=== PATIENT | female | born 1955 | race Two or more races ===

== ENCOUNTER 2018-04-22 17:59 | Inpatient (IN) | payer OTHER ==
[2018-04-22 20:06] VITALS: BMI 23.0
--- NOTE | 2018-04-22 21:29 | HP ---
CIWA Score - CIWA Score Nausea/Vomitin Muscle Tremors: 4-Moderate,w/Arms Extend Anxiety: 4-Mod. Anxious/Guarded Agitation: 2 Paroxysmal Sweats: No Perspiration Orientation: 2-Disoriented Date<2 days Tacttile Disturbances: 0-None Auditory Disturbances: 0-None Visual Disturbances: 0-None Headache: 2-Mild CIWA-Ar Total Score: 17 Admission ROS S - HPI Chief Complaint: Alcohol withdrawal symptoms Allergies/Adverse Reactions: Allergies Allergy/AdvReac Type Severity Reaction Status Date / Time No Known Allergies Allergy Verified 04/22/18 20:23 History of Present Illness: 62 years old female with a long history of alcohol dependence is seeking admission to detox. Patient states that she was in detox 15 years ago at [facility] and reports 12 months of sobriety. She has medical history of Hypertension, hyperlipidemia, CVA and depression. She denies suicide attempt and suicidal ideation at this time. Exam Limitations: No Limitations - Ebola screening Have you traveled outside of the country in the last 21 days: No (N) Have you had contact with anyone from an Ebola affected area: No Have you been sick,other than usual withdrawal symptoms: No Do you have a fever: No - Review of Systems Constitutional: Chills, Malaise, Night Sweats, Changes in sleep EENT: reports: Hearing Loss (both ears), Nose Congestion Respiratory: reports: No Symptoms reported Cardiac: reports: No Symptoms Reported GI: reports: Nausea, Poor Appetite, Poor Fluid Intake, Abdominal cramping : reports: No Symptoms Reported Musculoskeletal: reports: No Symptoms Reported Integumentary: reports: Dryness, Flushing Neuro: reports: Headache, Tremors Endocrine: reports: No Symptoms Reported Hematology: reports: No Symptoms Reported Psychiatric: reports: Mood/Affect Appropiate, Orientated x3, Anxious, Depressed Other Systems: Reviewed and Negative Patient History - Patient Medical History Hx Asthma: No Hx Chronic Obstructive Pulmonary Disease (COPD): No Hx Cancer: No Hx Cardiac Disorders: Yes (STROKE-2015) Hx Congestive Heart Failure: No Hx Hypertension: Yes (NIFEDIPINE) Hx Hypercholesterolemia: Yes HX Cerebrovascular Accident: Yes Hx Seizures: No Hx Diabetes: No Hx Gastrointestinal Disorders: No Hx Genitourinary Disorders: No Hx Sexually Transmitted Disorders: No Hx Renal Disease (ESRD): No Hx Depression: Yes (Not on medication) Hx Suicide Attempt: No (Denies suicide attempt and suicidal ideation at this time) Hx Schizophrenia: No - Patient Surgical History Past Surgical History: Yes Hx Neurologic Surgery: No Hx Cataract Extraction: No Hx Cardiac Surgery: Yes Hx Lung Surgery: No Hx Breast Surgery: No Hx Breast Biopsy: No Hx Abdominal Surgery: No Hx Appendectomy: No Hx Cholecystectomy: No Hx Genitourinary Surgery: No Hx Section: No Hx Orthopedic Surgery: No Anesthesia Reaction: No - PPD History Previous Implant?: Yes Documented Results: Negative w/proof Implanted On Prior [facility] Admission?: No PPD to be Administered?: Yes - Reproductive History Patient is a Female of Child Bearing Age (11 -55 yrs old): Yes LMP comment: Menopausal Patient : No - Smoking Cessation Smoking history: Current every day smoker Have you smoked in the past 12 months: Yes Aproximately how many cigarettes per day: 4 Hx Chewing Tobacco Use: No Initiated information on smoking cessation: Yes 'Breaking Loose' booklet given: 04/22/18 - Substance & Tx. History Hx Alcohol Use: Yes Hx Substance Use: Yes Substance Use Type: Cocaine Hx Substance Use Treatment: Yes ([facility] 15 years ago) - Substances Abused Alcohol Route: Oral Frequency: Daily Amount used: liqour- 1 pint, beer- 1 six pack Age of first use: 13 Date of Last Use: 04/22/18 Family Disease History - Family Disease History Family History: Denies Admission Physical Exam [facility] - Vital Signs Vital Signs: Vital Signs - 24 hr 04/22/18 20:05 Temperature 98.4 F Pulse Rate 68 Respiratory 20 Rate Blood Pressure 154/92 - Physical General Appearance: Yes: Moderate Distress, Tremorous, Irritable, Sweating, Anxious HEENTM: Yes: EOMI, Normal ENT Inspection, Normocephalic, MATEUS Respiratory: Yes: Lungs Clear, Normal Breath Sounds, No Respiratory Distress Neck: Yes: Supple Breast: Yes: Breast Exam Deferred Cardiology: Yes: Surgical Scar (chest from heart surgery) Abdominal: Yes: Soft Genitourinary: Yes: Within Normal Limits Back: Yes: Normal Inspection Musculoskeletal: Yes: full range of Motion Neurological: Yes: Alert, Normal Mood/Affect Integumentary: Yes: Warm Lymphatic: Yes: Within Normal Limits - Diagnostic (1) Alcohol dependence with uncomplicated withdrawal Current Visit: Yes Status: Chronic (2) HTN (hypertension) Current Visit: Yes Status: Chronic Qualifiers: Hypertension type: unspecified Qualified Code(s): I10 - Essential (primary ) hypertension (3) HLD (hyperlipidemia) Current Visit: Yes Status: Chronic (4) CVA (cerebral vascular accident) Current Visit: Yes Status: Chronic Qualifiers: Laterality of affected vessel: unspecified (5) Depression Current Visit: Yes Status: Chronic Cleared for Admission S - Detox or Rehab [facility] Level of Care: Medically Managed Detox Regimen/Protocol: Librium S Breath Alcohol Content Breath Alcohol Content: 0.047 Urine Pregancy Test - Result Urine Test Results: Negative- NO Line Present Urine Drug Screen - Results Drug Screen Negative: No Urine Drug Screen Results: RACHELLE-Cocaine
[2018-04-22] MEDS ORDERED: ACETAMINOPHEN 325 MG TABLET (FP) PO PRN (21:46)
[2018-04-22] MEDS ORDERED: MENTHOL/PHENOL 1 EACH UD MM PRN (21:46)
[2018-04-22] MEDS ORDERED: LOPERAMIDE HCL 2 MG CAPSULE PO PRN (21:46)
[2018-04-22] MEDS ORDERED: P-EPHED 60MG/TRIPROLIDI 2.5MG TABLET PO PRN (21:46)
[2018-04-22] MEDS ORDERED: MAGNESIUM HYDROX 2400MG/30ML ORAL SUSPENSION 30 ML CUP PO PRN (21:46)
[2018-04-22] MEDS ORDERED: chlordiazePOXIDE HCL 25 MG CAPSULE PO PRN (21:46)
[2018-04-22] MEDS ORDERED: guaiFENesin/D-METHORPHAN HB 10 ML UNIT-DOSE CUPS PO PRN (21:46)
[2018-04-22] MEDS ORDERED: IBUPROFEN 400 MG TABLET (FP) PO PRN (21:46)
[2018-04-22] MEDS ORDERED: NICOTINE POLACRILEX 2 MG GUM BC PRN (21:46)
[2018-04-22] MEDS ORDERED: MAG HYDROX/AL HYDROX/SIMETH 30 ML UNIT-DOSE CUP PO PRN (21:46)
[2018-04-22] MEDS ORDERED: MAGNESIUM CITRATE 300 ML BOTTLE PO PRN (21:46)
[2018-04-22] MEDS ORDERED: THIAMINE HCL 100 MG TABLET (FP) PO SCH (22:00)
[2018-04-22] MEDS ORDERED: MELATONIN 5 MG TABLETS PO PRN (22:00)
[2018-04-22] MEDS: chlordiazePOXIDE HCL 25 MG CAPSULE PO SCH (23:40)
[2018-04-23] MEDS: chlordiazePOXIDE HCL 25 MG CAPSULE PO SCH ×2 (06:20→10:50)
--- NOTE | 2018-04-23 09:09 | CONSULT ---
[facility] Psychiatric Consult - Data Date of interview: 04/23/18 Admission source: [facility] Identifying data: This is a 62 years old female, single, living alone on [place], with no psychiatric hospitalization history, with a long history of alcohol and nicotine dependence is reporting Alcohol withdrawal symptoms and seeking admission to detox. Patient states that she was in detox 15 years ago at [facility] and reports 12 months of sobriety. She has medical history of Hypertension, hyperlipidemia, CVA and depression. She denies suicide attempt and suicidal ideation at this time. Substance Abuse History: - Smoking Cessation. Smoking history: Current every day smoker. Have you smoked in the past 12 months: Yes. Aproximately how many cigarettes per day: 4. Hx Chewing Tobacco Use: No. Initiated information on smoking cessation: Yes. 'Breaking Loose' booklet given: 04/22/18. - Substance & Tx. History. Hx Alcohol Use: Yes. Hx Substance Use: Yes. Substance Use Type : Cocaine. Hx Substance Use Treatment: Yes ([facility] 15 years ago). - Substances Abused. Alcohol. Route: Oral. Frequency: Daily. Amount used: liqour- 1 pint, beer- 1 six pack. Age of first use: 13. Date of Last Use: 04/22/18 Medical History: She has medical history of Hypertension, hyperlipidemia, CVA. She denies suicidal attempts and suicidal ideation history. Psychiatric History: Patient reports history of depression, no suicidal, homicidal history, no psychiatric medications taking prior to admission. Physical/Sexual Abuse/Trauma History: Denies Additional Comment: Observation. Detox Unit Care Protocol Mental Status Exam - Mental Status Exam Alert and Oriented to: Person Cognitive Function: Fair Patient Appearance: Unkempt Mood: Sad Affect: Flat Patient Behavior: Cooperative Speech Pattern: Appropriate Voice Loudness: Mildly Soft/Quiet Thought Process: Goal Oriented Thought Disorder: Being Controlled Hallucinations: Denies Suicidal Ideation: Denies Homicidal Ideation: Denies Insight/Judgement: Fair Sleep: Difficulty falling asleep Appetite: Fair Muscle strength/Tone: Mild Hypotonicity Gait/Station: Shuffling Additional Comments: Observation. Detox Unit Care Protocol Psychiatric Findings - Problem List (Orient 1, 2,3) (1) Alcohol-induced mood disorder Current Visit: Yes Status: Acute (2) Alcohol dependence with uncomplicated withdrawal Current Visit: Yes Status: Chronic (3) CVA (cerebral vascular accident) Current Visit: Yes Status: Chronic Qualifiers: Laterality of affected vessel: unspecified (4) HLD (hyperlipidemia) Current Visit: Yes Status: Chronic (5) HTN (hypertension) Current Visit: Yes Status: Chronic Qualifiers: Hypertension type: unspecified Qualified Code(s): I10 - Essential (primary ) hypertension - Initial Treatment Plan Initial Treatment Plan: Observation. Detox Unit Care Protocol
[2018-04-23] MEDS ORDERED: PRENATAL VITAMINS W/ FOLIC ACID TABLET (FP) PO SCH (10:00)
[2018-04-23] MEDS ORDERED: NIFEdipine E.R. 30 MG TABLET (FP) PO SCH (10:00)
[2018-04-23] MEDS ORDERED: NICOTINE 14 MG/24 HOURS TOPICAL PATCH TD SCH (10:00)
--- NOTE | 2018-04-23 10:02 | EKG ---
Test Reason : Blood Pressure : / mmHG Vent. Rate : 066 BPM Atrial Rate : 066 BPM P-R Int : 118 ms QRS Dur : 082 ms QT Int : 396 ms P-R-T Axes : 070 054 218 degrees QTc Int : 415 ms NORMAL SINUS RHYTHM POSSIBLE LEFT ATRIAL ENLARGEMENT LEFT VENTRICULAR HYPERTROPHY WITH REPOLARIZATION ABNORMALITY ABNORMAL ECG WHEN COMPARED WITH ECG OF 03-APR-2018 17:34, T WAVE VARIATION Confirmed by ALEXANDER MANLEY, TAMIKA ([id number]) on 04/23/2018 10:01:54 AM Referred By: Confirmed By:TAMIKA MUNOZ MD
[2018-04-23 10:35] LABS: HEMATOCRIT 40.1 % (32.4-45.2); HEMOGLOBIN 13.1 GM/dL (10.7-15.3); MCH 28.8 pg (25.7-33.7); MCHC 32.7 g/dl (32.0-36.0); MEAN CELL VOLUME 87.9 fl (80-96); MEAN PLT VOLUME 9.7 fl (7.5-11.1); PLATELET COUNT 252 K/MM3 (134-434); RBC 4.56 M/mm3 (3.60-5.2); RDW 14.2 % (11.6-15.6); WHITE BLOOD COUNT 5.7 K/mm3 (4.0-10.0)
[2018-04-23 11:08] LABS: CHLORIDE 105 mmol/L (98-107); POTASSIUM 3.9 mmol/L (3.5-5.1); SODIUM 143 mmol/L (136-145)
[2018-04-23 11:51] LABS: BLOOD UREA NITROGEN 30 mg/dL (7-18); CREATININE 1.3 mg/dL (0.55-1.3); GLUCOSE,RANDOM 80 mg/dL (74-106)
[2018-04-23 11:52] LABS: ALBUMIN 3.8 g/dl (3.4-5.0); ALK PHOS 86 U/L (45-117); ANION GAP 12 MMOL/L (8-16); BILIRUBIN,TOTAL 0.3 mg/dL (0.2-1.0); CO2 26 mmol/L (21-32); SGOT/AST 18 U/L (15-37); SGPT/ALT 16 U/L (13-61); TOT PROT 7.5 g/dl (6.4-8.2)
[2018-04-23 13:04] VITALS: BP 145/87; PULSE 79; TEMP 98.1
--- NOTE | 2018-04-23 16:28 | DS ---
[facility] Detox Discharge Summary Admission Date: 04/22/18 Discharge Date: 04/23/18 - History Present History: Alcohol Dependence Additional Comments: 62 years old female admitted on 04/22/18 for alcohol withdrawal sx insists to leave the detox unit today no apparent reason alert oriented x 3 no acute distress denies suicida denies homocidal no self destructive behavior health teaching on alcohol related renal complication Pertinent Past History: strong recommend the patient to attend community self help groups and meeting - Physical Exam Results Vital Signs: Vital Signs Temperature 98.1 F 04/23/18 13:03 Pulse Rate 79 04/23/18 13:03 Respiratory Rate 18 04/23/18 13:03 Blood Pressure 145/87 04/23/18 13:03 O2 Sat by Pulse Oximetry (%) Pertinent Admission Physical Exam Findings: alcohol wtihdrawal sx Vital Signs Temperature 98.1 F 04/23/18 13:03 Pulse Rate 79 04/23/18 13:03 Respiratory Rate 18 04/23/18 13:03 Blood Pressure 145/87 04/23/18 13:03 O2 Sat by Pulse Oximetry (%) Laboratory Last Values WBC 5.7 K/mm3 (4.0-10.0) 04/23/18 08:00 RBC 4.56 M/mm3 (3.60-5.2) 04/23/18 08:00 Hgb 13.1 GM/dL (10.7-15.3) 04/23/18 08:00 Hct 40.1 % (32.4-45.2) 04/23/18 08:00 MCV 87.9 fl (80-96) 04/23/18 08:00 MCH 28.8 pg (25.7-33.7) 04/23/18 08:00 MCHC 32.7 g/dl (32.0-36.0) 04/23/18 08:00 RDW 14.2 % (11.6-15.6) 04/23/18 08:00 Plt Count 252 K/MM3 (134-434) 04/23/18 08:00 MPV 9.7 fl (7.5-11.1) 04/23/18 08:00 Sodium 143 mmol/L (136-145) 04/23/18 08:00 Potassium 3.9 mmol/L (3.5-5.1) 04/23/18 08:00 Chloride 105 mmol/L (98-107) 04/23/18 08:00 Carbon Dioxide 26 mmol/L (21-32) 04/23/18 08:00 Anion Gap 12 MMOL/L (8-16) 04/23/18 08:00 BUN 30 mg/dL (7-18) H 04/23/18 08:00 Creatinine 1.3 mg/dL (0.55-1.3) 04/23/18 08:00 Creat Clearance w eGFR 41.64 (>60) 04/23/18 08:00 Random Glucose 80 mg/dL (74-106) 04/23/18 08:00 Calcium 9.0 mg/dL (8.5-10.1) 04/23/18 08:00 Total Bilirubin 0.3 mg/dL (0.2-1.0) 04/23/18 08:00 AST 18 U/L (15-37) 04/23/18 08:00 ALT 16 U/L (13-61) 04/23/18 08:00 Alkaline Phosphatase 86 U/L (45-117) 04/23/18 08:00 Total Protein 7.5 g/dl (6.4-8.2) 04/23/18 08:00 Albumin 3.8 g/dl (3.4-5.0) 04/23/18 08:00 RPR Titer Nonreactive (NONREACTIVE) 04/23/18 08:00 lab noted - Treatment Hospital Course: Detox Protocol Followed, Responded well Patient has Accepted a Rehab Referral to: as per conselor arrange - Medication Discharge Medications: Ambulatory Orders Nifedipine [Nifedipine ER] 60 mg PO DAILY 04/22/18 - Diagnosis (1) Alcohol dependence with uncomplicated withdrawal Status: Acute (2) HLD (hyperlipidemia) Status: Chronic Qualifiers: Hyperlipidemia type: pure hypercholesterolemia Qualified Code(s): E78.00 - Pure hypercholesterolemia, unspecified; E78.0 - Pure hypercholesterolemia (3) HTN (hypertension) Status: Chronic Qualifiers: Hypertension type: essential hypertension Qualified Code(s): I10 - Essential (primary) hypertension - AMA Did Patient Leave Against Medical Advice: Yes
[2018-04-23] MEDS ORDERED: chlordiazePOXIDE HCL 25 MG CAPSULE PO SCH (23:00)
[2018-04-24] MEDS ORDERED: chlordiazePOXIDE 5 MG CAPSULE PO SCH (23:00)
[2018-04-25] MEDS ORDERED: chlordiazePOXIDE HCL 10 MG CAPSULE PO SCH (23:00)
== END 2018-04-23 13:15 | disposition left against medical advice (07) | DRG 770 ==
LOC: YASAS 17:59 → Y6N 21:01
PROC: HZ2ZZZZ Detoxification Services for Substance Abuse Treatment (ICD-10-PCS; principal; 2018-04-22)
DX: F10.230 Alcohol dependence with withdrawal, uncomplicated (principal); F10.24 Alcohol dependence with alcohol-induced mood disorder; F32.9 Major depressive disorder, single episode, unspecified; I10 Essential (primary) hypertension; E78.00 Pure hypercholesterolemia, unspecified; Z86.73 Personal history of transient ischemic attack (TIA), and cerebral infarction without residual deficits
CPT/HCPCS: 36415; 80053; 85027; 86593; 93005; 93010

== ENCOUNTER 2018-06-04 15:50 | Observation (INO) | payer OTHER ==
[2018-06-04 16:13] VITALS: BMI 29.2
--- NOTE | 2018-06-04 16:43 | PDOC ---
Attending Attestation - HPI HPI: 06/04/18 16:50 62 year old female with past medical history of CAD s/p CABG, CVA, TX, early onset mild dementia, cocaine abuse who presents to the ED with complaints of left sided, 10/10 throbbing, non-radiating chest pain that began this afternoon. Reports associated cough and mild SOB. As per sister, patient was fine until she at three consecutive hotdogs for lunch when the pain began. Denies any fevers, chills, NVD, or urinary complaints. - Medical Decision Making 06/04/18 16:50 Documentation prepared by Johana Joseph, acting as medical radiation tech for Isela Lao MD. <Johana Joseph - Last Filed: 06/04/18 16:50> - Resident Resident Name: Martita Thompson - ED Attending Attestation I have performed the following: I have examined & evaluated the patient, The case was reviewed & discussed with the resident, I agree w/resident's findings & plan, Exceptions are as noted - Physicial Exam PE: 06/04/18 22:56 awake alert NaD lungs clear bilaterally heart rrr no mrg abd soft nt nd. ext wwp no edema. nuero alert oreinted x 3. skin warm and dry. - Medical Decision Making 06/04/18 16:41 62 yo h/o ich, dementia, cabg, cad here with c/o chest pain. diffferential: infection such as pna, msk pain, cad effusion, reflux, or gi causes. plan cxr labs ekg troponin, will give asa. robbie will need admission to observation to r /o acs. 06/04/18 22:57 pt utox positive for cocaine. she stated she hasnt used in last few weeks. will admit tele obs, to negative thus far. except positive utox. <Isela Lao - Last Filed: 06/04/18 22:58>
[2018-06-04] MEDS ORDERED: ASPIRIN 81 MG CHEWABLE TABLETS PO ONE (16:47)
--- NOTE | 2018-06-04 17:01 | PDOC ---
History of Present Illness - General Chief Complaint: Chest Pain Stated Complaint: CHEST PAIN Time Seen by Provider: 06/04/18 16:11 - History of Present Illness Initial Comments: Ashlyn Peterson is a 62yo woman with a PMH of CAD s/p CABG, CVA, HTN, current smoking, crack cocaine use. Her sister also reports a recent "small head bleed" and mild dementia. Ms Peterson reports chest pain for two days along with cough , though she is a poor historian. She reports that her cough and pain started 2 days ago, and she was well prior to that. She describes the pain as mid-sternal and left-sided chest pain, "throbbing" in nature, non-radiating, and constant though worse with coughing. Her cough has been non-productive. She denies any associated nausea/vomiting, diaphoresis, or SOB. She has not checked her temperature at home but has not felt febrile or had chills. Ms Peterson was unable to give any additional information, but her sister called to provide more of her medical history. In addition to reporting the recent head bleed and dementia, she gives additional information about the recent illness. The sister reports that she lives with the patient. Up until today, she has had a cough and sneezing but has not complained of chest pain. She started mentioning the chest pain immediately after eating 3 hot dogs at home. She has otherwise had no recent complaints. Past History - Past Medical History Allergies/Adverse Reactions: Allergies Allergy/AdvReac Type Severity Reaction Status Date / Time No Known Allergies Allergy Verified 04/22/18 20:23 Home Medications: Ambulatory Orders Nifedipine [Nifedipine ER] 60 mg PO DAILY 04/22/18 Asthma: No Cancer: No Cardiac Disorders: Yes (STROKE-2015) CVA: Yes COPD: No CHF: No Diabetes: No GI Disorders: No Disorders: No HTN: Yes (NIFEDIPINE) Hypercholesterolemia: Yes Kidney Stones: No Seizures: No - Surgical History Abdominal Surgery: No Appendectomy: No Cardiac Surgery: Yes Cholecystectomy: No Lung Surgery: No Neurologic Surgery: No Orthopedic Surgery: No - Suicide/Smoking/Psychosocial Hx Smoking History: Current every day smoker Have you smoked in the past 12 months: Yes Number of Cigarettes Smoked Daily: 20 Information on smoking cessation initiated: No 'Breaking Loose' booklet given: 04/22/18 Hx Alcohol Use: Yes Drug/Substance Use Hx: Yes (crack) Substance Use Type: Alcohol, Cocaine Hx Substance Use Treatment: Yes ([facility] 15 years ago) Review of Systems - Review of Systems Comments:: General: No fevers, no chills, no weight or appetite change, no malaise HEENT: No changes in vision, no changes in hearing, no congestion, no sore throat CV: No palpitations, no LE edema. See HPI Pulm: No SOB, no wheezing. +Cough GI: No nausea or vomiting, no change in bowel habits, no melena : No frequency, no urgency, no dysuria Musc: No back pain, no joint swelling, no recent injury Skin: No rash, no lesions, no erythema Endo: No excessive thirst, no heat/cold intolerance Heme: No unusual bruising or bleeding, no swollen glands Neuro: No syncope, no numbness/tingling, no focal weakness Vasc: No claudication Psych: No recent change in mood, no SI or HI. +h/o drug use *Physical Exam - Vital Signs Last Vital Signs Temp Pulse Resp BP Pulse Ox 97.5 F L 60 16 148/92 100 06/04/18 16:02 06/04/18 16:02 06/04/18 16:02 06/04/18 16:02 06/04/18 16:02 - Physical Exam Comments: General: Comfortable, no acute distress, malodorous HEENT: PERRL, EOMI, MMM, voice normal Cards: RRR, no murmur appreciated Pulm: Comfortable on room air, clear to auscultation bilaterally though poor respiratory effort Chest: Sternum and left anterior chest wall TTP Abd: Soft, nontender, nondistended Ext: Atraumatic. No LE edema. ROM intact. Strength 5/5 and equal bilaterally Vasc: Extremities WWP. Skin: Normal color, no rashes or lesions Neuro: Alert, CN grossly intact, normal speech, motor/sensory grossly intact and symmetric Psych: Mood appropriate to situation Heart Score/ECG Review - History History: Slightly suspicious - Electrocardiogram EKG: Non specific repolarization disturbance - Age Age: 45-65 - Risk Factors Risk Factors Heart Score: Yes Hx Hypertension, Yes Smoking History, Yes Positive family hx of cardiac disease Based on the list above the patient has:: >/=3 risk factors or Hx atherosclerotic disease - Troponin Troponin: </= normal limit - Score Heart Score - Total: 4 - ECG Intrepretation Rhythm: Regular Rhythm ED Treatment Course - LABORATORY CBC & Chemistry Diagram: 06/04/18 17:39 06/04/18 18:33 - RADIOLOGY Radiology Studies Ordered: Category Date Time Status CHEST PA & LAT [RAD] Stat Radiology 06/04/18 16:31 Ordered Medical Decision Making - Medical Decision Making 06/04/18 17:09 Ashlyn Peterson is a 62yo woman with a PMH of CAD s/p CABG, HTN, CVA, cocaine use, current smoking, mild dementia, possible recent intracranial hemorrhage who presents complaining of reproducible mid-sternal and left chest pain along with cough for 2 days. - High risk of ACS given comorbidities, though story is not very suggestive of ACS currently. EKG, trop to rule out - More likely pneumonia v costochondritis or GERD causing pain - CXR, CBC, CMP to check for infection, electrolyte abnormalities, focal consolidation - UA and urine tox given history of cocaine use 06/04/18 17:36 - EKG reviewed. Sinus, slightly bradycardic, t-wave abnormalities. Appears unchanged from previous EKG on 04/24. No acute changes. 06/04/18 19:29 - CBC and CMP without concerning abnormalities. Cr elevated but at baseline. - UA negative for UTI - Urine tox positive for cocaine - CXR without focal abnormalities. Sternal wires c/w previous CABG in place - Will likely need telemetry obs admission for ACS rule out 06/04/18 20:12 - Discussed negative workup with patient. She would like to stay for observation - Continued reproducible sternal pain. GERD cocktail ordered, will reassess - Text sent to hospitalist team for admission. Seen and discussed with Dr Lao. Martita Thompson PGY1 *DC/Admit/Observation/Transfer Diagnosis at time of Disposition: Chest pain - Discharge Dispostion Condition at time of disposition: Stable Decision to Admit order: Yes - Referrals - Patient Instructions - Post Discharge Activity
[2018-06-04] MEDS ORDERED: ASPIRIN 81 MG CHEWABLE TABLETS ONE (17:41)
[2018-06-04 17:54] LABS: BASO % 0.7 % (0-2.0); EOS % 0.8 % (0-4.5); HEMATOCRIT 41.2 % (32.4-45.2); HEMOGLOBIN 13.4 GM/dL (10.7-15.3); LYMPH % 15.9 % (8-40); MCH 29.2 pg (25.7-33.7); MCHC 32.5 g/dl (32.0-36.0); MEAN CELL VOLUME 89.7 fl (80-96); MEAN PLT VOLUME 8.8 fl (7.5-11.1); MONO % 5.4 % (3.8-10.2); NEUT % 77.2 % (42.8-82.8); PLATELET COUNT 310 K/MM3 (134-434); RBC 4.59 M/mm3 (3.60-5.2); RDW 14.8 % (11.6-15.6); WHITE BLOOD COUNT 6.8 K/mm3 (4.0-10.0)
[2018-06-04 18:17] LABS: URINE APPEARANCE CLEAR; URINE BILIRUBIN NEGATIVE (<2.0 mg/dL); URINE COLOR YELLOW; URINE GLUCOSE (UA) NEGATIVE (NEGATIVE); URINE KETONE NEGATIVE (NEGATIVE); URINE LEUK ESTERASE TRACE (NEGATIVE); URINE NITRITE NEGATIVE (NEGATIVE); URINE PROTEIN 1+ (NEGATIVE)
[2018-06-04 18:21] LABS: EPI CELLS FEW /HPF (FEW); URINE MUCUS RARE
[2018-06-04 18:46] LABS: METHADONE, UR NEGATIVE ng/ml (CUTOFF=300); OPIATES, URI NEGATIVE ng/ml (CUTOFF=300); PHENCYCLIDINE,URINE NEGATIVE ng/ml (CUTOFF=25); URINE AMPHETAMINES NEGATIVE ng/ml (CUTOFF=500); URINE BARBITURATES NEGATIVE ng/ml (CUTOFF=200); URINE BENZODIAZEPINES NEGATIVE ng/ml (CUTOFF=200)
[2018-06-04 18:47] LABS: COCAINE, UR POSITIVE ng/ml (CUTOFF=300)
[2018-06-04 19:12] LABS: ALBUMIN 3.6 g/dl (3.4-5.0); ALK PHOS 91 U/L (45-117); ANION GAP 8 MMOL/L (8-16); BILIRUBIN,TOTAL 0.3 mg/dL (0.2-1); BLOOD UREA NITROGEN 24 mg/dL (7-18); CALCIUM 8.3 mg/dL (8.5-10.1); CHLORIDE 110 mmol/L (98-107); CO2 26 mmol/L (21-32); CREATININE 1.5 mg/dL (0.55-1.3); GLUCOSE,RANDOM 109 mg/dL (74-106); POTASSIUM 4.1 mmol/L (3.5-5.1); SGOT/AST 19 U/L (15-37); SGPT/ALT 15 U/L (13-61); SODIUM 144 mmol/L (136-145); TOT PROT 7.1 g/dl (6.4-8.2)
--- NOTE | 2018-06-04 23:47 | HP ---
CHIEF COMPLAINT: chest pain PCP: HISTORY OF PRESENT ILLNESS: Patient is a 62 year old female with history of CAD s/p CABG, hemorrhagic CVA, presents with complaint of chest pain for the past two days. States that she has been xoughing (nonproductive) for two days, and the chest pain is exacerbated with cough. Pain is described as sharp and throbbing, localized to left upper chest, and is nonradiaiting. Denies sick contacts. She has not received flu vaccine. Patient is unsure of her cardiac history stating that she "does not remember anything". Denies fevers, chills, shortness of breath, palpitations, abdominal pain, nausea, vomiting, diarrhea, loss of conciousness. ER course was notable for: (1) EKG: sinus bradycardia at 57bpm. Troponin 0.02 (2) Chest pain, reproducible upon palpation. (3) History crack cocaine use, positive in [place]. Recent Travel: denies PAST MEDICAL HISTORY: CAD s/p CABG, hemorrhagic CVA, PAST SURGICAL HISTORY: CABG approx. 2 years ago Social History: Smoking: admits one pack per day, for 20 years Alcohol: admits socially one cup "once in a while". Does not quantify. Drugs: Admits smoking crack cocaine for past 30 years. Admits attempts to quit, and prior visits to rehab, which were unsuccessful. Last used 2-3 days ago. Family History: Mother: Unknown pelvic cancer, at 46 y/o Allergies No Known Allergies Allergy (Verified 04/22/18 20:23) HOME MEDICATIONS: Home Medications Medication Instructions Recorded Nifedipine [Nifedipine ER] 60 mg PO DAILY 04/22/18 REVIEW OF SYSTEMS As per HPI PHYSICAL EXAMINATION Vital Signs - 24 hr 06/04/18 06/04/18 06/04/18 15:50 16:02 20:00 Temperature 97.5 F L Pulse Rate 60 Pulse Rate [ 62 Left Radial] Respiratory 16 18 Rate Blood Pressure 148/92 Blood Pressure 142/76 [Right Arm] O2 Sat by Pulse 97 100 98 Oximetry (%) GENERAL: Awake, alert, and fully oriented, in no acute distress. HEAD: Normal with no signs of trauma. EYES: Pupils equal, round and reactive to light, extraocular movements intact, sclera anicteric, conjunctiva clear. No lid lag. EARS, NOSE, THROAT: Ears normal, nares patent, oropharynx clear without exudates. Moist mucous membranes. NECK: Normal range of motion, supple without lymphadenopathy, JVD, or masses. LUNGS: Breath sounds equal, clear to auscultation bilaterally. No wheezes, and no crackles. No accessory muscle use. HEART: Regular rate and rhythm, normal S1 and S2 without murmur, rub or gallop. CHEST: Chest pain reproducible upon palpation of left upper chest. ABDOMEN: Soft, nontender, not distended, normoactive bowel sounds, no guarding, no rebound, no masses. No hepatomegaly or splenomegaly. MUSCULOSKELETAL: Normal range of motion at all joints. No bony deformities or tenderness. UPPER EXTREMITIES: 2+ radial pulses b/l. warm, well-perfused. LOWER EXTREMITIES: 2+ dorsalis pedis pulses b/l, warm, well-perfused. No calf tenderness. No peripheral edema b/l. NEUROLOGICAL: Cranial nerves II-XII intact. Normal speech. Strength 5/5 b/l upper and lower extremities. No gross focal deficits. PSYCHIATRIC: Cooperative. Appropriate mood and affect upon my encounter. SKIN: Warm, dry. Laboratory Results - last 24 hr 06/04/18 06/04/18 06/04/18 16:55 16:55 17:39 WBC 6.8 RBC 4.59 Hgb 13.4 Hct 41.2 MCV 89.7 MCH 29.2 MCHC 32.5 RDW 14.8 Plt Count 310 D MPV 8.8 Absolute Neuts (auto) 5.2 Neutrophils % 77.2 Lymphocytes % 15.9 D Monocytes % 5.4 Eosinophils % 0.8 Basophils % 0.7 Nucleated RBC % 0 Sodium Potassium Chloride Carbon Dioxide Anion Gap BUN Creatinine Creat Clearance w eGFR Random Glucose Calcium Total Bilirubin AST ALT Alkaline Phosphatase Troponin I Total Protein Albumin Urine Color Yellow Urine Appearance Clear Urine pH 5.0 Ur Specific Mcdougal 1.024 Urine Protein 1+ H Urine Glucose (UA) Negative Urine Ketones Negative Urine Blood Negative Urine Nitrite Negative Urine Bilirubin Negative Urine Urobilinogen 2.0 H Ur Leukocyte Esterase Trace Urine WBC (Auto) 1 Urine RBC (Auto) 3 Ur Epithelial Cells Few Urine Mucus Rare Opiates Screen Negative Methadone Screen Negative Barbiturate Screen Negative Phencyclidine Screen Negative Ur Amphetamines Screen Negative MDMA (Ecstasy) Screen Negative Benzodiazepines Screen Negative Cocaine Screen Positive A* U Marijuana (THC) Screen Negative 10/29/18 10/29/18 17:39 18:33 WBC RBC Hgb Hct MCV MCH MCHC RDW Plt Count MPV Absolute Neuts (auto) Neutrophils % Lymphocytes % Monocytes % Eosinophils % Basophils % Nucleated RBC % Sodium Cancelled 144 Potassium Cancelled 4.1 Chloride Cancelled 110 H Carbon Dioxide Cancelled 26 Anion Gap Cancelled 8 BUN Cancelled 24 H Creatinine Cancelled 1.5 H Creat Clearance w eGFR Cancelled 35.30 Random Glucose Cancelled 109 H Calcium Cancelled 8.3 L Total Bilirubin Cancelled 0.3 AST Cancelled 19 ALT Cancelled 15 Alkaline Phosphatase Cancelled 91 Troponin I Cancelled < 0.02 Total Protein Cancelled 7.1 Albumin Cancelled 3.6 Urine Color Urine Appearance Urine pH Ur Specific Mcdougal Urine Protein Urine Glucose (UA) Urine Ketones Urine Blood Urine Nitrite Urine Bilirubin Urine Urobilinogen Ur Leukocyte Esterase Urine WBC (Auto) Urine RBC (Auto) Ur Epithelial Cells Urine Mucus Opiates Screen Methadone Screen Barbiturate Screen Phencyclidine Screen Ur Amphetamines Screen MDMA (Ecstasy) Screen Benzodiazepines Screen Cocaine Screen U Marijuana (THC) Screen ASSESSMENT/PLAN: Patient is a 62 year old female with history of CAD s/p CABG, hemorrhagic CVA, presents with complaint of chest pain for the past two days. Chest pain, atypical -EKG shows sinus bradycardia at 57 bpm. -Troponin 0.02. Will trend. -Pain reproducible upon palpation of left upper chest. -F/U cardiac ECHO -F/U cardiology consult (Dr. Coates) -Will attempt to obtain cardiac records from prior hospitalizations Cocaine use -Positive for Cocaine on urine toxicology -Patient endorses last use 2-3 days ago -F/U legal service specialist consult (Dr. aBrrera) -Fall precautions Cough, possible COPD -Patient complains of 2 day history cough, exacerbating chest pain -Flattened diaphragm noted upon CXR. Extensive history of cigarette smoking -Begin Duo-nebs Q6H Hypertension -Patient states she takes Nifedipine 10mg daily at home, however questionable compliance -Begin Amlodipine 5mg PO daily Hyperlipidemia -Atorvastatin 40mg PO daily Chronic kidney disease -May be secondary to poorly controlled hypertension. -Patient will require outpatient follow up FEN -No IV fluids -Follow CMP -NPO Prophylaxis -SCDs and TEDs b/l lower extremities Disposition -Continue observation in telemetry. Visit type - Emergency Visit Emergency Visit: Yes ED Registration Date: 06/05/18 Care time: The patient presented to the Emergency Department on the above date and was hospitalized for further evaluation of their emergent condition. - New Patient This patient is new to me today: Yes Date on this admission: 06/05/18 - Critical Care Critical Care patient: No
--- NOTE | 2018-06-05 00:02 | PN ---
Teaching Attending Note Name of Resident: Liz Ge ATTENDING PHYSICIAN STATEMENT I saw and evaluated the patient. I reviewed the resident's note and discussed the case with the resident. I agree with the resident's findings and plan as documented. SUBJECTIVE: Patient is a 62 y/o AAF who presents to the ER with CP. Full history per resident note, but in summation she had a PMH significant for CAD s/p CABG ( unknown vessels, unknown cath, unknown stress test dates; she doesn't know her CV and seems unsure about what hospital everything was done at). She also has a documented h/o substance abuse and currently is an active crack cocaine user. She was recently seen here for an ICH (2cm bleed in the L frontal lobe resulting in transfer to [facility]); reviewing her chart shows likely CKD and uncontrolled HTN complicated by noncompliance. Today she has reproducible 10/ 10 chest pain radiating throughout the L-side of her chest, not made better or worse with anything. She has been having a cough; no WBC count, no fever, no infiltrates. Used cocaine <3 days ago. Admit to r/o ACS to telemetry. 10 sys ROS done and negative aside from HPI PMH: Obtaining old records, but as documented PSH: CABG Social: 1PPD smoker, current crack cocaine abuser FH asked and noncontributory OBJECTIVE: VSS, labs and imaging reviewed NAD, AAOx3, resting comfortably in bed Scattered mild wheezes with sym expansion and prolonged expiratory phase NT ND +BS RRR s1/2 no mgr Trachea is midline with no JVD Poor insight, has competency, strange affect, appropriate behavior ASSESSMENT AND PLAN: Mrs. Peterson is a 62 y/o AAF with a complex PMH presenting with atypical chest pain in the setting of prior cocaine use; she is high risk for CAD. 1) Atypical Chest Pain, R/O ACS -CP is reproducible and associated with coughing, however she does have a hx of CAD and multiple risk factors. Will obtain old records to see when the CABG was , old cath reports, etc. Ddx includes costochondritis vs. cocaine induced CP vs. ACS -Monitor on tele, trend troponin. Given prior history will consult cardiology -Advised risk factor reduction -If she does have a need for anticoagulation will need to discuss with nsgy given the recent brain bleed. Will hold off on ASA for now. 2) Recent ICH -Hold off on anticoag including ASA; obtain records from [facility] 3) CAD -Continue her on BB, Statin. Hold ASA. -Per CV. 4) Cocaine Abuse -Counseled regarding cessasion; seems precontemplative -Consult social work 5) Likely CKD -Cr has been this high in the past and appears to be her baseline; likely represents CKD due to uncontrolled HTN. There is proteinuria on UA noted. -Followup closely with PCP 6) Uncontrolled HTN -DC on JNC8 approprate home meds 7) Noncompliance 8) Psychiatric history 9) Likely COPD -Flattened diaphragm with 1PPD smoking history for years; nebs while inpatient as this could contribute to her coughs. No christina exacerbation satting 100% on RA. DC on short and long acting inhalers, referral to pulmonary and for PFTs. DVT px SCDs GI px not needed Full Code Consults: Cardiology
[2018-06-05] MEDS ORDERED: HEPARIN NA (PORCINE) 5,000 UNITS/ML 1ML VIAL SQ SCH (00:15)
[2018-06-05] MEDS ORDERED: SODIUM CHLORIDE 1,000 ML IV SCH (00:15)
[2018-06-05 03:39] LABS: CHOLESTEROL 184 mg/dL (50-200); HDL CHOLESTEROL 98 mg/dL (40-60); TRIGLYCERIDES 70 mg/dL (0-150)
[2018-06-05 05:55] LABS: ALBUMIN 3.5 g/dl (3.4-5.0); ALK PHOS 84 U/L (45-117); ANION GAP 4 MMOL/L (8-16); BILIRUBIN,TOTAL 0.2 mg/dL (0.2-1); BLOOD UREA NITROGEN 30 mg/dL (7-18); CALCIUM 8.4 mg/dL (8.5-10.1); CHLORIDE 108 mmol/L (98-107); CO2 28 mmol/L (21-32); CREATININE 1.4 mg/dL (0.55-1.3); GLUCOSE,RANDOM 89 mg/dL (74-106); MAGNESIUM 2.3 mg/dL (1.8-2.4); PHOSPHOROUS 3.5 mg/dL (2.5-4.9); POTASSIUM 4.4 mmol/L (3.5-5.1); SGOT/AST 15 U/L (15-37); SGPT/ALT 13 U/L (13-61); SODIUM 140 mmol/L (136-145)
[2018-06-05 05:58] LABS: HEMATOCRIT 37.7 % (32.4-45.2); HEMOGLOBIN 12.3 GM/dL (10.7-15.3); MCH 29.1 pg (25.7-33.7); MCHC 32.6 g/dl (32.0-36.0); MEAN CELL VOLUME 89.1 fl (80-96); PLATELET COUNT 267 K/MM3 (134-434); RBC 4.23 M/mm3 (3.60-5.2); RDW 14.5 % (11.6-15.6)
[2018-06-05] MEDS: ALBUTEROL SO4 2.5/IPRATROPIUM 0.5 INH SOL 3 ML VIAL.NEB. NEB SCH ×3 (07:59→15:52)
[2018-06-05] MEDS ORDERED: amLODIPine BESYLATE 5 MG TABLET (FP) PO SCH (10:00)
--- NOTE | 2018-06-05 10:09 | PN ---
Progress Note (short form) - Note Progress Note: Chief Complaint: Events noted, notes reviewed, chest pain syndrome, chest wall tenderness, known history of CAD post CABG 1 vessel [facility]AD History of Present Illness: Seen and examined on telemetry. Full consult dictated - Current Medication List Current Medications Albuterol/Ipratropium (Duoneb -) 1 amp NEB RQID [facility] Last Admin: 06/05/18 07:59 Dose: 1 amp Amlodipine Besylate (Norvasc -) 5 mg PO DAILY [facility] Last Admin: 06/05/18 09:56 Dose: 5 mg Atorvastatin Calcium (Lipitor -) 40 mg PO [facility] Lidocaine/Aluminum/Magnesium/Simeth (Magic Mouthwash *Sjr Formula* -) 5 ml MM NOW ONE Stop: 06/05/18 20:09 - Review of Systems Cardiovascular: As noted above Respiratory: denies any Cough or Sputum Production Gastrointestinal: denies: Nausea, Vomiting, Diarrhea, Constipation or Abdominal Pain Musculoskeletal: No symptoms reported Neurological: No symptoms reported - Objective Vital Signs: Last Vital Signs Temp Pulse Resp BP Pulse Ox 97.5 F L 63 10 124/55 L 99 06/04/18 16:02 06/05/18 09:30 06/05/18 09:30 06/05/18 09:30 06/05/18 09:30 Intake & Output 06/02/18 06/03/18 06/04/18 06/05/18 23:59 23:59 23:59 23:59 Weight 160 lb Neck: Supple Negative JVD Cardiovascular: S1 S2 Regular Rate Rhythm No Murmurs Respiratory: Diminished breath sounds Bilaterally Scattered Rhonchi Gastrointestinal: Soft Benign Normal Bowel Sounds Ext: Negative Edema Labs: CBC, BMP 06/05/18 05:15 06/05/18 05:15 Hepatic Panel Total Bilirubin 0.2 mg/dL (0.2-1) 06/05/18 05:15 AST 15 U/L (15-37) 06/05/18 05:15 ALT 13 U/L (13-61) 06/05/18 05:15 Alkaline Phosphatase 84 U/L (45-117) 06/05/18 05:15 Albumin 3.5 g/dl (3.4-5.0) 06/05/18 05:15 Troponin, BNP 06/04/18 06/04/18 06/05/18 17:39 18:33 01:20 Troponin I Cancelled < 0.02 < 0.02 Assessment/Plan ASSESSMENT: 1. Chest pain syndrome atypical for CAD probably musculo-skeletal/ costochondritis 2. CAD post CABG angina pectoris with no evidence of ACS 3. Probable diastolic LV dysfunction with class 0 NYHA classification LV failure 4. HTN 5. Hypercholesterolemia 6. History of hemorrhagic CVA 7. CKD 8. Tobacco, cocaine and alcohol abuse PLAN: 1. Continue Norvasc 2. Add B-Blockers not contraindicated specially with absence of clinical vaso- spasm 3. ASA unless contraindicated 4. Continue Lipitor 5. Echocardiography for evaluation of LV size and function 6. Counselled smoking cessation 7. Counselled substance abuse cessation 8. Additional cardiovascular evaluation can be performed as outpatient including MPI testing, patient has to F/U and demonstrate compliance Onofre Taveras MD
[2018-06-05] MEDS ORDERED: ASPIRIN COATED 81 MG TABLET.EC PO SCH (10:30)
[2018-06-05] MEDS ORDERED: metoPROLOL SUCCINATE 25 MG TAB.SR.24H (FP) PO SCH (11:15)
--- NOTE | 2018-06-05 11:32 | CONS ---
REQUESTING PHYSICIAN: Hospitalist service. DATE OF CONSULTATION: 06/05/2018 CHIEF COMPLAINT: Chest pain, cardiovascular evaluation. HISTORY OF PRESENT ILLNESS: This is a 62-year-old female of -[place] descent with known history of coronary artery disease, post single-vessel coronary artery bypass grafting, angina pectoris, probable diastolic left ventricular dysfunction with clinical class 0 [place] Heart Association Classification left ventricular failure, hypertensive cardiovascular disease, hypercholesterolemia, history of hemorrhagic CVA, who presented to [facility] with left-sided chest discomfort described as sharp pain, which was exacerbated by cough and certain movements. Patient did not report any associated sputum production. Symptoms were not exacerbated with physical exertion. Patient reported chest wall tenderness. Patient reports dyspnea with mild to moderate physical exertion. Patient denies any orthopnea, paroxysmal nocturnal dyspnea, or peripheral edema. Patient denies any palpitations, dizziness, lightheadedness, or syncope. Patient denies any fatigue or tiredness. PAST MEDICAL HISTORY: Coronary artery disease, single-vessel coronary artery bypass grafting, angina pectoris, diastolic left ventricular dysfunction with class 0 [place] Heart Association Classification left ventricular failure, hypertensive cardiovascular disease, hypercholesterolemia, history of hemorrhagic CVA. SOCIAL HISTORY: Admits to tobacco abuse, cocaine abuse, alcohol abuse. FAMILY HISTORY: Positive for coronary artery disease. ALLERGIES: None reported. MEDICATIONS: Medical therapy currently includes Duo-Neb nebulizer, Norvasc 5 mg once a day, Lipitor 40 mg once a day. REVIEW OF SYSTEMS: Head and neck: Denies headache, photophobia, blurring of vision. Respiratory: Cough nonproductive of sputum. Cardiovascular: As noted above. Gastrointestinal: Denies nausea, vomiting, diarrhea, abdominal discomfort. Genitourinary: No symptoms reported. Endocrine: No symptoms reported. PHYSICAL EXAMINATION: Vital signs: Blood pressure is 124/55 mmHg, pulse rate is 63 beats per minute. Head and neck: Pupils equally reactive to light and accommodation. Extraocular muscles are intact. Anicteric sclerae. Negative JVD. No bruit appreciated. Chest: Diminished breath sounds bilaterally. Scattered rhonchi. Cardiovascular: S1, S2 regular. No murmurs appreciated. Abdomen: Soft, benign. Normoactive bowel sounds. Extremities: Negative edema. Intact distal pulses. No calf tenderness. STUDIES: Electrocardiogram revealed sinus bradycardia with anteroseptal wall myocardial infarction age undetermined and T-wave abnormality. Chest x-ray report was noted. CBC revealed white cell count of 7.0, hemoglobin of 12.3, platelet count 267. Basic metabolic profile revealed sodium of 140, potassium 4.4, BUN 30, creatinine 1.4, glucose 89, troponin less than 0.02. ASSESSMENT: 1. Chest pain syndrome, atypical for coronary artery disease, probably musculoskeletal costochondritis. 2. Coronary artery disease post coronary artery bypass grafting, angina pectoris, with no evidence of acute coronary syndrome. 3. Probable diastolic left ventricular dysfunction with class 0 [place] Heart Association Classification left ventricular failure. 4. Hypertensive cardiovascular disease. 5. Hypercholesterolemia 6. History of hemorrhagic cerebrovascular accident. 7. Chronic kidney disease. 8. Tobacco/cocaine and alcohol abuse. RECOMMENDATIONS: 1. Continue Norvasc. 2. Addition of beta-blockers not contraindicated especially with absence of clinical vasospasm. 3. Aspirin unless contraindicated. 4. Continue Lipitor. 5. Echocardiography for evaluation of left ventricular size and function. 6. Trust Manager Assistant smoking cessation. 7. Trust Manager Assistant substance abuse cessation. 8. Additional cardiovascular evaluation can be performed as outpatient including myocardial perfusion imaging testing. Patient has to follow up and demonstrate compliance with therapy administration and medical followup. Thank you for the kind referral. SHARA GARZON M.D. [id number]
--- NOTE | 2018-06-05 13:29 | PN ---
Teaching Attending Note Name of Resident: Mani Lopez ATTENDING PHYSICIAN STATEMENT I saw and evaluated the patient. I reviewed the resident's note and discussed the case with the resident. I agree with the resident's findings and plan as documented. SUBJECTIVE:continues to have CP with no relief or improvement since arrival. states she has not lifted or carried anything heavy. states she smokes cocaine daily and has no desire to quit. states pain started suddenly yesterday and has not radiated anywhere. no other symptoms. denies Cp, SOB, fever, chills, N/V/C/D OBJECTIVE: Last Vital Signs Temp Pulse Resp BP Pulse Ox 98.2 F 55 L 18 177/88 H 99 06/05/18 11:57 06/05/18 11:57 06/05/18 11:57 06/05/18 11:57 06/05/18 09:00 General NAD CV S1 S2 RRR no murmur/rub/gallop +chest wall tenderness lungs CTA B/L no wheezing/rales/rhonchi ASSESSMENT AND PLAN: 62yo F with PMH CAD s/p CABG, CKD, HTN, recent ICH and continuous cocaine dependence presentd to the ER with CP 1. CP- likely musculoskeletal vs vasospasm from cocaine. no events on cardiac cath lab manager. pt is very tender and more likely muscular. cardiac enzymes neg x2. will check echo. pt has a history of non compliance and drug use which patient indicates she has no intention of stopping her use. would not do stress test at this time as pt would likely be non complaint with medications or follow up and with recent ICH would not use antiplatelet agents. would hold betablocker due to continued use of cocaine and risk of vasospasm. will check echo to r/o WMA and then will need to f/u with cardio as outpatient for further workup 2. Continuous cocaine dependence- daily use. states she is not interested in stopping and does not want to listen to the risks of using it becuase she heard it all before. explained the risk to her heart and can be contributing to her symptoms 3. ICH- was transferred to [facility] in 03/2018. pt does not recall what was done there. how long she was there and has not followed up with anymore since leaving the hospital (did not recall what hospital she was at). would benefit from antiplatlet therapy. however would hold as details are not known 4. CKD- stable at baseline 5. HTN- controlled. cont norvasc 6. DVT ppx- EAM 7. d/c home pending results of echo. stressed importance of medication compliance and follow up
--- NOTE | 2018-06-05 15:14 | ECHO ---
Name: DELFINA RUBY Exam:Adult Echocardiogram Study Date: 06/05/2018 10:07 AM Age: 62 yrs Reason For Study: Chest pain, Atypical Height: 62 in Weight: 160 lb BSA: 1.7 m2 MMode/2D Measurements & Calculations IVSd: 1.8 cm Ao root diam: 2.6 cm LVIDd: 3.9 cm ACS: 1.1 cm LVIDs: 2.5 cm LVPWd: 1.5 cm EDV(Teich): 66.4 ml LVOT diam: 1.9 cm ESV(Feiich): 22.3 ml RV S Johan: 10.2 cm/sec Doppler Measurements & Calculations AI end-d johan: 279.0 cm/sec TR max johan: 237.4 cm/sec AI max johan: 301.0 cm/sec TR max P.6 mmHg AI max P.2 mmHg Med Peak E' Johan: 5.5 cm/sec Lat Peak E' Johan: 5.5 cm/sec Left Ventricle There is severe concentric left ventricular hypertrophy. Left ventricular systolic function is normal . Diastolic dysfunction, Grade II, consistent with elevated left atrial pressure. The left ventricular wall motion is normal. LVEF = 70%. Right Ventricle The right ventricle is normal in size and function. Atria The left atrium is moderately dilated. The right atrium is mildly dilated. Mitral Valve The mitral valve is normal. There is mild mitral regurgitation. Tricuspid Valve The tricuspid valve is normal. There is mild tricuspid regurgitation. Right ventricular systolic pres sure is 31 mmhg. Aortic Valve There is mild to moderate aortic sclerosis.;. Mild aortic regurgitation. Pulmonic Valve The pulmonic valve is not well seen, but is grossly normal. Great Vessels The aortic root is normal size. Pericardium/Pleura There is no pericardial effusion. Interpretation Summary There is severe concentric left ventricular hypertrophy. The left ventricular wall motion is normal. Left ventricular systolic function is normal. LVEF = 70%. The right ventricle is normal in size and function. The left atrium is moderately dilated. The right atrium is mildly dilated. The mitral valve is normal. There is mild mitral regurgitation. There is mild to moderate aortic sclerosis. Mild aortic regurgitation. Diastolic dysfunction, Grade II, consistent with elevated left atrial pressure. MD Alba Moore 06/05/2018 03:14 PM
[2018-06-05 16:15] VITALS: BP 157/89; PULSE 67; TEMP 98.5
--- NOTE | 2018-06-05 16:16 | EKG ---
Test Reason : Blood Pressure : / mmHG Vent. Rate : 057 BPM Atrial Rate : 057 BPM P-R Int : 124 ms QRS Dur : 088 ms QT Int : 412 ms P-R-T Axes : 051 023 139 degrees QTc Int : 401 ms POOR DATA QUALITY, INTERPRETATION MAY BE ADVERSELY AFFECTED SINUS BRADYCARDIA SEPTAL INFARCT , AGE UNDETERMINED T WAVE ABNORMALITY, CONSIDER LATERAL ISCHEMIA ABNORMAL ECG WHEN COMPARED WITH ECG OF 22-APR-2018 22:39, T WAVE INVERSION NO LONGER EVIDENT IN INFERIOR LEADS Confirmed by MD ANGELA, GISSELLE ([id number]) on 06/05/2018 4:16:10 PM Referred By: Confirmed By:GISSELLE MILLER MD
--- NOTE | 2018-06-05 16:29 | DS ---
Physical Exam: SUBJECTIVE: Patient seen and examined at bedside. Denies sob. Endorses reproducible chest pain. OBJECTIVE: Vital Signs Period Temp Pulse Resp BP Sys/Dowd Pulse Ox Last 24 Hr 98.2 F-98.5 F 55-70 11-18 98-177/50-89 97-99 PHYSICAL EXAM GENERAL: NAD HEAD: NC/AT LUNGS: CTA B/L no wheezing rhonchi or rales HEART: RRR No MRG S1S2. Chest wall tenderness ABDOMEN: NTND No HSM BS+ EXTREMITIES: No CCE SKIN: Warm, dry, normal turgor, no rashes or lesions noted. LABS Laboratory Results - last 24 hr 06/04/18 06/04/18 06/04/18 16:55 16:55 17:39 WBC 6.8 RBC 4.59 Hgb 13.4 Hct 41.2 MCV 89.7 MCH 29.2 MCHC 32.5 RDW 14.8 Plt Count 310 D MPV 8.8 Absolute Neuts (auto) 5.2 Neutrophils % 77.2 Lymphocytes % 15.9 D Monocytes % 5.4 Eosinophils % 0.8 Basophils % 0.7 Nucleated RBC % 0 Sodium Potassium Chloride Carbon Dioxide Anion Gap BUN Creatinine Creat Clearance w eGFR Random Glucose Hemoglobin A1c % Calcium Phosphorus Magnesium Total Bilirubin AST ALT Alkaline Phosphatase Troponin I Total Protein Albumin Triglycerides Cholesterol Total LDL Cholesterol HDL Cholesterol TSH Urine Color Yellow Urine Appearance Clear Urine pH 5.0 Ur Specific [place] 1.024 Urine Protein 1+ H Urine Glucose (UA) Negative Urine Ketones Negative Urine Blood Negative Urine Nitrite Negative Urine Bilirubin Negative Urine Urobilinogen 2.0 H Ur Leukocyte Esterase Trace Urine WBC (Auto) 1 Urine RBC (Auto) 3 Ur Epithelial Cells Few Urine Mucus Rare Opiates Screen Negative Methadone Screen Negative Barbiturate Screen Negative Phencyclidine Screen Negative Ur Amphetamines Screen Negative MDMA (Ecstasy) Screen Negative Benzodiazepines Screen Negative Cocaine Screen Positive A* U Marijuana (THC) Screen Negative 06/04/18 06/04/18 06/05/18 17:39 18:33 01:20 WBC RBC Hgb Hct MCV MCH MCHC RDW Plt Count MPV Absolute Neuts (auto) Neutrophils % Lymphocytes % Monocytes % Eosinophils % Basophils % Nucleated RBC % Sodium Cancelled 144 Potassium Cancelled 4.1 Chloride Cancelled 110 H Carbon Dioxide Cancelled 26 Anion Gap Cancelled 8 BUN Cancelled 24 H Creatinine Cancelled 1.5 H Creat Clearance w eGFR Cancelled 35.30 Random Glucose Cancelled 109 H Hemoglobin A1c % Calcium Cancelled 8.3 L Phosphorus Magnesium Total Bilirubin Cancelled 0.3 AST Cancelled 19 ALT Cancelled 15 Alkaline Phosphatase Cancelled 91 Troponin I Cancelled < 0.02 < 0.02 Total Protein Cancelled 7.1 Albumin Cancelled 3.6 Triglycerides Cholesterol Total LDL Cholesterol HDL Cholesterol TSH 1.10 Urine Color Urine Appearance Urine pH Ur Specific [place] Urine Protein Urine Glucose (UA) Urine Ketones Urine Blood Urine Nitrite Urine Bilirubin Urine Urobilinogen Ur Leukocyte Esterase Urine WBC (Auto) Urine RBC (Auto) Ur Epithelial Cells Urine Mucus Opiates Screen Methadone Screen Barbiturate Screen Phencyclidine Screen Ur Amphetamines Screen MDMA (Ecstasy) Screen Benzodiazepines Screen Cocaine Screen U Marijuana (THC) Screen 06/05/18 06/05/18 06/05/18 01:20 01:20 05:15 WBC 7.0 RBC 4.23 Hgb 12.3 Hct 37.7 MCV 89.1 MCH 29.1 MCHC 32.6 RDW 14.5 Plt Count 267 MPV 9.0 Absolute Neuts (auto) Neutrophils % Lymphocytes % Monocytes % Eosinophils % Basophils % Nucleated RBC % Sodium Potassium Chloride Carbon Dioxide Anion Gap BUN Creatinine Creat Clearance w eGFR Random Glucose Hemoglobin A1c % 5.9 Calcium Phosphorus Magnesium Total Bilirubin AST ALT Alkaline Phosphatase Troponin I Total Protein Albumin Triglycerides 70 Cholesterol 184 Total LDL Cholesterol 66 HDL Cholesterol 98 H TSH Urine Color Urine Appearance Urine pH Ur Specific [place] Urine Protein Urine Glucose (UA) Urine Ketones Urine Blood Urine Nitrite Urine Bilirubin Urine Urobilinogen Ur Leukocyte Esterase Urine WBC (Auto) Urine RBC (Auto) Ur Epithelial Cells Urine Mucus Opiates Screen Methadone Screen Barbiturate Screen Phencyclidine Screen Ur Amphetamines Screen MDMA (Ecstasy) Screen Benzodiazepines Screen Cocaine Screen U Marijuana (THC) Screen 06/05/18 05:15 WBC RBC Hgb Hct MCV MCH MCHC RDW Plt Count MPV Absolute Neuts (auto) Neutrophils % Lymphocytes % Monocytes % Eosinophils % Basophils % Nucleated RBC % Sodium 140 Potassium 4.4 Chloride 108 H Carbon Dioxide 28 Anion Gap 4 L BUN 30 H Creatinine 1.4 H Creat Clearance w eGFR 38.23 Random Glucose 89 Hemoglobin A1c % Calcium 8.4 L Phosphorus 3.5 Magnesium 2.3 Total Bilirubin 0.2 AST 15 ALT 13 Alkaline Phosphatase 84 Troponin I Total Protein 7.0 Albumin 3.5 Triglycerides Cholesterol Total LDL Cholesterol HDL Cholesterol TSH Urine Color Urine Appearance Urine pH Ur Specific [place] Urine Protein Urine Glucose (UA) Urine Ketones Urine Blood Urine Nitrite Urine Bilirubin Urine Urobilinogen Ur Leukocyte Esterase Urine WBC (Auto) Urine RBC (Auto) Ur Epithelial Cells Urine Mucus Opiates Screen Methadone Screen Barbiturate Screen Phencyclidine Screen Ur Amphetamines Screen MDMA (Ecstasy) Screen Benzodiazepines Screen Cocaine Screen U Marijuana (THC) Screen HOSPITAL COURSE: Date of Admission:06/05/18 [facility] c/o severe chest pain and shortness of breath which commenced 2 days prior. EKG revealed sinus bradycardia at 57 bpm. Initial troponin was 0.02. repeat was 0.02. ECHO revealed " severe concentric left ventricular hypertrophy. Left ventricular wall motion normal. Left ventricular systolic function normal at 70%. RV normal in size and function. Left atrium moderately dilated, R atrium mildy dilated. Mild mitral regurg, Mild to moderate aortic sclerosis, mild aortic regurg, diastolic dysfunction, grade 2, consistent with elevated left atrial pressure. " Urine toxicology was positive for Cocaine. Stress test was deferred as patient would likely be non complaint with medications or follow up. Antiplatelet therapy was deferred as well in light of pt's ICH history. Furthermore betablocker use was deferred due to continued use of cocaine and risk of vasospasm. Date of Discharge: 06/05/18 Minutes to complete discharge: 35 Discharge Summary Reason For Visit: CHEST PAIN Current Active Problems Chest pain (Acute) Condition: Improved - Instructions Diet, Activity, Other Instructions: You were admitted to [facility] on 06/04/18 for shortness of breath and chest pain. while you were in the hospital, you were worked up for possible causes of your chest pain and shortness of breath. You were found to not have a heart attack based on routine blood work and EKG's. Furthermore, you underwent n ultrasound of your heart called an Echocardiogram. There were not acute findings observed on this exam. Please dont use cocaine as it can have severe adverse effects on your heart, lungs, and brain. Please follow up with your primary care physician and [employer] [facility] [facility]. A cardiology referral will be attached to your discharge packet. Please return to the ED if you experience chest pain or shortness of breath. Continue your home medication Norvasc as prescribed for your blood pressure management. Please follow up with the [employer] [facility] [facility] as soon as possible when you are discharged from the hospital. Referral attached., Please follow up with your Primary Care Physician as soon as possible when you are discharged from the hospital. Referrals: Onofre Taveras MD [Staff Physician] - Disposition: HOME - Home Medications Comprehensive Discharge Medication List: Ambulatory Orders Nifedipine [Nifedipine ER] 60 mg PO DAILY 04/22/18 This patient is new to me today: Yes Date on this admission: 06/05/18 Emergency Visit: Yes ED Registration Date: 06/05/18 Care time: The patient presented to the Emergency Department on the above date and was hospitalized for further evaluation of their emergent condition. Critical Care patient: No - Discharge Referral Referred to [facility] Med P.C.: No
[2018-06-05] MEDS ORDERED: MAG HYDROX/ALH/SMC/DPHA/LIDO 240 ML MOUTHWASH MM ONE (20:08)
[2018-06-05] MEDS ORDERED: ATORVASTATIN CA 40 MG TABLET (FP) PO SCH (22:00)
== END 2018-06-05 18:00 | disposition home or self-care (01) ==
LOC: JER 15:50 → JERBED 06-05 01:35 → J4W 06-05 08:55
PROVIDERS: ADMIT Internal Medicine; ATTEND Internal Medicine
DX: R07.89 Other chest pain (principal); E78.5 Hyperlipidemia, unspecified; I25.10 Atherosclerotic heart disease of native coronary artery without angina pectoris; I25.2 Old myocardial infarction; F03.90 Unspecified dementia, unspecified severity, without behavioral disturbance, psychotic disturbance, mood disturbance, and anxiety; F14.20 Cocaine dependence, uncomplicated; F17.210 Nicotine dependence, cigarettes, uncomplicated; R00.1 Bradycardia, unspecified; R05 Cough; I12.9 Hypertensive chronic kidney disease with stage 1 through stage 4 chronic kidney disease, or unspecified chronic kidney disease; N18.9 Chronic kidney disease, unspecified; Z91.14 Patient's other noncompliance with medication regimen; Z86.73 Personal history of transient ischemic attack (TIA), and cerebral infarction without residual deficits; Z95.1 Presence of aortocoronary bypass graft
CPT/HCPCS: 36415; 71046-TC-FY; 80053; 80061; 80307; 81003; 81015; 83036; 83721; 83735; 84100; 84443; 84484; 85025; 85027; 87804; 93005; 93010; 93306-TC; 94640; 99285-25; G0378; J7030

== ENCOUNTER 2018-07-15 16:53 | Inpatient (IN) | payer OTHER ==
[2018-07-15 17:19] VITALS: BMI 26.5
--- NOTE | 2018-07-15 19:09 | HP ---
CIWA Score Nausea/Vomitin-Mild Nausea/No Vomiting Muscle Tremors: 4-Moderate,w/Arms Extend Anxiety: 2 Agitation: 1-Slight > Activity Paroxysmal Sweats: 2 Orientation: 1-Uncertain about Date Tacttile Disturbances: 0-None Auditory Disturbances: 0-None Visual Disturbances: 0-None Headache: 1-Very Mild CIWA-Ar Total Score: 12 - Admission Criteria OASAS Guidelines: Admission for Medically Managed Detox: Requires at least one of the followin. CIWA greater than 12 2. Seizures within the past 24 hours 3. Delirium tremens within the past 24 hours 4. Hallucinations within the past 24 hours 5. Acute intervention needed for co occurring medical disorder 6. Acute intervention needed for co occurring psychiatric disorder 7. Severe withdrawal that cannot be handled at a lower level of care (continued vomiting, continued diarrhea, abnormal vital signs) requiring intravenous medication and/or fluids 8. Patient presents the following: CIWA greater than 12 Admission Criteria Met: Admission criteria met Admission ROS S - [facility] Chief Complaint: "here for alcohol, cocaine and amphetamines" Allergies/Adverse Reactions: Allergies Allergy/AdvReac Type Severity Reaction Status Date / Time No Known Allergies Allergy Verified 07/15/18 17:41 History of Present Illness: 62 yo female with a long history of alcohol dependence is for detox. Patient states that she does not remember well. Pt was here about 3 months ago for alcohol detox. She has medical history of Hypertension, hyperlipidemia, heart bypass surgery Says she gets social security disability for heart surgery Pt is seen by a psychiatrist- last visit 2 days ago-prescribed Alchol- 6 beers/day, denies seizures, no DT's, last drink a few hours ago. Cocaine- "a whole bunch" Istop: neg for controlled substances Utox: cocaine, GIO: o.22 Exam Limitations: No Limitations, Clinical Condition - Ebola screening Have you been sick,other than usual withdrawal symptoms: No Patient History - Patient Medical History Hx Asthma: No Hx Chronic Obstructive Pulmonary Disease (COPD): No Hx Cancer: No Hx Cardiac Disorders: No Hx Congestive Heart Failure: No Hx Hypertension: Yes Hx Hypercholesterolemia: Yes HX Cerebrovascular Accident: Yes Hx Seizures: No Hx Diabetes: No Hx Gastrointestinal Disorders: No Hx Genitourinary Disorders: No Hx Sexually Transmitted Disorders: No Hx Renal Disease (ESRD): No Hx Depression: Yes (Not on medication) Hx Suicide Attempt: No (Denies suicide attempt and suicidal ideation at this time) Hx Schizophrenia: No - Patient Surgical History Past Surgical History: Yes Hx Neurologic Surgery: No Hx Cataract Extraction: No Hx Cardiac Surgery: Yes (open heart surgery- does not remember when) Hx Lung Surgery: No Hx Breast Surgery: No Hx Breast Biopsy: No Hx Abdominal Surgery: No Hx Appendectomy: No Hx Cholecystectomy: No Hx Genitourinary Surgery: No Hx Section: No Hx Orthopedic Surgery: No Anesthesia Reaction: No - PPD History Date: 04/24/18 - Smoking Cessation Smoking history: Current every day smoker Have you smoked in the past 12 months: Yes Aproximately how many cigarettes per day: 20 Hx Chewing Tobacco Use: No Initiated information on smoking cessation: Yes 'Breaking Loose' booklet given: 07/16/18 - Substances Abused Alcohol Route: Oral Frequency: Daily Amount used: 12 packs BEER + LIQUOR 120Z Age of first use: 17 Date of Last Use: 07/15/18 Cocaine Route: Smoking Frequency: Daily Amount used: $200 Age of first use: 16 Date of Last Use: 07/15/18 Heroin Route: SNIFF Frequency: Daily Amount used: 3 BAGS Age of first use: 18 Date of Last Use: 07/15/18 Family Disease History - Family Disease History Family Disease History: CA: Mother, Other: Father (liver cancer), Brother ( of AIDS) Admission Physical Exam [facility] - Vital Signs Vital Signs: Vital Signs - 24 hr 07/15/18 16:54 Temperature 97.7 F Pulse Rate 62 Respiratory 18 Rate Blood Pressure 145/87 - Physical General Appearance: Yes: Within Normal Limits, Disheveled, Alcohol on Breath, Other (malodorous of urine) HEENTM: Yes: Within Normal Limits, Normal ENT Inspection, Normocephalic, Pharynx Normal Respiratory: Yes: Within Normal Limits, Lungs Clear Neck: Yes: Within Normal Limits Breast: Yes: Breast Exam Deferred Cardiology: Yes: Within Normal Limits, Regular Rhythm, Regular Rate Abdominal: Yes: Within Normal Limits Genitourinary: Yes: Within Normal Limits Back: Yes: Within Normal Limits Musculoskeletal: Yes: Within Normal Limits Extremities: Yes: Within Normal Limits Neurological: Yes: Within Normal Limits, cupola man II-XII NML intact, Motor Strength 5 /5 Integumentary: Yes: Within Normal Limits Lymphatic: Yes: Within Normal Limits - Diagnostic (1) CVD (cardiovascular disease) Current Visit: Yes Status: Acute (2) Alcohol dependence with uncomplicated withdrawal Current Visit: No Status: Acute (3) CVA (cerebral vascular accident) Current Visit: No Status: Chronic Qualifiers: Laterality of affected vessel: unspecified (4) HTN (hypertension) Current Visit: No Status: Chronic Qualifiers: Hypertension type: essential hypertension Qualified Code(s): I10 - Essential (primary) hypertension Cleared for Admission S - Detox or Rehab [facility] Level of Care: Medically Managed [facility] Breath Alcohol Content Breath Alcohol Content: 0.022 Urine Pregancy Test - Result Urine Test Results: Negative- NO Line Present Urine Drug Screen - Results Drug Screen Negative: No Urine Drug Screen Results: RACHELLE-Cocaine
[2018-07-15] MEDS ORDERED: chlordiazePOXIDE HCL 25 MG CAPSULE PO PRN (19:17)
[2018-07-15] MEDS ORDERED: MAGNESIUM CITRATE 300 ML BOTTLE PO PRN (19:20)
[2018-07-15] MEDS ORDERED: MENTHOL/PHENOL 1 EACH UD MM PRN (19:20)
[2018-07-15] MEDS ORDERED: MAGNESIUM HYDROX 2400MG/30ML ORAL SUSPENSION 30 ML CUP PO PRN (19:20)
[2018-07-15] MEDS ORDERED: guaiFENesin/D-METHORPHAN HB 10 ML UNIT-DOSE CUPS PO PRN (19:20)
[2018-07-15] MEDS ORDERED: MAG HYDROX/AL HYDROX/SIMETH 30 ML UNIT-DOSE CUP PO PRN (19:20)
[2018-07-15] MEDS ORDERED: P-EPHED 60MG/TRIPROLIDI 2.5MG TABLET PO PRN (19:20)
[2018-07-15] MEDS ORDERED: IBUPROFEN 400 MG TABLET (FP) PO PRN (19:20)
[2018-07-15] MEDS ORDERED: LOPERAMIDE HCL 2 MG CAPSULE PO PRN (19:20)
[2018-07-15] MEDS ORDERED: ACETAMINOPHEN 325 MG TABLET (FP) PO PRN (19:20)
[2018-07-15] MEDS ORDERED: chlordiazePOXIDE HCL 25 MG CAPSULE PO ONE (20:00)
[2018-07-15] MEDS: THIAMINE HCL 100 MG TABLET (FP) PO SCH (22:13)
[2018-07-15] MEDS: chlordiazePOXIDE HCL 25 MG CAPSULE PO SCH (22:13)
[2018-07-16 00:35] LABS: URINE APPEARANCE CLOUDY; URINE BILIRUBIN NEGATIVE (<2.0 mg/dL); URINE COLOR YELLOW; URINE GLUCOSE (UA) NEGATIVE (NEGATIVE); URINE KETONE NEGATIVE (NEGATIVE); URINE LEUK ESTERASE NEGATIVE (NEGATIVE); URINE NITRITE NEGATIVE (NEGATIVE); URINE PROTEIN 2+ (NEGATIVE)
[2018-07-16 00:39] LABS: EPI CELLS FEW /HPF (FEW); URINE BACTERIA FEW /hpf (NONE SEEN); URINE HYALINE CAST 12 /lpf; URINE MUCUS RARE
[2018-07-16] MEDS: chlordiazePOXIDE HCL 25 MG CAPSULE PO SCH ×4 (05:43→22:41)
[2018-07-16] MEDS ORDERED: QUEtiapine FUMARATE 100 MG TABLET (FP) PO SCH (10:00)
[2018-07-16 10:23] LABS: HEMATOCRIT 39.7 % (32.4-45.2); HEMOGLOBIN 12.7 GM/dL (10.7-15.3); MEAN CELL VOLUME 90.7 fl (80-96); MEAN PLT VOLUME 9.9 fl (7.5-11.1); PLATELET COUNT 263 K/MM3 (134-434); RBC 4.37 M/mm3 (3.60-5.2); WHITE BLOOD COUNT 5.7 K/mm3 (4.0-10.0)
--- NOTE | 2018-07-16 10:44 | PN ---
[facility] CIWA - CIWA Score Nausea/Vomitin-No Nausea/No Vomiting Muscle Tremors: 3 Anxiety: 2 Agitation: 2 Paroxysmal Sweats: 2 Orientation: 0-Oriented Tacttile Disturbances: 0-None Auditory Disturbances: 0-None Visual Disturbances: 0-None Headache: 0-None Present CIWA-Ar Total Score: 9 S Progress Note (SOAP) Subjective: tired groggy interrupted sleep body aches Objective: 07/16/18 10:42 Vital Signs Temperature 98.1 F 07/16/18 09:47 Pulse Rate 55 L 07/16/18 09:47 Respiratory Rate 20 07/16/18 09:47 Blood Pressure 142/71 07/16/18 09:47 O2 Sat by Pulse Oximetry (%) Laboratory Tests 07/16/18 07/16/18 00:05 07:00 WBC 5.7 RBC 4.37 Hgb 12.7 Hct 39.7 MCV 90.7 MCH 29.0 MCHC 32.0 RDW 14.0 Plt Count 263 MPV 9.9 Urine Color Yellow Urine Appearance Cloudy Urine pH 5.0 Ur Specific [place] 1.021 Urine Protein 2+ H Urine Glucose (UA) Negative Urine Ketones Negative Urine Blood Negative Urine Nitrite Negative Urine Bilirubin Negative Urine Urobilinogen 2.0 H Ur Leukocyte Esterase Negative Urine WBC (Auto) 6 Urine RBC (Auto) 2 Ur Epithelial Cells Few Urine Bacteria Few Hyaline Casts 12 Urine Mucus Rare aaox3 ambulating no acute distress Assessment: 07/16/18 10:43 withdrawal sx Plan: hold 10am librium resume later increase fluids
[2018-07-16 11:00] LABS: ALBUMIN 3.3 g/dl (3.4-5.0); ALK PHOS 78 U/L (45-117); ANION GAP 10 MMOL/L (8-16); BILIRUBIN,TOTAL 0.3 mg/dL (0.2-1); BLOOD UREA NITROGEN 46 mg/dL (7-18); CALCIUM 8.3 mg/dL (8.5-10.1); CHLORIDE 104 mmol/L (98-107); CO2 27 mmol/L (21-32); CREATININE 2.3 mg/dL (0.55-1.3); GLUCOSE,RANDOM 87 mg/dL (74-106); POTASSIUM 3.8 mmol/L (3.5-5.1); SGOT/AST 12 U/L (15-37); SGPT/ALT 12 U/L (13-61); SODIUM 140 mmol/L (136-145); TOT PROT 6.4 g/dl (6.4-8.2)
[2018-07-16] MEDS: NIFEdipine E.R 60 MG TABLET (UD) PO SCH (11:18)
[2018-07-16] MEDS: PRENATAL VITAMINS W/ FOLIC ACID TABLET (FP) PO SCH (11:18)
[2018-07-16] MEDS: THIAMINE HCL 100 MG TABLET (FP) PO SCH (22:40)
[2018-07-17] MEDS: chlordiazePOXIDE HCL 25 MG CAPSULE PO SCH ×3 (07:02→17:50)
[2018-07-17] MEDS: NIFEdipine E.R 60 MG TABLET (UD) PO SCH (09:37)
[2018-07-17] MEDS ORDERED: TRIMETHOBENZAMIDE HCL 300 MG CAPSULE PO PRN (09:38)
[2018-07-17] MEDS ORDERED: TRIMETHOBENZAMIDE HCL 200MG/2ML INJ IM ONE (09:38)
[2018-07-17] MEDS: PRENATAL VITAMINS W/ FOLIC ACID TABLET (FP) PO SCH (10:43)
--- NOTE | 2018-07-17 13:04 | EKG ---
Test Reason : Blood Pressure : / mmHG Vent. Rate : 066 BPM Atrial Rate : 066 BPM P-R Int : 120 ms QRS Dur : 094 ms QT Int : 400 ms P-R-T Axes : 068 063 250 degrees QTc Int : 419 ms NORMAL SINUS RHYTHM POSSIBLE LEFT ATRIAL ENLARGEMENT SEPTAL INFARCT (CITED ON OR BEFORE 04-JUN-2018) ABNORMAL ECG WHEN COMPARED WITH ECG OF 04-JUN-2018 16:52, T WAVE INVERSION NOW EVIDENT IN INFERIOR LEADS Confirmed by Murali Thacker ([id number]) on 07/17/2018 1:03:40 PM Referred By: Risa Barone Confirmed By:Murali Thacker
--- NOTE | 2018-07-17 14:17 | PN ---
[facility] CIWA - CIWA Score Nausea/Vomitin-No Nausea/No Vomiting Muscle Tremors: 3 Anxiety: 2 Agitation: 3 Paroxysmal Sweats: 2 Orientation: 0-Oriented Tacttile Disturbances: 0-None Auditory Disturbances: 0-None Visual Disturbances: 0-None Headache: 0-None Present CIWA-Ar Total Score: 10 [facility] Progress Note (SOAP) Subjective: sweats nausea interrupted sleep Objective: 07/17/18 14:24 Vital Signs Temperature 97.6 F 07/17/18 10:00 Pulse Rate 59 L 07/17/18 10:00 Respiratory Rate 18 07/17/18 10:00 Blood Pressure 175/92 H 07/17/18 10:00 O2 Sat by Pulse Oximetry (%) Laboratory Tests 07/16/18 07/16/18 07/16/18 00:05 07:00 07:00 WBC 5.7 RBC 4.37 Hgb 12.7 Hct 39.7 MCV 90.7 MCH 29.0 MCHC 32.0 RDW 14.0 Plt Count 263 MPV 9.9 Sodium 140 Potassium 3.8 Chloride 104 Carbon Dioxide 27 Anion Gap 10 BUN 46 H Creatinine 2.3 H Creat Clearance w eGFR 21.56 Random Glucose 87 Calcium 8.3 L Total Bilirubin 0.3 AST 12 L ALT 12 L Alkaline Phosphatase 78 Total Protein 6.4 Albumin 3.3 L Urine Color Yellow Urine Appearance Cloudy Urine pH 5.0 Ur Specific [place] 1.021 Urine Protein 2+ H Urine Glucose (UA) Negative Urine Ketones Negative Urine Blood Negative Urine Nitrite Negative Urine Bilirubin Negative Urine Urobilinogen 2.0 H Ur Leukocyte Esterase Negative Urine WBC (Auto) 6 Urine RBC (Auto) 2 Ur Epithelial Cells Few Urine Bacteria Few Hyaline Casts 12 Urine Mucus Rare RPR Titer 07/16/18 07:00 WBC RBC Hgb Hct MCV MCH MCHC RDW Plt Count MPV Sodium Potassium Chloride Carbon Dioxide Anion Gap BUN Creatinine Creat Clearance w eGFR Random Glucose Calcium Total Bilirubin AST ALT Alkaline Phosphatase Total Protein Albumin Urine Color Urine Appearance Urine pH Ur Specific [place] Urine Protein Urine Glucose (UA) Urine Ketones Urine Blood Urine Nitrite Urine Bilirubin Urine Urobilinogen Ur Leukocyte Esterase Urine WBC (Auto) Urine RBC (Auto) Ur Epithelial Cells Urine Bacteria Hyaline Casts Urine Mucus RPR Titer Nonreactive aaox3 ambulating no acute distress Assessment: 07/17/18 14:24 withdrawal sx Plan: continue detox increase fluids hypertensive medication added to control her BP
[2018-07-17] MEDS ORDERED: LISINOPRIL 10 MG TABLET (FP) PO ONE (14:40)
[2018-07-17] MEDS: HYDROCHLOROTHIAZIDE 12.5 MG CAPSULE (FP) PO SCH (14:53)
[2018-07-17] MEDS: THIAMINE HCL 100 MG TABLET (FP) PO SCH (22:45)
[2018-07-17] MEDS: chlordiazePOXIDE 5 MG CAPSULE PO SCH (22:45)
[2018-07-18] MEDS: chlordiazePOXIDE 5 MG CAPSULE PO SCH ×2 (05:53→10:42)
[2018-07-18] MEDS: PRENATAL VITAMINS W/ FOLIC ACID TABLET (FP) PO SCH (10:42)
[2018-07-18] MEDS: NIFEdipine E.R 60 MG TABLET (UD) PO SCH (10:42)
[2018-07-18] MEDS: LISINOPRIL 10 MG TABLET (FP) PO SCH (10:42)
[2018-07-18] MEDS: HYDROCHLOROTHIAZIDE 12.5 MG CAPSULE (FP) PO SCH (10:42)
--- NOTE | 2018-07-18 14:12 | PN ---
[facility] Progress Note (SOAP) Subjective: feeling better little tired Objective: 07/18/18 14:11 Vital Signs Temperature 98.2 F 07/18/18 13:29 Pulse Rate 72 07/18/18 13:29 Respiratory Rate 18 07/18/18 13:29 Blood Pressure 132/70 07/18/18 13:29 O2 Sat by Pulse Oximetry (%) aaox3 ambulating no acute distress Assessment: 07/18/18 14:11 mild withdrawal sx Plan: all sedating medication d/c librium d/c continue hydration d/c in am
[2018-07-18] MEDS: MELATONIN 5 MG TABLETS PO PRN (22:09)
[2018-07-18] MEDS: THIAMINE HCL 100 MG TABLET (FP) PO SCH (22:09)
[2018-07-18] MEDS ORDERED: chlordiazePOXIDE HCL 10 MG CAPSULE PO SCH (23:00)
[2018-07-19] MEDS: MELATONIN 5 MG TABLETS PO PRN (01:28)
[2018-07-19 09:23] VITALS: BP 149/84; PULSE 51; TEMP 98.7
--- NOTE | 2018-07-19 09:28 | DS ---
[facility] Detox Discharge Summary Admission Date: 07/15/18 Discharge Date: 07/19/18 - History Present History: Alcohol Dependence - Physical Exam Results Vital Signs: Vital Signs Temperature 98.7 F 07/19/18 09:23 Pulse Rate 51 L 07/19/18 09:23 Respiratory Rate 18 07/19/18 09:23 Blood Pressure 149/84 07/19/18 09:23 O2 Sat by Pulse Oximetry (%) - Treatment Hospital Course: Detox Protocol Followed, Detoxed Safely, Responded well, Discharged Condition Good, Rehab Referral Accepted - Medication Discharge Medications: Ambulatory Orders Nifedipine [Nifedipine ER] 60 mg PO DAILY 04/22/18 Quetiapine Fumarate [Seroquel] 100 tab PO DAILY 07/15/18 - Diagnosis (1) CVD (cardiovascular disease) Current Visit: Yes Status: Acute (2) Alcohol dependence with uncomplicated withdrawal Current Visit: Yes Status: Acute (3) Dizziness Current Visit: No Status: Acute (4) CVA (cerebral vascular accident) Current Visit: Yes Status: Chronic Qualifiers: Laterality of affected vessel: unspecified (5) Depression Current Visit: No Status: Chronic (6) HLD (hyperlipidemia) Current Visit: No Status: Chronic Qualifiers: Hyperlipidemia type: pure hypercholesterolemia Qualified Code(s): E78.00 - Pure hypercholesterolemia, unspecified; E78.0 - Pure hypercholesterolemia (7) HTN (hypertension) Current Visit: No Status: Chronic Qualifiers: Hypertension type: essential hypertension Qualified Code(s): I10 - Essential (primary) hypertension (8) [place]ERING (hard of hearing) Current Visit: Yes Status: Chronic Qualifiers: Contralateral hearing status: unspecified - AMA Did Patient Leave Against Medical Advice: No ([facility])
[2018-07-19] MEDS: HYDROCHLOROTHIAZIDE 12.5 MG CAPSULE (FP) PO SCH (10:45)
[2018-07-19] MEDS: PRENATAL VITAMINS W/ FOLIC ACID TABLET (FP) PO SCH (10:45)
[2018-07-19] MEDS: NIFEdipine E.R 60 MG TABLET (UD) PO SCH (10:45)
[2018-07-19] MEDS: LISINOPRIL 10 MG TABLET (FP) PO SCH (10:46)
== END 2018-07-19 11:42 | disposition other institution (70) | DRG 773 ==
LOC: YASAS 16:53 → Y6N 19:41
PROC: HZ2ZZZZ Detoxification Services for Substance Abuse Treatment (ICD-10-PCS; principal; 2018-07-15)
DX: F10.230 Alcohol dependence with withdrawal, uncomplicated (principal); F11.20 Opioid dependence, uncomplicated; F14.20 Cocaine dependence, uncomplicated; F17.210 Nicotine dependence, cigarettes, uncomplicated; F32.9 Major depressive disorder, single episode, unspecified; I25.10 Atherosclerotic heart disease of native coronary artery without angina pectoris; I10 Essential (primary) hypertension; Z95.1 Presence of aortocoronary bypass graft; E78.00 Pure hypercholesterolemia, unspecified; R42 Dizziness and giddiness; H91.90 Unspecified hearing loss, unspecified ear; Z86.73 Personal history of transient ischemic attack (TIA), and cerebral infarction without residual deficits
CPT/HCPCS: 36415; 80053; 81003; 81015; 85027; 86593; 93005; 93010

== ENCOUNTER 2018-07-19 10:51 | Inpatient (IN) | payer OTHER ==
[2018-07-19] MEDS ORDERED: P-EPHED 60MG/TRIPROLIDI 2.5MG TABLET PO PRN (11:15)
[2018-07-19] MEDS ORDERED: ACETAMINOPHEN 325 MG TABLET (FP) PO PRN (11:15)
[2018-07-19] MEDS ORDERED: MAG HYDROX/AL HYDROX/SIMETH 30 ML UNIT-DOSE CUP PO PRN (11:15)
[2018-07-19] MEDS ORDERED: MAGNESIUM HYDROX 2400MG/30ML ORAL SUSPENSION 30 ML CUP PO PRN (11:15)
[2018-07-19] MEDS ORDERED: MENTHOL/PHENOL 1 EACH UD MM PRN (11:15)
[2018-07-19] MEDS ORDERED: MAGNESIUM CITRATE 300 ML BOTTLE PO PRN (11:15)
[2018-07-19] MEDS ORDERED: IBUPROFEN 400 MG TABLET (FP) PO PRN (11:15)
[2018-07-19] MEDS ORDERED: hydrOXYzine PAMOATE 50 MG CAPSULE (FP) PO PRN (11:15)
[2018-07-19] MEDS ORDERED: LOPERAMIDE HCL 2 MG CAPSULE PO PRN (11:15)
[2018-07-19] MEDS ORDERED: guaiFENesin/D-METHORPHAN HB 10 ML UNIT-DOSE CUPS PO PRN (11:15)
--- NOTE | 2018-07-19 11:15 | HP ---
[facility] Rehab Assess/Revision - Admission History Admitted to Rehab from[facility] - Findings Detox History & Physical reviewed: Yes Concur with findings: Yes Inpatient Rehab Admission - Initial Determination Are CD services needed?: Yes Free of communicable disease: Yes Not in need of hospitalization: Yes - Rehab Admission Criteria Previous failed treatment: Yes Lacks judgement: Yes
[2018-07-19 12:06] VITALS: BMI 23.3
--- NOTE | 2018-07-19 17:01 | HP ---
Psychiatrist Admission - Data Date of interview: 07/19/18 Admission source: [facility] Identifying data: Patient is a 62 year old single, without children, unemployed , domiciled, and is supported by [facility]. This is one of multiple admissions to rehab for patient. Patient admitted to for alcohol dependence. Medical History: hypertension, hypercholesterolemia, open heart surgery Psychiatric History: Patient denies h/o psychiatric hospitalizations. [facility] outpatient psychiatric care is provided at [facility]. [facility] she is prescribed seroquel 100mg although refuses to accept medication. Self reports diagnosis of bipolar disorder. Patient reports having a stroke in 1994 which contributes to her inability to speak clearly and difficulty hearing. Patient denies h/o suicide attempt. Physical/Sexual Abuse/Trauma History: denies. Vital Signs: Vital Signs - 24 hr 07/19/18 07/19/18 12:00 12:05 Temperature 97.7 F 97.7 F Pulse Rate 54 L 54 L Respiratory 18 18 Rate Blood Pressure 138/83 138/83 Allergies/Adverse Reactions: Allergies Allergy/AdvReac Type Severity Reaction Status Date / Time No Known Allergies Allergy Verified 07/15/18 17:41 Date of last physical exam: 07/15/18 Concur with the findings of this exam: Yes - Substance Abuse/Tx History Hx Alcohol Use: Yes ("six cases of beer per day.") Hx Substance Use: Yes (Cocaine $200 daily) Substance Use Type: Cocaine Hx Substance Use Treatment: Yes Mental Status Exam - Mental Status Exam Alert and Oriented to: Time, Place, Person Cognitive Function: Fair Patient Appearance: Well Groomed Mood: Euthymic Affect: Mood Congruent Patient Behavior: Cooperative Speech Pattern: Delayed (reports h/o stroke), Garbled (Difficulty with pronounciation. ) Voice Loudness: Moderately Soft/Quiet Thought Process: Goal Oriented Thought Disorder: Not Present Hallucinations: Denies Suicidal Ideation: Denies Homicidal Ideation: Denies Insight/Judgement: Poor Sleep: Fair Appetite: Fair Muscle strength/Tone: Normal Gait/Station: Normal Psychiatric Findings - Problem List ([place] 1, 2,3) (1) Alcohol dependence Current Visit: Yes Status: Acute (2) Cocaine dependence Current Visit: Yes Status: Chronic (3) Alcohol-induced mood disorder Current Visit: Yes Status: Acute - Initial Treatment Plan Initial Treatment Plan: Psychoeducation provided. Rehab in progress. Patient refusing to restart seroquel. Observation.
[2018-07-19] MEDS ORDERED: THIAMINE HCL 100 MG TABLET (FP) PO SCH (22:00)
[2018-07-19] MEDS ORDERED: MELATONIN 5 MG TABLETS PO PRN (22:00)
[2018-07-20 07:24] VITALS: TEMP 97.6
[2018-07-20 09:44] VITALS: BP 124/66; PULSE 62
[2018-07-20] MEDS ORDERED: PRENATAL VITAMINS W/ FOLIC ACID TABLET (FP) PO SCH (10:00)
[2018-07-20] MEDS ORDERED: NIFEdipine E.R 60 MG TABLET (UD) PO SCH (10:00)
--- NOTE | 2018-07-20 11:30 | PN ---
[facility] Progress Note Note: Patient decided to sign out today despite medical staff recommendations to continue inpatient rehabilitation since she is still high risk for relapse.She will continue to address her issues on outpatient basis.See staff notes for details.
--- NOTE | 2018-07-20 13:43 | PN ---
[facility] Progress Note Note: Patient decided to stay in treatment.Will monitor progress.
== END 2018-07-20 20:17 | disposition left against medical advice (07) | DRG 770 ==
LOC: YASAS 10:51 → Y3E 10:52
PROVIDERS: ADMIT Psychiatry & Neurology Psychiatry; ATTEND Psychiatry & Neurology Psychiatry
PROC: HZ42ZZZ Group Counseling for Substance Abuse Treatment, Cognitive-Behavioral (ICD-10-PCS; principal; 2018-07-19)
DX: F10.24 Alcohol dependence with alcohol-induced mood disorder (principal); F14.20 Cocaine dependence, uncomplicated; I10 Essential (primary) hypertension; E78.00 Pure hypercholesterolemia, unspecified

== ENCOUNTER 2018-08-01 17:22 | Emergency (ER) | payer OTHER ==
[2018-08-01 17:33] VITALS: BP 147/89; PULSE 75; TEMP 97.7; BMI 28.6
--- NOTE | 2018-08-01 18:08 | PDOC ---
History of Present Illness - General Chief Complaint: Pain, Acute Stated Complaint: FALL Time Seen by Provider: 08/01/18 17:57 - History of Present Illness Initial Comments: 08/01/18 18:04 62-year-old female presents for evaluation of bilateral lower extremity pain after fall. She is fully ambulatory. She states she tripped and fell earlier today. She also is requesting a refill on her Procardia XL. She states she is not under the care of a physician at this time. When asked who gave her the prescription she said we did at the hospital. Past History - Past Medical History Allergies/Adverse Reactions: Allergies Allergy/AdvReac Type Severity Reaction Status Date / Time No Known Allergies Allergy Verified 07/15/18 17:41 Home Medications: Ambulatory Orders Hydrochlorothiazide [Hctz -] 12.5 mg PO DAILY 07/19/18 Lisinopril [Prinivil] 10 mg PO DAILY 07/19/18 Nifedipine [Nifedipine ER] 60 mg PO DAILY #30 tab.er.24 07/20/18 Asthma: No Cancer: No Cardiac Disorders: No CVA: Yes COPD: No CHF: No Diabetes: No GI Disorders: No Disorders: No HTN: Yes Hypercholesterolemia: Yes Kidney Stones: No Seizures: No - Surgical History Abdominal Surgery: No Appendectomy: No Cardiac Surgery: Yes (open heart surgery- does not remember when) Cholecystectomy: No Lung Surgery: No Neurologic Surgery: No Orthopedic Surgery: No - Suicide/Smoking/Psychosocial Hx Smoking History: Current every day smoker Have you smoked in the past 12 months: Yes Number of Cigarettes Smoked Daily: 15 Information on smoking cessation initiated: Yes 'Breaking Loose' booklet given: 07/16/18 Hx Alcohol Use: Yes Drug/Substance Use Hx: Yes Substance Use Type: Cocaine Hx Substance Use Treatment: Yes ([facility] 15 years ago) Review of Systems - Review of Systems Musculoskeletal: Yes: See HPI *Physical Exam - Vital Signs Last Vital Signs Temp Pulse Resp BP Pulse Ox 97.7 F 75 20 147/89 98 08/01/18 17:28 08/01/18 17:28 08/01/18 17:28 08/01/18 17:28 08/01/18 17:28 - Physical Exam Comments: 08/01/18 18:05 There is full nonpainful range of motion of both hips, knees, and ankles. There are no gross sensorimotor deficits and no areas of tenderness. Thighs and calves are soft and nontender. She is neurovascularly intact. Moderate Sedation - Procedure Monitoring Vital Signs: Procedure Monitoring Vital Signs Temperature 97.7 F 08/01/18 17:28 Pulse Rate 75 08/01/18 17:28 Respiratory Rate 20 08/01/18 17:28 Blood Pressure 147/89 08/01/18 17:28 O2 Sat by Pulse Oximetry (%) 98 08/01/18 17:28 Medical Decision Making - Medical Decision Making 08/01/18 18:06 I have advised the patient to follow up with primary care physician I have recommended. No radiologic studies are necessary today she has full motion and bears weight without discomfort without any areas of tenderness or focal findings on her lower extremities. *DC/Admit/Observation/Transfer Diagnosis at time of Disposition: Fall - Discharge Dispostion Disposition: HOME Condition at time of disposition: Stable Decision to Admit order: No - Referrals Referrals: Trey Garnica MD [Staff Physician] - Claudette Collazo MD [Staff Physician] - - Patient Instructions Printed Discharge Instructions: How to Prevent Falls Additional Instructions: Return to the emergency room should she have any further issues. Please follow- up with orthopedic surgery should you have any complaints of pain in her lower extremities after fall and follow up with a primary care physician I recommended 40. Your primary care physician will continue her high blood pressure medication. - Post Discharge Activity
== END 2018-08-01 18:33 | disposition home or self-care (01) ==
LOC: JER 17:22 → JERFT 17:22
DX: M79.604 Pain in right leg (principal); M79.605 Pain in left leg; W01.0XXA Fall on same level from slipping, tripping and stumbling without subsequent striking against object, initial encounter; Y93.89 Activity, other specified; Y92.89 Other specified places as the place of occurrence of the external cause; Y99.8 Other external cause status; I10 Essential (primary) hypertension; E78.00 Pure hypercholesterolemia, unspecified; Z86.73 Personal history of transient ischemic attack (TIA), and cerebral infarction without residual deficits; F17.210 Nicotine dependence, cigarettes, uncomplicated
CPT/HCPCS: 99281-25

== ENCOUNTER 2018-08-14 02:50 | Emergency (ER) | payer OTHER ==
[2018-08-14 03:00] VITALS: TEMP 98.1; BMI 26.5
--- NOTE | 2018-08-14 04:11 | PDOC ---
History of Present Illness - General Chief Complaint: Pain, Acute Stated Complaint: LEFT LEG PAIN Time Seen by Provider: 08/14/18 02:55 History Source: Patient - History of Present Illness Initial Comments: 08/14/18 04:52 62 year old disheveled female with histor yof ETOH abuse BIBA c/o left foot pain , reports tripped as she was walking on 08/05. patient reports drinking alcohol last night denies fall/ injury., no edema / deformity noted. patient reports that she does a lot of walking 08/14/18 05:22 Past History - Past Medical History Allergies/Adverse Reactions: Allergies Allergy/AdvReac Type Severity Reaction Status Date / Time No Known Allergies Allergy Verified 08/14/18 02:58 Home Medications: Ambulatory Orders Hydrochlorothiazide [Hctz -] 12.5 mg PO DAILY 07/19/18 Lisinopril [Prinivil] 10 mg PO DAILY 07/19/18 Nifedipine [Nifedipine ER] 60 mg PO DAILY #30 tab.er.24 07/20/18 Quetiapine Fumarate [Seroquel] 100 tab PO ASDIR 08/01/18 Asthma: No Cancer: No Cardiac Disorders: No CVA: Yes COPD: No CHF: No Diabetes: No GI Disorders: No Disorders: No HTN: Yes Hypercholesterolemia: Yes Kidney Stones: No Seizures: No - Surgical History Abdominal Surgery: No Appendectomy: No Cardiac Surgery: Yes (open heart surgery- does not remember when) Cholecystectomy: No Lung Surgery: No Neurologic Surgery: No Orthopedic Surgery: No - Reproductive History PID: No - Suicide/Smoking/Psychosocial Hx Smoking History: Current some day smoker Have you smoked in the past 12 months: Yes Number of Cigarettes Smoked Daily: 15 Information on smoking cessation initiated: No 'Breaking Loose' booklet given: 07/16/18 Hx Alcohol Use: Yes Drug/Substance Use Hx: No Substance Use Type: Cocaine Hx Substance Use Treatment: Yes ([facility] 15 years ago) Review of Systems - Review of Systems Able to Perform ROS?: Yes Is the patient limited Bahamian proficient: No *Physical Exam - Vital Signs Last Vital Signs Temp Pulse Resp BP Pulse Ox 98.1 F 78 18 140/82 97 08/14/18 02:50 08/14/18 02:50 08/14/18 02:50 08/14/18 02:50 08/14/18 02:50 - Physical Exam General Appearance: Yes: Appropriately Dressed, Disheveled, Alcohol on Breath, Other (no slurred speech) HEENT: positive: Other (normocephalic) Moderate Sedation - Procedure Monitoring Vital Signs: Procedure Monitoring Vital Signs Temperature 98.1 F 08/14/18 02:50 Pulse Rate 78 08/14/18 02:50 Respiratory Rate 18 08/14/18 02:50 Blood Pressure 140/82 08/14/18 02:50 O2 Sat by Pulse Oximetry (%) 97 08/14/18 02:50 *DC/Admit/Observation/Transfer Diagnosis at time of Disposition: ETOH abuse, Left foot pain - Discharge Dispostion Disposition: HOME Condition at time of disposition: Fair - Referrals Referrals: Trey Garnica MD [Staff Physician] - - Patient Instructions Printed Discharge Instructions: DI for Foot Pain Additional Instructions: apply ice to foot. follow up with an orthopedic doctor as soon as possible Additional Instructions: * Please call your personal physician to report your Emergency Department visit and to report your progress, if any. * If there is no improvement in symptoms in 2 days call your physician. * Return to the Emergency Department for any worsening symptoms. - Post Discharge Activity
[2018-08-14 08:21] VITALS: BP 138/78; PULSE 80
== END 2018-08-14 08:22 | disposition home or self-care (01) ==
LOC: JER 02:50
DX: M79.672 Pain in left foot (principal); F10.10 Alcohol abuse, uncomplicated; F17.210 Nicotine dependence, cigarettes, uncomplicated; E78.00 Pure hypercholesterolemia, unspecified; I10 Essential (primary) hypertension
CPT/HCPCS: 73590-TC-LT-FY; 73610-TC-LT-FY; 73630-TC-LT; 99282-25

== ENCOUNTER 2018-08-22 20:09 | Inpatient (IN) | payer OTHER ==
[2018-08-22 21:00] VITALS: BMI 27.1
--- NOTE | 2018-08-22 21:32 | HP ---
CIWA Score Nausea/Vomitin-No Nausea/No Vomiting Muscle Tremors: 4-Moderate,w/Arms Extend Anxiety: 4-Mod. Anxious/Guarded Agitation: 4-Moderately Restless Paroxysmal Sweats: 3 Orientation: 0-Oriented Tacttile Disturbances: 0-None Auditory Disturbances: 1-Very Mild Visual Disturbances: 1-Very Mild Sensitivity Headache: 0-None Present CIWA-Ar Total Score: 17 - Admission Criteria [facility] Guidelines: Admission for Medically Managed Detox: Requires at least one of the followin. CIWA greater than 12 2. Seizures within the past 24 hours 3. Delirium tremens within the past 24 hours 4. Hallucinations within the past 24 hours 5. Acute intervention needed for co occurring medical disorder 6. Acute intervention needed for co occurring psychiatric disorder 7. Severe withdrawal that cannot be handled at a lower level of care (continued vomiting, continued diarrhea, abnormal vital signs) requiring intravenous medication and/or fluids 8. Patient presents the following: Acute intervention needed for co-occurring med or psych disorder Admission Criteria Met: Admission criteria met Admission ROS [facility] Chief Complaint: C/O WORSENING WITHDRAWAL SX'S. SEEKING DETOX TXMENT. Allergies/Adverse Reactions: Allergies Allergy/AdvReac Type Severity Reaction Status Date / Time No Known Allergies Allergy Verified 08/14/18 02:58 History of Present Illness: 62 Y.O. FEMALE WITH HX/O ALCOHOLISM, COCAINE DEPENDENCE HERE FOR DETOX. CLIENT IS KNOWN TO THIS PROGRAM. LAST HERE 07/2018 WHERE SHE COMPLETED DETOX AND AMA FROM REHAB A DAY LATER... " I WAS NOT FEELING WELL" SELF REFERRED TODAY PRESENTS WITH C/O WITHDRAWAL SX'S. CIWA 17. REPORTS LONGEST CLEAN TIME 2 YEARS. DENIES ANY SIGNIFICANT CLEAN TIME IN THE PAST YEAR. DENIES PRESENT SI/HI. REPORTS INTERMITTENT VISUAL HALLUCINATIONS. AT TIME SHE SEES BUG CRAWLING ON THE FLOOR. STATES THIS IS MANAGED WITH HER SEROQUL. B/P IS ELEVATED MANUAL READING 190/110 P- 100. CLIENT REPORTS HX/O HTN BUT HAS NOT TAKEN HER MEDS IN 1 WEEK DUE TO IT BEING STOLEN. SHE DENIES SOB, C.P. DIZZINESS, ACEVES. LIVES ALONE IN AN APARTMENT, UNEMPLOYED, DENIES LEGALS PMHX- TETLIN, HTN, HX/O CVA PSYCH- DOES NOT RECALL DX'S Exam Limitations: No Limitations - Ebola screening Have you traveled outside of the country in the last 21 days: No Have you had contact with anyone from an Ebola affected area: No Have you been sick,other than usual withdrawal symptoms: No Do you have a fever: No - Review of Systems Constitutional: Chills, Loss of Appetite, Malaise, Night Sweats EENT: reports: Dental Problems (DENTURES) Respiratory: reports: No Symptoms reported Cardiac: reports: No Symptoms Reported GI: reports: Diarrhea : reports: No Symptoms Reported Musculoskeletal: reports: No Symptoms Reported Integumentary: reports: No Symptoms Reported Neuro: reports: No Symptoms reported Endocrine: reports: No Symptoms Reported Hematology: reports: No Symptoms Reported Psychiatric: reports: Anxious, Depressed Other Systems: Reviewed and Negative Patient History - Patient Medical History Hx Anemia: No Hx Asthma: No Hx Chronic Obstructive Pulmonary Disease (COPD): No Hx Cancer: No Hx Cardiac Disorders: No Hx Congestive Heart Failure: No Hx Hypertension: Yes Hx Hypercholesterolemia: No Hx Pacemaker: No HX Cerebrovascular Accident: Yes Hx Seizures: No Hx Diabetes: No Hx Gastrointestinal Disorders: No Hx Genitourinary Disorders: No Hx Sexually Transmitted Disorders: No Hx Renal Disease (ESRD): No Hx Thyroid Disease: No Hx Human Immunodeficiency Virus (HIV): No Hx Depression: Yes (Not on medication) Hx Suicide Attempt: No (Denies suicide attempt and suicidal ideation at this time) Hx Schizophrenia: No - Patient Surgical History Past Surgical History: Yes Hx Neurologic Surgery: No Hx Cataract Extraction: No Hx Cardiac Surgery: Yes (open heart surgery- does not remember when) Hx Lung Surgery: No Hx Breast Surgery: No Hx Breast Biopsy: No Hx Abdominal Surgery: No Hx Appendectomy: No Hx Cholecystectomy: No Hx Genitourinary Surgery: No Hx Section: No Hx Orthopedic Surgery: No Anesthesia Reaction: No - PPD History Documented Results: Negative w/o proof Implanted On Prior [facility] Admission?: Yes Date: 04/24/18 Results: NO RECORDED RES PPD to be Administered?: Yes - Smoking Cessation Smoking history: Current every day smoker Have you smoked in the past 12 months: Yes Aproximately how many cigarettes per day: 40 Cigars Per Day: 0 Hx Chewing Tobacco Use: No Initiated information on smoking cessation: Yes 'Breaking Loose' booklet given: 08/22/18 - Substance & Tx. History Hx Alcohol Use: Yes Hx Substance Use: Yes Substance Use Type: Alcohol, Opiates (MTD) Hx Substance Use Treatment: Yes ([facility]) - Substances Abused BEER/LIQUOR Route: Oral Frequency: Daily Amount used: 24-24 OZ CANS/1PINT Age of first use: 17 Date of Last Use: 08/21/18 Family Disease History - Family Disease History Family Disease History: [place]: Mother, Other: Father, Brother Admission Physical Exam [facility] - Vital Signs Vital Signs: Vital Signs - 24 hr 08/22/18 20:57 Temperature 98.1 F Pulse Rate 100 H Respiratory 18 Rate Blood Pressure 190/100 H - Physical General Appearance: Yes: Disheveled, Tremorous (FELT), Sweating (FLUSHED FACE), Anxious, Other (UNKEPT MALODUROUS) HEENTM: Yes: EOMI, Normocephalic, Normal Voice, MATEUS, Pharynx Normal, Hearing Decreased, Other (POOR DENTITION MISSING TEETH) Respiratory: Yes: Chest Non-Tender, Lungs Clear, Normal Breath Sounds, No Respiratory Distress, No Accessory Muscle Use Neck: Yes: No masses,lesions,Nodules, Supple, Trachea in good position Breast: Yes: Breast Exam Deferred Cardiology: Yes: Regular Rhythm, Regular Rate, S1, S2 Abdominal: Yes: Normal Bowel Sounds, Non Tender, Soft Genitourinary: Yes: Other (NO C/O) Back: Yes: Normal Inspection Musculoskeletal: Yes: full range of Motion, Gait Steady Extremities: Yes: Normal Range of Motion, Non-Tender, Tremors (FELT) Neurological: Yes: Alert, Motor Strength 5/5, Confused (ABOUT DATE) Integumentary: Yes: Warm, Other (FLUSHED) Lymphatic: Yes: Within Normal Limits - Diagnostic (1) Alcohol dependence with uncomplicated withdrawal Current Visit: Yes Status: Acute (2) Cocaine dependence Current Visit: Yes Status: Chronic Qualifiers: Substance use status: uncomplicated Qualified Code(s): F14.20 - Cocaine dependence, uncomplicated (3) TETLIN (hard of hearing) Current Visit: Yes Status: Chronic Qualifiers: Contralateral hearing status: unspecified (4) HTN (hypertension) Current Visit: Yes Status: Chronic Qualifiers: Hypertension type: essential hypertension Qualified Code(s): I10 - Essential (primary) hypertension Cleared for Admission [facility] - Detox or Rehab [facility] Level of Care: Medically Managed Detox Regimen/Protocol: Librium Claeared for Rehab Admission: No [facility] Breath Alcohol Content Breath Alcohol Content: 0 Urine Pregancy Test - Result Urine Test Results: Negative- NO Line Present Urine Drug Screen - Results Drug Screen Negative: No Urine Drug Screen Results: RACHELLE-Cocaine, BZO-Benzodiazepines
[2018-08-22] MEDS ORDERED: hydrOXYzine PAMOATE 50 MG CAPSULE (FP) PO PRN (21:42)
[2018-08-22] MEDS ORDERED: IBUPROFEN 400 MG TABLET (FP) PO PRN (21:42)
[2018-08-22] MEDS ORDERED: MENTHOL/PHENOL 1 EACH UD MM PRN (21:42)
[2018-08-22] MEDS ORDERED: NICOTINE POLACRILEX 2 MG GUM BC PRN (21:42)
[2018-08-22] MEDS ORDERED: ACETAMINOPHEN 325 MG TABLET (FP) PO PRN (21:42)
[2018-08-22] MEDS ORDERED: P-EPHED 60MG/TRIPROLIDI 2.5MG TABLET PO PRN (21:42)
[2018-08-22] MEDS ORDERED: MAGNESIUM CITRATE 300 ML BOTTLE PO PRN (21:42)
[2018-08-22] MEDS ORDERED: guaiFENesin/D-METHORPHAN HB 10 ML UNIT-DOSE CUPS PO PRN (21:42)
[2018-08-22] MEDS ORDERED: MAGNESIUM HYDROX 2400MG/30ML ORAL SUSPENSION 30 ML CUP PO PRN (21:42)
[2018-08-22] MEDS ORDERED: chlordiazePOXIDE HCL 25 MG CAPSULE PO PRN (21:42)
[2018-08-22] MEDS ORDERED: LOPERAMIDE HCL 2 MG CAPSULE PO PRN (21:42)
[2018-08-22] MEDS ORDERED: MAG HYDROX/AL HYDROX/SIMETH 30 ML UNIT-DOSE CUP PO PRN (21:42)
[2018-08-22] MEDS ORDERED: MELATONIN 5 MG TABLETS PO PRN (22:00)
[2018-08-22] MEDS ORDERED: cloNIDine HCL 0.1 MG TABLET PO ONE (22:45)
[2018-08-22] MEDS: chlordiazePOXIDE HCL 25 MG CAPSULE PO SCH (22:58)
[2018-08-22] MEDS: THIAMINE HCL 100 MG TABLET (FP) PO SCH (23:07)
[2018-08-23] MEDS ORDERED: cloNIDine HCL 0.1 MG TABLET PO ONE (07:14)
[2018-08-23] MEDS: chlordiazePOXIDE HCL 25 MG CAPSULE PO SCH ×4 (07:21→22:08)
[2018-08-23] MEDS: NICOTINE 21 MG/24 HOURS TOPICAL PATCH TD SCH (10:53)
[2018-08-23] MEDS: PRENATAL VITAMINS W/ FOLIC ACID TABLET (FP) PO SCH (10:53)
[2018-08-23] MEDS: NIFEdipine E.R 60 MG TABLET (UD) PO SCH (10:53)
[2018-08-23 10:57] LABS: HEMATOCRIT 35.7 % (32.4-45.2); HEMOGLOBIN 12.1 GM/dL (10.7-15.3); MCH 30.1 pg (25.7-33.7); MEAN CELL VOLUME 88.5 fl (80-96); MEAN PLT VOLUME 10.7 fl (7.5-11.1); PLATELET COUNT 269 K/MM3 (134-434); RBC 4.03 M/mm3 (3.60-5.2); WHITE BLOOD COUNT 7.5 K/mm3 (4.0-10.0)
[2018-08-23 11:03] LABS: ALBUMIN 3.1 g/dl (3.4-5.0); ALK PHOS 82 U/L (45-117); ANION GAP 9 MMOL/L (8-16); BILIRUBIN,TOTAL 0.4 mg/dL (0.2-1); BLOOD UREA NITROGEN 33 mg/dL (7-18); CALCIUM 8.2 mg/dL (8.5-10.1); CHLORIDE 110 mmol/L (98-107); CO2 27 mmol/L (21-32); CREATININE 1.7 mg/dL (0.55-1.3); GLUCOSE,RANDOM 92 mg/dL (74-106); POTASSIUM 3.9 mmol/L (3.5-5.1); SGOT/AST 15 U/L (15-37); SGPT/ALT 11 U/L (13-61); SODIUM 146 mmol/L (136-145); TOT PROT 6.1 g/dl (6.4-8.2)
--- NOTE | 2018-08-23 16:32 | PN ---
[facility] CIWA - CIWA Score Nausea/Vomitin-No Nausea/No Vomiting Muscle Tremors: 3 Anxiety: 2 Agitation: 0-Normal Activity Paroxysmal Sweats: No Perspiration Orientation: 2-Disoriented Date<2 days Tacttile Disturbances: 2-Mild Itch/Numbness/Burn Auditory Disturbances: 0-None Visual Disturbances: 2-Mild Sensitivity Headache: 0-None Present CIWA-Ar Total Score: 11 [facility] Progress Note (SOAP) Subjective: Diarrhea, Tremors. Objective: PATIENT A & O X 2 (UNCERTAIN ABOUT CURRENT DAY / DATE). PATIENT OBSERVED AMBULATING ON UNIT. IN NO ACUTE DISTRESS. 08/23/18 16:29 Vital Signs Temperature 97.9 F 08/23/18 14:01 Pulse Rate 54 L 08/23/18 14:01 Respiratory Rate 20 08/23/18 14:01 Blood Pressure 148/51 L 08/23/18 14:01 O2 Sat by Pulse Oximetry (%) Laboratory Tests 08/23/18 08/23/18 07:00 07:00 WBC 7.5 RBC 4.03 Hgb 12.1 Hct 35.7 MCV 88.5 MCH 30.1 MCHC 34.0 RDW 14.0 Plt Count 269 MPV 10.7 Platelet Comment No clumping noted Sodium 146 H Potassium 3.9 Chloride 110 H Carbon Dioxide 27 Anion Gap 9 BUN 33 H Creatinine 1.7 H Creat Clearance w eGFR 30.56 Random Glucose 92 Calcium 8.2 L Total Bilirubin 0.4 AST 15 ALT 11 L Alkaline Phosphatase 82 Total Protein 6.1 L Albumin 3.1 L LABS NOTED. Assessment: 08/23/18 16:32 WITHDRAWAL SYMPTOMS. Plan: CONTINUE DETOX. PRN IMMODIUM FOR DIARRHEA. D/C IBUPROFEN AND MAGNESIUM-CONTAINING MEDS. FOR ABNORMAL ADMISSION RENAL LAB VALUES.
--- NOTE | 2018-08-23 17:10 | PN ---
[facility] Progress Note Note: Basic Metabolic Panel ordered on 08/25/2018 for Abnormal Admission Renal Lab Values. Dar Ramirez NP.
[2018-08-23] MEDS: THIAMINE HCL 100 MG TABLET (FP) PO SCH (22:06)
[2018-08-24] MEDS: chlordiazePOXIDE HCL 25 MG CAPSULE PO SCH ×2 (05:40→10:15)
[2018-08-24 09:59] VITALS: PULSE 63
[2018-08-24] MEDS: PRENATAL VITAMINS W/ FOLIC ACID TABLET (FP) PO SCH (10:14)
[2018-08-24] MEDS: NIFEdipine E.R 60 MG TABLET (UD) PO SCH (10:14)
[2018-08-24] MEDS: NICOTINE 21 MG/24 HOURS TOPICAL PATCH TD SCH (10:15)
--- NOTE | 2018-08-24 12:19 | PN ---
[facility] CIWA - CIWA Score Nausea/Vomitin-No Nausea/No Vomiting Muscle Tremors: 3 Anxiety: 2 Agitation: 3 Paroxysmal Sweats: 3 Orientation: 0-Oriented Tacttile Disturbances: 0-None Auditory Disturbances: 0-None Visual Disturbances: 0-None Headache: 0-None Present CIWA-Ar Total Score: 11 S Progress Note (SOAP) Subjective: sweats shakes interrupted sleep Objective: 08/24/18 12:19 Vital Signs Temperature 98.2 F 08/24/18 09:59 Pulse Rate 63 08/24/18 09:59 Respiratory Rate 18 08/24/18 09:59 Blood Pressure 151/90 08/24/18 09:59 O2 Sat by Pulse Oximetry (%) Laboratory Tests 08/23/18 08/23/18 07:00 07:00 WBC 7.5 RBC 4.03 Hgb 12.1 Hct 35.7 MCV 88.5 MCH 30.1 MCHC 34.0 RDW 14.0 Plt Count 269 MPV 10.7 Platelet Comment No clumping noted Sodium 146 H Potassium 3.9 Chloride 110 H Carbon Dioxide 27 Anion Gap 9 BUN 33 H Creatinine 1.7 H Creat Clearance w eGFR 30.56 Random Glucose 92 Calcium 8.2 L Total Bilirubin 0.4 AST 15 ALT 11 L Alkaline Phosphatase 82 Total Protein 6.1 L Albumin 3.1 L labs noted repeated labs have been ordered Assessment: 08/24/18 12:20 withdrawal sx Plan: continue detox increase fluids
[2018-08-24 13:35] VITALS: BP 169/92; TEMP 98.4
--- NOTE | 2018-08-24 15:12 | PN ---
[facility] Progress Note Note: pt states she is signing out. Wants to go home
--- NOTE | 2018-08-24 15:14 | DS ---
[facility] Detox Discharge Summary Admission Date: 08/22/18 - History Present History: Alcohol Dependence, Cocaine Dependence - Physical Exam Results Vital Signs: Vital Signs Temperature 98.4 F 08/24/18 13:35 Pulse Rate 63 08/24/18 13:35 Respiratory Rate 18 08/24/18 13:35 Blood Pressure 169/92 08/24/18 13:35 O2 Sat by Pulse Oximetry (%) - Treatment Hospital Course: Detox Protocol Followed, Detoxed Safely, Responded well, Discharged Condition Good, Rehab Referral Accepted - Medication Discharge Medications: Ambulatory Orders Nifedipine [Nifedipine ER] 60 mg PO DAILY #30 tab.er.24 07/20/18 Quetiapine Fumarate [Seroquel] 100 tab PO ASDIR 08/01/18 - Diagnosis (1) Alcohol dependence with uncomplicated withdrawal Current Visit: Yes Status: Chronic (2) Cocaine dependence Current Visit: Yes Status: Chronic Qualifiers: Substance use status: uncomplicated Qualified Code(s): F14.20 - Cocaine dependence, uncomplicated (3) ELEM (hard of hearing) Current Visit: Yes Status: Chronic Qualifiers: Contralateral hearing status: unspecified (4) HTN (hypertension) Current Visit: Yes Status: Chronic Qualifiers: Hypertension type: essential hypertension Qualified Code(s): I10 - Essential (primary) hypertension (5) Alcohol-induced mood disorder Current Visit: No Status: Acute (6) CVD (cardiovascular disease) Current Visit: No Status: Acute (7) CVA (cerebral vascular accident) Current Visit: No Status: Chronic Qualifiers: Laterality of affected vessel: unspecified (8) Depression Current Visit: No Status: Chronic (9) HLD (hyperlipidemia) Current Visit: No Status: Chronic Qualifiers: Hyperlipidemia type: pure hypercholesterolemia Qualified Code(s): E78.00 - Pure hypercholesterolemia, unspecified; E78.0 - Pure hypercholesterolemia - AMA Did Patient Leave Against Medical Advice: Yes (wants to go home)
[2018-08-24] MEDS ORDERED: chlordiazePOXIDE 5 MG CAPSULE PO SCH (23:00)
[2018-08-25] MEDS ORDERED: chlordiazePOXIDE HCL 10 MG CAPSULE PO SCH (23:00)
== END 2018-08-24 14:58 | disposition left against medical advice (07) | DRG 770 ==
LOC: YASAS 20:09 → Y6N 22:40
PROVIDERS: ADMIT Neuromusculoskeletal Medicine & OMM; ATTEND Neuromusculoskeletal Medicine & OMM
PROC: HZ2ZZZZ Detoxification Services for Substance Abuse Treatment (ICD-10-PCS; principal; 2018-08-22)
DX: F10.230 Alcohol dependence with withdrawal, uncomplicated (principal); F14.20 Cocaine dependence, uncomplicated; F10.24 Alcohol dependence with alcohol-induced mood disorder; F32.9 Major depressive disorder, single episode, unspecified; I25.10 Atherosclerotic heart disease of native coronary artery without angina pectoris; I10 Essential (primary) hypertension; E78.00 Pure hypercholesterolemia, unspecified; H91.90 Unspecified hearing loss, unspecified ear; Z86.73 Personal history of transient ischemic attack (TIA), and cerebral infarction without residual deficits
CPT/HCPCS: 36415; 80053; 85027; 86593; J0735

== ENCOUNTER 2018-09-30 14:36 | Observation (INO) | payer OTHER ==
[2018-09-30 14:46] VITALS: BMI 26.9
[2018-09-30] MEDS ORDERED: SODIUM CHLORIDE 1,000 ML IV STA (14:58)
[2018-09-30] MEDS ORDERED: ONDANSETRON 4 MG/2 ML VIAL IVPUSH ONE (14:59)
[2018-09-30] MEDS ORDERED: FAMOTIDINE 20 MG/50 ML IVPB 20 MG/50 ML MG IVPB ONE ×2 (14:59→15:06)
[2018-09-30] MEDS ORDERED: ONDANSETRON 4 MG/2 ML VIAL ONE (15:06)
--- NOTE | 2018-09-30 15:18 | PDOC ---
Attending Attestation - HPI HPI: 09/30/18 15:20 The patient is a 63 year old female with a PMH of CAD s/p CABG, CVA, HTN, and alcohol abuse s/p 3 syncopal episodes today. Patient states she was getting up from a seated position and became dizzy as she stood up. Patient admits to head trauma and loss of consciousness. Patient is now complaining of epigastric abdominal pain and nausea. Patients last drink was last night. The patient denies chest pain, shortness of breath, headache and dizziness. Denies fever, chills, vomit, diarrhea and constipation. Denies dysuria, frequency, urgency and hematuria. Allergies: NKA Past surgical history: s/p CABG Social history: Alcohol abuse. PCP: Dr. Bradley - Physicial Exam PE: 09/30/18 15:20 ADULT EXAM GENERAL: Awake, alert, and fully oriented, in no acute distress LUNGS: Breath sounds equal, clear to auscultation bilaterally. No wheezes, and no crackles HEART: Regular rate and rhythm, normal S1 and S2, no murmurs, rubs or gallops ABDOMEN: Soft, nontender EXTREMITIES: Normal range of motion, no edema. NEUROLOGICAL: Cranial nerves II through XII grossly intact. SKIN: Warm, Dry, normal turgor, no rashes or lesions noted. <Mariah Limon - Last Filed: 09/30/18 15:20> - Resident Resident Name: Quinten Chase - ED Attending Attestation I have performed the following: I have examined & evaluated the patient, The case was reviewed & discussed with the resident, I agree w/resident's findings & plan, Exceptions are as noted - Medical Decision Making 09/30/18 15:16 A portion of this note was documented by scribe services under my direction. I have reviewed the details of the note, within reason, and agree with the documentation with the following case summary and management plan written by me. Patient treated in the ED. Nursing notes are reviewed and incorporated into the medical decision-making. Vital signs reviewed. Peripheral IV access obtained by the nurse, laboratory studies are drawn and sent, reviewed and interpreted by myself. Vital Signs Temp Pulse Resp BP Pulse Ox 98.7 F 65 17 155/91 98 09/30/18 14:44 09/30/18 14:44 09/30/18 14:44 09/30/18 14:44 09/30/18 14:44 63 year old female with Past medical history of alcohol dependence, hypertension , coronary artery disease, stroke, hyperlipidemia presents with three episodes of syncopal episodes. Pt states that yesterday she felt generally tired but without focal symptoms. Today, she attempted to get up three times and syncopized briefly each time. Had hit her head once with LOC but denies headache , nausea, vomiting, chest pain, shortness of breath, palpitations, abdominal pain, fevers, chills, cough. Given cardiac history and syncope, will need to evaluate for cardiac etiology. Labs, diagnostic cardiac sonographer, head CT and admit. It may be possible that the patient may have orthostatic syncope, but given her cardiac history, pt is too high risk for discharge. Admit. 09/30/18 16:07 CBC, BMP 09/30/18 15:15 09/30/18 15:15 CMP Sodium 140 mmol/L (136-145) 09/30/18 15:15 Potassium 3.9 mmol/L (3.5-5.1) 09/30/18 15:15 Chloride 103 mmol/L (98-107) 09/30/18 15:15 Carbon Dioxide 29 mmol/L (21-32) 09/30/18 15:15 Anion Gap 8 MMOL/L (8-16) 09/30/18 15:15 BUN 21 mg/dL (7-18) H 09/30/18 15:15 Creatinine 1.3 mg/dL (0.55-1.3) 09/30/18 15:15 Creat Clearance w eGFR 41.50 (>60) 09/30/18 15:15 Random Glucose 87 mg/dL (74-106) 09/30/18 15:15 Calcium 8.8 mg/dL (8.5-10.1) 09/30/18 15:15 Magnesium 2.1 mg/dL (1.8-2.4) 09/30/18 15:15 Total Bilirubin 0.4 mg/dL (0.2-1) 09/30/18 15:15 AST 21 U/L (15-37) 09/30/18 15:15 ALT 18 U/L (13-61) 09/30/18 15:15 Alkaline Phosphatase 92 U/L (45-117) 09/30/18 15:15 Creatine Kinase 108 U/L (26-192) 09/30/18 15:15 Troponin I < 0.02 ng/ml (0.00-0.05) 09/30/18 15:15 Total Protein 7.6 g/dl (6.4-8.2) 09/30/18 15:15 Albumin 3.9 g/dl (3.4-5.0) 09/30/18 15:15 <Adolfo Galeano - Last Filed: 09/30/18 16:07> Heart Score/ECG Review #1 ECG reviewed & interpreted by me at: 15:15 09/30/18 15:19 NSR 60, no std/kayden, Q wave V1-V3, TWI I, AVL, V5-V6, normal axis, normal intervals, QTC 82 msec <Adolfo Galeano - Last Filed: 09/30/18 16:07>
[2018-09-30 15:21] LABS: BASO % 0.3 % (0-2.0); EOS % 1.4 % (0-4.5); HEMOGLOBIN 14.2 GM/dL (10.7-15.3); LYMPH % 14.9 % (8-40); MCH 30.6 pg (25.7-33.7); MCHC 34.6 g/dl (32.0-36.0); MEAN CELL VOLUME 88.5 fl (80-96); MONO % 7.1 % (3.8-10.2); NEUT % 76.3 % (42.8-82.8); PLATELET COUNT 284 K/MM3 (134-434); RBC 4.64 M/mm3 (3.60-5.2); RDW 14.1 % (11.6-15.6); WHITE BLOOD COUNT 7.8 K/mm3 (4.0-10.0)
--- NOTE | 2018-09-30 15:23 | PDOC ---
History of Present Illness - General Chief Complaint: Injury Stated Complaint: FALL Time Seen by Provider: 09/30/18 14:53 History Source: Patient Exam Limitations: No Limitations - History of Present Illness Initial Comments: 09/30/18 15:18 Patient is a 63F with history of etoh abuse, open heart surgery, stroke here today complaining of syncope. Patient states that she fell 3 times today as she was trying to stand up, feeling dizzy and momentarily losing consciousness each time. Denies confusion afterwards. States that her last drink was last night. States that she has been eating well. Denies vomiting, fevers, chills. Denies shortness of breath and chest pain. Denies leg pain. Denies arm pain and neck pain. Patient endorses an epigastric pain and nausea. Past History - Past Medical History Allergies/Adverse Reactions: Allergies Allergy/AdvReac Type Severity Reaction Status Date / Time No Known Allergies Allergy Verified 08/14/18 02:58 Home Medications: Ambulatory Orders Nifedipine [Nifedipine ER] 60 mg PO DAILY #30 tab.er.24 07/20/18 Quetiapine Fumarate [Seroquel] 100 tab PO ASDIR 08/01/18 Anemia: No Asthma: No Cancer: No Cardiac Disorders: No CVA: Yes COPD: No CHF: No Diabetes: No GI Disorders: No Disorders: No HTN: Yes Hypercholesterolemia: No Kidney Stones: No Seizures: No Thyroid Disease: No - Surgical History Abdominal Surgery: No Appendectomy: No Cardiac Surgery: Yes (open heart surgery- does not remember when) Cholecystectomy: No Lung Surgery: No Neurologic Surgery: No Orthopedic Surgery: No - Reproductive History PID: No - Immunization History Immunization Up to Date: Yes - Suicide/Smoking/Psychosocial Hx Smoking History: Unknown if ever smoked Have you smoked in the past 12 months: Yes Number of Cigarettes Smoked Daily: 40 Cigars Per Day: 0 Information on smoking cessation initiated: No 'Breaking Loose' booklet given: 08/22/18 Hx Alcohol Use: Yes Drug/Substance Use Hx: Yes Substance Use Type: Alcohol, Opiates Hx Substance Use Treatment: Yes ([facility]) Review of Systems - Review of Systems Comments:: 09/30/18 15:21 GENERAL/CONSTITUTIONAL: No fever or chills. No weakness. HEAD, EYES, EARS, NOSE AND THROAT: No change in vision. No sore throat. CARDIOVASCULAR: No chest pain or shortness of breath RESPIRATORY: No cough, wheezing, or hemoptysis. GASTROINTESTINAL: No nausea, vomiting, diarrhea or constipation. GENITOURINARY: No dysuria, frequency, or change in urination. MUSCULOSKELETAL: No joint or muscle swelling or pain. No neck or back pain. SKIN: No rash NEUROLOGIC: No headache, +loss of consciousness, no change in strength/ sensation. ENDOCRINE: No increased thirst. No abnormal weight change HEMATOLOGIC/LYMPHATIC: No anemia, easy bleeding, or history of blood clots. ALLERGIC/IMMUNOLOGIC: No hives or skin allergy. *Physical Exam - Vital Signs Last Vital Signs Temp Pulse Resp BP Pulse Ox 98.7 F 65 17 155/91 98 09/30/18 14:44 09/30/18 14:44 09/30/18 14:44 09/30/18 14:44 09/30/18 14:44 - Physical Exam Comments: 09/30/18 15:22 GENERAL: Awake, alert, and fully oriented, in no acute distress HEAD: No signs of trauma, normocephalic, atraumatic EYES: PERRLA, EOMI, sclera anicteric, conjunctiva clear ENT: Auricles normal inspection, hearing grossly normal, nares patent, oropharynx clear without exudates. Moist mucosa NECK: Normal ROM, supple, no lymphadenopathy, JVD, or masses, no midline tenderness BACK: No midline tenderness LUNGS: No distress, speaks full sentences, clear to auscultation bilaterally HEART: Regular rate and rhythm, normal S1 and S2, no murmurs, rubs or gallops, peripheral pulses normal and equal bilaterally. ABDOMEN: Soft, nontender, normoactive bowel sounds. No guarding, no rebound. No masses EXTREMITIES: Normal inspection, Normal range of motion, no edema. No clubbing or cyanosis. NEUROLOGICAL: Cranial nerves II through XII grossly intact. Normal speech, no focal sensorimotor deficits SKIN: Warm, Dry, normal turgor, no rashes or lesions noted Moderate Sedation - Procedure Monitoring Vital Signs: Procedure Monitoring Vital Signs Temperature 98.7 F 09/30/18 14:44 Pulse Rate 65 09/30/18 14:44 Respiratory Rate 17 09/30/18 14:44 Blood Pressure 155/91 09/30/18 14:44 O2 Sat by Pulse Oximetry (%) 98 09/30/18 14:44 ED Treatment Course - LABORATORY CBC & Chemistry Diagram: 09/30/18 15:15 09/30/18 15:15 - RADIOLOGY Radiology Studies Ordered: Category Date Time Status HEAD CT WITHOUT CONTRAST [CT] Stat CT Scan 09/30/18 15:01 Ordered CHEST X-RAY PORTABLE* [RAD] Stat Radiology 09/30/18 14:58 Taken - Medications Given in the ED: ED Medications Discontinued Medications Generic Name Dose Route Start Last Admin Trade Name Freq PRN Reason Stop Dose Admin Ondansetron HCl 4 mg 09/30/18 14:59 09/30/18 15:17 Zofran Injection IVPUSH 09/30/18 15:00 4 mg ONCE ONE Administration Medical Decision Making - Medical Decision Making 09/30/18 15:22 Patient is 63F with history of stroke, open heart surgery, etoh abuse here today with syncope x3. Vitals normal and stable. DDx includes, but is not limited to: etoh intox, vasovagal, arrhythmia, acs. EKG shows nsr with rate of 60. No st elevations/depressions. Inverted t waves in lateral leads, unchanged from prior leads. Normal axis. Normal intervals. 09/30/18 16:33 CBC normal. CMP normal. Trop neg. Etoh neg. CXR normal CT head neg. Case d/w Dr Montelongo, accepted to tele obs. *DC/Admit/Observation/Transfer Diagnosis at time of Disposition: Syncope - Discharge Dispostion Condition at time of disposition: Stable Decision to Admit order: Yes - Referrals Referrals: Anastacia Bradley MD [Primary Care Provider] - - Patient Instructions - Post Discharge Activity
[2018-09-30 15:34] LABS: INR 1.02 (0.83-1.09)
[2018-09-30 15:42] LABS: ALBUMIN 3.9 g/dl (3.4-5.0); ALK PHOS 92 U/L (45-117); ANION GAP 8 MMOL/L (8-16); BILIRUBIN,TOTAL 0.4 mg/dL (0.2-1); BLOOD UREA NITROGEN 21 mg/dL (7-18); CALCIUM 8.8 mg/dL (8.5-10.1); CHLORIDE 103 mmol/L (98-107); CO2 29 mmol/L (21-32); CREATININE 1.3 mg/dL (0.55-1.3); GLUCOSE,RANDOM 87 mg/dL (74-106); MAGNESIUM 2.1 mg/dL (1.8-2.4); POTASSIUM 3.9 mmol/L (3.5-5.1); SGOT/AST 21 U/L (15-37); SGPT/ALT 18 U/L (13-61); SODIUM 140 mmol/L (136-145); TOT PROT 7.6 g/dl (6.4-8.2)
[2018-09-30] MEDS ORDERED: ACETAMINOPHEN 325 MG TABLET (FP) PO PRN (17:00)
[2018-09-30] MEDS ORDERED: ONDANSETRON 4 MG/2 ML VIAL IVPUSH PRN (17:00)
[2018-09-30] MEDS ORDERED: SODIUM CHLORIDE 1,000 ML IV SCH (17:00)
--- NOTE | 2018-09-30 17:16 | HP ---
Admitting History and Physical - Primary Care Physician PCP: Marianne Gutierrez - Admission Chief Complaint: I'm falling History of Present Illness: Ms Peterson is a 63 year old female who comes in with complaints of falling. Patient is a very poor historian. She says that she has been falling for years. She said today she stood up and felt like she was going to fall, and then she sat down and fell. When asked specifically if she passed out, she says "I don't know, I'm falling". When asked if there was anything that caused her to come in today, she said that she felt funny but cannot elaborate further. She does endorse being lightheaded with this. She denies fevers, chills, dizziness, chest pain or pressure, shortness of breath, coughing, nausea, vomiting, diarrhea, constipation, difficulty or pain on urination, or swelling. She is very thankful to be staying in the hospital tonight. History Source: Patient Limitations to Obtaining History: Poor Historian - Past Medical History [employer] G[employer]: Yes: CVA Cardiovascular: Yes: HTN - Past Surgical History Additional Past Surgical History: she says she had a heart surgery but she does not know what it is - Smoking History Smoking history: Current every day smoker Have you smoked in the past 12 months: Yes Aproximately how many cigarettes per day: 40 - Alcohol/Substance Use Hx Alcohol Use: Yes History of Substance Use: reports: None - Social History Usual Living Arrangement: Yes: Alone ADL: Independent History of Recent Travel: No Home Medications - Allergies Allergies/Adverse Reactions: Allergies Allergy/AdvReac Type Severity Reaction Status Date / Time No Known Allergies Allergy Verified 08/14/18 02:58 - Home Medications Home Medications: Ambulatory Orders Nifedipine [Nifedipine ER] 60 mg PO DAILY #30 tab.er.24 07/20/18 Quetiapine Fumarate [Seroquel] 100 tab PO ASDIR 08/01/18 Family Disease History - Family Disease History Family Disease History: CA: Mother, Other: Father, Brother Review of Systems Findings/Remarks: Full review of systems obtained, as per HPI and otherwise negative. Unclear if accurate secondary to patient being a poor historian. Physical Examination Vital Signs: Vital Signs Temperature 37.1 C 09/30/18 14:44 Pulse Rate 65 09/30/18 14:44 Respiratory Rate 17 09/30/18 14:44 Blood Pressure 155/91 09/30/18 14:44 O2 Sat by Pulse Oximetry (%) 98 09/30/18 14:44 Constitutional: Yes: Well Nourished, No Distress, Calm, Other (disheveled) Eyes: Yes: Conjunctiva Clear, EOM Intact, PERRL Cardiovascular: Yes: Regular Rate and Rhythm. No: Gallop, Murmur, Rub Respiratory: Yes: Regular, CTA Bilaterally. No: Rales, Rhonchi, Wheezes Gastrointestinal: Yes: Normal Bowel Sounds, Soft. No: Distention, Tenderness Extremities: Yes: WNL Edema: No Labs: CBC, BMP 09/30/18 15:15 09/30/18 15:15 Imaging - Results Chest X-ray: Image Reviewed Cat Scan: Report Reviewed Problem List - Problems (1) Syncope Assessment/Plan: -unclear if true syncope -if present, chronic and unchanged -also suspect aspect of secondary gain by hospitalization -however will check ECHO and carotid ultrasound -fall risk precautions -PT consult -orthostatic vital signs -gentle hydration Code(s): R55 - SYNCOPE AND COLLAPSE Qualifiers: Encounter type: initial encounter (2) CVD (cardiovascular disease) Assessment/Plan: -history of "heart surgery" -however not on medications -will hold on aspirin since sustaining falls -will defer to PCP about further treatment for this Code(s): I25.10 - ATHSCL HEART DISEASE OF [place] CORONARY ARTERY W/O ANG PCTRS (3) CVA (cerebral vascular accident) Assessment/Plan: -consider aspirin, but will hold secondary to chronic falling -also not on statin Code(s): I63.9 - CEREBRAL INFARCTION, UNSPECIFIED Qualifiers: Laterality of affected vessel: unspecified (4) HTN (hypertension) Assessment/Plan: -patient's only medication is nifedipine -will continue Code(s): I10 - ESSENTIAL (PRIMARY) HYPERTENSION Qualifiers: Hypertension type: essential hypertension Qualified Code(s): I10 - Essential (primary) hypertension Assessment/Plan -plan for discharge tomorrow
--- NOTE | 2018-09-30 22:03 | EKG ---
Test Reason : Blood Pressure : / mmHG Vent. Rate : 060 BPM Atrial Rate : 060 BPM P-R Int : 128 ms QRS Dur : 082 ms QT Int : 474 ms P-R-T Axes : 050 026 114 degrees QTc Int : 474 ms NORMAL SINUS RHYTHM SEPTAL INFARCT (CITED ON OR BEFORE 04-JUN-2018) T WAVE ABNORMALITY, CONSIDER LATERAL ISCHEMIA ABNORMAL ECG WHEN COMPARED WITH ECG OF 15-JUL-2018 20:02, T WAVE INVERSION NO LONGER EVIDENT IN INFERIOR LEADS QT HAS LENGTHENED Confirmed by TAMIKA MUNOZ MD ([id number]) on 09/30/2018 10:03:18 PM Referred By: Confirmed By:TAMIKA MUNOZ MD
[2018-10-01 06:31] LABS: BASO % 0.4 % (0-2.0); HEMATOCRIT 37.3 % (32.4-45.2); HEMOGLOBIN 12.7 GM/dL (10.7-15.3); LYMPH % 34.3 % (8-40); MCH 30.1 pg (25.7-33.7); MCHC 34.1 g/dl (32.0-36.0); MEAN CELL VOLUME 88.1 fl (80-96); MEAN PLT VOLUME 9.6 fl (7.5-11.1); NEUT % 54.3 % (42.8-82.8); PLATELET COUNT 257 K/MM3 (134-434); RBC 4.23 M/mm3 (3.60-5.2); RDW 14.4 % (11.6-15.6); WHITE BLOOD COUNT 5.8 K/mm3 (4.0-10.0)
[2018-10-01 06:53] LABS: ANION GAP 6 MMOL/L (8-16); BLOOD UREA NITROGEN 24 mg/dL (7-18); CALCIUM 8.3 mg/dL (8.5-10.1); CHLORIDE 108 mmol/L (98-107); CO2 27 mmol/L (21-32); CREATININE 1.3 mg/dL (0.55-1.3); GLUCOSE,RANDOM 87 mg/dL (74-106); MAGNESIUM 2.3 mg/dL (1.8-2.4); POTASSIUM 3.9 mmol/L (3.5-5.1); SODIUM 141 mmol/L (136-145)
[2018-10-01] MEDS ORDERED: NIFEdipine E.R 60 MG TABLET (UD) PO SCH (10:00)
[2018-10-01] MEDS ORDERED: PATIENT'S OWN MEDICATION (NON-FORMULARY) (Nifedipine [Nifedipine Er] 60 MG) PO SCH (10:00)
--- NOTE | 2018-10-01 12:49 | ECHO ---
Name: DELFINA RUBY Exam:Adult Echocardiogram Study Date: 10/01/2018 09:00 AM Age: 63 yrs Reason For Study: SYNCOPE Height: 62 in Weight: 147 lb BSA: 1.7 m2 MMode/2D Measurements & Calculations IVSd: 1.2 cm Ao root diam: 2.7 cm LVIDd: 4.2 cm LA dimension: 4.8 cm LVIDs: 2.5 cm LVPWd: 1.6 cm EDV(Teich): 80.0 ml LAV (MOD-bp): 77.7 ml ESV(Teich): 21.9 ml Doppler Measurements & Calculations MV E max johan: 71.3 cm/sec AI P1/2t: 691.3 msec MV A max johan: 72.3 cm/sec MV E/A: 0.99 MV dec time: 0.13 sec AI max johan: 375.5 cm/sec MR max johan: 441.0 cm/sec AI max P.4 mmHg MR max P.8 mmHg AI dec slope: 159.1 cm/sec2 TR max johan: 259.8 cm/sec Med Peak E' Johan: 4.6 cm/sec TR max P.1 mmHg Med E/e': 15.6 Lat Peak E' Johan: 7.1 cm/sec Lat E/e': 10.1 PI Vmax: 133.0 cm/sec Procedure A complete two-dimensional transthoracic echocardiogram was performed (2D, M-mode, Doppler and color flow Doppler). Left Ventricle The left ventricle is normal in size. There is mild concentric left ventricular hypertrophy. Left jeffery tricular systolic function is normal. Ejection Fraction = 65-70%. Ratio E/E'= 16. Diastolic dysfunction, Grade II, consistent with elevated left atrial pressure. No regional wall motion abnormalities noted. Right Ventricle The right ventricle is normal size. The right ventricular systolic function is normal. Atria The left atrium is moderately dilated. LA volume index is 46 ml/m2. Right atrial size is normal. Mitral Valve There is mild mitral annular calcification. There is moderate mitral regurgitation. Tricuspid Valve The tricuspid valve is normal in structure and function. There is mild tricuspid regurgitation. Pulmo nary artery systolic pressure is at least 35 mmHg assuming RA pressure of 3 mmHg. Aortic Valve There is mild aortic sclerosis.;. Mild aortic regurgitation. Pulmonic Valve The pulmonic valve is not well visualized. Great Vessels The aortic root is normal size. Pericardium/Pleura There is no pericardial effusion. Interpretation Summary The left ventricle is normal in size. There is mild concentric left ventricular hypertrophy. Left ventricular systolic function is normal. No regional wall motion abnormalities noted. Ejection Fraction = 65-70%. Diastolic dysfunction, grade II, consistent with elevated left atrial pressure Ratio E/E'= 16 The right ventricular systolic function is normal. The left atrium is moderately dilated. Right atrial size is normal. There is mild mitral annular calcification. There is moderate mitral regurgitation. There is mild tricuspid regurgitation. Pulmonary artery systolic pressure is at least 35 mmHg assuming RA pressure of 3 mmHg There is mild aortic sclerosis. Mild aortic regurgitation. There is no pericardial effusion. When compared to study dated 06/05/18, no significant changes Wilfred Coates MD 10/01/2018 12:48 PM
--- NOTE | 2018-10-01 15:48 | DS ---
Physical Examination Vital Signs: Vital Signs Temperature 36.7 C 10/01/18 09:05 Pulse Rate 52 L 10/01/18 09:05 Respiratory Rate 17 10/01/18 09:05 Blood Pressure 154/80 10/01/18 09:05 O2 Sat by Pulse Oximetry (%) 100 10/01/18 07:15 Constitutional: Yes: Well Nourished, No Distress, Calm Cardiovascular: Yes: Regular Rate and Rhythm. No: Gallop, Murmur, Rub Respiratory: Yes: Regular, CTA Bilaterally. No: Rales, Rhonchi, Wheezes Gastrointestinal: Yes: Normal Bowel Sounds, Soft. No: Distention, Tenderness Extremities: Yes: WNL Edema: No Labs: CBC, BMP 10/01/18 05:20 10/01/18 06:00 Discharge Summary Reason For Visit: FALL Current Active Problems Syncope (Acute) Hospital Course: Ms Peterson is a very pleasant 63 year old female who comes in complaining of falls. She says that it has been going on for years and it is unchanged, but she came in to have it evaluated. She was admitted to telemetry observation. She had ECHO and carotid ultrasound which were within normal limits. She was seen by PT. Currently she is stable for discharge and close follow up with her PCP. 31 minutes spent in preparation of this discharge Condition: Stable - Instructions Diet, Activity, Other Instructions: resume previous diet and activity Referrals: Anastacia Bradley MD [Primary Care Provider] - Disposition: HOME - Home Medications Comprehensive Discharge Medication List: Ambulatory Orders Nifedipine [Nifedipine ER] 60 mg PO DAILY #30 tab.er.24 07/20/18
[2018-10-01 16:20] VITALS: BP 127/75; PULSE 69; TEMP 98.5
== END 2018-10-01 16:30 | disposition home or self-care (01) ==
LOC: JER 14:36 → JERBED 16:36
PROVIDERS: ADMIT Internal Medicine; ATTEND Internal Medicine
PROC: 3E033GC Introduction of Other Therapeutic Substance into Peripheral Vein, Percutaneous Approach (ICD-10-PCS; principal; 2018-09-30)
PROC: 3E0337Z Introduction of Electrolytic and Water Balance Substance into Peripheral Vein, Percutaneous Approach (ICD-10-PCS; 2018-09-30)
DX: R55 Syncope and collapse (principal); I10 Essential (primary) hypertension; I25.10 Atherosclerotic heart disease of native coronary artery without angina pectoris; F10.10 Alcohol abuse, uncomplicated; Z95.1 Presence of aortocoronary bypass graft; Z86.73 Personal history of transient ischemic attack (TIA), and cerebral infarction without residual deficits
CPT/HCPCS: 36415; 70450-TC; 71045-TC-FY; 80048; 80053; 80307; 82550; 83735; 84100; 84484; 85025; 85610; 93005; 93010; 93306-TC; 93880-TC; 96365; 96375; 96376; 97116-GP; 97161-GP; 99285-25; G0378; J7030

== ENCOUNTER 2019-01-30 10:04 | Inpatient (IN) | payer OTHER ==
[2019-01-30 10:28] VITALS: BMI 25.6
--- NOTE | 2019-01-30 10:43 | HP ---
CIWA Score Nausea/Vomitin Muscle Tremors: 2 Anxiety: 2 Agitation: 2 Paroxysmal Sweats: 1-Minimal Palms Moist Orientation: 0-Oriented Tacttile Disturbances: 1-Very Mild Itch/Numbness Auditory Disturbances: 1-Very Mild Visual Disturbances: 0-None Headache: 2-Mild CIWA-Ar Total Score: 13 - Admission Criteria OASAS Guidelines: Admission for Medically Managed Detox: Requires at least one of the followin. CIWA greater than 12 2. Seizures within the past 24 hours 3. Delirium tremens within the past 24 hours 4. Hallucinations within the past 24 hours 5. Acute intervention needed for co occurring medical disorder 6. Acute intervention needed for co occurring psychiatric disorder 7. Severe withdrawal that cannot be handled at a lower level of care (continued vomiting, continued diarrhea, abnormal vital signs) requiring intravenous medication and/or fluids 8. Admission ROS S - HPI Chief Complaint: i need help to stop drinking alcohol and cocaine Allergies/Adverse Reactions: Allergies Allergy/AdvReac Type Severity Reaction Status Date / Time No Known Allergies Allergy Verified 01/30/19 10:15 History of Present Illness: this 63 years old female with alcohol and cocaine dependence,withdrawal symptom multiple admissions in detox,non compliance, last detox 08/22/18 to 08/24/18 not completed syncope alcohol related history of hypertension on med nicotine 2 packs/day,does not want nicotine replacement no significant period of sobriety plan for rehab after detox old [facility] in 2016 [facility] involving speech open heart surgery in 2018? Exam Limitations: No Limitations - Ebola screening Have you traveled outside of the country in the last 21 days: No (N) Have you had contact with anyone from an Ebola affected area: No Do you have a fever: No - Review of Systems Constitutional: Loss of Appetite, Malaise, Night Sweats, Changes in sleep EENT: reports: No Symptoms Reported, Tearing, Nose Congestion Respiratory: reports: No Symptoms reported Cardiac: reports: No Symptoms Reported GI: reports: Nausea, Poor Appetite, Abdominal cramping : reports: No Symptoms Reported Musculoskeletal: reports: Back Pain, Muscle Pain Integumentary: reports: Dryness Neuro: reports: Headache Endocrine: reports: No Symptoms Reported Hematology: reports: No Symptoms Reported Psychiatric: reports: No Sypmtoms Reported, Judgement Intact, Mood/Affect Appropiate, Orientated x3 Other Systems: Reviewed and Negative Patient History - Patient Medical History Hx Anemia: No Hx Asthma: No Hx Chronic Obstructive Pulmonary Disease (COPD): No Hx Cancer: No Hx Cardiac Disorders: Yes (open heart surgery in 2017 at [facility]) Hx Congestive Heart Failure: No Hx Hypertension: Yes (on med) Hx Hypercholesterolemia: No Hx Pacemaker: No HX Cerebrovascular Accident: Yes (2015 [facility]) Hx Seizures: No Hx Diabetes: No Hx Gastrointestinal Disorders: No Hx Liver Disease: No Hx Genitourinary Disorders: No Hx Sexually Transmitted Disorders: No Hx Renal Disease (ESRD): No Hx Thyroid Disease: No Hx Human Immunodeficiency Virus (HIV): No (last 2018 negative) Hx Depression: Yes (Not on medication) Hx Suicide Attempt: No (Denies suicide attempt and suicidal ideation at this time) Hx Bipolar Disorder: No Hx Schizophrenia: No Other Medical History: no sucidal,no homicidal,no medication - Patient Surgical History Past Surgical History: Yes Hx Neurologic Surgery: No Hx Cataract Extraction: No Hx Cardiac Surgery: Yes (open heart surgery- does not remember when) Hx Lung Surgery: No Hx Breast Surgery: No Hx Breast Biopsy: No Hx Abdominal Surgery: No Hx Appendectomy: No Hx Cholecystectomy: No Hx Genitourinary Surgery: No Hx Section: No Hx Orthopedic Surgery: No Anesthesia Reaction: No - PPD History Date: 04/24/18 Results: NO RECORDED RES PPD to be Administered?: No - Reproductive History Patient is a Female of Child Bearing Age (11 -55 yrs old): No Patient : No - Smoking Cessation Smoking history: Current every day smoker Have you smoked in the past 12 months: Yes Aproximately how many cigarettes per day: 40 Cigars Per Day: 0 Hx Chewing Tobacco Use: No Initiated information on smoking cessation: Yes 'Breaking Loose' booklet given: 01/30/19 - Substance & Tx. History Hx Alcohol Use: Yes Hx Substance Use: Yes Substance Use Type: Alcohol, Cocaine Hx Substance Use Treatment: Yes ([facility] 08/22/18 to 08/24/18) - Substances abused Alcohol Substance route: Oral Frequency: Daily Amount used: 36 (12 ounce of beer), 1 pint of liquor Age of first use: 17 Date of last use: 01/29/19 Cocaine Substance route: Inhalation Frequency: 3-6 times per week Amount used: 1 gram Age of first use: 17 Date of last use: 01/29/19 Family Disease History - Family Disease History Family Disease History: CA: Mother, Other: Father, Brother Admission Physical Exam [facility] - Vital Signs Vital Signs: Vital Signs - 24 hr 01/30/19 10:17 Temperature 97.0 F L Pulse Rate 60 Respiratory 18 Rate Blood Pressure 162/96 - Physical General Appearance: Yes: Tremorous, Irritable, Anxious HEENTM: Yes: Normal ENT Inspection, MATEUS, Pharynx Normal Respiratory: Yes: Lungs Clear, Normal Breath Sounds, No Respiratory Distress Neck: Yes: Within Normal Limits, Supple, Trachea in good position Breast: Yes: Breast Exam Deferred Cardiology: Yes: Within Normal Limits, Regular Rhythm, Regular Rate, S1, S2, Other (median sternotomy) Abdominal: Yes: Normal Bowel Sounds, Non Tender, Flat, Soft Genitourinary: Yes: Within Normal Limits Back: Yes: Within Normal Limits Musculoskeletal: Yes: Back pain, Muscle Pain Extremities: Yes: Normal Range of Motion, Tremors Neurological: Yes: dye operator II-XII NML intact, Alert, Motor Strength 5/5 Integumentary: Yes: Dry Lymphatic: Yes: Within Normal Limits - Diagnostic (1) Alcohol dependence with uncomplicated withdrawal Current Visit: No Status: Chronic (2) CVD (cardiovascular disease) Current Visit: No Status: Acute (3) Syncope Current Visit: No Status: Acute Qualifiers: Encounter type: initial encounter (4) Cocaine dependence Current Visit: No Status: Chronic Qualifiers: Substance use status: uncomplicated Qualified Code(s): F14.20 - Cocaine dependence, uncomplicated (5) Depression Current Visit: No Status: Chronic (6) HLD (hyperlipidemia) Current Visit: No Status: Chronic Qualifiers: Hyperlipidemia type: pure hypercholesterolemia Qualified Code(s): E78.00 - Pure hypercholesterolemia, unspecified; E78.0 - Pure hypercholesterolemia (7) HTN (hypertension) Current Visit: No Status: Chronic Qualifiers: Hypertension type: essential hypertension Qualified Code(s): I10 - Essential (primary) hypertension (8) Old cerebrovascular accident (CVA) without late effect Current Visit: Yes Status: Acute (9) History of open heart surgery Current Visit: Yes Status: Acute Cleared for Admission [facility] - Detox or Rehab [facility] Level of Care: Medically Managed Detox Regimen/Protocol: Librium Inpatient Rehab Admission - Rehab Decision to Admit Inpatient rehab admission?: No
[2019-01-30] MEDS ORDERED: MAG HYDROX/AL HYDROX/SIMETH 30 ML UNIT-DOSE CUP PO PRN (11:11)
[2019-01-30] MEDS ORDERED: ACETAMINOPHEN 325 MG TABLET (FP) PO PRN ×2 (11:11)
[2019-01-30] MEDS ORDERED: hydrOXYzine PAMOATE 25 MG CAPSULE (FP) PO PRN (11:11)
[2019-01-30] MEDS ORDERED: chlordiazePOXIDE HCL 25 MG CAPSULE PO PRN (11:11)
[2019-01-30] MEDS ORDERED: MENTHOL/PHENOL 1 EACH UD MM PRN (11:11)
[2019-01-30] MEDS ORDERED: IBUPROFEN 400 MG TABLET (FP) PO PRN (11:11)
[2019-01-30] MEDS ORDERED: BISMUTH SUBSALICYLATE 524 MG/30 ML UD PO PRN (11:11)
[2019-01-30] MEDS ORDERED: MAGNESIUM HYDROX 2400MG/30ML ORAL SUSPENSION 30 ML CUP PO PRN (11:11)
[2019-01-30] MEDS ORDERED: METHOCARBAMOL 500 MG TABLET PO PRN (11:11)
[2019-01-30] MEDS ORDERED: MAGNESIUM CITRATE 300 ML BOTTLE PO PRN (11:11)
[2019-01-30] MEDS ORDERED: MELATONIN 5 MG TABLETS PO PRN (11:11)
[2019-01-30] MEDS: chlordiazePOXIDE HCL 25 MG CAPSULE PO SCH ×3 (12:50→22:07)
[2019-01-30] MEDS: NIFEdipine E.R 60 MG TABLET (UD) PO SCH (12:51)
[2019-01-30 17:02] LABS: ALBUMIN 3.6 g/dl (3.4-5.0); BILIRUBIN,TOTAL 0.6 mg/dL (0.2-1); BLOOD UREA NITROGEN 27.7 mg/dL (7-18); CALCIUM 8.8 mg/dL (8.5-10.1); CREATININE 1.7 mg/dL (0.55-1.3); POTASSIUM 4.1 mmol/L (3.5-5.1); TOT PROT 6.9 g/dl (6.4-8.2)
[2019-01-30 18:17] LABS: HEMATOCRIT 41.3 % (32.4-45.2); HEMOGLOBIN 13.4 GM/dL (10.7-15.3); MCH 29.3 pg (25.7-33.7); MCHC 32.4 g/dl (32.0-36.0); MEAN CELL VOLUME 90.5 fl (80-96); MEAN PLT VOLUME 10.6 fl (7.5-11.1); PLATELET COUNT 245 K/MM3 (134-434); RBC 4.57 M/mm3 (3.60-5.2); RDW 15.1 % (11.6-15.6); WHITE BLOOD COUNT 7.7 K/mm3 (4.0-10.0)
[2019-01-30] MEDS: THIAMINE HCL 100 MG TABLET (FP) PO SCH (22:07)
[2019-01-31] MEDS: chlordiazePOXIDE HCL 25 MG CAPSULE PO SCH ×4 (05:43→22:42)
[2019-01-31] MEDS: PRENATAL VITAMINS W/ FOLIC ACID TABLET (FP) PO SCH (10:31)
[2019-01-31] MEDS: NIFEdipine E.R 60 MG TABLET (UD) PO SCH (10:31)
--- NOTE | 2019-01-31 13:42 | EKG ---
Test Reason : Blood Pressure : / mmHG Vent. Rate : 057 BPM Atrial Rate : 057 BPM P-R Int : 120 ms QRS Dur : 094 ms QT Int : 458 ms P-R-T Axes : 056 043 176 degrees QTc Int : 445 ms SINUS BRADYCARDIA LEFT VENTRICULAR HYPERTROPHY WITH REPOLARIZATION ABNORMALITY CANNOT RULE OUT SEPTAL INFARCT (CITED ON OR BEFORE 04-JUN-2018) ABNORMAL ECG WHEN COMPARED WITH ECG OF 30-SEP-2018 15:11, T WAVE INVERSION NOW EVIDENT IN INFERIOR LEADS T WAVE INVERSION MORE EVIDENT IN LATERAL LEADS Confirmed by RENNY OVIEDO MD ([id number]) on 01/31/2019 1:41:52 PM Referred By: Confirmed By:RENNY OVIEDO MD
--- NOTE | 2019-01-31 15:28 | PN ---
S CIWA - CIWA Score Nausea/Vomitin Muscle Tremors: 2 Anxiety: 2 Agitation: 1-Slight > Activity Paroxysmal Sweats: 3 Orientation: 2-Disoriented Date<2 days Tacttile Disturbances: 0-None Auditory Disturbances: 0-None Visual Disturbances: 2-Mild Sensitivity Headache: 0-None Present CIWA-Ar Total Score: 14 BHS Progress Note (SOAP) Subjective: Sweating, Tremors, Nausea. Objective: PATIENT A & O X 2 (UNCERTAIN ABOUT CURRENT DAY / DATE). PATIENT OBSERVED AMBULATING ON UNIT UNASSISTED. IN NO ACUTE DISTRESS. 01/31/19 15:26 Vital Signs Temperature 96.6 F L 01/31/19 13:12 Pulse Rate 55 L 01/31/19 13:12 Respiratory Rate 16 01/31/19 13:12 Blood Pressure 145/84 01/31/19 13:12 O2 Sat by Pulse Oximetry (%) Laboratory Tests 01/30/19 01/30/19 01/30/19 10:40 11:24 11:24 WBC 7.7 RBC 4.57 Hgb 13.4 Hct 41.3 MCV 90.5 MCH 29.3 MCHC 32.4 RDW 15.1 Plt Count 245 MPV 10.6 D Sodium 142 Potassium 4.1 Chloride 110 H Carbon Dioxide 23 Anion Gap 8 BUN 27.7 H Creatinine 1.7 H Est GFR (CKD-EPI)AfAm 36.81 Est GFR (CKD-EPI)NonAf 31.76 Random Glucose 89 Calcium 8.8 Total Bilirubin 0.6 AST 15 ALT 14 Alkaline Phosphatase 95 Total Protein 6.9 Albumin 3.6 POC Urine HCG, Qual Negative RPR Titer 01/30/19 11:24 WBC RBC Hgb Hct MCV MCH MCHC RDW Plt Count MPV Sodium Potassium Chloride Carbon Dioxide Anion Gap BUN Creatinine Est GFR (CKD-EPI)AfAm Est GFR (CKD-EPI)NonAf Random Glucose Calcium Total Bilirubin AST ALT Alkaline Phosphatase Total Protein Albumin POC Urine HCG, Qual RPR Titer Nonreactive LABS NOTED. Assessment: 01/31/19 15:29 WITHDRAWAL SYMPTOMS. AZOTEMIA. Plan: CONTINUE DETOX. D/C IBUPROFEN AND MAGNESIUM-CONTAINING MEDS. FOR ABNORMAL ADMISSION RENAL LAB VALUES.
[2019-01-31] MEDS: THIAMINE HCL 100 MG TABLET (FP) PO SCH (22:42)
[2019-01-31 23:54] LABS: EPI CELLS 22.7 /HPF (0-5/HPF); HYALINE CASTS 8 /lpf (0-8); URINE APPEARANCE CLOUDY; URINE BACTERIA 491.5 /hpf (NEGATIVE); URINE BILIRUBIN NEGATIVE (NEGATIVE); URINE COLOR YELLOW; URINE GLUCOSE (UA) NEGATIVE (NEGATIVE); URINE KETONE TRACE (NEGATIVE); URINE LEUK ESTERASE 2+ (NEGATIVE); URINE NITRITE NEGATIVE (NEGATIVE); URINE PROTEIN TRACE (NEGATIVE); URINE RBC 4.2 /hpf (0-4); URINE WBC 47 /hpf (0-5)
[2019-02-01] MEDS: chlordiazePOXIDE HCL 25 MG CAPSULE PO SCH (08:13)
[2019-02-01 09:19] VITALS: BP 167/74; PULSE 66; TEMP 97.4
[2019-02-01] MEDS: NIFEdipine E.R 60 MG TABLET (UD) PO SCH (09:35)
[2019-02-01] MEDS: PRENATAL VITAMINS W/ FOLIC ACID TABLET (FP) PO SCH (09:35)
[2019-02-01] MEDS ORDERED: chlordiazePOXIDE HCL 10 MG CAPSULE PO SCH (11:00)
[2019-02-01] MEDS ORDERED: chlordiazePOXIDE HCL 10 MG CAPSULE PO PRN (11:00)
--- NOTE | 2019-02-01 12:08 | PN ---
S CIWA - CIWA Score Nausea/Vomitin Muscle Tremors: 2 Anxiety: 2 Agitation: 2 Paroxysmal Sweats: No Perspiration Orientation: 0-Oriented Tacttile Disturbances: 0-None Auditory Disturbances: 0-None Visual Disturbances: 0-None Headache: 1-Very Mild CIWA-Ar Total Score: 9 S Progress Note (SOAP) Subjective: alert,irritable,anxious,interrupted sleep,tremor Objective: 02/01/19 12:06 Vital Signs Temperature 97.4 F L 02/01/19 09:18 Pulse Rate 66 02/01/19 09:18 Respiratory Rate 16 02/01/19 09:18 Blood Pressure 167/74 02/01/19 09:18 O2 Sat by Pulse Oximetry (%) Laboratory Last Values WBC 7.7 K/mm3 (4.0-10.0) 01/30/19 11:24 RBC 4.57 M/mm3 (3.60-5.2) 01/30/19 11:24 Hgb 13.4 GM/dL (10.7-15.3) 01/30/19 11:24 Hct 41.3 % (32.4-45.2) 01/30/19 11:24 MCV 90.5 fl (80-96) 01/30/19 11:24 MCH 29.3 pg (25.7-33.7) 01/30/19 11:24 MCHC 32.4 g/dl (32.0-36.0) 01/30/19 11:24 RDW 15.1 % (11.6-15.6) 01/30/19 11:24 Plt Count 245 K/MM3 (134-434) 01/30/19 11:24 MPV 10.6 fl (7.5-11.1) D 01/30/19 11:24 Sodium 142 mmol/L (136-145) 01/30/19 11:24 Potassium 4.1 mmol/L (3.5-5.1) 01/30/19 11:24 Chloride 110 mmol/L (98-107) H 01/30/19 11:24 Carbon Dioxide 23 mmol/L (21-32) 01/30/19 11:24 Anion Gap 8 MMOL/L (8-16) 01/30/19 11:24 BUN 27.7 mg/dL (7-18) H 01/30/19 11:24 Creatinine 1.7 mg/dL (0.55-1.3) H 01/30/19 11:24 Est GFR (CKD-EPI)AfAm 36.81 01/30/19 11:24 Est GFR (CKD-EPI)NonAf 31.76 01/30/19 11:24 Random Glucose 89 mg/dL (74-106) 01/30/19 11:24 Calcium 8.8 mg/dL (8.5-10.1) 01/30/19 11:24 Total Bilirubin 0.6 mg/dL (0.2-1) 01/30/19 11:24 AST 15 U/L (15-37) 01/30/19 11:24 ALT 14 U/L (13-61) 01/30/19 11:24 Alkaline Phosphatase 95 U/L (45-117) 01/30/19 11:24 Total Protein 6.9 g/dl (6.4-8.2) 01/30/19 11:24 Albumin 3.6 g/dl (3.4-5.0) 01/30/19 11:24 Urine Color Yellow 01/31/19 17:20 Urine Appearance Cloudy 01/31/19 17:20 Urine pH 5.0 (5.0-8.0) 01/31/19 17:20 Ur Specific [place] 1.024 (1.010-1.035) 01/31/19 17:20 Urine Protein Trace (NEGATIVE) 01/31/19 17:20 Urine Glucose (UA) Negative (NEGATIVE) 01/31/19 17:20 Urine Ketones Trace (NEGATIVE) H 01/31/19 17:20 Urine Blood Negative (NEGATIVE) 01/31/19 17:20 Urine Nitrite Negative (NEGATIVE) 01/31/19 17:20 Urine Bilirubin Negative (NEGATIVE) 01/31/19 17:20 Urine Urobilinogen 1.0 mg/dL (0.2-1.0) 01/31/19 17:20 Ur Leukocyte Esterase 2+ (NEGATIVE) H 01/31/19 17:20 Urine WBC (Auto) 47 /hpf (0-5) 01/31/19 17:20 Urine RBC (Auto) 4.2 /hpf (0-4) 01/31/19 17:20 Urine Casts (Auto) 8 /lpf (0-8) 01/31/19 17:20 U Epithel Cells (Auto) 22.7 /HPF (0-5/HPF) 01/31/19 17:20 Urine Crystals (Auto) None /hpf 01/31/19 17:20 Urine Bacteria (Auto) 491.5 /hpf (NEGATIVE) 01/31/19 17:20 POC Urine HCG, Qual Negative 01/30/19 10:40 RPR Titer Nonreactive (NONREACTIVE) 01/30/19 11:24 Assessment: 02/01/19 12:07 withdrawal symptom Plan: continue detox
--- NOTE | 2019-02-01 12:13 | PN ---
[facility] Progress Note Note: patient did not want to complete treatment due to personal issue,all attempts to convince patient to stay with no avail, signed release ama,explained to patient for high risk of relapsing,patient understood,signed release ama,patient will see her medical provider for follow up medical problem, advise to call 911 if not feeling well
--- NOTE | 2019-02-01 12:16 | DS ---
[facility] Detox Discharge Summary Admission Date: 01/30/19 Discharge Date: 02/01/19 - History Present History: Alcohol Dependence, Cocaine Dependence Additional Comments: patient signed release AMA Pertinent Past History: hypertension hyperlipidemia old cva history of heart surgery syncope - Physical Exam Results Vital Signs: Vital Signs Temperature 97.4 F L 02/01/19 09:18 Pulse Rate 66 02/01/19 09:18 Respiratory Rate 16 02/01/19 09:18 Blood Pressure 167/74 02/01/19 09:18 O2 Sat by Pulse Oximetry (%) Pertinent Admission Physical Exam Findings: withdrawal signs and symptom - Medication Discharge Medications: Ambulatory Orders Nifedipine [Nifedipine ER] 60 mg PO DAILY 01/30/19 - Diagnosis (1) Alcohol dependence with uncomplicated withdrawal Current Visit: No Status: Chronic (2) CVD (cardiovascular disease) Current Visit: No Status: Acute (3) Syncope Current Visit: No Status: Acute Qualifiers: Encounter type: initial encounter (4) Cocaine dependence Current Visit: No Status: Chronic Qualifiers: Substance use status: uncomplicated Qualified Code(s): F14.20 - Cocaine dependence, uncomplicated (5) Depression Current Visit: No Status: Chronic (6) HLD (hyperlipidemia) Current Visit: No Status: Chronic Qualifiers: Hyperlipidemia type: pure hypercholesterolemia Qualified Code(s): E78.00 - Pure hypercholesterolemia, unspecified; E78.0 - Pure hypercholesterolemia (7) HTN (hypertension) Current Visit: No Status: Chronic Qualifiers: Hypertension type: essential hypertension Qualified Code(s): I10 - Essential (primary) hypertension (8) Old cerebrovascular accident (CVA) without late effect Current Visit: Yes Status: Acute (9) History of open heart surgery Current Visit: Yes Status: Acute - AMA Did Patient Leave Against Medical Advice: Yes
[2019-02-02] MEDS ORDERED: chlordiazePOXIDE HCL 10 MG CAPSULE PO SCH (11:00)
== END 2019-02-01 12:40 | disposition left against medical advice (07) | DRG 770 ==
LOC: YASAS 10:04 → Y3N 11:05
PROVIDERS: ADMIT Surgery; ATTEND Surgery
PROC: HZ2ZZZZ Detoxification Services for Substance Abuse Treatment (ICD-10-PCS; principal; 2019-01-30)
DX: F10.230 Alcohol dependence with withdrawal, uncomplicated (principal); F14.20 Cocaine dependence, uncomplicated; I25.10 Atherosclerotic heart disease of native coronary artery without angina pectoris; I10 Essential (primary) hypertension; E78.5 Hyperlipidemia, unspecified; R55 Syncope and collapse; Z98.890 Other specified postprocedural states
CPT/HCPCS: 36415; 80053; 81003; 81025; 85027; 86593; 93005; 93010

== ENCOUNTER 2019-03-27 19:18 | Inpatient (IN) | payer OTHER ==
[2019-03-27 19:44] VITALS: BMI 25.0
--- NOTE | 2019-03-27 21:21 | HP ---
CIWA Score Nausea/Vomitin (vomiting x 3) Muscle Tremors: 4-Moderate,w/Arms Extend Anxiety: 3 Agitation: 3 Paroxysmal Sweats: 3 Orientation: 2-Disoriented Date<2 days Tacttile Disturbances: 0-None Auditory Disturbances: 0-None Visual Disturbances: 0-None Headache: 0-None Present CIWA-Ar Total Score: 18 - Admission Criteria OASAS Guidelines: Admission for Medically Managed Detox: Requires at least one of the followin. CIWA greater than 12 2. Seizures within the past 24 hours 3. Delirium tremens within the past 24 hours 4. Hallucinations within the past 24 hours 5. Acute intervention needed for co occurring medical disorder 6. Acute intervention needed for co occurring psychiatric disorder 7. Severe withdrawal that cannot be handled at a lower level of care (continued vomiting, continued diarrhea, abnormal vital signs) requiring intravenous medication and/or fluids 8. Admission ROS [facility] Chief Complaint: Alcohol withdrawal symptoms Allergies/Adverse Reactions: Allergies Allergy/AdvReac Type Severity Reaction Status Date / Time No Known Allergies Allergy Verified 03/27/19 19:30 History of Present Illness: 63 years old female with a long history of alcohol dependence (since age 17 years) is seeking admission to detox. Patient has been in detox multiple times nd reports insignificant period of sobriety. She has medical history of hypertension, depression, CVA and open heart surgery. She denies suicide attempt / suicidal ideation at this time - Ebola screening Have you traveled outside of the country in the last 21 days: No (N) Have you had contact with anyone from an Ebola affected area: No Do you have a fever: No - Review of Systems Constitutional: Chills, Loss of Appetite, Malaise, Night Sweats, Weakness EENT: reports: Nose Congestion Respiratory: reports: No Symptoms reported Cardiac: reports: No Symptoms Reported GI: reports: Diarrhea, Nausea, Poor Appetite, Poor Fluid Intake, Abdominal cramping : reports: No Symptoms Reported Musculoskeletal: reports: Back Pain, Muscle Weakness Integumentary: reports: Dryness, Flushing Neuro: reports: Tremors Endocrine: reports: No Symptoms Reported Hematology: reports: No Symptoms Reported Psychiatric: reports: Mood/Affect Appropiate, Orientated x3, Anxious Other Systems: Reviewed and Negative Patient History - Patient Medical History Hx Anemia: No Hx Asthma: No Hx Chronic Obstructive Pulmonary Disease (COPD): No Hx Cancer: No Hx Cardiac Disorders: Yes (open heart surgery in 2017 at [facility]) Hx Congestive Heart Failure: No Hx Hypertension: Yes (on med) Hx Hypercholesterolemia: No Hx Pacemaker: No HX Cerebrovascular Accident: Yes (2015 [facility]) Hx Seizures: No Hx Diabetes: No Hx Gastrointestinal Disorders: No Hx Liver Disease: No Hx Genitourinary Disorders: No Hx Sexually Transmitted Disorders: No Hx Renal Disease (ESRD): No Hx Thyroid Disease: No Hx Human Immunodeficiency Virus (HIV): No (last 2018 negative) Hx Depression: Yes (Not on medication) Hx Suicide Attempt: No (Denies suicide attempt and suicidal ideation at this time) Hx Bipolar Disorder: No Hx Schizophrenia: No - Patient Surgical History Past Surgical History: Yes Hx Neurologic Surgery: No Hx Cataract Extraction: No Hx Cardiac Surgery: Yes (open heart surgery- does not remember when) Hx Lung Surgery: No Hx Breast Surgery: No Hx Breast Biopsy: No Hx Abdominal Surgery: No Hx Appendectomy: No Hx Cholecystectomy: No Hx Genitourinary Surgery: No Hx Section: No Hx Orthopedic Surgery: No Anesthesia Reaction: No - PPD History Previous Implant?: Yes Date: 04/24/18 Results: NO RECORDED RES PPD to be Administered?: Yes - Reproductive History Patient is a Female of Child Bearing Age (11 -55 yrs old): No LMP comment: unknown - Smoking Cessation Smoking history: Current every day smoker Have you smoked in the past 12 months: Yes Aproximately how many cigarettes per day: 40 Cigars Per Day: 0 Hx Chewing Tobacco Use: No Initiated information on smoking cessation: Yes 'Breaking Loose' booklet given: 03/27/19 - Substance & Tx. History Hx Alcohol Use: Yes Hx Substance Use: Yes Substance Use Type: Alcohol, Cocaine Hx Substance Use Treatment: Yes ([facility]) - Substances abused Alcohol Substance route: Oral Frequency: Daily Amount used: 36 (12 ounce of Cobra beer), 1 pint of liquor Age of first use: 17 Date of last use: 03/26/19 Cocaine Substance route: Inhalation Frequency: 3-6 times per week Amount used: 1 gram Age of first use: 17 Date of last use: 03/25/19 Family Disease History - Family Disease History Family Disease History: [place]: Mother, Other: Father, Brother Admission Physical Exam BHS - Vital Signs Vital Signs: Vital Signs - 24 hr 03/27/19 19:26 Temperature 98.8 F Pulse Rate 75 Respiratory 16 Rate Blood Pressure 163/90 - Physical General Appearance: Yes: Moderate Distress, Tremorous, Anxious HEENTM: Yes: Nasal Congestion Respiratory: Yes: Lungs Clear, Normal Breath Sounds, No Respiratory Distress Neck: Yes: Supple Breast: Yes: Breast Exam Deferred Cardiology: Yes: Regular Rhythm, Regular Rate Abdominal: Yes: Normal Bowel Sounds Genitourinary: Yes: Within Normal Limits Back: Yes: Normal Inspection Musculoskeletal: Yes: Back pain Extremities: Yes: Tremors Neurological: Yes: Alert, Normal Mood/Affect Integumentary: Yes: Warm Lymphatic: Yes: Within Normal Limits Cleared for Admission S - Detox or Rehab [facility] Level of Care: Medically Managed Detox Regimen/Protocol: Librium Claeared for Rehab Admission: No Breathalyzer - Breathalyzer Breathalyzer: 0 Urine Drug Screen - Test Device Lot number: [id number] Expiration date: 01/04/21 - Control Is test valid?: Yes - Results Drug screen NEGATIVE: No Urine drug screen results: RACHELLE-Cocaine Inpatient Rehab Admission - Rehab Decision to Admit Inpatient rehab admission?: No
[2019-03-27] MEDS ORDERED: IBUPROFEN 400 MG TABLET (FP) PO PRN (21:35)
[2019-03-27] MEDS ORDERED: hydrOXYzine PAMOATE 25 MG CAPSULE (FP) PO PRN (21:35)
[2019-03-27] MEDS ORDERED: MAGNESIUM CITRATE 300 ML BOTTLE PO PRN (21:35)
[2019-03-27] MEDS ORDERED: chlordiazePOXIDE HCL 25 MG CAPSULE PO PRN (21:35)
[2019-03-27] MEDS ORDERED: NICOTINE POLACRILEX 4 MG GUM BUC PRN (21:35)
[2019-03-27] MEDS ORDERED: MENTHOL/PHENOL 1 EACH UD MM PRN (21:35)
[2019-03-27] MEDS ORDERED: MAGNESIUM HYDROX 2400MG/30ML ORAL SUSPENSION 30 ML CUP PO PRN (21:35)
[2019-03-27] MEDS ORDERED: MAG HYDROX/AL HYDROX/SIMETH 30 ML UNIT-DOSE CUP PO PRN (21:35)
[2019-03-27] MEDS ORDERED: BISMUTH SUBSALICYLATE 524 MG/30 ML UD PO PRN (21:35)
[2019-03-27] MEDS ORDERED: METHOCARBAMOL 500 MG TABLET PO PRN (21:35)
[2019-03-27] MEDS ORDERED: ACETAMINOPHEN 325 MG TABLET (FP) PO PRN ×2 (21:35)
[2019-03-27] MEDS ORDERED: cloNIDine HCL 0.1 MG TABLET PO ONE (21:39)
[2019-03-27] MEDS: chlordiazePOXIDE HCL 25 MG CAPSULE PO SCH (22:52)
[2019-03-27] MEDS: THIAMINE HCL 100 MG TABLET (FP) PO SCH (22:53)
[2019-03-28] MEDS: chlordiazePOXIDE HCL 25 MG CAPSULE PO SCH ×4 (05:46→22:30)
[2019-03-28] MEDS ORDERED: NIFEdipine E.R 60 MG TABLET (UD) PO SCH (10:00)
[2019-03-28] MEDS: PRENATAL VITAMINS W/ FOLIC ACID TABLET (FP) PO SCH (10:38)
[2019-03-28] MEDS: NICOTINE 21 MG/24 HOURS TOPICAL PATCH TD SCH (10:38)
[2019-03-28] MEDS: ASPIRIN COATED 81 MG TABLET.EC PO SCH (10:38)
--- NOTE | 2019-03-28 11:42 | EKG ---
Test Reason : Blood Pressure : / mmHG Vent. Rate : 050 BPM Atrial Rate : 050 BPM P-R Int : 136 ms QRS Dur : 096 ms QT Int : 478 ms P-R-T Axes : 058 039 172 degrees QTc Int : 435 ms SINUS BRADYCARDIA POSSIBLE LEFT ATRIAL ENLARGEMENT LEFT VENTRICULAR HYPERTROPHY WITH REPOLARIZATION ABNORMALITY CANNOT RULE OUT SEPTAL INFARCT (CITED ON OR BEFORE 04-JUN-2018) ABNORMAL ECG WHEN COMPARED WITH ECG OF 27-MAR-2019 22:21, T WAVE INVERSION LESS EVIDENT IN INFERIOR LEADS Confirmed by RENNY OVIEDO MD ([id number]) on 03/28/2019 11:42:27 AM Referred By: Arnei Guadarrama Confirmed By:RENNY OVIEDO MD
--- NOTE | 2019-03-28 11:42 | EKG ---
Test Reason : Blood Pressure : / mmHG Vent. Rate : 052 BPM Atrial Rate : 052 BPM P-R Int : 134 ms QRS Dur : 092 ms QT Int : 464 ms P-R-T Axes : 066 052 211 degrees QTc Int : 431 ms SINUS BRADYCARDIA POSSIBLE LEFT ATRIAL ENLARGEMENT LEFT VENTRICULAR HYPERTROPHY WITH REPOLARIZATION ABNORMALITY CANNOT RULE OUT SEPTAL INFARCT (CITED ON OR BEFORE 04-JUN-2018) ABNORMAL ECG WHEN COMPARED WITH ECG OF 30-JAN-2019 11:17, T WAVE INVERSION MORE EVIDENT IN INFERIOR LEADS Confirmed by RENNY OVIEDO MD ([id number]) on 03/28/2019 11:42:37 AM Referred By: Arnie Guadarrama Confirmed By:RENNY OVIEDO MD
[2019-03-28 12:20] LABS: ALBUMIN 3.4 g/dl (3.4-5.0); BILIRUBIN,TOTAL 0.2 mg/dL (0.2-1); CALCIUM 9.1 mg/dL (8.5-10.1); CREATININE 1.6 mg/dL (0.55-1.3); POTASSIUM 3.8 mmol/L (3.5-5.1); TOT PROT 6.8 g/dl (6.4-8.2)
[2019-03-28 13:24] LABS: HEMATOCRIT 40.1 % (32.4-45.2); HEMOGLOBIN 13.3 GM/dL (10.7-15.3); MCH 29.7 pg (25.7-33.7); MCHC 33.2 g/dl (32.0-36.0); MEAN CELL VOLUME 89.7 fl (80-96); MEAN PLT VOLUME 9.5 fl (7.5-11.1); PLATELET COUNT 279 K/MM3 (134-434); RBC 4.47 M/mm3 (3.60-5.2); RDW 14.9 % (11.6-15.6); WHITE BLOOD COUNT 4.4 K/mm3 (4.0-10.0)
--- NOTE | 2019-03-28 14:11 | PN ---
[facility] CIWA - CIWA Score Nausea/Vomitin-No Nausea/No Vomiting Muscle Tremors: 2 Anxiety: 4-Mod. Anxious/Guarded Agitation: 0-Normal Activity Paroxysmal Sweats: 3 Orientation: 2-Disoriented Date<2 days Tacttile Disturbances: 2-Mild Itch/Numbness/Burn Auditory Disturbances: 0-None Visual Disturbances: 0-None Headache: 0-None Present CIWA-Ar Total Score: 13 S Progress Note (SOAP) Subjective: Anxious, Tremors, Fatigue. Objective: PATIENT A & O X 2 (UNCERTAIN ABOUT CURRENT DAY / DATE). IN NO ACUTE DISTRESS. 03/28/19 14:06 Vital Signs Temperature 97.1 F L 03/28/19 13:45 Pulse Rate 71 03/28/19 13:45 Respiratory Rate 18 03/28/19 13:45 Blood Pressure 152/93 03/28/19 13:45 O2 Sat by Pulse Oximetry (%) Laboratory Tests 03/28/19 03/28/19 07:30 07:30 WBC 4.4 RBC 4.47 Hgb 13.3 Hct 40.1 MCV 89.7 MCH 29.7 MCHC 33.2 RDW 14.9 Plt Count 279 MPV 9.5 D Sodium 144 Potassium 3.8 Chloride 109 H Carbon Dioxide 26 Anion Gap 9 BUN 35.0 H Creatinine 1.6 H Est GFR (CKD-EPI)AfAm 39.61 Est GFR (CKD-EPI)NonAf 34.18 Random Glucose 93 Calcium 9.1 Total Bilirubin 0.2 AST 18 ALT 13 Alkaline Phosphatase 82 Total Protein 6.8 Albumin 3.4 LABS NOTED. Assessment: 03/28/19 14:06 WITHDRAWAL SYMPTOMS. AZOTEMIA. HYPERTENSION. Plan: CONTINUE DETOX. INCREASE DAILY PO WATER INTAKE. D/C IBUPROFEN AND MAGNESIUM-CONTAINING MEDS. FOR ABNORMAL ADMISSION RENAL LAB VALUES. BASIC METABOLIC PANEL ON 03/30/2019 FOR ABNORMAL RENAL LAB VALUES NOTED ON DETOX ADMISSION LABORATORY ASSESSMENT. INCREASE DOSE FO NIFEDIPINE ER TO 90 MG PO DAILY FOR ELEVATED BLOOD PRESSURE DESPITE PREVIOUS TREATMENT.
[2019-03-28] MEDS ORDERED: NIFEdipine E.R. 30 MG TABLET (FP) PO ONE (14:15)
[2019-03-28] MEDS: THIAMINE HCL 100 MG TABLET (FP) PO SCH (22:30)
[2019-03-28] MEDS: MELATONIN 5 MG TABLETS PO PRN (22:32)
[2019-03-29] MEDS: chlordiazePOXIDE HCL 25 MG CAPSULE PO SCH ×4 (05:21→22:26)
[2019-03-29] MEDS: PRENATAL VITAMINS W/ FOLIC ACID TABLET (FP) PO SCH (10:26)
[2019-03-29] MEDS: ASPIRIN COATED 81 MG TABLET.EC PO SCH (10:26)
[2019-03-29] MEDS: NIFEdipine E.R. 90 MG TABLET (FP) PO SCH (10:26)
[2019-03-29] MEDS: NICOTINE 21 MG/24 HOURS TOPICAL PATCH TD SCH (10:27)
--- NOTE | 2019-03-29 14:07 | PN ---
S CIWA - CIWA Score Nausea/Vomitin-No Nausea/No Vomiting Muscle Tremors: 3 Anxiety: 3 Agitation: 0-Normal Activity Paroxysmal Sweats: No Perspiration Orientation: 2-Disoriented Date<2 days Tacttile Disturbances: 0-None Auditory Disturbances: 1-Very Mild Visual Disturbances: 1-Very Mild Sensitivity Headache: 0-None Present CIWA-Ar Total Score: 10 S Progress Note (SOAP) Subjective: Anxious, Fatigue, Tremors. Objective: PATIENT A & O X 2 (UNCERTAIN ABOUT CURRENT DAY / DATE). IN NO ACUTE DISTRESS. 03/29/19 14:08 Vital Signs Temperature 96.5 F L 03/29/19 14:03 Pulse Rate 66 03/29/19 14:03 Respiratory Rate 17 03/29/19 14:03 Blood Pressure 135/86 03/29/19 14:03 O2 Sat by Pulse Oximetry (%) Laboratory Tests 03/28/19 03/28/19 03/28/19 07:30 07:30 07:30 WBC 4.4 RBC 4.47 Hgb 13.3 Hct 40.1 MCV 89.7 MCH 29.7 MCHC 33.2 RDW 14.9 Plt Count 279 MPV 9.5 D Sodium 144 Potassium 3.8 Chloride 109 H Carbon Dioxide 26 Anion Gap 9 BUN 35.0 H Creatinine 1.6 H Est GFR (CKD-EPI)AfAm 39.61 Est GFR (CKD-EPI)NonAf 34.18 Random Glucose 93 Calcium 9.1 Total Bilirubin 0.2 AST 18 ALT 13 Alkaline Phosphatase 82 Total Protein 6.8 Albumin 3.4 RPR Titer Nonreactive LABS NOTED. RESULTS OF DETOX ADMISSION QFT /TB TEST PENDING. 03/29/19 14:09 Assessment: 03/29/19 14:08 WITHDRAWAL SYMPTOMS. AZOTEMIA. 03/29/19 14:09 Plan: CONTINUE DETOX. INCREASE DAILY PO WATER INTAKE.
[2019-03-29] MEDS: THIAMINE HCL 100 MG TABLET (FP) PO SCH (22:26)
[2019-03-29] MEDS: MELATONIN 5 MG TABLETS PO PRN (22:27)
[2019-03-30] MEDS ORDERED: chlordiazePOXIDE HCL 10 MG CAPSULE PO PRN
[2019-03-30] MEDS: chlordiazePOXIDE HCL 10 MG CAPSULE PO SCH ×4 (05:46→23:45)
[2019-03-30] MEDS: NIFEdipine E.R. 90 MG TABLET (FP) PO SCH (10:59)
[2019-03-30] MEDS: ASPIRIN COATED 81 MG TABLET.EC PO SCH (10:59)
[2019-03-30] MEDS: NICOTINE 21 MG/24 HOURS TOPICAL PATCH TD SCH (10:59)
[2019-03-30] MEDS: PRENATAL VITAMINS W/ FOLIC ACID TABLET (FP) PO SCH (10:59)
[2019-03-30 11:02] LABS: BLOOD UREA NITROGEN 30.2 mg/dL (7-18); CALCIUM 8.7 mg/dL (8.5-10.1); CREATININE 1.2 mg/dL (0.55-1.3); POTASSIUM 4.6 mmol/L (3.5-5.1)
--- NOTE | 2019-03-30 13:48 | PN ---
S CIWA - CIWA Score Nausea/Vomitin-No Nausea/No Vomiting Muscle Tremors: 2 Anxiety: 3 Agitation: 1-Slight > Activity Paroxysmal Sweats: No Perspiration Orientation: 0-Oriented Tacttile Disturbances: 1-Very Mild Itch/Numbness Auditory Disturbances: 0-None Visual Disturbances: 2-Mild Sensitivity Headache: 0-None Present CIWA-Ar Total Score: 9 BHS Progress Note (SOAP) Subjective: Anxious, Fatigue, Tremors (Improving). Objective: PATIENT A & O X 3, OBSERVED AMBULATING ON UNIT UNASSISTED. IN NO ACUTE DISTRESS. 03/30/19 13:45 Vital Signs Temperature 98.1 F 03/30/19 13:18 Pulse Rate 72 03/30/19 13:18 Respiratory Rate 18 03/30/19 13:18 Blood Pressure 136/92 03/30/19 13:18 O2 Sat by Pulse Oximetry (%) Laboratory Tests 03/28/19 03/28/19 03/28/19 07:30 07:30 07:30 WBC 4.4 RBC 4.47 Hgb 13.3 Hct 40.1 MCV 89.7 MCH 29.7 MCHC 33.2 RDW 14.9 Plt Count 279 MPV 9.5 D Sodium 144 Potassium 3.8 Chloride 109 H Carbon Dioxide 26 Anion Gap 9 BUN 35.0 H Creatinine 1.6 H Est GFR (CKD-EPI)AfAm 39.61 Est GFR (CKD-EPI)NonAf 34.18 Random Glucose 93 Calcium 9.1 Total Bilirubin 0.2 AST 18 ALT 13 Alkaline Phosphatase 82 Total Protein 6.8 Albumin 3.4 RPR Titer Nonreactive 03/30/19 08:00 WBC RBC Hgb Hct MCV MCH MCHC RDW Plt Count MPV Sodium 142 Potassium 4.6 Chloride 108 H Carbon Dioxide 22 Anion Gap 11 BUN 30.2 H Creatinine 1.2 Est GFR (CKD-EPI)AfAm 56.09 Est GFR (CKD-EPI)NonAf 48.40 Random Glucose 88 Calcium 8.7 Total Bilirubin AST ALT Alkaline Phosphatase Total Protein Albumin RPR Titer LABS NOTED. RESULTS OF BMP NOTED. IMPROVEMENT NOTED IN BUN, CREATININE, AND IN GFR. RESULTS OF DETOX ADMISSION QFT /TB TEST PENDING. 03/30/19 13:47 Assessment: 03/30/19 13:47 WITHDRAWAL SYMPTOMS. AZOTEMIA. Plan: CONTINUE DETOX. INCREASE DAILY PO WATER INTAKE.
--- NOTE | 2019-03-30 14:42 | PN ---
[facility] Progress Note Note: PATIENT HAD UNWITNESSED FALL IN HALLWAY. PATIENT WAS FOUND SITTING ON FLOOR BY ANOTHER PATIENT WHO, IN TURN, REPORTED THE FALL TO UNIT STAFF. PATIENT REPORTS THAT SHE FELL BECAUSE SHE LOST HER BALANCE WHILE WALKING. PATIENT FELL DIRECTLY ON HER BUTTOCKS AND SHE DENIES HITTING OR LANDING ON ANY OTHER PART OF HER BODY, INCLUDING HER HEAD. PATIENT DENIES LOC AFTER FALL. PATIENT DENIES H/A AND N/V. PATIENT A & OX 3, ABLE TO AMBULATE ON DETOX UNIT UNASSISTED AND WITHOUT APPARENT DIFFICULTY. PERRLA. NO WOUNDS, BLEEDING, BRUISING, OR DISCHARGE NOTED ON PATIENT'S HEAD. PATIENT DENIES CURRENT PAIN IN ANY PART OF HER BODY A THIS TIME, INCLUDING BUTTOCKS. VS: BP: 142/92; P: 57; T: 97.5; RR: 18. [facility] FALL PROTOCOL # [address] IMPLEMENTED. REPORT GIVEN TO DR. SCHULTE AT [facility]. PATIENT TO BE TAKEN VIA AMBULANCE TO [facility] FOR FURTHER MEDICAL EVALUATION. Dar MENON NP
[2019-03-30] MEDS: THIAMINE HCL 100 MG TABLET (FP) PO SCH (23:45)
[2019-03-31] MEDS ORDERED: cloNIDine HCL 0.1 MG TABLET PO ONE (03:55)
[2019-03-31] MEDS: chlordiazePOXIDE HCL 10 MG CAPSULE PO SCH ×2 (04:07→18:15)
--- NOTE | 2019-03-31 07:45 | PN ---
S Progress Note Note: CLIENT RETURNED OVERNIGHT FROM [facility] SEEN BRIEFLY IN [facility] AWAKE/ALERT NAD INFORMED BY ELEVATED BUT ASYMPTOMATIC CLONIDINE 0.1MG GIVEN Vital Signs - 8 hr 03/31/19 03/31/19 03/31/19 02:45 03:30 03:55 Temperature 96.6 F L Pulse Rate 61 76 Respiratory 18 18 Rate Blood Pressure 214/91 H 184/102 H 03/31/19 06:30 Temperature Pulse Rate Respiratory 18 Rate Blood Pressure REPEAT B/P THIS MORNING 158/93- 60 PT VERY SLEEPY THIS MORNING DOES NOT WANT TO ENGAGE IN CONVERSATION/ ASSESSMENT WITH PROVIDER "GET THE FUCK OUT OF MY HOUSE, LEAVE ME ALONE" CONT TO [facility]ALLY WILL INDORSE TO UNIT PROVIDER TO RE-EVAL
--- NOTE | 2019-03-31 10:38 | PN ---
S CIWA - CIWA Score Nausea/Vomitin-No Nausea/No Vomiting Muscle Tremors: 2 Anxiety: 2 Agitation: 2 Paroxysmal Sweats: No Perspiration Orientation: 0-Oriented (I know what date is) Tacttile Disturbances: 0-None Auditory Disturbances: 0-None Visual Disturbances: 0-None Headache: 0-None Present CIWA-Ar Total Score: 6 [facility] Progress Note (SOAP) Subjective: ciwa scale obtained with difficulty due to patient is irritable and threatening gesture when encourage the patient to sitting up / bp monitoring / and taking medication by the window patient is alert speech clearly coherently "I do not want to get up" no trouble breathing psychiatric referral patient is doing wel with librium detox regimen fell 03/30/19 medically cleared from ER return to detox Objective: 03/31/19 10:44 Vital Signs Temperature 96.8 F L 03/31/19 07:30 Pulse Rate 60 03/31/19 07:30 Respiratory Rate 18 03/31/19 06:30 Blood Pressure 158/93 03/31/19 07:30 O2 Sat by Pulse Oximetry (%) Laboratory Last Values WBC 4.4 K/mm3 (4.0-10.0) 03/28/19 07:30 RBC 4.47 M/mm3 (3.60-5.2) 03/28/19 07:30 Hgb 13.3 GM/dL (10.7-15.3) 03/28/19 07:30 Hct 40.1 % (32.4-45.2) 03/28/19 07:30 MCV 89.7 fl (80-96) 03/28/19 07:30 MCH 29.7 pg (25.7-33.7) 03/28/19 07:30 MCHC 33.2 g/dl (32.0-36.0) 03/28/19 07:30 RDW 14.9 % (11.6-15.6) 03/28/19 07:30 Plt Count 279 K/MM3 (134-434) 03/28/19 07:30 MPV 9.5 fl (7.5-11.1) D 03/28/19 07:30 Sodium 142 mmol/L (136-145) 03/30/19 08:00 Potassium 4.6 mmol/L (3.5-5.1) 03/30/19 08:00 Chloride 108 mmol/L (98-107) H 03/30/19 08:00 Carbon Dioxide 22 mmol/L (21-32) 03/30/19 08:00 Anion Gap 11 MMOL/L (8-16) 03/30/19 08:00 BUN 30.2 mg/dL (7-18) H 03/30/19 08:00 Creatinine 1.2 mg/dL (0.55-1.3) 03/30/19 08:00 Est GFR (CKD-EPI)AfAm 56.09 03/30/19 08:00 Est GFR (CKD-EPI)NonAf 48.40 03/30/19 08:00 Random Glucose 88 mg/dL (74-106) 03/30/19 08:00 Calcium 8.7 mg/dL (8.5-10.1) 03/30/19 08:00 Total Bilirubin 0.2 mg/dL (0.2-1) 03/28/19 07:30 AST 18 U/L (15-37) 03/28/19 07:30 ALT 13 U/L (13-61) 03/28/19 07:30 Alkaline Phosphatase 82 U/L (45-117) 03/28/19 07:30 Total Protein 6.8 g/dl (6.4-8.2) 03/28/19 07:30 Albumin 3.4 g/dl (3.4-5.0) 03/28/19 07:30 RPR Titer Nonreactive (NONREACTIVE) 03/28/19 07:30 lab noted bun elevation from 35 to 30 denies history of renal impairment encourage oral fluid 03/31/19 10:45 03/31/19 10:47 Assessment: 03/31/19 10:45 alcohol withdrawal sx Plan: continue librium detox regimen aftercare [place] ATC in patient medication list and lab result to aftercare for follow up
[2019-03-31] MEDS: NIFEdipine E.R. 90 MG TABLET (FP) PO SCH ×2 (11:05→12:15)
[2019-03-31] MEDS: PRENATAL VITAMINS W/ FOLIC ACID TABLET (FP) PO SCH ×2 (11:05→12:16)
[2019-03-31] MEDS: ASPIRIN COATED 81 MG TABLET.EC PO SCH ×2 (11:05→12:15)
[2019-03-31] MEDS: NICOTINE 21 MG/24 HOURS TOPICAL PATCH TD SCH (11:05)
[2019-03-31] MEDS: THIAMINE HCL 100 MG TABLET (FP) PO SCH (21:52)
[2019-03-31] MEDS: MELATONIN 5 MG TABLETS PO PRN (21:52)
[2019-04-01] MEDS ORDERED: chlordiazePOXIDE HCL 10 MG CAPSULE PO ONE (05:00)
[2019-04-01] MEDS: PRENATAL VITAMINS W/ FOLIC ACID TABLET (FP) PO SCH (10:44)
[2019-04-01] MEDS: NIFEdipine E.R. 90 MG TABLET (FP) PO SCH (10:45)
[2019-04-01] MEDS: ASPIRIN COATED 81 MG TABLET.EC PO SCH (10:45)
[2019-04-01] MEDS: NICOTINE 21 MG/24 HOURS TOPICAL PATCH TD SCH (10:45)
[2019-04-01 13:26] VITALS: BP 155/97; PULSE 61; TEMP 97.3
--- NOTE | 2019-04-01 14:28 | DS ---
[facility] Detox Discharge Summary Admission Date: 03/27/19 Discharge Date: 04/01/19 - History Present History: Alcohol Dependence Additional Comments: 63 years old female admitted on 03/27/19 for alcohol withdrawal sx managemetn doing well with librum detox regimen no complication through out the detox stay fell on 03/30/19 evaluated by ER return on 03/31/19 medically cleared patient wants to go to [facility] and determines to maintain sober Pertinent Past History: hypertension alert oriented x [address] steady gait denies dizziness no wheezing no shortness of breath no chest pain skin warm and dry extremities full range of motion - Physical Exam Results Vital Signs: Vital Signs Temperature 97.3 F L 04/01/19 13:25 Pulse Rate 61 04/01/19 13:25 Respiratory Rate 18 04/01/19 13:25 Blood Pressure 155/97 04/01/19 13:25 O2 Sat by Pulse Oximetry (%) anxious about transfer to [facility] Pertinent Admission Physical Exam Findings: alcohol withdrawal sx Laboratory Last Values WBC 4.4 K/mm3 (4.0-10.0) 03/28/19 07:30 RBC 4.47 M/mm3 (3.60-5.2) 03/28/19 07:30 Hgb 13.3 GM/dL (10.7-15.3) 03/28/19 07:30 Hct 40.1 % (32.4-45.2) 03/28/19 07:30 MCV 89.7 fl (80-96) 03/28/19 07:30 MCH 29.7 pg (25.7-33.7) 03/28/19 07:30 MCHC 33.2 g/dl (32.0-36.0) 03/28/19 07:30 RDW 14.9 % (11.6-15.6) 03/28/19 07:30 Plt Count 279 K/MM3 (134-434) 03/28/19 07:30 MPV 9.5 fl (7.5-11.1) D 03/28/19 07:30 Sodium 142 mmol/L (136-145) 03/30/19 08:00 Potassium 4.6 mmol/L (3.5-5.1) 03/30/19 08:00 Chloride 108 mmol/L (98-107) H 03/30/19 08:00 Carbon Dioxide 22 mmol/L (21-32) 03/30/19 08:00 Anion Gap 11 MMOL/L (8-16) 03/30/19 08:00 BUN 30.2 mg/dL (7-18) H 03/30/19 08:00 Creatinine 1.2 mg/dL (0.55-1.3) 03/30/19 08:00 Est GFR (CKD-EPI)AfAm 56.09 03/30/19 08:00 Est GFR (CKD-EPI)NonAf 48.40 03/30/19 08:00 Random Glucose 88 mg/dL (74-106) 03/30/19 08:00 Calcium 8.7 mg/dL (8.5-10.1) 03/30/19 08:00 Total Bilirubin 0.2 mg/dL (0.2-1) 03/28/19 07:30 AST 18 U/L (15-37) 03/28/19 07:30 ALT 13 U/L (13-61) 03/28/19 07:30 Alkaline Phosphatase 82 U/L (45-117) 03/28/19 07:30 Total Protein 6.8 g/dl (6.4-8.2) 03/28/19 07:30 Albumin 3.4 g/dl (3.4-5.0) 03/28/19 07:30 RPR Titer Nonreactive (NONREACTIVE) 03/28/19 07:30 lab noted - Treatment Hospital Course: Detox Protocol Followed, Detoxed Safely, Responded well, Discharged Condition Good, Rehab Referral Accepted Patient has Accepted a Rehab Referral to: [facility] - Medication Discharge Medications: Ambulatory Orders Nifedipine [Nifedipine ER] 60 mg PO DAILY 01/30/19 Aspirin [Aspirin EC] 81 mg PO DAILY 03/27/19 Nifedipine ER [Procardia XL -] 90 mg PO DAILY #30 tab.er.24 03/31/19 - Diagnosis (1) HTN (hypertension) Current Visit: Yes Status: Chronic Qualifiers: Hypertension type: essential hypertension Qualified Code(s): I10 - Essential (primary) hypertension (2) CVD (cardiovascular disease) Current Visit: Yes Status: Chronic (3) Alcohol dependence with uncomplicated withdrawal Current Visit: Yes Status: Acute (4) [place] (hard of hearing) Current Visit: Yes Status: Chronic Qualifiers: Contralateral hearing status: unspecified - AMA Did Patient Leave Against Medical Advice: No CIWA Score - CIWA Score Nausea/Vomitin-No Nausea/No Vomiting Muscle Tremors: 1-None Visible, but [place] Anxiety: 1-Mildly Anxious Agitation: 1-Slight > Activity Paroxysmal Sweats: No Perspiration Orientation: 0-Oriented (I know what date is) Tacttile Disturbances: 0-None Auditory Disturbances: 0-None Visual Disturbances: 0-None Headache: 0-None Present CIWA-Ar Total Score: 3
--- NOTE | 2019-04-01 14:38 | CONSULT ---
[facility] Psychiatric Consult - Data Date of interview: 04/01/19 Admission source: [facility] Identifying data: Readmission to [facility] for this 63 y/o AA female self- referred for detoxification (alcohol). Interviewed at bedside, on 3 . Patient is single, no dependents, domiciled (lives alone as per self-report), unemployed/disabled and supported on SSI benefits. Substance Abuse History: Discussed in this session. Patient confirms an extensive history of alcohol abuse. Details in current [facility] report as follows : Smoking history: Current every day smoker. Have you smoked in the past 12 months: Yes. Aproximately how many cigarettes per day: 40. Cigars Per Day: 0. Hx Chewing Tobacco Use: No. Initiated information on smoking cessation: Yes. 'Breaking Loose' booklet given: 03/27/19. - Substance & Tx. History. Hx Alcohol Use: Yes. Hx Substance Use: Yes. Substance Use Type: Alcohol, Cocaine. Hx Substance Use Treatment: Yes ([facility]). - Substances abused. Alcohol. Substance route: Oral. Frequency: Daily. Amount used: 36 (12 ounce of Cobra beer), 1 pint of liquor. Age of first use: 17. Date of last use: 03/26/19. Cocaine. Substance route: Inhalation. Frequency: 3-6 times per week. Amount used: 1 gram. Age of first use: 17. Date of last use: 03/25/19 Medical History: Patient denies medical problems. Review of records indicate a medical profile remarkable for antecedent of CVA with left-sided weakness (2016) , open heart surgery (CABG) at [facility] (2017), dyslipidemia, hypertension and a history of syncope. Psychiatric History: Patient denies history of psychiatric hospitalizations, OPD care or suicide attempts. Physical/Sexual Abuse/Trauma History: Patient denies history of abuse. Additional Comment: Urine drug screen results: RACHELLE-Cocaine. Noted. Mental Status Exam - Mental Status Exam Alert and Oriented to: Place, Person Cognitive Function: Grossly Intact Patient Appearance: Unkempt, Disheveled Mood: Nervous, Withdrawn Affect: Mood Congruent Patient Behavior: Fatigued, Cooperative Speech Pattern: Clear, Perseverating Voice Loudness: Normal Thought Process: Goal Oriented (wants transfer to rehabilitation) Thought Disorder: Not Present Hallucinations: Denies Suicidal Ideation: Denies Homicidal Ideation: Denies Insight/Judgement: Poor Appetite: Good Gait/Station: Other (not observed; did not get out of bed for interview) Psychiatric Findings - Problem List ([place] 1, 2,3) (1) Alcohol dependence with uncomplicated withdrawal Current Visit: Yes Status: Acute (2) Cocaine use disorder Current Visit: Yes Status: Chronic (3) Nicotine dependence Current Visit: Yes Status: Chronic - Initial Treatment Plan Initial Treatment Plan: Psychoeducation. Sleep hygiene. Detoxification. Support and reassurance. AA meetings. Transfer to [facility] : pending. Observation.
== END 2019-04-01 15:48 | disposition other institution (70) | DRG 774 ==
LOC: YASAS 19:18 → Y3N 21:25
PROVIDERS: ADMIT Surgery; ATTEND Surgery
PROC: HZ2ZZZZ Detoxification Services for Substance Abuse Treatment (ICD-10-PCS; principal; 2019-03-27)
DX: F10.230 Alcohol dependence with withdrawal, uncomplicated (principal); F14.10 Cocaine abuse, uncomplicated; F17.210 Nicotine dependence, cigarettes, uncomplicated; F32.9 Major depressive disorder, single episode, unspecified; I25.10 Atherosclerotic heart disease of native coronary artery without angina pectoris; I10 Essential (primary) hypertension; Z95.1 Presence of aortocoronary bypass graft; H91.90 Unspecified hearing loss, unspecified ear; R79.89 Other specified abnormal findings of blood chemistry; Z04.3 Encounter for examination and observation following other accident; W18.39XA Other fall on same level, initial encounter; Y93.89 Activity, other specified; Y92.232 Corridor of hospital as the place of occurrence of the external cause; Y99.8 Other external cause status; Z86.73 Personal history of transient ischemic attack (TIA), and cerebral infarction without residual deficits
CPT/HCPCS: 36415; 80048; 80053; 85027; 86480; 86593; 93005; 93010; J0735

== ENCOUNTER 2019-03-30 15:50 | Emergency (ER) | payer OTHER ==
[2019-03-30 16:05] VITALS: TEMP 97.6; BMI 25.0
--- NOTE | 2019-03-30 17:25 | PDOC ---
History of Present Illness - General Chief Complaint: Injury Stated Complaint: FALL Time Seen by Provider: 03/30/19 16:34 History Source: Patient Exam Limitations: No Limitations - History of Present Illness Initial Comments: 03/30/19 17:27 Patient is a 63F with history of CABG and stroke (2016, with L sided deficit) here today complaining of syncope. Patient states that she fell, but she is not sure how fell, but she thinks she lost consciousness. Patient denies any sort of precipitating events. Denies fevers, chills, nausea, vomiting. Denies headache, neck pain. Denies chest pain, shortness of breath. Denies hip pain, leg pain. Denies back pain. Takes aspirin, no other blood thinners. [facility] note states that patient was found sitting down on the floor against a wall. On librium taper for alcohol withdrawal. Past History - Past Medical History Allergies/Adverse Reactions: Allergies Allergy/AdvReac Type Severity Reaction Status Date / Time No Known Allergies Allergy Verified 03/27/19 19:30 Home Medications: Ambulatory Orders Nifedipine [Nifedipine ER] 60 mg PO DAILY 01/30/19 Aspirin [Aspirin EC] 81 mg PO DAILY 03/27/19 Anemia: No Asthma: No Cancer: No Cardiac Disorders: Yes (open heart surgery in 2017 at [facility]) CVA: Yes (2015 [facility]) COPD: No CHF: No Diabetes: No GI Disorders: No Disorders: No HTN: Yes (on med) Hypercholesterolemia: No Kidney Stones: No Liver Disease: No Seizures: No Thyroid Disease: No - Surgical History Abdominal Surgery: No Appendectomy: No Cardiac Surgery: Yes (open heart surgery- does not remember when) Cholecystectomy: No Lung Surgery: No Neurologic Surgery: No Orthopedic Surgery: No - Reproductive History PID: No - Immunization History Immunization Up to Date: Yes - Suicide/Smoking/Psychosocial Hx Smoking History: Unknown if ever smoked Have you smoked in the past 12 months: No Number of Cigarettes Smoked Daily: 40 Cigars Per Day: 0 Information on smoking cessation initiated: No 'Breaking Loose' booklet given: 03/27/19 Hx Alcohol Use: No Drug/Substance Use Hx: No Substance Use Type: Alcohol, Cocaine Hx Substance Use Treatment: Yes ([facility]) Review of Systems - Review of Systems Able to Perform ROS?: Yes Comments:: 03/30/19 17:29 GENERAL/CONSTITUTIONAL: No fever or chills. No weakness. HEAD, EYES, EARS, NOSE AND THROAT: No change in vision. No ear pain or discharge. No sore throat. CARDIOVASCULAR: No chest pain or shortness of breath RESPIRATORY: No cough, wheezing, or hemoptysis. GASTROINTESTINAL: No nausea, vomiting, diarrhea or constipation. GENITOURINARY: No dysuria, frequency, or change in urination. MUSCULOSKELETAL: No joint or muscle swelling or pain. No neck or back pain. SKIN: No rash NEUROLOGIC: No headache, vertigo, loss of consciousness, or change in strength/ sensation. ENDOCRINE: No increased thirst. No abnormal weight change HEMATOLOGIC/LYMPHATIC: No anemia, easy bleeding, or history of blood clots. ALLERGIC/IMMUNOLOGIC: No hives or skin allergy. *Physical Exam - Vital Signs Last Vital Signs Temp Pulse Resp BP Pulse Ox 97.6 F 60 16 136/88 99 03/30/19 16:02 03/30/19 16:02 03/30/19 16:02 03/30/19 16:02 03/30/19 16:02 - Physical Exam Comments: 03/30/19 17:30 GENERAL: Awake, alert, and fully oriented, in no acute distress HEAD: No signs of trauma, normocephalic, atraumatic EYES: PERRLA, EOMI, sclera anicteric, conjunctiva clear ENT: Auricles normal inspection, hearing grossly normal, nares patent, oropharynx clear without exudates. Moist mucosa NECK: Normal ROM, supple, no lymphadenopathy, JVD, or masses, no midline tenderness LUNGS: No distress, speaks full sentences, clear to auscultation bilaterally HEART: Regular rate and rhythm, normal S1 and S2, no murmurs, rubs or gallops, peripheral pulses normal and equal bilaterally. ABDOMEN: Soft, nontender, normoactive bowel sounds. No guarding, no rebound. No masses EXTREMITIES: Normal inspection, Normal range of motion, no edema. No clubbing or cyanosis. NEUROLOGICAL: L facial droop, 4/5 strength in left leg and arm. Otherwise 5/5 strength with normal sensation. SKIN: Warm, Dry, normal turgor, no rashes or lesions noted. ED Treatment Course - LABORATORY CBC & Chemistry Diagram: 03/30/19 17:40 03/30/19 17:40 - RADIOLOGY Radiology Studies Ordered: Category Date Time Status CERVICAL SPINE CT W/O CONTR [CT] Stat CT Scan 03/30/19 16:[address] WITHOUT CONTRAST [CT] Stat CT Scan 03/30/19 16:43 Ordered CHEST PA & LAT [RAD] Stat Radiology 03/30/19 16:42 Ordered Medical Decision Making - Medical Decision Making 03/30/19 17:31 Patient is 63F with history of etoh abuse, stroke with L sided deficit, cabg here today with syncope. Vitals normal and stable. Given risk factors, will obs. Will workup with cardiac workup and head/neck ct. Neck not clinically cleared due to prior deficit, but significant injury less likely. 03/30/19 17:57 EKG shows sinus bradycardia with rate of 50. No st elevations/depressions. Normal axis. Normal intervals. T wave inversions in lateral leads, similar to prior EKGs. 03/30/19 18:23 CBC normal. CMP normal. Trop negative. Pending CTs. 03/30/19 19:[address] Underwood *DC/Admit/Observation/Transfer Diagnosis at time of Disposition: Syncope - Discharge Dispostion Condition at time of disposition: Stable - Referrals - Patient Instructions - Post Discharge Activity
[2019-03-30] MEDS ORDERED: chlordiazePOXIDE HCL 10 MG CAPSULE PO ONE (17:26)
[2019-03-30] MEDS ORDERED: chlordiazePOXIDE 5 MG CAPSULE ONE (17:29)
[2019-03-30 17:51] LABS: BASO % 0.4 % (0-2.0); EOS % 2.4 % (0-4.5); HEMATOCRIT 38.2 % (32.4-45.2); HEMOGLOBIN 12.9 GM/dL (10.7-15.3); LYMPH % 28.9 % (8-40); MCHC 33.9 g/dl (32.0-36.0); MEAN CELL VOLUME 88.5 fl (80-96); MEAN PLT VOLUME 8.9 fl (7.5-11.1); MONO % 7.8 % (3.8-10.2); NEUT % 60.5 % (42.8-82.8); PLATELET COUNT 298 K/MM3 (134-434); RBC 4.31 M/mm3 (3.60-5.2); RDW 14.4 % (11.6-15.6); WHITE BLOOD COUNT 4.4 K/mm3 (4.0-10.0)
[2019-03-30 17:56] LABS: INR 0.96 (0.83-1.09); PROTHROMBIN TIME (PATIENT) 11.3 SEC (9.7-13.0)
[2019-03-30 18:19] LABS: ALBUMIN 3.4 g/dl (3.4-5.0); BILIRUBIN,TOTAL 0.2 mg/dL (0.2-1); BLOOD UREA NITROGEN 30.2 mg/dL (7-18); CALCIUM 9.1 mg/dL (8.5-10.1); CREATININE 1.3 mg/dL (0.55-1.3); MAGNESIUM 2.4 mg/dL (1.8-2.4); POTASSIUM 4.1 mmol/L (3.5-5.1); TOT PROT 6.9 g/dl (6.4-8.2)
--- NOTE | 2019-03-30 18:24 | PDOC ---
Documentation entered by Tono Comer SCRIBE, acting as scribe for Bessie Gaxiola MD. Bessie Gaxiola MD: This documentation has been prepared by the Souleymane santizo Daniel, SCRIBE, under my direction and personally reviewed by me in its entirety. I confirm that the documentation accurately reflects all work, treatment, procedures, and medical decision making performed by me. Attending Attestation - Resident Resident Name: Quinten Chase - ED Attending Attestation I have performed the following: I have examined & evaluated the patient, The case was reviewed & discussed with the resident, I agree w/resident's findings & plan, Exceptions are as noted - HPI HPI: 03/30/19 17:44 The patient is a 63 year old female with a past medical history of CABG and stroke (2016 with left sided deficits) here today for evaluation of fall. The patient comes [facility] and was found on the floor. The patient states that she fell but is unsure of how she fell and thinks that she lost consciousness. Denies pain or injuries at this time. Patient denies headache, lightheadedness, focal weakness/numbness. Denies fever , chills. Denies chest pain, shortness of breath. Denies nausea, vomiting, diarrhea, abdominal pain. Allergies: NKA - Physicial Exam PE: 03/30/19 17:45 GENERAL: Awake, alert, and fully oriented, in no acute distress HEAD: No signs of trauma EYES: PERRLA, EOMI, sclera anicteric, conjunctiva clear ENT: Auricles normal inspection, hearing grossly normal, nares patent, oropharynx clear without exudates. Moist mucosa NECK: Normal ROM, supple, no lymphadenopathy, JVD, or masses LUNGS: Breath sounds equal, clear to auscultation bilaterally. No wheezes, and no crackles HEART: Regular rate and rhythm, normal S1 and S2, no murmurs, rubs or gallops ABDOMEN: Soft, nontender, normoactive bowel sounds. No guarding, no rebound. No masses EXTREMITIES: Normal range of motion, no edema. No clubbing or cyanosis. No cords , erythema, or tenderness BACK: No midline spinal tenderness in cervical/thoracic/lumbar region NEUROLOGICAL: Normal speech, cranial nerves intact, negative pronator drift, 5/ 5 strength in all 4 extremities, normal sensation to light touch in all 4 extremities, normal cerebellar exam, normal gait, normal reflexes and tone SKIN: Warm, Dry, normal turgor, no rashes or lesions noted. - Medical Decision Making 03/30/19 18:20 63yo F presents to the ED with unwitnessed fall, possible syncope Vitals wnl Exam unremarkable EKG unchanged Plan for labs, trauma w/u given unknown headstrike Anticipate tele obs admission 190 Imaging pending Labs thus far wnl Case signed out to Dr. Alberto for f/u imaging, dispo Heart Score/ECG Review #1 03/30/19 18:22 Twelve-lead EKG was performed and reviewed by me. Sinus bradycardia, rate 50. Normal axis. No ST elevations. Inverted T waves in 1, aVL and V5 and V6. When compared to EKG from 2 days ago, no significant change.
--- NOTE | 2019-03-30 19:53 | PDOC ---
*Physical Exam - Vital Signs Last Vital Signs Temp Pulse Resp BP Pulse Ox 97.6 F 60 16 136/88 99 03/30/19 16:02 03/30/19 16:02 03/30/19 16:02 03/30/19 16:02 03/30/19 16:02 <Alena Alberto - Last Filed: 03/30/19 21:00> - Vital Signs Last Vital Signs Temp Pulse Resp BP Pulse Ox 97.6 F 60 16 136/88 99 03/30/19 16:02 03/30/19 16:02 03/30/19 16:02 03/30/19 16:02 03/30/19 16:02 <Junie Underwood - Last Filed: 03/30/19 22:30> ED Treatment Course - LABORATORY CBC & Chemistry Diagram: 03/30/19 17:40 03/30/19 17:40 - ADDITIONAL ORDERS Additional order review: Laboratory Results 03/30/19 03/30/19 03/30/19 17:40 17:40 17:40 PT with INR 11.30 INR 0.96 Sodium 144 Potassium 4.1 Chloride 109 H Carbon Dioxide 29 Anion Gap 6 L BUN 30.2 H Creatinine 1.3 Est GFR (CKD-EPI)AfAm 50.92 Est GFR (CKD-EPI)NonAf 43.93 Random Glucose 92 Calcium 9.1 Magnesium 2.4 Total Bilirubin 0.2 AST 13 L ALT 15 Alkaline Phosphatase 89 Creatine Kinase 48 Troponin I < 0.02 Total Protein 6.9 Albumin 3.4 03/30/19 17:40 RBC 4.31 MCV 88.5 MCHC 33.9 RDW 14.4 MPV 8.9 Neutrophils % 60.5 Lymphocytes % 28.9 Monocytes % 7.8 Eosinophils % 2.4 Basophils % 0.4 - Medications Given in the ED: ED Medications Discontinued Medications Generic Name Dose Route Start Last Admin Trade Name Freq PRN Reason Stop Dose Admin Chlordiazepoxide HCl 10 mg 03/30/19 17:26 03/30/19 17:42 Librium - PO 03/30/19 17:27 10 mg ONCE ONE Administration <Alena Alberto - Last Filed: 03/30/19 21:00> - LABORATORY CBC & Chemistry Diagram: 03/30/19 17:40 03/30/19 17:40 - ADDITIONAL ORDERS Additional order review: Laboratory Results 03/30/19 03/30/19 03/30/19 17:40 17:40 17:40 PT with INR 11.30 INR 0.96 Sodium 144 Potassium 4.1 Chloride 109 H Carbon Dioxide 29 Anion Gap 6 L BUN 30.2 H Creatinine 1.3 Est GFR (CKD-EPI)AfAm 50.92 Est GFR (CKD-EPI)NonAf 43.93 Random Glucose 92 Calcium 9.1 Magnesium 2.4 Total Bilirubin 0.2 AST 13 L ALT 15 Alkaline Phosphatase 89 Creatine Kinase 48 Troponin I < 0.02 Total Protein 6.9 Albumin 3.4 03/30/19 17:40 RBC 4.31 MCV 88.5 MCHC 33.9 RDW 14.4 MPV 8.9 Neutrophils % 60.5 Lymphocytes % 28.9 Monocytes % 7.8 Eosinophils % 2.4 Basophils % 0.4 - Medications Given in the ED: ED Medications Discontinued Medications Generic Name Dose Route Start Last Admin Trade Name Freq PRN Reason Stop Dose Admin Chlordiazepoxide HCl 10 mg 03/30/19 17:26 03/30/19 17:42 Librium - PO 03/30/19 17:27 10 mg ONCE ONE Administration <Junie Underwood - Last Filed: 03/30/19 22:30> Medical Decision Making - Medical Decision Making 03/30/19 21:00 CXR looks as per her usual; cardiomegaly; but clear costophrenic angles and lung goode. 03/30/19 21:01 Pt appears well and she is resting comfortably. <Alena Alberto - Last Filed: 03/30/19 21:00> - Medical Decision Making 03/30/19 19:53 Patient signed out by resident Dr. Chase In short patient is 63F with history of etoh abuse, stroke with L sided deficit , cabg here today with syncope. Patient is on librium dosed here Pending Head CT and cervical spine CT ED Course: Patient stable of reasessment <Junie Underwood - Last Filed: 03/30/19 22:30> *DC/Admit/Observation/Transfer <Alena Alberto - Last Filed: 03/30/19 21:00> - Discharge Dispostion Decision to Admit order: No <Junie Underwood - Last Filed: 03/30/19 22:30> Diagnosis at time of Disposition: Syncope, Fall - Discharge Dispostion Disposition: HOME Condition at time of disposition: Stable - Patient Instructions Additional Instructions: You were seen in the ED after a fall. Your labwork and imaging were unremarkable. You may return to [facility]. Please follow up with your Primary Care Doctor within 1 week. Return to the ED immediately if you experience repeat fall or loss of consciousness, headache, nausea or vomiting.
[2019-03-31 01:51] VITALS: BP 141/92; PULSE 67
--- NOTE | 2019-03-31 11:32 | EKG ---
Test Reason : Blood Pressure : / mmHG Vent. Rate : 050 BPM Atrial Rate : 050 BPM P-R Int : 134 ms QRS Dur : 090 ms QT Int : 474 ms P-R-T Axes : 050 012 143 degrees QTc Int : 432 ms SINUS BRADYCARDIA POSSIBLE LEFT ATRIAL ENLARGEMENT SEPTAL INFARCT (CITED ON OR BEFORE 04-JUN-2018) T WAVE ABNORMALITY, CONSIDER LATERAL ISCHEMIA ABNORMAL ECG WHEN COMPARED WITH ECG OF 28-MAR-2019 07:41, NO SIGNIFICANT CHANGE WAS FOUND Confirmed by SHARA GARZON MD ([id number]) on 03/31/2019 11:32:02 AM Referred By: Confirmed By:SHARA GARZON MD
== END 2019-03-31 01:50 | disposition home or self-care (01) ==
LOC: JER 15:50
DX: R55 Syncope and collapse (principal); W18.39XA Other fall on same level, initial encounter; Y93.89 Activity, other specified; Y92.238 Other place in hospital as the place of occurrence of the external cause; Y99.8 Other external cause status; I25.10 Atherosclerotic heart disease of native coronary artery without angina pectoris; I10 Essential (primary) hypertension; Z95.1 Presence of aortocoronary bypass graft; I69.852 Hemiplegia and hemiparesis following other cerebrovascular disease affecting left dominant side; F10.20 Alcohol dependence, uncomplicated
CPT/HCPCS: 36415; 70450-TC; 71046-TC-FY; 72125-TC; 80053; 82550; 83735; 84484; 85025; 85610; 93005; 93010; 99283-25

== ENCOUNTER 2019-04-01 16:01 | Inpatient (IN) | payer OTHER ==
--- NOTE | 2019-04-01 14:35 | HP ---
[facility] Re[facility] Assess/Revision - Admission History Admitted to Rehab from: [facility] Date of Admission to Rehab: 04/01/19 - Findings Detox History & Physical reviewed: Yes Concur with findings: Yes Comments/Additional Findings: transferred from detox to rehab admission as per protocol Inpatient Rehab Admission - Rehab Decision to Admit Inpatient rehab admission?: Yes - Initial Determination Are CD services needed?: Yes Free of communicable disease: Yes Not in need of hospitalization: Yes - Rehab Admission Criteria Previous failed treatment: Yes Poor recovery environment: Yes Comorbidities: Yes Lacks judgement: No Patient is meeting Inpatient Rehab admission criteria:: Yes
[~2019-04-01 16:01] MED LIST: ACETAMINOPHEN 325 MG TABLET (FP) PO PRN; LOPERAMIDE HCL 2 MG CAPSULE PO PRN; MAG HYDROX/AL HYDROX/SIMETH 30 ML UNIT-DOSE CUP PO PRN; MAGNESIUM CITRATE 300 ML BOTTLE PO PRN; MAGNESIUM HYDROX 2400MG/30ML ORAL SUSPENSION 30 ML CUP PO PRN; MENTHOL/PHENOL 1 EACH UD MM PRN; P-EPHED 60MG/TRIPROLIDI 2.5MG TABLET PO PRN; guaiFENesin 200 MG/10 ML 10 ML UNIT-DOSE CUPS PO PRN
[2019-04-01] MEDS ORDERED: LOPERAMIDE HCL 2 MG CAPSULE PO PRN (16:02)
[2019-04-01] MEDS ORDERED: guaiFENesin 200 MG/10 ML 10 ML UNIT-DOSE CUPS PO PRN (16:02)
[2019-04-01] MEDS ORDERED: MAG HYDROX/AL HYDROX/SIMETH 30 ML UNIT-DOSE CUP PO PRN (16:02)
[2019-04-01] MEDS ORDERED: MAGNESIUM CITRATE 300 ML BOTTLE PO PRN (16:02)
[2019-04-01] MEDS ORDERED: MAGNESIUM HYDROX 2400MG/30ML ORAL SUSPENSION 30 ML CUP PO PRN (16:02)
[2019-04-01] MEDS ORDERED: P-EPHED 60MG/TRIPROLIDI 2.5MG TABLET PO PRN (16:02)
[2019-04-01] MEDS ORDERED: ACETAMINOPHEN 325 MG TABLET (FP) PO PRN (16:02)
[2019-04-01] MEDS ORDERED: MENTHOL/PHENOL 1 EACH UD MM PRN (16:02)
[2019-04-01 16:05] VITALS: TEMP 97.7
[2019-04-01] MEDS ORDERED: THIAMINE HCL 100 MG TABLET (FP) PO SCH ×2 (22:00)
[2019-04-01] MEDS ORDERED: MELATONIN 5 MG TABLETS PO PRN ×2 (22:00)
[2019-04-02] MEDS ORDERED: ASPIRIN 81 MG CHEWABLE TABLETS PO SCH ×2 (10:00)
[2019-04-02] MEDS ORDERED: PRENATAL VITAMINS W/ FOLIC ACID TABLET (FP) PO SCH ×2 (10:00)
[2019-04-02] MEDS ORDERED: NIFEdipine E.R. 90 MG TABLET (FP) PO SCH ×2 (10:00)
[2019-04-02 13:18] VITALS: BP 176/95; PULSE 60
--- NOTE | 2019-04-02 13:33 | DS ---
[facility] Rehab Discharge Summary - [facility] Rehab Discharge Summary Admission Date: 04/01/19 Discharge Date: 04/02/19 (patient leaving AMA) - History Present History: Alcohol dependence, Cocaine dependence Pertinent Past History: 63 years old female with a long history of alcohol dependence completed detox and was transfered to rehab 0n 04/01. Patient has been in detox multiple times and reports insignificant period of sobriety. While in detox, she was transferred to [facility] because she had a fall. She has medical history of hypertension, depression, CVA and open heart surgery. She is now verbalizing a desire to leave against medical advice. At the present time her BP is elevated and she is refusing further treatment. In addition, she is refusing referrals to after care and states that she does not intend to go to AA or NA meetings. - Discharge Physical Exam Vital Signs: Vital Signs Temperature 97.7 F 04/02/19 07:21 Pulse Rate 60 04/02/19 13:17 Respiratory Rate 20 04/02/19 09:13 Blood Pressure 176/95 H 04/02/19 13:17 O2 Sat by Pulse Oximetry (%) Pertinent Admission Physical Exam Findings: - Physical General Appearance: No apparent distress HEENTM: poor dentition, normocephalic, PERRLA Respiratory: Lungs Clear Neck: Supple Cardiology: : Regular Rhythm, Regular Rate, S1 S2 audible Abdominal+Bowel Sounds Musculoskeletal: Full weight bearing, full ROM, steady gait Neurological: CN 2-12 intact, no neurological deficits noted. Integumentary: Warm, dry, color consistent throughout trunk and extremities - Treatment Hospital Course: patient spent only one day in rehab, did not participate in the program, refused further treatment for her elevated BP, and has stated that she is leaving AMA for personal reasons. Consequences of untreated hypertension explained to patient, who indicated understanding but still refused treatment. In addition, patient is refusing referrals for aftercare and indicates she will no attend NA or AA meetings when in the community. - Medication Discharge Medications: Ambulatory Orders Nifedipine ER [Procardia XL -] 90 mg PO DAILY #30 tab.er.24 03/31/19 Aspirin [Aspirin EC] 81 mg PO DAILY #14 tablet. 04/02/19 Nifedipine [Nifedipine ER] 60 mg PO DAILY #14 tab.er.24 04/02/19 - Medication-Assisted Treatment (MAT) Medication-Assisted Treatment (MAT): No - Discharge Instructions Diet, activity, other medical instructions: Diet: as tolerated Activity: As tolerated Other medical instructions: Strongly encouraged to continue with substance abuse treatment on an outpatient basis. Strongly encouraged to make an appointment with PCP for treatment of hypertension. Instructed to report to ER if there are signs or symptoms of impending stroke or [place]. - Diagnosis (1) Alcohol dependence with uncomplicated withdrawal Current Visit: No Status: Chronic (2) Fall Current Visit: No Status: Suspected (3) History of open heart surgery Current Visit: No Status: Acute (4) Old cerebrovascular accident (CVA) without late effect Current Visit: No Status: Chronic (5) Cocaine dependence Current Visit: No Status: Chronic Qualifiers: Substance use status: uncomplicated Qualified Code(s): F14.20 - Cocaine dependence, uncomplicated (6) HTN (hypertension) Current Visit: No Status: Chronic Qualifiers: Hypertension type: essential hypertension Qualified Code(s): I10 - Essential (primary) hypertension - Follow-up Referral Minutes to complete discharge: 20 - AMA Did Patient Leave Against Medical Advice: Yes Additional Comments: Patient left against medical advice. Consequences of leaving prior to completing rehab was explained to patient, who understood explanation but still wants to leave. Consequences of leaving with elevated BP also explained to patient, who refuses further treatment. Patient was offered aftercare, but refused. Also stated she will not be attending AA and NA meetings.
== END 2019-04-02 13:53 | disposition left against medical advice (07) | DRG 770 ==
LOC: YASAS 16:01 → Y3E 16:02
PROVIDERS: ADMIT Neuromusculoskeletal Medicine & OMM; ATTEND Neuromusculoskeletal Medicine & OMM
PROC: HZ42ZZZ Group Counseling for Substance Abuse Treatment, Cognitive-Behavioral (ICD-10-PCS; principal; 2019-04-01)
DX: F11.20 Opioid dependence, uncomplicated (principal); F14.20 Cocaine dependence, uncomplicated; F17.210 Nicotine dependence, cigarettes, uncomplicated; I10 Essential (primary) hypertension; Z86.73 Personal history of transient ischemic attack (TIA), and cerebral infarction without residual deficits; Z98.890 Other specified postprocedural states

== ENCOUNTER 2019-06-19 05:00 | Emergency (ER) | payer OTHER ==
--- NOTE | 2019-06-19 05:04 | PDOC ---
History of Present Illness - General Stated Complaint: CHEST PAIN Time Seen by Provider: 06/19/19 05:04 Past History - Past Medical History Allergies/Adverse Reactions: Allergies Allergy/AdvReac Type Severity Reaction Status Date / Time No Known Allergies Allergy Verified 03/27/19 19:30 Home Medications: Ambulatory Orders Nifedipine ER [Procardia XL -] 90 mg PO DAILY #30 tab.er.24 03/31/19 Aspirin [Aspirin EC] 81 mg PO DAILY #14 tablet.dr 04/02/19 Nifedipine [Nifedipine ER] 60 mg PO DAILY #14 tab.er.24 04/02/19 Anemia: No Asthma: No Cancer: No Cardiac Disorders: Yes (OPEN HEART SURGERY) CVA: Yes (2015 [facility]) COPD: No CHF: No Diabetes: No GI Disorders: No Disorders: No HTN: Yes Hypercholesterolemia: No Kidney Stones: No Liver Disease: No Seizures: No Thyroid Disease: No - Surgical History Abdominal Surgery: No Appendectomy: No Cardiac Surgery: Yes (open heart surgery- does not remember when) Cholecystectomy: No Lung Surgery: No Neurologic Surgery: No Orthopedic Surgery: No - Reproductive History PID: No - Immunization History Immunization Up to Date: Yes - Psycho Social/Smoking Cessation Hx Smoking History: Unknown if ever smoked Have you smoked in the past 12 months: No Number of Cigarettes Smoked Daily: 40 Cigars Per Day: 0 'Breaking Loose' booklet given: 03/27/19 Hx Alcohol Use: No Drug/Substance Use Hx: No Substance Use Type: Alcohol, Cocaine Hx Substance Use Treatment: Yes ([facility]) Cardiac Specific PMH - Complaint Specific PMHX Pacemaker: No
[2019-06-19 05:19] VITALS: BMI 27.4
--- NOTE | 2019-06-19 05:19 | PDOC ---
Attending Attestation - Resident Resident Name: Olivia Sesay - ED Attending Attestation I have performed the following: I have examined & evaluated the patient, The case was reviewed & discussed with the resident, I agree w/resident's findings & plan - HPI HPI: 06/19/19 06:22 see resident hpi - Physicial Exam PE: 06/19/19 06:23 agree with resident exam - Medical Decision Making 06/19/19 06:23 63-year-old female requesting alcohol detox Plan for CT scan of the brain due to history of fall EKG shows no acute changes Labs pending, will attempt to send to detox if beds available once [facility]
--- NOTE | 2019-06-19 05:20 | PDOC ---
History of Present Illness - General Chief Complaint: Alcohol intoxication Stated Complaint: CHEST PAIN Time Seen by Provider: 06/19/19 05:04 History Source: Patient Exam Limitations: Intoxication (very poor historian) - History of Present Illness Initial Comments: Pt is a 63 yo F, with PMH of polysubstance abuse (alcohol, cocaine), HTN (on cardene), CAD (s/p CABG, stent x1 2017), CVA (2015), who is presenting via EMS from home requesting detox at [facility]. Pt states she has had a few recent falls while intoxicated, with no LOC or hitting her head. She denies any acute complaints, despite telling EMS earlier that she had some "chest pressure". Pt is currently intoxicated and is not a reliable historian. Allergies: NKDA PCP: Dr. Gutierrez Social: Pt smokes 1 ppd. Drinks ~18 beers per day in addition to vodka. Also endorses frequent cocaine use (weekly). Last use of cocaine and alcohol was evening of 06/18/2019 Pt denies any recent travel or sick contacts. Surgical: CABG s/p stent Family: no relevant history. 06/19/19 06:06 06/19/19 06:14 06/19/19 06:18 Past History - Travel Traveled outside of the country in the last 30 days: No Close contact w/someone who was outside of country & ill: No - Past Medical History Allergies/Adverse Reactions: Allergies Allergy/AdvReac Type Severity Reaction Status Date / Time No Known Allergies Allergy Verified 06/19/19 05:19 Home Medications: Ambulatory Orders Aspirin [Aspirin EC] 81 mg PO DAILY #14 tablet. 04/02/19 Nifedipine [Nifedipine ER] 60 mg PO DAILY #14 tab.er.24 04/02/19 Anemia: No Asthma: No Cancer: No Cardiac Disorders: Yes (OPEN HEART SURGERY) CVA: Yes (2015 [facility]) COPD: No CHF: No Diabetes: No GI Disorders: No Disorders: No HTN: Yes Hypercholesterolemia: No Kidney Stones: No Liver Disease: No Seizures: No Thyroid Disease: No - Surgical History Abdominal Surgery: No Appendectomy: No Cardiac Surgery: Yes (open heart surgery- does not remember when) Cholecystectomy: No Lung Surgery: No Neurologic Surgery: No Orthopedic Surgery: No - Reproductive History PID: No - Immunization History Immunization Up to Date: Yes - Psycho Social/Smoking Cessation Hx Smoking History: Current every day smoker Have you smoked in the past 12 months: No Number of Cigarettes Smoked Daily: 20 Cigars Per Day: 0 Information on smoking cessation initiated: Yes 'Breaking Loose' booklet given: 03/27/19 Hx Alcohol Use: Yes Drug/Substance Use Hx: Yes (heroin and cocaine) Substance Use Type: Alcohol, Cocaine Hx Substance Use Treatment: Yes ([facility]) Review of Systems - Review of Systems Able to Perform ROS?: No (intoxicated, poor history) *Physical Exam - Vital Signs Last Vital Signs Temp Pulse Resp BP Pulse Ox 98.2 F 66 18 168/94 100 06/19/19 05:08 06/19/19 05:08 06/19/19 05:08 06/19/19 05:08 06/19/19 05:08 - Physical Exam Comments: HTN (168/94, pt baseline), pt afebrile. Pt in NAD, normal body habitus. Pt alert and oriented to person and place. project scheduler generally intact, muscular strength and sensation intact. No midline spinal tenderness, step-offs, or crepitus. Head normocephalic, atraumatic. Eyes PERRLA, EOMI. Oropharynx without erythema or exudates, no LAD b/l. No nasal congestion. Hearing intact. Clear heart sounds, S1/S2, no JVD, b/l pedal edema, or heart murmur. No reproducible chest wall TTP. Clear lung sounds, no respiratory distress, wheezes, crackles, or accessory muscle use. No abdominal or CVA tenderness to palpation, no rebound, no guarding. Abdomen soft, non-distended, and with normoactive bowel sounds. Skin without jaundice or rash. 06/19/19 06:19 ED Treatment Course - LABORATORY CBC & Chemistry Diagram: 06/19/19 05:45 06/19/19 05:45 - RADIOLOGY Radiology Studies Ordered: Category Date Time Status HEAD CT WITHOUT CONTRAST [CT] Stat CT Scan 06/19/19 05:19 Ordered CHEST X-RAY PORTABLE* [RAD] Stat Radiology 06/19/19 05:05 Ordered Medical Decision Making - Medical Decision Making Pt was seen at bedside, also will be seen by attending Dr. Hyman. Pt presenting with alcohol and cocaine use, requesting detox. Pt currently intoxicated. Provided 1 L IV NS for improvement of hydration. Will continue to reassess pt and monitor for symptomatic improvement. ECG: NSR, intervals WNL (HR 61, PA 122, QRS 84, QTc 442). TWIs I, II, aVL, V5-V6 , with no reciprocal ST segment changes. No significant changes from prior ECG ( 03/30/2019). 06/19/19 06:23 Pt pending labs, head CT and chest x-ray. PT signed out to day team and Dr. Duggan. 06/19/19 06:25 Discharge - Discharge Information Problems reviewed: Yes Clinical Impression/Diagnosis: Cocaine use Alcohol intoxication Qualifiers: Complication of substance-induced condition: uncomplicated Qualified Code(s): F10.920 - Alcohol use, unspecified with intoxication, uncomplicated - Follow up/Referral - Patient Discharge Instructions - Post Discharge Activity
[2019-06-19] MEDS ORDERED: SODIUM CHLORIDE 1,000 ML IV STA (05:51)
[2019-06-19 05:55] LABS: EOS % 1.1 % (0-4.5); HEMATOCRIT 41.1 % (32.4-45.2); HEMOGLOBIN 13.9 GM/dL (10.7-15.3); LYMPH % 20.3 % (8-40); MCHC 33.8 g/dl (32.0-36.0); MEAN CELL VOLUME 88.7 fl (80-96); MEAN PLT VOLUME 9.2 fl (7.5-11.1); MONO % 6.5 % (3.8-10.2); NEUT % 71.1 % (42.8-82.8); PLATELET COUNT 302 K/MM3 (134-434); RBC 4.63 M/mm3 (3.60-5.2); RDW 14.2 % (11.6-15.6); WHITE BLOOD COUNT 8.8 K/mm3 (4.0-10.0)
[2019-06-19 06:20] LABS: INR 0.94 (0.83-1.09); PROTHROMBIN TIME (PATIENT) 11.1 SEC (9.7-13.0)
[2019-06-19 06:26] LABS: URINE APPEARANCE Clear; URINE BILIRUBIN Negative (NEGATIVE); URINE COLOR Yellow; URINE GLUCOSE (UA) Trace (NEGATIVE); URINE KETONE Negative (NEGATIVE); URINE LEUK ESTERASE Trace (NEGATIVE); URINE NITRITE Negative (NEGATIVE); URINE PROTEIN 1+ (NEGATIVE); URINE UROBILINOGEN 0.2 mg/dL (0.2-1.0)
[2019-06-19 06:31] LABS: ALBUMIN 3.9 g/dl (3.4-5.0); BILIRUBIN,TOTAL 0.1 mg/dL (0.2-1); BLOOD UREA NITROGEN 38.8 mg/dL (7-18); CALCIUM 9.3 mg/dL (8.5-10.1); CREATININE 1.7 mg/dL (0.55-1.3); TOT PROT 7.6 g/dl (6.4-8.2)
[2019-06-19 06:35] LABS: EPI CELLS 10 /HPF (0-5/HPF); HYALINE CASTS 4 /lpf (0-8); URINE BACTERIA 12 /hpf (NEGATIVE); URINE RBC 4 /hpf (0-4); URINE WBC 9 /hpf (0-5)
[2019-06-19 06:38] LABS: METHADONE, UR NEGATIVE ng/ml (CUTOFF=300); OPIATES, URI NEGATIVE ng/ml (CUTOFF=300); PHENCYCLIDINE,URINE NEGATIVE ng/ml (CUTOFF=25); URINE AMPHETAMINES NEGATIVE ng/ml (CUTOFF=500); URINE BARBITURATES NEGATIVE ng/ml (CUTOFF=200); URINE BENZODIAZEPINES NEGATIVE ng/ml (CUTOFF=200)
[2019-06-19 06:40] LABS: COCAINE, UR POSITIVE ng/ml (CUTOFF=300)
[2019-06-19] MEDS ORDERED: SODIUM CHLORIDE 0.9% 500 ML INFUS.BAG IV ONE (06:54)
[2019-06-19 09:19] LABS: ALBUMIN 3.6 g/dl (3.4-5.0); BILIRUBIN,TOTAL 0.1 mg/dL (0.2-1); BLOOD UREA NITROGEN 32.6 mg/dL (7-18); CALCIUM 8.9 mg/dL (8.5-10.1); CREATININE 1.3 mg/dL (0.55-1.3); POTASSIUM 3.7 mmol/L (3.5-5.1)
--- NOTE | 2019-06-19 09:40 | PDOC ---
*Physical Exam - Vital Signs Last Vital Signs Temp Pulse Resp BP Pulse Ox 98.2 F 66 18 168/94 100 06/19/19 05:08 06/19/19 05:08 06/19/19 05:08 06/19/19 05:08 06/19/19 05:08 - Physical Exam General Appearance: Yes: Nourished Neck: positive: Trachea midline Respiratory/Chest: positive: Lungs Clear, Normal Breath Sounds Cardiovascular: positive: Regular Rhythm, Regular Rate, S1, S2 Gastrointestinal/Abdominal: positive: Normal Bowel Sounds, Flat. negative: Tender ED Treatment Course - LABORATORY CBC & Chemistry Diagram: 06/19/19 05:45 06/19/19 08:42 - ADDITIONAL ORDERS Additional order review: Laboratory Results 06/19/19 06/19/19 06/19/19 08:42 06:10 06:10 PT with INR INR Sodium 142 Potassium 3.7 Chloride 110 H Carbon Dioxide 29 Anion Gap 3 L BUN 32.6 H Creatinine 1.3 Est GFR (CKD-EPI)AfAm 50.92 Est GFR (CKD-EPI)NonAf 43.93 Random Glucose 93 Calcium 8.9 Total Bilirubin 0.1 L AST 15 ALT 15 Alkaline Phosphatase 91 Creatine Kinase Troponin I Total Protein 7.0 Albumin 3.6 Urine Color Yellow Urine Appearance Clear Urine pH 6.0 Ur Specific [place] 1.025 Urine Protein 1+ H Urine Glucose (UA) Trace Urine Ketones Negative Urine Blood Trace-intact Urine Nitrite Negative Urine Bilirubin Negative Urine Urobilinogen 0.2 Ur Leukocyte Esterase Trace Urine WBC (Auto) 9 Urine RBC (Auto) 4 Urine Casts (Auto) 4 U Epithel Cells (Auto) 10 Urine Bacteria (Auto) 12 Opiates Screen Negative Methadone Screen Negative Barbiturate Screen Negative Phencyclidine Screen Negative Ur Amphetamines Screen Negative MDMA (Ecstasy) Screen Negative Benzodiazepines Screen Negative Cocaine Screen Positive A* U Marijuana (THC) Screen Negative Alcohol, Quantitative 06/19/19 06/19/19 06/19/19 05:45 05:45 05:45 PT with INR 11.10 INR 0.94 Sodium 140 Potassium 4.0 Chloride 105 Carbon Dioxide 30 Anion Gap 4 L BUN 38.8 H Creatinine 1.7 H Est GFR (CKD-EPI)AfAm 36.81 Est GFR (CKD-EPI)NonAf 31.76 Random Glucose 96 Calcium 9.3 Total Bilirubin 0.1 L AST 22 ALT 17 Alkaline Phosphatase 98 Creatine Kinase 120 Troponin I < 0.02 Total Protein 7.6 Albumin 3.9 Urine Color Urine Appearance Urine pH Ur Specific [place] Urine Protein Urine Glucose (UA) Urine Ketones Urine Blood Urine Nitrite Urine Bilirubin Urine Urobilinogen Ur Leukocyte Esterase Urine WBC (Auto) Urine RBC (Auto) Urine Casts (Auto) U Epithel Cells (Auto) Urine Bacteria (Auto) Opiates Screen Methadone Screen Barbiturate Screen Phencyclidine Screen Ur Amphetamines Screen MDMA (Ecstasy) Screen Benzodiazepines Screen Cocaine Screen U Marijuana (THC) Screen Alcohol, Quantitative < 3.0 06/19/19 05:45 RBC 4.63 MCV 88.7 MCHC 33.8 RDW 14.2 MPV 9.2 Neutrophils % 71.1 Lymphocytes % 20.3 D Monocytes % 6.5 Eosinophils % 1.1 Basophils % 1.0 - Medications Given in the ED: ED Medications Discontinued Medications Generic Name Dose Route Start Last Admin Trade Name Freq PRN Reason Stop Dose Admin Sodium Chloride 1,000 mls @ 1,000 mls/hr 06/19/19 05:51 06/19/19 06:04 Normal Saline - IV 06/19/19 06:50 1,000 mls/hr ASDIR STA Administration Sodium Chloride 1,000 ml 06/19/19 06:54 06/19/19 08:15 Normal Saline - IV 06/19/19 06:55 1,000 ml ONCE ONE Administration Medical Decision Making - Medical Decision Making 06/19/19 09:38 63 yo F h/o etoh cocain abuse, cad / cabg stents . 2, here c/o requesting detox. pt states last used 24 hours ago. c/o difficulty breathing and " problems with her heart" / pt was seen by overnight team. evaluated with labs utox, cbc cmp trop ekg and cxr. trop negative. cxr normal. pt noted to have elevated creatinine 1.7 which she has had in the past. cpk was normal. hydrated wit normal saline. repeat chemistries show creatinine. 1.2 pt requesting to go to detox. call placed to DR Barakat at [facility] [phone]. awaiting call back. 06/19/19 10:55 pt repeat creatitine is improved. accepted to [facility] as detox beds available. will transfer to [facility] security Discharge - Discharge Information Problems reviewed: Yes Clinical Impression/Diagnosis: Cocaine use Alcohol intoxication Qualifiers: Complication of substance-induced condition: uncomplicated Qualified Code(s): F10.920 - Alcohol use, unspecified with intoxication, uncomplicated Condition: Improved Disposition: HOME - Admission No - Follow up/Referral Referrals: Marianne Gutierrez MD [Primary Care Provider] - - Patient Discharge Instructions - Post Discharge Activity
--- NOTE | 2019-06-19 10:24 | EKG ---
Test Reason : Blood Pressure : / mmHG Vent. Rate : 061 BPM Atrial Rate : 061 BPM P-R Int : 122 ms QRS Dur : 084 ms QT Int : 440 ms P-R-T Axes : 052 035 241 degrees QTc Int : 442 ms NORMAL SINUS RHYTHM POSSIBLE LEFT ATRIAL ENLARGEMENT LEFT VENTRICULAR HYPERTROPHY WITH REPOLARIZATION ABNORMALITY CANNOT RULE OUT SEPTAL INFARCT (CITED ON OR BEFORE 04-JUN-2018) ABNORMAL ECG WHEN COMPARED WITH ECG OF 30-MAR-2019 17:42, SERIAL CHANGES OF SEPTAL INFARCT PRESENT Confirmed by SANDY MANLEY, ALPHONSO ([id number]) on 06/19/2019 10:24:00 AM Referred By: Confirmed By:ALPHONSO DELGADO MD
[2019-06-19 10:36] VITALS: TEMP 97.8
[2019-06-19 11:17] VITALS: BP 166/81; PULSE 64
== END 2019-06-19 12:57 | disposition home or self-care (01) ==
LOC: JER 05:00
PROC: 3E0337Z Introduction of Electrolytic and Water Balance Substance into Peripheral Vein, Percutaneous Approach (ICD-10-PCS; principal; 2019-06-19)
DX: F14.90 Cocaine use, unspecified, uncomplicated (principal); F10.920 Alcohol use, unspecified with intoxication, uncomplicated; I10 Essential (primary) hypertension; F17.210 Nicotine dependence, cigarettes, uncomplicated; Z86.73 Personal history of transient ischemic attack (TIA), and cerebral infarction without residual deficits; I51.9 Heart disease, unspecified; Z79.82 Long term (current) use of aspirin
CPT/HCPCS: 36415; 70450-TC; 71046-TC-FY; 74019-TC-FY; 80053; 80307; 81003; 82550; 84484; 85025; 85610; 93005; 93010; 96360; 96361; 99284-25; J7030

== ENCOUNTER 2019-06-19 15:13 | Inpatient (IN) | payer OTHER ==
[2019-06-19 15:55] VITALS: BMI 25.2
--- NOTE | 2019-06-19 17:07 | HP ---
CIWA Score Nausea/Vomitin-Mild Nausea/No Vomiting Muscle Tremors: 2 Anxiety: 2 Agitation: 2 Paroxysmal Sweats: 1-Minimal Palms Moist Orientation: 2-Disoriented Date<2 days Tacttile Disturbances: 2-Mild Itch/Numbness/Burn Auditory Disturbances: 0-None Visual Disturbances: 0-None Headache: 0-None Present CIWA-Ar Total Score: 12 - Admission Criteria OASAS Guidelines: Admission for Medically Managed Detox: Requires at least one of the followin. CIWA greater than 12 2. Seizures within the past 24 hours 3. Delirium tremens within the past 24 hours 4. Hallucinations within the past 24 hours 5. Acute intervention needed for co occurring medical disorder 6. Acute intervention needed for co occurring psychiatric disorder 7. Severe withdrawal that cannot be handled at a lower level of care (continued vomiting, continued diarrhea, abnormal vital signs) requiring intravenous medication and/or fluids 8. Patient presents the following: Acute intervention needed for co-occurring med or psych disorder Admission Criteria Met: Admission criteria met Admitting History and Physical - Admission Chief Complaint: alcohol detox History of Present Illness: Patient is a 63 yo female domicile with hx of alcohol and cocaine dependence is here seeking inpatient detox d/t withdrawal symptoms, patient was medically cleared today at [facility] for chest pain. Patient has hx of CAD w/ CABG STENT about two years ago. Denies hx of seizures or blackouts. PMHX:HTN. 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 Cardiovascular: Yes: HTN - Smoking History Smoking history: Current every day smoker Have you smoked in the past 12 months: No Aproximately how many cigarettes per day: 20 - Alcohol/Substance Use Hx Alcohol Use: Yes History of Substance Use: reports: None - Social History ADL: Independent History of Recent Travel: No Admission ROS S - HPI Allergies/Adverse Reactions: Allergies Allergy/AdvReac Type Severity Reaction Status Date / Time No Known Allergies Allergy Verified 06/19/19 15:48 Exam Limitations: No Limitations - Ebola screening Have you traveled outside of the country in the last 21 days: No Have you had contact with anyone from an Ebola affected area: No - Review of Systems Constitutional: Chills, Changes in sleep EENT: reports: No Symptoms Reported Respiratory: reports: No Symptoms reported Cardiac: reports: See HPI GI: reports: Nausea, Poor Fluid Intake : reports: No Symptoms Reported Musculoskeletal: reports: No Symptoms Reported Integumentary: reports: No Symptoms Reported Neuro: reports: No Symptoms reported Endocrine: reports: No Symptoms Reported Hematology: reports: No Symptoms Reported Psychiatric: reports: Orientated x3, Anxious Other Systems: Reviewed and Negative Patient History - Patient Medical History Hx Anemia: No Hx Asthma: No Hx Chronic Obstructive Pulmonary Disease (COPD): No Hx Cancer: No Hx Cardiac Disorders: Yes (OPEN HEART SURGERY) Hx Congestive Heart Failure: No Hx Hypertension: Yes Hx Hypercholesterolemia: No Hx Pacemaker: No HX Cerebrovascular Accident: Yes ([address] [facility]) Hx Seizures: No Hx Diabetes: No Hx Gastrointestinal Disorders: No Hx Liver Disease: No Hx Genitourinary Disorders: No Hx Sexually Transmitted Disorders: No Hx Renal Disease (ESRD): No Hx Thyroid Disease: No Hx Human Immunodeficiency Virus (HIV): No (last 2018 negative) Hx Depression: Yes Hx Suicide Attempt: No Hx Bipolar Disorder: No Hx Schizophrenia: No - Patient Surgical History Past Surgical History: Yes Hx Neurologic Surgery: No Hx Cataract Extraction: No Hx Cardiac Surgery: Yes (open heart surgery- does not remember when) Hx Lung Surgery: No Hx Breast Surgery: No Hx Breast Biopsy: No Hx Abdominal Surgery: No Hx Appendectomy: No Hx Cholecystectomy: No Hx Genitourinary Surgery: No Hx Section: No Hx Orthopedic Surgery: No Anesthesia Reaction: No - PPD History Date: 04/24/18 Results: NO RECORDED RES PPD to be Administered?: Yes - Smoking Cessation Smoking history: Current every day smoker Have you smoked in the past 12 months: No Aproximately how many cigarettes per day: 20 Cigars Per Day: 0 Hx Chewing Tobacco Use: No Initiated information on smoking cessation: Yes 'Breaking Loose' booklet given: 06/19/19 - Substance & Tx. History Hx Alcohol Use: Yes Hx Substance Use: Yes Substance Use Type: Alcohol Hx Substance Use Treatment: Yes ([facility] 03/2019) - Substances abused Alcohol Substance route: Oral Frequency: Daily Amount used: 18 x (12 oz. of Cobra beer), 1 pint of gin/vodka Age of first use: 17 Date of last use: 06/18/19 Cocaine Substance route: Inhalation Frequency: Daily Amount used: 3 bags Age of first use: 19 Date of last use: 06/17/19 Admission Physical Exam [facility] - Vital Signs Vital Signs: Vital Signs - 24 hr 06/19/19 15:42 Temperature 97.4 F L Pulse Rate 67 Respiratory 18 Rate Blood Pressure 144/90 - Physical General Appearance: Yes: Disheveled, Irritable, Anxious HEENTM: Yes: EOMI, Hearing grossly Normal, Normal ENT Inspection, Normocephalic , Normal Voice, MATEUS, Pharynx Normal, Tm's normal Respiratory: Yes: Chest Non-Tender, Lungs Clear, Normal Breath Sounds, No Respiratory Distress, No Accessory Muscle Use Neck: Yes: Within Normal Limits Breast: Yes: Breast Exam Deferred Cardiology: Yes: Regular Rhythm, Regular Rate, Murmur Abdominal: Yes: Normal Bowel Sounds, Non Tender, Flat, Soft Genitourinary: Yes: Within Normal Limits Back: Yes: Normal Inspection Musculoskeletal: Yes: full range of Motion, Gait Steady Extremities: Yes: Normal Capillary Refill, Normal Inspection, Normal Range of Motion, Non-Tender Neurological: Yes: crime lab analyst II-XII NML intact, Fully Oriented, Alert, Motor Strength 5/5, Depressed Affect Integumentary: Yes: Normal Color, Warm, Diaphoresis Lymphatic: Yes: Within Normal Limits - Diagnostic (1) Alcohol dependence with uncomplicated withdrawal Current Visit: Yes Status: Chronic (2) CVD (cardiovascular disease) Current Visit: Yes Status: Chronic (3) Cocaine dependence Current Visit: Yes Status: Chronic Qualifiers: Substance use status: uncomplicated Qualified Code(s): F14.20 - Cocaine dependence, uncomplicated (4) HTN (hypertension) Current Visit: Yes Status: Chronic Qualifiers: Hypertension type: essential hypertension Qualified Code(s): I10 - Essential (primary) hypertension (5) Nicotine dependence Current Visit: Yes Status: Chronic Cleared for Admission [facility] - Detox or Rehab [facility] Level of Care: Medically Managed Detox Regimen/Protocol: Librium Breathalyzer - Breathalyzer Breathalyzer: 0 Urine Drug Screen - Test Device Lot number: [id number] Expiration date: 03/06/21 - Control Is test valid?: Yes - Results Drug screen NEGATIVE: No Urine drug screen results: RACHELLE-Cocaine Inpatient Rehab Admission - Rehab Decision to Admit Inpatient rehab admission?: No
[2019-06-19] MEDS ORDERED: BISMUTH SUBSALICYLATE 524 MG/30 ML UD PO PRN (17:10)
[2019-06-19] MEDS ORDERED: chlordiazePOXIDE HCL 25 MG CAPSULE PO PRN (17:10)
[2019-06-19] MEDS ORDERED: NICOTINE POLACRILEX 2 MG GUM BUC PRN (17:10)
[2019-06-19] MEDS ORDERED: ACETAMINOPHEN 325 MG TABLET (FP) PO PRN ×2 (17:10)
[2019-06-19] MEDS ORDERED: BACLOFEN 10 MG TABLET (FP) PO PRN (17:10)
[2019-06-19] MEDS ORDERED: IBUPROFEN 400 MG TABLET (FP) PO PRN (17:10)
[2019-06-19] MEDS: NIFEdipine E.R 60 MG TABLET (UD) PO SCH ×2 (19:10→22:28)
[2019-06-19] MEDS: ASPIRIN COATED 81 MG TABLET.EC PO SCH (19:15)
[2019-06-19] MEDS: chlordiazePOXIDE HCL 25 MG CAPSULE PO SCH (22:28)
[2019-06-19] MEDS: THIAMINE HCL 100 MG TABLET (FP) PO SCH (22:28)
[2019-06-20] MEDS: chlordiazePOXIDE HCL 25 MG CAPSULE PO SCH ×3 (05:35→18:22)
[2019-06-20 09:39] LABS: HEMATOCRIT 40.5 % (32.4-45.2); HEMOGLOBIN 13.2 GM/dL (10.7-15.3); MCH 29.1 pg (25.7-33.7); MCHC 32.5 g/dl (32.0-36.0); MEAN CELL VOLUME 89.4 fl (80-96); MEAN PLT VOLUME 9.5 fl (7.5-11.1); PLATELET COUNT 322 K/MM3 (134-434); RBC 4.53 M/mm3 (3.60-5.2); RDW 14.6 % (11.6-15.6); WHITE BLOOD COUNT 6.6 K/mm3 (4.0-10.0)
[2019-06-20 10:10] LABS: ALBUMIN 3.4 g/dl (3.4-5.0); BILIRUBIN,TOTAL 0.2 mg/dL (0.2-1); CALCIUM 9.5 mg/dL (8.5-10.1); CREATININE 1.5 mg/dL (0.55-1.3); POTASSIUM 3.9 mmol/L (3.5-5.1); TOT PROT 6.7 g/dl (6.4-8.2)
[2019-06-20] MEDS: ASPIRIN COATED 81 MG TABLET.EC PO SCH (10:48)
[2019-06-20] MEDS: PRENATAL VITAMINS W/ FOLIC ACID TABLET (FP) PO SCH (10:48)
[2019-06-20] MEDS: NIFEdipine E.R 60 MG TABLET (UD) PO SCH (10:48)
[2019-06-20] MEDS ORDERED: chlordiazePOXIDE HCL 10 MG CAPSULE PO PRN (11:51)
--- NOTE | 2019-06-20 12:11 | PN ---
S CIWA - CIWA Score Nausea/Vomitin-No Nausea/No Vomiting Muscle Tremors: 3 Anxiety: 2 Agitation: 3 Paroxysmal Sweats: 2 Orientation: 0-Oriented Tacttile Disturbances: 0-None Auditory Disturbances: 0-None Visual Disturbances: 0-None Headache: 0-None Present CIWA-Ar Total Score: 10 S Progress Note (SOAP) Subjective: groggy tired sweats interrupted Objective: 06/20/19 12:10 Vital Signs Temperature 97.1 F L 06/20/19 09:54 Pulse Rate 66 06/20/19 09:54 Respiratory Rate 18 06/20/19 09:54 Blood Pressure 144/93 06/20/19 09:54 O2 Sat by Pulse Oximetry (%) Laboratory Tests 06/20/19 06/20/19 06/20/19 06:00 06:00 06:00 WBC 6.6 RBC 4.53 Hgb 13.2 Hct 40.5 MCV 89.4 MCH 29.1 MCHC 32.5 RDW 14.6 Plt Count 322 MPV 9.5 Sodium 141 Potassium 3.9 Chloride 108 H Carbon Dioxide 29 Anion Gap 5 L BUN 26.0 H Creatinine 1.5 H Est GFR (CKD-EPI)AfAm 42.83 Est GFR (CKD-EPI)NonAf 36.95 Random Glucose 72 L Calcium 9.5 Total Bilirubin 0.2 AST 15 ALT 14 Alkaline Phosphatase 84 Total Protein 6.7 Albumin 3.4 RPR Titer Nonreactive labs noted aaox3 ambulating no acute distress Assessment: 06/20/19 12:10 withdrawal sx Plan: will continue with modified librium taper. increase fluids
[2019-06-20] MEDS: THIAMINE HCL 100 MG TABLET (FP) PO SCH (22:25)
[2019-06-21] MEDS: MENTHOL/PHENOL 1 EACH UD MM PRN (01:03)
[2019-06-21] MEDS: chlordiazePOXIDE HCL 25 MG CAPSULE PO SCH ×3 (01:35→18:27)
[2019-06-21] MEDS: MELATONIN 5 MG TABLETS PO PRN ×2 (02:56→22:13)
[2019-06-21] MEDS ORDERED: chlordiazePOXIDE HCL 25 MG CAPSULE PO SCH (05:00)
[2019-06-21] MEDS: NIFEdipine E.R 60 MG TABLET (UD) PO SCH (10:29)
[2019-06-21] MEDS: ASPIRIN COATED 81 MG TABLET.EC PO SCH (10:29)
[2019-06-21] MEDS: PRENATAL VITAMINS W/ FOLIC ACID TABLET (FP) PO SCH (10:29)
--- NOTE | 2019-06-21 13:05 | PN ---
S CIWA - CIWA Score Nausea/Vomitin-No Nausea/No Vomiting Muscle Tremors: 3 Anxiety: 2 Agitation: 2 Paroxysmal Sweats: 2 Orientation: 0-Oriented Tacttile Disturbances: 0-None Auditory Disturbances: 0-None Visual Disturbances: 0-None Headache: 0-None Present CIWA-Ar Total Score: 9 BHS Progress Note (SOAP) Subjective: sweats shakes interrupted sleep body aches Objective: 06/21/19 13:04 Vital Signs Temperature 98.9 F 06/21/19 10:00 Pulse Rate 49 L 06/21/19 10:00 Respiratory Rate 18 06/21/19 10:00 Blood Pressure 136/75 06/21/19 10:00 O2 Sat by Pulse Oximetry (%) Laboratory Tests 06/20/19 06/20/19 06/20/19 06:00 06:00 06:00 WBC 6.6 RBC 4.53 Hgb 13.2 Hct 40.5 MCV 89.4 MCH 29.1 MCHC 32.5 RDW 14.6 Plt Count 322 MPV 9.5 Sodium 141 Potassium 3.9 Chloride 108 H Carbon Dioxide 29 Anion Gap 5 L BUN 26.0 H Creatinine 1.5 H Est GFR (CKD-EPI)AfAm 42.83 Est GFR (CKD-EPI)NonAf 36.95 Random Glucose 72 L Calcium 9.5 Total Bilirubin 0.2 AST 15 ALT 14 Alkaline Phosphatase 84 Total Protein 6.7 Albumin 3.4 RPR Titer Nonreactive aaox3 ambulating no acute distress Assessment: 06/21/19 13:05 withdrawal sx Plan: continue detox increase fluids
[2019-06-21] MEDS: THIAMINE HCL 100 MG TABLET (FP) PO SCH (22:13)
[2019-06-22] MEDS ORDERED: chlordiazePOXIDE HCL 10 MG CAPSULE PO PRN
[2019-06-22] MEDS ORDERED: chlordiazePOXIDE HCL 10 MG CAPSULE PO SCH (05:00)
[2019-06-22] MEDS: chlordiazePOXIDE 5 MG CAPSULE PO SCH ×3 (06:16→22:26)
[2019-06-22] MEDS: ASPIRIN COATED 81 MG TABLET.EC PO SCH (10:16)
[2019-06-22] MEDS: NIFEdipine E.R 60 MG TABLET (UD) PO SCH (10:16)
[2019-06-22] MEDS: PRENATAL VITAMINS W/ FOLIC ACID TABLET (FP) PO SCH (10:16)
--- NOTE | 2019-06-22 14:10 | PN ---
[facility] CIWA - CIWA Score Nausea/Vomitin-No Nausea/No Vomiting Muscle Tremors: 3 Anxiety: 4-Mod. Anxious/Guarded Agitation: 0-Normal Activity Paroxysmal Sweats: No Perspiration Orientation: 2-Disoriented Date<2 days Tacttile Disturbances: 0-None Auditory Disturbances: 0-None Visual Disturbances: 2-Mild Sensitivity Headache: 0-None Present CIWA-Ar Total Score: 11 BHS Progress Note (SOAP) Subjective: Anxious, Tremors, Fatigue. Objective: PATIENT A & O X 2 (UNCERTAIN ABOUT CURRENT DAY / DATE). IN NO ACUTE DISTRESS. PATIENT APPEARS GUARDED LYING IN BED DURING DAILY ROUNDS ASSESSMENT INTERVIEW. Vital Signs Temperature 97.5 F L 06/22/19 10:00 Pulse Rate 53 L 06/22/19 10:00 Respiratory Rate 18 06/22/19 10:00 Blood Pressure 141/69 06/22/19 10:00 O2 Sat by Pulse Oximetry (%) Laboratory Tests 06/20/19 06/20/19 06/20/19 06:00 06:00 06:00 WBC 6.6 RBC 4.53 Hgb 13.2 Hct 40.5 MCV 89.4 MCH 29.1 MCHC 32.5 RDW 14.6 Plt Count 322 MPV 9.5 Sodium 141 Potassium 3.9 Chloride 108 H Carbon Dioxide 29 Anion Gap 5 L BUN 26.0 H Creatinine 1.5 H Est GFR (CKD-EPI)AfAm 42.83 Est GFR (CKD-EPI)NonAf 36.95 Random Glucose 72 L Calcium 9.5 Total Bilirubin 0.2 AST 15 ALT 14 Alkaline Phosphatase 84 Total Protein 6.7 Albumin 3.4 RPR Titer Nonreactive LABS NOTED. PATIENT HAS HAD ABNORMAL RENAL LAB VALUES ON PREVIOUS ADMISSIONS. 06/22/19 14:08 Assessment: 06/22/19 14:09 WITHDRAWAL SYMPTOMS. AZOTEMIA. 06/22/19 14:10 Plan: CONTINUE DETOX. PATIENT ADVISED TO FOLLOW-UP WITH COMPUTED TOMOGRAPHY SCANNER OPERATOR AFTER DISCHARGE FROM DETOX FOR GENERAL MEDICAL ASSESSMENT AND FOR ABNORMAL RENAL LAB VALUES NOTED ON DETOX ADMISSION LABORATORY ASSESSMENT. PATIENT VERBALIZED UNDERSTANDING OF RECOMMENDATION. COPIES OF RESULTS OF ALL LABS DRAWN WHILE ADMITTED FOR DETOX GIVEN TO PATIENT AT TIME OF DISCHARGE FROM DETOX UNIT.
[2019-06-22] MEDS: THIAMINE HCL 100 MG TABLET (FP) PO SCH (22:26)
[2019-06-23] MEDS ORDERED: chlordiazePOXIDE HCL 10 MG CAPSULE PO PRN
[2019-06-23] MEDS: MELATONIN 5 MG TABLETS PO PRN ×2 (00:57→22:25)
[2019-06-23] MEDS ORDERED: chlordiazePOXIDE HCL 10 MG CAPSULE PO SCH (05:00)
[2019-06-23] MEDS: chlordiazePOXIDE HCL 10 MG CAPSULE PO SCH ×3 (06:14→22:25)
[2019-06-23] MEDS: ASPIRIN COATED 81 MG TABLET.EC PO SCH (10:45)
[2019-06-23] MEDS: NIFEdipine E.R 60 MG TABLET (UD) PO SCH (10:45)
[2019-06-23] MEDS: PRENATAL VITAMINS W/ FOLIC ACID TABLET (FP) PO SCH (10:45)
--- NOTE | 2019-06-23 15:51 | PN ---
S CIWA - CIWA Score Nausea/Vomitin-No Nausea/No Vomiting Muscle Tremors: None Anxiety: 2 Agitation: 2 Paroxysmal Sweats: 2 Orientation: 0-Oriented Tacttile Disturbances: 0-None Auditory Disturbances: 0-None Visual Disturbances: 0-None Headache: 0-None Present CIWA-Ar Total Score: 6 BHS Progress Note (SOAP) Subjective: Sweating, interrupted sleep Objective: 06/23/19 15:47 Last Vital Signs Temp Pulse Resp BP Pulse Ox 97.7 F 61 18 142/75 06/22/19 21:25 06/22/19 21:25 06/23/19 03:30 06/22/19 21:25 Elevated b/p: has htn, on medication Laboratory Tests 06/20/19 06/20/19 06/20/19 06:00 06:00 06:00 WBC 6.6 RBC 4.53 Hgb 13.2 Hct 40.5 MCV 89.4 MCH 29.1 MCHC 32.5 RDW 14.6 Plt Count 322 MPV 9.5 Sodium 141 Potassium 3.9 Chloride 108 H Carbon Dioxide 29 Anion Gap 5 L BUN 26.0 H Creatinine 1.5 H Est GFR (CKD-EPI)AfAm 42.83 Est GFR (CKD-EPI)NonAf 36.95 Random Glucose 72 L Calcium 9.5 Total Bilirubin 0.2 AST 15 ALT 14 Alkaline Phosphatase 84 Total Protein 6.7 Albumin 3.4 RPR Titer Nonreactive Labs reviewed: serum creat 1.5 (high), GFR low, bun 26 (high) Assessment: 06/23/19 15:49 Withdrawal sxs Noted with elevated b/p (has htn) and CKD Plan: Continue detox Patient scheduled for discharge tomorrow HTN: continue nifedipine CKD: encouraged PO water hydration, follow up with PCP post discharge for management
[2019-06-23] MEDS: THIAMINE HCL 100 MG TABLET (FP) PO SCH (22:24)
[2019-06-24] MEDS ORDERED: chlordiazePOXIDE HCL 10 MG CAPSULE PO ONE ×2 (05:00)
--- NOTE | 2019-06-24 10:05 | DS ---
[facility] Detox Discharge Summary Admission Date: 06/19/19 Discharge Date: 06/24/19 - History Present History: Alcohol Dependence, Cocaine Dependence - Physical Exam Results Vital Signs: Vital Signs Temperature 97.1 F L 06/24/19 09:31 Pulse Rate 70 06/24/19 09:31 Respiratory Rate 18 06/24/19 09:31 Blood Pressure 165/82 06/24/19 09:31 O2 Sat by Pulse Oximetry (%) Pertinent Admission Physical Exam Findings: pt arrived in withdrawals Vital Signs Temperature 97.1 F L 06/24/19 09:31 Pulse Rate 70 06/24/19 09:31 Respiratory Rate 18 06/24/19 09:31 Blood Pressure 165/82 06/24/19 09:31 O2 Sat by Pulse Oximetry (%) Laboratory Tests 06/20/19 06/20/19 06/20/19 06:00 06:00 06:00 WBC 6.6 RBC 4.53 Hgb 13.2 Hct 40.5 MCV 89.4 MCH 29.1 MCHC 32.5 RDW 14.6 Plt Count 322 MPV 9.5 Sodium 141 Potassium 3.9 Chloride 108 H Carbon Dioxide 29 Anion Gap 5 L BUN 26.0 H Creatinine 1.5 H Est GFR (CKD-EPI)AfAm 42.83 Est GFR (CKD-EPI)NonAf 36.95 Random Glucose 72 L Calcium 9.5 Total Bilirubin 0.2 AST 15 ALT 14 Alkaline Phosphatase 84 Total Protein 6.7 Albumin 3.4 RPR Titer Nonreactive today pt is aaox3 ambulating no acute distress - Treatment Hospital Course: Detox Protocol Followed, Detoxed Safely, Responded well, Discharged Condition Good, Rehab Referral Accepted Patient has Accepted a Rehab Referral to: pt referred to inpatient rehab - Medication Discharge Medications: Ambulatory Orders Aspirin [Aspirin EC] 81 mg PO DAILY #14 tablet.dr 04/02/19 Nifedipine [Nifedipine ER] 60 mg PO DAILY #14 tab.er.24 04/02/19 - Diagnosis (1) Alcohol dependence with uncomplicated withdrawal Current Visit: Yes Status: Chronic (2) CVD (cardiovascular disease) Current Visit: Yes Status: Chronic (3) Cocaine dependence Current Visit: Yes Status: Chronic Qualifiers: Substance use status: uncomplicated Qualified Code(s): F14.20 - Cocaine dependence, uncomplicated (4) HTN (hypertension) Current Visit: Yes Status: Chronic Qualifiers: Hypertension type: essential hypertension Qualified Code(s): I10 - Essential (primary) hypertension (5) Nicotine dependence Current Visit: Yes Status: Chronic Qualifiers: Nicotine product type: cigarettes Substance use status: uncomplicated Qualified Code(s): F17.210 - Nicotine dependence, cigarettes, uncomplicated (6) Alcohol-induced mood disorder Current Visit: No Status: Acute (7) Cocaine use Current Visit: No Status: Acute (8) History of open heart surgery Current Visit: No Status: Acute (9) Syncope Current Visit: No Status: Acute (10) CVA (cerebral vascular accident) Current Visit: No Status: Chronic Qualifiers: Laterality of affected vessel: unspecified (11) Cocaine use disorder Current Visit: No Status: Chronic (12) Depression Current Visit: No Status: Chronic (13) HLD (hyperlipidemia) Current Visit: No Status: Chronic Qualifiers: Hyperlipidemia type: pure hypercholesterolemia Qualified Code(s): E78.00 - Pure hypercholesterolemia, unspecified; E78.0 - Pure hypercholesterolemia (14) [place] (hard of hearing) Current Visit: No Status: Chronic Qualifiers: Contralateral hearing status: unspecified (15) Old cerebrovascular accident (CVA) without late effect Current Visit: No Status: Chronic (16) Fall Current Visit: No Status: Suspected - AMA Did Patient Leave Against Medical Advice: No
[2019-06-24] MEDS: ASPIRIN COATED 81 MG TABLET.EC PO SCH (10:15)
[2019-06-24] MEDS: NIFEdipine E.R 60 MG TABLET (UD) PO SCH (10:15)
[2019-06-24] MEDS: PRENATAL VITAMINS W/ FOLIC ACID TABLET (FP) PO SCH (10:15)
[2019-06-24] MEDS: MELATONIN 5 MG TABLETS PO PRN (22:42)
[2019-06-24] MEDS: THIAMINE HCL 100 MG TABLET (FP) PO SCH (22:42)
[2019-06-24] MEDS: MENTHOL/PHENOL 1 EACH UD MM PRN (23:08)
--- NOTE | 2019-06-25 08:59 | PN ---
[facility] Progress Note Note: RN states that pt had fell, try on floor. Pt was approached for assessment, however pt refused to verbalize about any fall or injuries. Pt was assessed, pt has no bruising to any part of body, pt denies of ACEVES, blurred vision and is refusing to go to ED for evaluation. Pt only states wants to go to rehab. fall protocol initiated.
--- NOTE | 2019-06-25 09:08 | DS ---
[facility] Detox Discharge Summary Admission Date: 06/19/19 Discharge Date: 06/25/19 - History Present History: Alcohol Dependence, Cocaine Dependence - Physical Exam Results Vital Signs: Vital Signs Temperature 96.6 F L 06/25/19 06:41 Pulse Rate 63 06/25/19 06:41 Respiratory Rate 18 06/25/19 06:41 Blood Pressure 162/92 06/25/19 06:41 O2 Sat by Pulse Oximetry (%) Pertinent Admission Physical Exam Findings: pt remained an extra day d/t no beds available in our rehab facility. Pt will be going to our rehab in health system today. - Treatment Hospital Course: Detox Protocol Followed, Detoxed Safely, Responded well, Discharged Condition Good, Rehab Referral Accepted Patient has Accepted a Rehab Referral to: referred to [facility] inpatient rehab - Medication Discharge Medications: Ambulatory Orders Aspirin [Aspirin EC] 81 mg PO DAILY #14 tablet. 04/02/19 Nifedipine [Nifedipine ER] 60 mg PO DAILY #14 tab.er.24 04/02/19 - Diagnosis (1) Alcohol dependence with uncomplicated withdrawal Current Visit: Yes Status: Chronic (2) CVD (cardiovascular disease) Current Visit: Yes Status: Chronic (3) Cocaine dependence Current Visit: Yes Status: Chronic Qualifiers: Substance use status: uncomplicated Qualified Code(s): F14.20 - Cocaine dependence, uncomplicated (4) HTN (hypertension) Current Visit: Yes Status: Chronic Qualifiers: Hypertension type: essential hypertension Qualified Code(s): I10 - Essential (primary) hypertension (5) Nicotine dependence Current Visit: Yes Status: Chronic Qualifiers: Nicotine product type: cigarettes Substance use status: uncomplicated Qualified Code(s): F17.210 - Nicotine dependence, cigarettes, uncomplicated (6) Alcohol-induced mood disorder Current Visit: No Status: Acute (7) Cocaine use Current Visit: No Status: Acute (8) History of open heart surgery Current Visit: No Status: Acute (9) Syncope Current Visit: No Status: Acute (10) CVA (cerebral vascular accident) Current Visit: No Status: Chronic Qualifiers: Laterality of affected vessel: unspecified (11) Cocaine use disorder Current Visit: No Status: Chronic (12) Depression Current Visit: No Status: Chronic (13) HLD (hyperlipidemia) Current Visit: No Status: Chronic Qualifiers: Hyperlipidemia type: pure hypercholesterolemia Qualified Code(s): E78.00 - Pure hypercholesterolemia, unspecified; E78.0 - Pure hypercholesterolemia (14) [place] (hard of hearing) Current Visit: No Status: Chronic Qualifiers: Contralateral hearing status: unspecified (15) Old cerebrovascular accident (CVA) without late effect Current Visit: No Status: Chronic (16) Fall Current Visit: No Status: Suspected - AMA Did Patient Leave Against Medical Advice: No
[2019-06-25 09:52] VITALS: PULSE 54; TEMP 97.9
[2019-06-25 10:28] VITALS: BP 148/70
[2019-06-25] MEDS: ASPIRIN COATED 81 MG TABLET.EC PO SCH (10:47)
[2019-06-25] MEDS: PRENATAL VITAMINS W/ FOLIC ACID TABLET (FP) PO SCH (10:47)
[2019-06-25] MEDS: NIFEdipine E.R 60 MG TABLET (UD) PO SCH (12:14)
== END 2019-06-25 14:38 | disposition other institution (70) | DRG 774 ==
LOC: YASAS 15:13 → Y6N 17:32
PROVIDERS: ADMIT Allergy & Immunology; ATTEND Allergy & Immunology
PROC: HZ2ZZZZ Detoxification Services for Substance Abuse Treatment (ICD-10-PCS; principal; 2019-06-19)
DX: F10.230 Alcohol dependence with withdrawal, uncomplicated (principal); F14.20 Cocaine dependence, uncomplicated; F17.210 Nicotine dependence, cigarettes, uncomplicated; F10.24 Alcohol dependence with alcohol-induced mood disorder; F32.9 Major depressive disorder, single episode, unspecified; I25.10 Atherosclerotic heart disease of native coronary artery without angina pectoris; I13.10 Hypertensive heart and chronic kidney disease without heart failure, with stage 1 through stage 4 chronic kidney disease, or unspecified chronic kidney disease; N18.9 Chronic kidney disease, unspecified; Z95.1 Presence of aortocoronary bypass graft; Z95.5 Presence of coronary angioplasty implant and graft; H91.93 Unspecified hearing loss, bilateral; E78.00 Pure hypercholesterolemia, unspecified; Z91.81 History of falling; Z86.73 Personal history of transient ischemic attack (TIA), and cerebral infarction without residual deficits
CPT/HCPCS: 36415; 80053; 85027; 86593

== ENCOUNTER 2019-06-25 14:09 | Inpatient (IN) | payer OTHER ==
[2019-06-25] MEDS ORDERED: LOPERAMIDE HCL 2 MG CAPSULE PO PRN (15:10)
[2019-06-25] MEDS ORDERED: MAGNESIUM CITRATE 300 ML BOTTLE PO PRN (15:10)
[2019-06-25] MEDS ORDERED: ACETAMINOPHEN 325 MG TABLET (FP) PO PRN (15:10)
[2019-06-25] MEDS ORDERED: IBUPROFEN 400 MG TABLET (FP) PO PRN (15:10)
[2019-06-25] MEDS ORDERED: MAGNESIUM HYDROX 2400MG/30ML ORAL SUSPENSION 30 ML CUP PO PRN (15:10)
[2019-06-25] MEDS ORDERED: NICOTINE POLACRILEX 4 MG GUM BUC PRN (15:10)
[2019-06-25] MEDS ORDERED: P-EPHED 60MG/TRIPROLIDI 2.5MG TABLET PO PRN (15:10)
[2019-06-25] MEDS ORDERED: MAG HYDROX/AL HYDROX/SIMETH 30 ML UNIT-DOSE CUP PO PRN (15:10)
[2019-06-25] MEDS ORDERED: guaiFENesin 200 MG/10 ML 10 ML UNIT-DOSE CUPS PO PRN (15:10)
[2019-06-25] MEDS ORDERED: MENTHOL/PHENOL 1 EACH UD MM PRN (15:10)
--- NOTE | 2019-06-25 15:10 | HP ---
[facility] Rehab Assess/Revision - Admission History Admitted to Rehab from[facility] - Findings Detox History & Physical reviewed: Yes Concur with findings: Yes Inpatient Rehab Admission - Rehab Decision to Admit Inpatient rehab admission?: Yes - Initial Determination Are CD services needed?: Yes Free of communicable disease: Yes Not in need of hospitalization: Yes - Rehab Admission Criteria Previous failed treatment: Yes Poor recovery environment: Yes Comorbidities: Yes Lacks judgement: Yes Patient is meeting Inpatient Rehab admission criteria:: Yes
[2019-06-25] MEDS ORDERED: THIAMINE HCL 100 MG TABLET (FP) PO SCH (22:00)
[2019-06-25] MEDS ORDERED: MELATONIN 5 MG TABLETS PO PRN (22:00)
[2019-06-26 06:55] VITALS: TEMP 97.7
[2019-06-26] MEDS ORDERED: hydrOXYzine PAMOATE 25 MG CAPSULE (FP) PO PRN (08:08)
[2019-06-26] MEDS ORDERED: PT OWN MED DRAWER 7, Y5N ONE (09:07)
[2019-06-26] MEDS ORDERED: NIFEdipine E.R 60 MG TABLET (UD) PO SCH (10:00)
[2019-06-26] MEDS ORDERED: NICOTINE 21 MG/24 HOURS TOPICAL PATCH TD SCH (10:00)
[2019-06-26] MEDS ORDERED: PRENATAL VITAMINS W/ FOLIC ACID TABLET (FP) PO SCH (10:00)
[2019-06-26] MEDS ORDERED: ASPIRIN COATED 81 MG TABLET.EC PO SCH (10:00)
[2019-06-26] MEDS ORDERED: PATIENT'S OWN MEDICATION (NON-FORMULARY) (Nifedipine [Nifedipine Er] 60 MG) PO SCH (10:00)
[2019-06-26 10:38] VITALS: BP 141/88; PULSE 69
--- NOTE | 2019-06-26 16:26 | DS ---
[facility] Rehab Discharge Summary - [facility] Rehab Discharge Summary Admission Date: 06/25/19 Discharge Date: 06/26/19 - History Present History: Alcohol dependence Pertinent Past History: Pt was admitted to detox for alcohol use disorder. After completing detox pt was admitted to rehab yesterday. Pt states she needs to leave. Spoke to counselor and rec'd metro card - Discharge Physical Exam Vital Signs: Vital Signs Temperature 97.7 F 06/26/19 07:30 Pulse Rate 69 06/26/19 10:37 Respiratory Rate 18 06/26/19 07:30 Blood Pressure 141/88 06/26/19 10:37 O2 Sat by Pulse Oximetry (%) - Treatment Discharge Condition: Discharge condition good - Medication Discharge Medications: Ambulatory Orders Aspirin [Aspirin EC] 81 mg PO DAILY #14 tablet. 04/02/19 Nifedipine [Nifedipine ER] 60 mg PO DAILY #14 tab.er.24 04/02/19 - Medication-Assisted Treatment (MAT) Medication-Assisted Treatment (MAT): No - Discharge Instructions Diet, activity, other medical instructions: Diet: Activity: Other medical instructions: - AMA Did Patient Leave Against Medical Advice: No
== END 2019-06-26 19:04 | disposition left against medical advice (07) | DRG 770 ==
LOC: YASAS 14:09 → Y3E 14:11
PROVIDERS: ADMIT Neuromusculoskeletal Medicine & OMM; ATTEND Neuromusculoskeletal Medicine & OMM
PROC: HZ42ZZZ Group Counseling for Substance Abuse Treatment, Cognitive-Behavioral (ICD-10-PCS; principal; 2019-06-25)
DX: F10.20 Alcohol dependence, uncomplicated (principal); F14.20 Cocaine dependence, uncomplicated; F17.210 Nicotine dependence, cigarettes, uncomplicated; I10 Essential (primary) hypertension

== ENCOUNTER 2019-08-17 04:56 | Inpatient (IN) | payer OTHER ==
--- NOTE | 2019-08-17 05:10 | PDOC ---
History of Present Illness - General Chief Complaint: CVA/TIA Stated Complaint: POSSIBLE CVA Time Seen by Provider: 08/17/19 05:08 History Source: Patient, EMS, Old Records Exam Limitations: Intoxication - History of Present Illness Initial Comments: HPI: 63 y/o female presenting to [facility] ER complaining of elevated blood pressure and slurred speech. Symptoms started between 6p-9p this evening. Pt initially complained of chest pain to EMS providers. On arrival, the pt then stated she was not having chest pain, but rather wanted to come to the hospital for evaluation of her blood pressure. Continues to believe her speech is more slurred than usual. States she drank "a lot" of beer and liquor this evening. Last used cocaine three days ago. Denies ever using needles. At time of interview, the pt denies chest pain, SOB, abdominal pain, back pain, or weakness in her arms or legs. Medical Hx: - CAD (s/p CABG, stent x1 2017) - Stroke (2016, with L sided deficit) - HTN - H/o EtOH abuse, last D/Braulio from [facility] on 26 Jun 2019 - H/o Cocaine Abuse - Tobacco use disorder Review of Systems: In addition to that documented in the HPI above, the additional ROS was obtained : Constitutional- Denies fevers or chills Head- Denies vision changes ENMT- Denies sore throat CV- Denies chest pain Resp- Denies SOB GI- Denies vomiting or diarrhea - Denies painful urination MSK- Denies recent trauma Skin- Denies new rashes Neuro- Denies new numbness or tingling or weakness Endocrine- Denies polyuria Heme- Denies bleeding or bruising Physical Examination: Vital signs and nursing notes reviewed. Constitutional- Adult female in no acute distress or obvious discomfort. Found semi-fowlers on hospital bed. Head- Normocephalic. No obvious external signs of trauma. Eyes- Sclerae white. Conjunctiva moist and not injected. Ears- Hearing grossly intact. Nose- No nasal discharge. Neck- Supple, trachea is midline. Cardiovascular / Chest- Regular rate and regular rhythm. No murmur, rubs, clicks , or gallops. Peripheral pulses- radial pulses full. No pretibial edema. Respiratory- Breathing unlabored. Occasionally snoring. Equal chest rise and fall. Clear to auscultation bilaterally. No stridor, no wheezing, no rhonchi. Gastrointestinal- abdomen is soft, non-tender, non-distended. Neuro- Sleepy but arousable to verbal stimuli. Oriented x4. Moving all four extremities spontaneously. Left facial asymmetry. Slurred speech. Sensation to all four extremities intact. Pt unable or unwilling to participate in upper or lower extremity drift testing. No nuchal rigidity. Skin- Warm, dry, and intact. No bruising, rashes, or other lesions. Psych- Affect- intoxicated. Mood- unable to assess. MDM: 63 y/o female presenting with possible episode of chest pain, hypertension, and possible slurred speech vs EtOH intoxication. Afebrile. Vitals remarkable for hypertension and borderline bradycardia. Physical exam as described above. Unclear etiology of symptoms. Possible acute intoxication. HCT unremarkable for acute process. Reviewed laboratory data. Noted slightly elevated Cr above baseline, as well as mildly elevated troponin. No ischemic EKG changes. 17 Aug 2019 07:18 AM Pt signed out to resident Dr. Mendes after she was verbally appraised of the pts HPI, current ED course, and plan of management. Will f/u pending laboratory and imaging data. Anticipate likely admission for BERTRAM given troponin elevation in setting of CAMILO and polysubstance abuse. Fred Cyr M.D., PGY2 Emergency Medicine Resident Past History - Past Medical History Allergies/Adverse Reactions: Allergies Allergy/AdvReac Type Severity Reaction Status Date / Time No Known Allergies Allergy Verified 06/19/19 15:48 Home Medications: Ambulatory Orders Aspirin [Aspirin EC] 81 mg PO DAILY #14 tablet. 04/02/19 Nifedipine [Nifedipine ER] 60 mg PO DAILY #14 tab.er.24 04/02/19 Amox-Tr/K Cl [Augmentin 875-125mg Tablet -] 1 tab PO BID@0800,1730 #14 tablet Atorvastatin Ca [Lipitor] 40 mg PO HS #120 tablet 08/20/19 Folic Acid - 1 mg PO DAILY #120 tablet 08/20/19 Lisinopril [Prinivil] 40 mg PO DAILY #90 tablet 08/20/19 Nifedipine [Procardia Xl] 60 mg PO DAILY #120 tab.er.24 08/21/19 Anemia: No Asthma: No Cancer: No Cardiac Disorders: Yes (OPEN HEART SURGERY) CVA: Yes (2015 [facility]) COPD: No CHF: No Diabetes: No GI Disorders: No Disorders: No HTN: Yes Hypercholesterolemia: No Kidney Stones: No Liver Disease: No Seizures: No Thyroid Disease: No - Surgical History Abdominal Surgery: No Appendectomy: No Cardiac Surgery: Yes (open heart surgery- does not remember when) Cholecystectomy: No Lung Surgery: No Neurologic Surgery: No Orthopedic Surgery: No - Reproductive History PID: No - Immunization History Immunization Up to Date: Yes - Psycho Social/Smoking Cessation Hx Smoking History: Current every day smoker Have you smoked in the past 12 months: No Number of Cigarettes Smoked Daily: 20 Cigars Per Day: 0 'Breaking Loose' booklet given: 06/19/19 Hx Alcohol Use: Yes Drug/Substance Use Hx: Yes Substance Use Type: Alcohol Hx Substance Use Treatment: Yes ([facility] 03/2019) ED Treatment Course - LABORATORY CBC & Chemistry Diagram: 08/20/19 06:40 08/20/19 06:40 - RADIOLOGY Radiology Studies Ordered: Category Date Time Status HEAD CT WITHOUT CONTRAST [CT] Stat CT Scan 08/17/19 05:08 Ordered Discharge - Discharge Information Problems reviewed: Yes Clinical Impression/Diagnosis: Altered mental status Qualifiers: Altered mental status type: unspecified Qualified Code(s): R41.82 - Altered mental status, unspecified Condition: Stable Disposition: HOME - Follow up/Referral - Patient Discharge Instructions - Post Discharge Activity
[2019-08-17 05:28] LABS: BASO % 0.2 % (0-2.0); EOS % 0.2 % (0-4.5); HEMATOCRIT 39.1 % (32.4-45.2); HEMOGLOBIN 12.9 GM/dL (10.7-15.3); LYMPH % 20.2 % (8-40); MCH 29.5 pg (25.7-33.7); MEAN CELL VOLUME 89.3 fl (80-96); NEUT % 75.4 % (42.8-82.8); PLATELET COUNT 269 K/MM3 (134-434); RBC 4.37 M/mm3 (3.60-5.2); RDW 14.5 % (11.6-15.6)
[2019-08-17 05:41] LABS: INR 0.92 (0.83-1.09); PROTHROMBIN TIME (PATIENT) 10.9 SEC (9.7-13.0)
[2019-08-17 05:44] LABS: ACTIVATED PTT 30.9 SECONDS (25.2-36.5)
--- NOTE | 2019-08-17 05:45 | PDOC ---
Attending Attestation - Resident Resident Name: Fred Cyr - ED Attending Attestation I have performed the following: I have examined & evaluated the patient, The case was reviewed & discussed with the resident, I agree w/resident's findings & plan - HPI HPI: 08/17/19 06:07 Pt comes with HTN and chest pain. She called EMS; but on arrival in the ER, pt is joking and states that she came to the ER just to see us and that she feels fine. Pt has been drinking alcohol. She state that she has also been using cocaine and given her age, she requires a proper cardiac workup. 08/19/19 01:50 - Physicial Exam PE: 08/18/19 20:33 Normal exam 08/18/19 20:35 Vitals stable. Pt has minimal to no chest pain at this time. Pt has clear lungs Abd soft NT ND - Medical Decision Making 08/18/19 20:33 Pt will be signed out to the day team. They will reevaluate patient and follow her blood test results and disposition patient. Heart Score/ECG Review - ECG Intrepretation Rhythm: Regular Rhythm - [place]: Normal - P and NH Delta Wave(s) Present: No WPW: No - QRS Poor R Wave Progression: No Q Wave Present: No - ST and T Early Repolarization: No Non Specific ST-T Wave changes: Yes Flattened T Waves: No Prolonged Q-T Interval: No - ECG Impressions Normal ECG: Yes Non-specific ST Elevation: No Ischemic Changes: Yes (inferolateral flipped T waves)
[2019-08-17 05:52] LABS: ALBUMIN 3.8 g/dl (3.4-5.0); ALK PHOS 82 U/L (45-117); ANION GAP 7 MMOL/L (8-16); BILIRUBIN,TOTAL 0.2 mg/dL (0.2-1); BLOOD UREA NITROGEN 23.9 mg/dL (7-18); CALCIUM 9.3 mg/dL (8.5-10.1); CHLORIDE 107 mmol/L (98-107); CO2 29 mmol/L (21-32); CREATININE 1.4 mg/dL (0.55-1.3); GLUCOSE,RANDOM 60 mg/dL (74-106); POTASSIUM 3.7 mmol/L (3.5-5.1); SGOT/AST 21 U/L (15-37); SGPT/ALT 20 U/L (13-61); SODIUM 142 mmol/L (136-145); TOT PROT 7.4 g/dl (6.4-8.2)
[2019-08-17] MEDS ORDERED: LACTATED RINGERS SOLUTION 1000 ML INFUS.BAG IV ONE ×2 (06:01→06:43)
[2019-08-17] MEDS ORDERED: NITROGLYCERIN 2% OINTMENT - 1GM PACKET TD ONE ×2 (06:04→06:21)
--- NOTE | 2019-08-17 07:36 | PDOC ---
*Physical Exam - Vital Signs Last Vital Signs Temp Pulse Resp BP Pulse Ox 97.1 F L 54 L 16 198/118 H 98 08/17/19 05:10 08/17/19 05:10 08/17/19 05:10 08/17/19 05:10 08/17/19 05:10 ED Treatment Course - LABORATORY CBC & Chemistry Diagram: 08/17/19 05:10 08/17/19 05:10 - ADDITIONAL ORDERS Additional order review: Laboratory Results 08/17/19 08/17/19 08/17/19 05:10 05:10 05:10 PT with INR 10.90 INR 0.92 PTT (Actin FS) 30.9 Sodium 142 Potassium 3.7 Chloride 107 Carbon Dioxide 29 Anion Gap 7 L BUN 23.9 H Creatinine 1.4 H Est GFR (CKD-EPI)AfAm 46.55 Est GFR (CKD-EPI)NonAf 40.17 Random Glucose 60 L Calcium 9.3 Total Bilirubin 0.2 AST 21 ALT 20 Alkaline Phosphatase 82 Troponin I 0.21 H Total Protein 7.4 Albumin 3.8 Alcohol, Quantitative < 3 08/17/19 05:10 RBC 4.37 MCV 89.3 MCHC 33.0 RDW 14.5 MPV 10.0 Neutrophils % 75.4 Lymphocytes % 20.2 Monocytes % 4.0 Eosinophils % 0.2 D Basophils % 0.2 - Medications Given in the ED: ED Medications Discontinued Medications Generic Name Dose Route Start Last Admin Trade Name Freq PRN Reason Stop Dose Admin Lactated Ringer's 1,000 ml 08/17/19 06:01 08/17/19 06:18 Lactated Ringers Solution IV 08/17/19 06:02 1,000 ml ONCE ONE Administration Lactated Ringer's 1,000 ml 08/17/19 06:43 08/17/19 07:06 Lactated Ringers Solution IV 08/17/19 06:44 1,000 ml ONCE ONE Administration Nitroglycerin 1 inch 08/17/19 06:04 08/17/19 06:18 Nitro-Bid 2% Paste - TD 08/17/19 06:05 1 inch ONCE ONE Administration Medical Decision Making - Medical Decision Making 08/17/19 07:[address] Cyr 63y F presenting to [facility] ER complaining of elevated blood pressure and slurred speech. Symptoms began around 6-9pm. Pt also reports heavy drinking. Denies other symptoms at this time. Has L facial droop at baseline. labs reveal trop 0.21, CAMILO. EKG: sinus bradycardia at 50bpm with kayden at v1, v2 adn twi v5 all baseline. will admit tele for lisa Discharge - Follow up/Referral Referrals: Marianne Gutierrez MD [Primary Care Provider] - - Patient Discharge Instructions - Post Discharge Activity
[2019-08-17] MEDS ORDERED: NITROGLYCERIN 25MG/D5W 250ML 25 MG/250 ML ML IVPB SCH ×2 (08:00→14:37)
[2019-08-17] MEDS ORDERED: NITROGLYCERIN 25MG/D5W 250ML 25 MG/250 ML ML IVPB ONE (08:08)
[2019-08-17] MEDS ORDERED: DEXTROSE 50%-WATER 25 GM/50 ML DISP.SYRIN ONE (08:23)
--- NOTE | 2019-08-17 08:45 | EKG ---
Test Reason : Blood Pressure : / mmHG Vent. Rate : 050 BPM Atrial Rate : 050 BPM P-R Int : 134 ms QRS Dur : 096 ms QT Int : 472 ms P-R-T Axes : 056 031 198 degrees QTc Int : 430 ms SINUS BRADYCARDIA POSSIBLE LEFT ATRIAL ENLARGEMENT SEPTAL INFARCT (CITED ON OR BEFORE 04-JUN-2018) ABNORMAL ECG WHEN COMPARED WITH ECG OF 19-JUN-2019 05:44, NO SIGNIFICANT CHANGE WAS FOUND Confirmed by ALPHONSO DELGADO MD ([id number]) on 08/17/2019 8:45:20 AM Referred By: Confirmed By:ALPHONSO DELGADO MD
[2019-08-17] MEDS ORDERED: DEXTROSE 50%-WATER - 25 GM/50 ML VIAL IVPUSH ONE (09:06)
[2019-08-17 09:10] LABS: EPI CELLS 2.6 /HPF (0-5/HPF); HYALINE CASTS 0 /lpf (0-8); URINE APPEARANCE CLEAR; URINE BACTERIA 70.9 /hpf (NEGATIVE); URINE BILIRUBIN NEGATIVE (NEGATIVE); URINE COLOR YELLOW; URINE GLUCOSE (UA) NEGATIVE (NEGATIVE); URINE KETONE NEGATIVE (NEGATIVE); URINE LEUK ESTERASE NEGATIVE (NEGATIVE); URINE NITRITE NEGATIVE (NEGATIVE); URINE PROTEIN 1+ (NEGATIVE); URINE RBC 1 /hpf (0-4); URINE UROBILINOGEN 0.2 mg/dL (0.2-1.0); URINE WBC 3 /hpf (0-5)
[2019-08-17 09:27] LABS: METHADONE, UR NEGATIVE ng/ml (CUTOFF=300); OPIATES, URI NEGATIVE ng/ml (CUTOFF=300); PHENCYCLIDINE,URINE NEGATIVE ng/ml (CUTOFF=25); URINE AMPHETAMINES NEGATIVE ng/ml (CUTOFF=500); URINE BARBITURATES NEGATIVE ng/ml (CUTOFF=200); URINE BENZODIAZEPINES NEGATIVE ng/ml (CUTOFF=200)
[2019-08-17] MEDS ORDERED: NIFEdipine E.R 60 MG TABLET (UD) PO STA (09:33)
[2019-08-17] MEDS ORDERED: NIFEdipine E.R. 30 MG TABLET (FP) ONE (09:39)
[2019-08-17 09:40] LABS: COCAINE, UR POSITIVE ng/ml (CUTOFF=300)
[2019-08-17] MEDS ORDERED: THIAMINE HCL 200 MG/2 ML VIAL IM ONE (12:01)
[2019-08-17] MEDS: LISINOPRIL 20 MG TABLET (FP) PO SCH (12:42)
--- NOTE | 2019-08-17 13:01 | CON.NEURO ---
Consult Consult Specialty:: Pearl Referred by:: ICU - History of Present Illness History of Present Illness: this 63-year-old right-handed female patient who presents to the emergency room yesterday with a chief complaint of slurred speech. Patient was noted with high blood pressure patient tested positive for cocaine CAT scan of the head revealed mild atrophy with no evidence of bleed. Patient herself is not complaining of anything patient was admitted to the medical ICU for further treatment and management MRI of the brain was requested I reviewed the blood work I reviewed the CAT scan I review the CAT scan from June 11, 2019 images. 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 Cardio/Vascular: Yes: HTN - Alcohol/Substance Use Hx Alcohol Use: Yes History of Substance Use: reports: None - Smoking History Smoking history: Current every day smoker Have you smoked in the past 12 months: Yes Aproximately how many cigarettes per day: 20 - Social History ADL: Independent History of Recent Travel: No Home Medications - Allergies Allergies/Adverse Reactions: Allergies Allergy/AdvReac Type Severity Reaction Status Date / Time No Known Allergies Allergy Verified 06/19/19 15:48 - Home Medications Home Medications: Ambulatory Orders Aspirin [Aspirin EC] 81 mg PO DAILY #14 tablet.dr 04/02/19 Nifedipine [Nifedipine ER] 60 mg PO DAILY #14 tab.er.24 04/02/19 Family Medical History Family History: Unremarkable Review of Systems - Review of Systems Constitutional: reports: No Symptoms Eyes: reports: No Symptoms HENT: reports: No Symptoms Neurological: reports: Headache, Incoordination, Numbness Physical Exam-Neuro Vital Signs: Vital Signs Temperature 98 F 08/17/19 11:58 Pulse Rate 50 L 08/17/19 11:58 Respiratory Rate 16 08/17/19 11:58 Blood Pressure 179/91 H 08/17/19 11:58 O2 Sat by Pulse Oximetry (%) 98 08/17/19 12:46 Constitutional: Yes: Well Nourished Neck: Yes: WNL Cardiovascular: Yes: WNL Respiratory: Yes: WNL Labs: CBC, BMP 08/17/19 05:10 08/17/19 05:10 INR, PTT INR 0.92 (0.83-1.09) 08/17/19 05:10 - Neuro Exam Level Of Consciousness: Yes: Oriented to Person, Oriented to Place, Oriented to Time Eyes: Yes: PERRLA Speech: WNL Dominant Hand: Right Cranial Nerves II-XII Intact: Yes Gag: Present DTR's: 1+ Left Bicep, 1+ Right Bicep, 1+ Right Tricep, 1+ Left Brachioradialis Response to light touch: Normal Response to pain prick: Normal Response to temperature: Normal Motor Strength: 3/5: Left Arm, Right Arm, Left Leg, Right Leg Gait: Deferred Imaging - Results Cat Scan: Image Reviewed Problem List - Problems (1) CVA (cerebral vascular accident) Assessment/Plan: questionable vasospasm associated with the usage of the cocaine Cannot rule out subacute CVA hypertension 1. Tight blood pressure control. 2. Continue the aspirin. 3. MRI of the brain with no contrast. 4. Carotid Doppler. 5. Speech evaluation. Thank you very much for referring this patient for neurological consultation Joe Kang M.D. Code(s): I63.9 - CEREBRAL INFARCTION, UNSPECIFIED
--- NOTE | 2019-08-17 13:01 | CONSULT ---
Consult Consult Specialty:: CCM Referred by:: ED - History of Present Illness Chief Complaint: altered mental status History of Present Illness: 63 y/o woman with HTN, CVA with residual L deficit CAD, s/p single vessel CABG, poly-substance abuse (tobacco, ETOH, cocaine), poor compliance presented to ED for somewhat unclear reasons. She initially related she wanted to "see friends in ED" but was altered. She had empty bottle of nifedipine which she had "ran out". In ED pt was afebrile, hypertensive 220/110. She admitted to heavy ETOH and cocaine. Her speech was slurred c/f hypertensive emergency. However her BGL was low and there was some improvement in mental status after d-50. A CT of head was without new infarct or bleed. She was started on NTG gtt and given procardia xl. Labs notable for Cr 1.4 (has variable baseline on previous admissions), trop 0,4, down trended. . She was unable to be wean off ntg gtt and was transferred to ICU for further management. Neuro ask for MRI but pt refused, stating only willing to do open MRI. Admits to heavy ETOH and not taking meds last 48hrs. Also relates active cocaine use. Pt weaned off NTG shortly after arrival in ICU. Pt asking to leave. 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 Cardio/Vascular: Yes: HTN - Alcohol/Substance Use Hx Alcohol Use: Yes History of Substance Use: reports: None - Smoking History Smoking history: Current every day smoker Have you smoked in the past 12 months: Yes Aproximately how many cigarettes per day: 20 - Social History ADL: Independent History of Recent Travel: No Home Medications - Allergies Allergies/Adverse Reactions: Allergies Allergy/AdvReac Type Severity Reaction Status Date / Time No Known Allergies Allergy Verified 06/19/19 15:48 - Home Medications Home Medications: Ambulatory Orders Aspirin [Aspirin EC] 81 mg PO DAILY #14 tablet. 04/02/19 Nifedipine [Nifedipine ER] 60 mg PO DAILY #14 tab.er.24 04/02/19 Family Medical History Family History: Denies Review of Systems Findings/Remarks: Negative except as per HPI Physical Exam Vital Signs: Vital Signs Temperature 98 F 08/17/19 11:58 Pulse Rate 50 L 08/17/19 11:58 Respiratory Rate 16 08/17/19 11:58 Blood Pressure 179/91 H 08/17/19 11:58 O2 Sat by Pulse Oximetry (%) 98 08/17/19 12:46 Constitutional: Yes: Well Nourished, No Distress Eyes: Yes: EOM Intact, PERRL HENT: Yes: Atraumatic, Normocephalic. No: Epistaxis, Rhinnorhea Neck: Yes: Trachea Midline Cardiovascular: Yes: Regular Rate and Rhythm, S1, S2 Respiratory: Yes: CTA Bilaterally. No: Accessory Muscle Use, SOB Gastrointestinal: Yes: Normal Bowel Sounds, Soft ...Rectal Exam: Yes: Deferred Renal/: Yes: WNL Breast(s): Yes: WNL Musculoskeletal: Yes: WNL Extremities: Yes: WNL Edema: No Integumentary: Yes: WNL Neurological: Yes: Alert, Oriented ...Motor Strength: WNL Labs: CBC, BMP 08/17/19 05:10 08/17/19 05:10 Imaging - Results Cat Scan: Report Reviewed EKG: Report Reviewed (no new acute changes, lateral TWI chronic) Assessment/Plan A/ 63 y/o Fem p/w AMS, poly-substance abuse, hypertensive urgency vs emergency, also had hypoglycemia and likely acute intoxication. CT head negative acute infarct, initially on nitro gtt, planning for possible MRI but pt refused P/ HTN urgency in setting of poor compliance, ETOH and cocaine use -lisinopril PO -Nifedipine xl PO -weaned off NTG, watch for rebound AMS: -resolved after bp control and resolution of acute intoxication Pt asking to leave AMA, to be discussed further.
[2019-08-17 16:39] LABS: BLOOD UREA NITROGEN 20.6 mg/dL (7-18); CALCIUM 9.4 mg/dL (8.5-10.1); CREATININE 1.5 mg/dL (0.55-1.3); POTASSIUM 4.1 mmol/L (3.5-5.1)
--- NOTE | 2019-08-17 18:29 | HP ---
CHIEF COMPLAINT: Altered mental status after taking cocaine PCP: HISTORY OF PRESENT ILLNESS:63 y/o woman with HTN, CVA with residual L deficit CAD, s/p single vessel CABG, poly-substance abuse (tobacco, ETOH, cocaine), poor compliance presented to ED for somewhat unclear reasons. She initially related she wanted to "see friends in ED" but was altered. She had empty bottle of nifedipine which she had "ran out". In ED pt was afebrile, hypertensive 220/ 110. She admitted to heavy ETOH and cocaine. Her speech was slurred c/f hypertensive emergency. However her BGL was low and there was some improvement in mental status after d-50. A CT of head was without new infarct or bleed. She was started on NTG gtt and given procardia xl. Labs notable for Cr 1.4 (has variable baseline on previous admissions), trop 0,4, down trended. . She was unable to be wean off ntg gtt and was transferred to ICU for further management. Neuro ask for MRI but pt refused, stating only willing to do open MRI. Admits to heavy ETOH and not taking meds last 48hrs. Also relates active cocaine use. Pt weaned off NTG shortly after arrival in ICU. Pt asking to leave. ER course was notable for: (1) heavy cocaine use she said she took a lot of it (2) chronic alcoholic and drug use (3) unchanged CAT scan in the ER Recent Travel: None PAST MEDICAL HISTORY: Hypertension CVA with left-sided weakness also coronary artery disease polysubstance abuse alcohol abuse PAST SURGICAL HISTORY: CABG Social History: Positive for smoking alcohol drug use Smoking: Alcohol: Drugs: Allergies No Known Allergies Allergy (Verified 06/19/19 15:48) HOME MEDICATIONS: Home Medications Medication Instructions Recorded Aspirin [Aspirin EC] 81 mg PO DAILY #14 tablet. 04/02/19 Nifedipine [Nifedipine ER] 60 mg PO DAILY #14 tab.er.24 04/02/19 REVIEW OF SYSTEMS Head no headache no dizziness Ear nose throat no epistaxis Cardiovascular no chest pain Pulmonary no wheezing no coughing GI no abdominal pain Endocrine no history of diabetes hypothyroidism Neuro no history of stroke Dermatology no history of stroke Locomotor no history of joint pain Rest of review of systems are negative PHYSICAL EXAMINATION Vital Signs - 24 hr 08/17/19 08/17/19 08/17/19 05:10 08:42 08:43 Temperature 97.1 F L Pulse Rate 54 L Pulse Rate [ 55 L Apical] Respiratory 16 16 16 Rate Blood Pressure 198/118 H Blood Pressure 185/102 H [Left Arm] O2 Sat by Pulse 98 98 98 Oximetry (%) 08/17/19 08/17/19 08/17/19 09:30 10:00 10:30 Temperature Pulse Rate Pulse Rate [ 45 L 47 L 50 L Apical] Respiratory 16 12 12 Rate Blood Pressure Blood Pressure 187/96 H 179/97 H 199/96 H [Left Arm] O2 Sat by Pulse 98 98 Oximetry (%) 08/17/19 08/17/19 08/17/19 11:00 11:58 12:46 Temperature 98 F Pulse Rate 50 L Pulse Rate [ 50 L Apical] Respiratory 16 16 Rate Blood Pressure 179/91 H Blood Pressure 206/105 H [Left Arm] O2 Sat by Pulse 98 98 Oximetry (%) 08/17/19 13:00 Temperature Pulse Rate 62 Pulse Rate [ Apical] Respiratory 18 Rate Blood Pressure 172/74 H Blood Pressure [Left Arm] O2 Sat by Pulse Oximetry (%) GENERAL: Awake, alert, and fully oriented, in no acute distress. Constitutional: Yes: Well Nourished, No Distress Eyes: Yes: EOM Intact, PERRL HENT: Yes: Atraumatic, Normocephalic. No: Epistaxis, Rhinnorhea Neck: Yes: Trachea Midline Cardiovascular: Yes: Regular Rate and Rhythm, S1, S2 Respiratory: Yes: CTA Bilaterally. No: Accessory Muscle Use, SOB Gastrointestinal: Yes: Normal Bowel Sounds, Soft ...Rectal Exam: Yes: Deferred Renal/: Yes: WNL Breast(s): Yes: WNL Musculoskeletal: Yes: WNL Extremities: Yes: WNL Edema: No Integumentary: Yes: WNL Neurological: Yes: Alert, Oriented Laboratory Results - last 24 hr 08/17/19 08/17/19 08/17/19 05:10 05:10 05:10 WBC 10.0 RBC 4.37 Hgb 12.9 Hct 39.1 MCV 89.3 MCH 29.5 MCHC 33.0 RDW 14.5 Plt Count 269 MPV 10.0 Absolute Neuts (auto) 7.5 Neutrophils % 75.4 Lymphocytes % 20.2 Monocytes % 4.0 Eosinophils % 0.2 D Basophils % 0.2 Nucleated RBC % 0 PT with INR 10.90 INR 0.92 PTT (Actin FS) 30.9 Sodium 142 Potassium 3.7 Chloride 107 Carbon Dioxide 29 Anion Gap 7 L BUN 23.9 H Creatinine 1.4 H Est GFR (CKD-EPI)AfAm 46.55 Est GFR (CKD-EPI)NonAf 40.17 POC Glucometer Random Glucose 60 L Calcium 9.3 Total Bilirubin 0.2 AST 21 ALT 20 Alkaline Phosphatase 82 Troponin I Total Protein 7.4 Albumin 3.8 Urine Color Urine Appearance Urine pH Ur Specific [place] Urine Protein Urine Glucose (UA) Urine Ketones Urine Blood Urine Nitrite Urine Bilirubin Urine Urobilinogen Ur Leukocyte Esterase Urine WBC (Auto) Urine RBC (Auto) Urine Casts (Auto) U Epithel Cells (Auto) Urine Bacteria (Auto) Opiates Screen Methadone Screen Barbiturate Screen Phencyclidine Screen Ur Amphetamines Screen MDMA (Ecstasy) Screen Benzodiazepines Screen Cocaine Screen U Marijuana (THC) Screen Alcohol, Quantitative < 3 Blood Type Antibody Screen 08/17/19 08/17/19 08/17/19 05:10 05:10 07:18 WBC RBC Hgb Hct MCV MCH MCHC RDW Plt Count MPV Absolute Neuts (auto) Neutrophils % Lymphocytes % Monocytes % Eosinophils % Basophils % Nucleated RBC % PT with INR INR PTT (Actin FS) Sodium Potassium Chloride Carbon Dioxide Anion Gap BUN Creatinine Est GFR (CKD-EPI)AfAm Est GFR (CKD-EPI)NonAf POC Glucometer Random Glucose Calcium Total Bilirubin AST ALT Alkaline Phosphatase Troponin I 0.21 H Total Protein Albumin Urine Color Yellow Urine Appearance Clear Urine pH 6.0 Ur Specific [place] 1.015 Urine Protein 1+ H Urine Glucose (UA) Negative Urine Ketones Negative Urine Blood Negative Urine Nitrite Negative Urine Bilirubin Negative Urine Urobilinogen 0.2 Ur Leukocyte Esterase Negative Urine WBC (Auto) 3 Urine RBC (Auto) 1 Urine Casts (Auto) 0 U Epithel Cells (Auto) 2.6 Urine Bacteria (Auto) 70.9 Opiates Screen Methadone Screen Barbiturate Screen Phencyclidine Screen Ur Amphetamines Screen MDMA (Ecstasy) Screen Benzodiazepines Screen Cocaine Screen U Marijuana (THC) Screen Alcohol, Quantitative Blood Type A POSITIVE Antibody Screen Negative 08/17/19 08/17/19 08/17/19 07:18 08:21 08:33 WBC RBC Hgb Hct MCV MCH MCHC RDW Plt Count MPV Absolute Neuts (auto) Neutrophils % Lymphocytes % Monocytes % Eosinophils % Basophils % Nucleated RBC % PT with INR INR PTT (Actin FS) Sodium Potassium Chloride Carbon Dioxide Anion Gap BUN Creatinine Est GFR (CKD-EPI)AfAm Est GFR (CKD-EPI)NonAf POC Glucometer 34 226 Random Glucose Calcium Total Bilirubin AST ALT Alkaline Phosphatase Troponin I Total Protein Albumin Urine Color Urine Appearance Urine pH Ur Specific [place] Urine Protein Urine Glucose (UA) Urine Ketones Urine Blood Urine Nitrite Urine Bilirubin Urine Urobilinogen Ur Leukocyte Esterase Urine WBC (Auto) Urine RBC (Auto) Urine Casts (Auto) U Epithel Cells (Auto) Urine Bacteria (Auto) Opiates Screen Negative Methadone Screen Negative Barbiturate Screen Negative Phencyclidine Screen Negative Ur Amphetamines Screen Negative MDMA (Ecstasy) Screen Negative Benzodiazepines Screen Negative Cocaine Screen Positive A* U Marijuana (THC) Screen Negative Alcohol, Quantitative Blood Type Antibody Screen 08/17/19 08/17/19 09:40 15:30 WBC RBC Hgb Hct MCV MCH MCHC RDW Plt Count MPV Absolute Neuts (auto) Neutrophils % Lymphocytes % Monocytes % Eosinophils % Basophils % Nucleated RBC % PT with INR INR PTT (Actin FS) Sodium Cancelled 139 Potassium Cancelled 4.1 Chloride Cancelled 105 Carbon Dioxide Cancelled 30 Anion Gap Cancelled 5 L BUN Cancelled 20.6 H Creatinine Cancelled 1.5 H Est GFR (CKD-EPI)AfAm Cancelled 42.83 Est GFR (CKD-EPI)NonAf Cancelled 36.95 POC Glucometer Random Glucose Cancelled 109 H Calcium Cancelled 9.4 Total Bilirubin Cancelled AST Cancelled ALT Cancelled Alkaline Phosphatase Cancelled Troponin I 0.16 H 0.20 H Total Protein Cancelled Albumin Cancelled Urine Color Urine Appearance Urine pH Ur Specific [place] Urine Protein Urine Glucose (UA) Urine Ketones Urine Blood Urine Nitrite Urine Bilirubin Urine Urobilinogen Ur Leukocyte Esterase Urine WBC (Auto) Urine RBC (Auto) Urine Casts (Auto) U Epithel Cells (Auto) Urine Bacteria (Auto) Opiates Screen Methadone Screen Barbiturate Screen Phencyclidine Screen Ur Amphetamines Screen MDMA (Ecstasy) Screen Benzodiazepines Screen Cocaine Screen U Marijuana (THC) Screen Alcohol, Quantitative Blood Type Antibody Screen ASSESSMENT/PLAN: A/ 63 y/o Fem p/w AMS, poly-substance abuse, hypertensive urgency vs emergency, also had hypoglycemia and likely acute intoxication. CT head negative acute infarct, initially on nitro gtt, planning for possible MRI Continue IV nitroglycerin lisinopril p.o. nifedipine p.o. we will give some thiamine. She is much better her mental status once her blood pressures come down to normal. Discussed in detail about the disease process and advised her to she should go for rehab otherwise she if she continue to use alcohol she might having more strokes. Also call neurology consult Dr. Moyer he already saw her and recommended MRI which I ordered but patient said now she going to do it. 2 g sodium diet. Visit type - Emergency Visit Emergency Visit: Yes ED Registration Date: 08/17/19 Care time: The patient presented to the Emergency Department on the above date and was hospitalized for further evaluation of their emergent condition. - New Patient This patient is new to me today: Yes Date on this admission: 08/17/19 - Critical Care Critical Care patient: No
[2019-08-18 06:39] LABS: BASO % 0.5 % (0-2.0); EOS % 0.7 % (0-4.5); HEMATOCRIT 38.8 % (32.4-45.2); HEMOGLOBIN 12.7 GM/dL (10.7-15.3); LYMPH % 30.8 % (8-40); MCH 29.1 pg (25.7-33.7); MCHC 32.7 g/dl (32.0-36.0); MEAN CELL VOLUME 88.8 fl (80-96); MEAN PLT VOLUME 10.4 fl (7.5-11.1); MONO % 7.2 % (3.8-10.2); NEUT % 60.8 % (42.8-82.8); PLATELET COUNT 256 K/MM3 (134-434); RBC 4.37 M/mm3 (3.60-5.2); RDW 14.9 % (11.6-15.6); WHITE BLOOD COUNT 7.3 K/mm3 (4.0-10.0)
[2019-08-18 06:50] LABS: BLOOD UREA NITROGEN 27.4 mg/dL (7-18); CALCIUM 8.9 mg/dL (8.5-10.1); CREATININE 1.6 mg/dL (0.55-1.3); POTASSIUM 4.2 mmol/L (3.5-5.1)
--- NOTE | 2019-08-18 09:23 | PN ---
Physical Exam: SUBJECTIVE: Patient seen and examined at the bedside. cooperative, agrees to the brain mri, tells me that she had a cardiac stent placed 3 years ago at [facility]. denies chest pain or shortness of breath. OBJECTIVE: tele heart rate 60s, episodes of tachycardia overnight but was agitated as well agrees to brain mri, will need to obtain information on cardiac stents placed, pt does not have the card ---- Patient is a 63 year old woman with a past medical history of hypertension, CVA with residual left sided deficit, CAD, s/p single vessel CABG, polysubstance abuse (etoh, cocaine) and uncontrolled hypertension. Patient comes to the ED confused, altered and noted to have hypertensive urgency vs emergency and is being ruled out for acute CVA. Patient agitated overnight, refused brain mri and cardiac monitoring, vitals. Now agrees to hospital cares and monitoring and does not want to leave AMA at this time. elevated trops etoh abuse (no signs of w/drawal) diminished lungs monitor bgms (was hypoglycemic on admission) hypertensive urgency/emergency CAMILO Period Temp Pulse Resp BP Sys/Dowd Pulse Ox Last 24 Hr 98 F-98 F 45-85 12-22 120-206/71-105 98-98 GENERAL: The patient is awake, alert, and fully oriented, in no acute distress. HEAD: Normal with no signs of trauma. EYES: PERRL, extraocular movements intact, sclera anicteric, conjunctiva clear. No ptosis. ENT: Ears normal, nares patent, oropharynx clear without exudates, moist mucous membranes. NECK: Trachea midline, full range of motion, supple. LUNGS: Breath sounds equal but diminished bilaterally, no wheezing, on room air. HEART: Regular rate and rhythm ABDOMEN: Soft, nontender, nondistended, normoactive bowel sounds EXTREMITIES: 2+ pulses, warm, well-perfused, no edema. NEUROLOGICAL: Normal slow speech, gait not observed. PSYCH: Normal mood, normal affect. SKIN: Warm, dry, normal turgor, no rashes or lesions noted Laboratory Results - last 24 hr 08/17/19 08/17/19 08/17/19 05:10 07:18 09:40 WBC RBC Hgb Hct MCV MCH MCHC RDW Plt Count MPV Absolute Neuts (auto) Neutrophils % Lymphocytes % Monocytes % Eosinophils % Basophils % Nucleated RBC % Sodium Cancelled Potassium Cancelled Chloride Cancelled Carbon Dioxide Cancelled Anion Gap Cancelled BUN Cancelled Creatinine Cancelled Est GFR (CKD-EPI)AfAm Cancelled Est GFR (CKD-EPI)NonAf Cancelled Random Glucose Cancelled Calcium Cancelled Total Bilirubin Cancelled AST Cancelled ALT Cancelled Alkaline Phosphatase Cancelled Troponin I 0.16 H Total Protein Cancelled Albumin Cancelled Opiates Screen Negative Methadone Screen Negative Barbiturate Screen Negative Phencyclidine Screen Negative Ur Amphetamines Screen Negative MDMA (Ecstasy) Screen Negative Benzodiazepines Screen Negative Cocaine Screen Positive A* U Marijuana (THC) Screen Negative Blood Type A POSITIVE Antibody Screen Negative 08/17/19 08/18/19 08/18/19 15:30 05:33 05:33 WBC 7.3 RBC 4.37 Hgb 12.7 Hct 38.8 MCV 88.8 MCH 29.1 MCHC 32.7 RDW 14.9 Plt Count 256 MPV 10.4 Absolute Neuts (auto) 4.4 Neutrophils % 60.8 Lymphocytes % 30.8 D Monocytes % 7.2 Eosinophils % 0.7 D Basophils % 0.5 Nucleated RBC % 0 Sodium 139 140 Potassium 4.1 4.2 Chloride 105 106 Carbon Dioxide 30 28 Anion Gap 5 L 6 L BUN 20.6 H 27.4 H Creatinine 1.5 H 1.6 H Est GFR (CKD-EPI)AfAm 42.83 39.61 Est GFR (CKD-EPI)NonAf 36.95 34.18 Random Glucose 109 H 105 Calcium 9.4 8.9 Total Bilirubin AST ALT Alkaline Phosphatase Troponin I 0.20 H Total Protein Albumin Opiates Screen Methadone Screen Barbiturate Screen Phencyclidine Screen Ur Amphetamines Screen MDMA (Ecstasy) Screen Benzodiazepines Screen Cocaine Screen U Marijuana (THC) Screen Blood Type Antibody Screen Active Medications Generic Name Dose Route Start Last Admin Trade Name Freq PRN Reason Stop Dose Admin Aspirin 81 mg 08/18/19 10:00 Ecotrin - PO DAILY MACARENA Lisinopril 40 mg 08/17/19 11:58 08/17/19 12:42 Prinivil PO 40 mg DAILY MACARENA Administration ASSESSMENT/PLAN: Problem List - Problems (1) Acute metabolic encephalopathy due to hypoglycemia Assessment/Plan: mentation back to baseline check glucose q 6 a1c and lipid panel in a.m. Code(s): G93.41 - METABOLIC ENCEPHALOPATHY; E16.2 - HYPOGLYCEMIA, UNSPECIFIED (2) Hypertensive urgency Assessment/Plan: patient refused bp monitoring overnight, now agrees bp above goal but overall improved continue lisinopril 40, start procardia daily monitor bp, labs and renal function Code(s): I16.0 - HYPERTENSIVE URGENCY (3) Hypertensive emergency Assessment/Plan: on procardia, lisinopril. monitor renal function Code(s): I16.1 - HYPERTENSIVE EMERGENCY (4) Cocaine use Assessment/Plan: per urine tox + cocaine avoid beta blockers Code(s): F14.90 - COCAINE USE, UNSPECIFIED, UNCOMPLICATED (5) Cocaine dependence Code(s): F14.20 - COCAINE DEPENDENCE, UNCOMPLICATED Qualifiers: Substance use status: uncomplicated Qualified Code(s): F14.20 - Cocaine dependence, uncomplicated (6) HTN (hypertension) Assessment/Plan: better controlled Code(s): I10 - ESSENTIAL (PRIMARY) HYPERTENSION Qualifiers: Hypertension type: essential hypertension Qualified Code(s): I10 - Essential (primary) hypertension (7) Elevated troponin level Assessment/Plan: no chest pain, no shortness of breath trops flat trending cardiology consulted requested echo to further evaluate Code(s): R79.89 - OTHER SPECIFIED ABNORMAL FINDINGS OF BLOOD CHEMISTRY (8) CVA (cerebral vascular accident) Assessment/Plan: history of cva and presents with AMS head ct negative for acute process for brain mri, but needs to have cardiac stent verified from [facility] Code(s): I63.9 - CEREBRAL INFARCTION, UNSPECIFIED (9) CAMILO (acute kidney injury) Code(s): N17.9 - ACUTE KIDNEY FAILURE, UNSPECIFIED (10) H/O ETOH abuse Assessment/Plan: no signs of withdrawal, monitor Code(s): F10.11 - ALCOHOL ABUSE, IN REMISSION (11) Prophylactic measure Assessment/Plan: tolerating po monitor electrolytes low salt diet SCDs heparin bid Code(s): Z29.9 - ENCOUNTER FOR PROPHYLACTIC MEASURES, UNSPECIFIED Visit type - Emergency Visit Emergency Visit: Yes ED Registration Date: 08/17/19 Care time: The patient presented to the Emergency Department on the above date and was hospitalized for further evaluation of their emergent condition. - New Patient This patient is new to me today: Yes Date on this admission: 08/18/19 - Critical Care Critical Care patient: Yes Total Critical Care Time (in minutes): 45 Critical Care Statement: The care of this patient involved high complexity decision making to prevent further life threatening deterioration of the patient 's condition and/or to evaluate & treat vital organ system(s) failure or risk of failure. - Discharge Referral Referred to [facility] No
[2019-08-18] MEDS ORDERED: PT OWN MED DRAWER 7, Y5N ONE (09:40)
[2019-08-18] MEDS: LISINOPRIL 20 MG TABLET (FP) PO SCH (09:48)
[2019-08-18] MEDS: ASPIRIN COATED 81 MG TABLET.EC PO SCH (09:48)
--- NOTE | 2019-08-18 11:22 | PN ---
Progress Note (short form) - Note Progress Note: Progress Note Pulm/CCM Pt seen and examined in the ICU.Appropriate and cooperative. Not asking to leave AMA. Off Nitro, SBP 140's. Oral antihypertensives cont. Pt reporting had a cardiac stent placed at [facility] 3mths ago. Documents requested and pending. Current Medications Aspirin (Ecotrin -) 81 mg PO DAILY [facility] Last Admin: 08/18/19 09:48 Dose: 81 mg Lisinopril (Prinivil) 40 mg PO DAILY [facility] Last Admin: 08/18/19 09:48 Dose: 40 mg Vital Signs Period Temp Pulse Resp BP Sys/Dowd Pulse Ox Last 24 Hr 97.6 F-98.0 F 59-85 18-24 120-172/71-103 98-98 Intake & Output 08/15/19 08/16/19 08/17/19 08/18/19 23:59 23:59 23:59 23:59 Intake Total 312 0 Output Total 300 Balance 12 0 Weight 74.843 kg 64.495 kg Exam: Gen: In NAD HEENT: PERRL; MMM Neuro: A+O x3, appropriate, no tremors Lungs: clear Abd: Soft, NT Ext: WWP CBC, BMP 08/18/19 05:33 08/18/19 05:33 Imaging - Results Cat Scan: Report Reviewed EKG: Report Reviewed (no new acute changes, lateral TWI chronic) Assessment/Plan A/ 63 y/o Fem p/w AMS, poly-substance abuse, hypertensive urgency vs emergency, also had hypoglycemia and likely acute intoxication. CT head negative acute infarct, initially on nitro gtt, planning for possible MRI but pt refused. P/ HTN urgency in setting of poor compliance, ETOH and cocaine use -lisinopril PO -Nifedipine xl PO -Monitor off NTG, watch for rebound -Monitor for withdrawal -Awaiting documentation from [facility] placement of cardiac stent prior to MRI Gin Navarrete, TYLORP
[2019-08-18] MEDS ORDERED: NIFEdipine E.R 60 MG TABLET (UD) PO ONE (17:25)
[2019-08-18] MEDS: HEPARIN NA (PORCINE) 5,000 UNITS/ML 1ML VIAL SQ SCH ×2 (21:23→21:27)
[2019-08-18] MEDS ORDERED: ATORVASTATIN CA 40 MG TABLET (FP) PO SCH (22:00)
--- NOTE | 2019-08-19 06:21 | CON.CARD ---
Consult Consult Specialty:: cardiology Reason for Consultation:: chest pain; hx CABG; cocaine - History of Present Illness Chief Complaint: Pt A&Ox3; no chest pain or palpitations. History of Present Illness: 63 y/o black woman presents to [facility] ER complaining of elevated blood pressure and slurred speech. Symptoms started between 6p-9p last night. Pt initially complained of chest pain to EMS providers. On arrival, the pt then stated she was not having chest pain, but rather wanted to come to the hospital for evaluation of her blood pressure. Continues to believe her speech is more slurred than usual. States she drank "a lot" of beer and liquor this evening. Last used cocaine three days ago. Denies ever using needles; states she was tested for HIV one year ago, and it was negative. At time of interview, the pt denied chest pain, SOB, abdominal pain, back pain, or weakness in her arms or legs. Noted hypoglycemic initially. Medical Hx: - CAD (s/p CABG 2012 (LAD); stent x1 at [facility] ? 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) - Alcohol/Substance Use Hx Alcohol Use: Yes History of Substance Use: reports: Cocaine Date of Last Use: 08/16/19 - Smoking History Smoking history: Current every day smoker Have you smoked in the past 12 months: Yes Aproximately how many cigarettes per day: 20 - Social History ADL: Independent History of Recent Travel: No Home Medications - Allergies Allergies/Adverse Reactions: Allergies Allergy/AdvReac Type Severity Reaction Status Date / Time No Known Allergies Allergy Verified 06/19/19 15:48 - Home Medications Home Medications: Ambulatory Orders Aspirin [Aspirin EC] 81 mg PO DAILY #14 tablet.dr 04/02/19 Nifedipine [Nifedipine ER] 60 mg PO DAILY #14 tab.er.24 04/02/19 Family Medical History Family History: Denies Review of Systems - Review of Systems Constitutional: reports: Weakness Eyes: reports: No Symptoms HENT: reports: No Symptoms Neck: reports: No Symptoms Cardiovascular: reports: Chest Pain Respiratory: reports: SOB on Exertion Gastrointestinal: reports: No Symptoms Genitourinary: reports: No Symptoms Breasts: reports: No Symptoms Reported Musculoskeletal: reports: Muscle Weakness Integumentary: reports: No Symptoms Neurological: reports: Weakness Endocrine: reports: No Symptoms Hematology/Lymphatic: reports: No Symptoms Psychiatric: reports: Other (addictions) - Risk Factors Known Risk Factors: Yes: Age, Hypertension, Physical Inactivity, Race, Smoking, Other (cocaine; ETOH; CVA) Vital Signs: Vital Signs Temperature 98 F 08/19/19 06:00 Pulse Rate 70 08/19/19 06:00 Respiratory Rate 20 08/19/19 06:00 Blood Pressure 160/56 L 08/19/19 06:00 O2 Sat by Pulse Oximetry (%) 98 08/17/19 22:00 Constitutional: Yes: Calm Eyes: Yes: WNL HENT: Yes: WNL Neck: Yes: WNL Respiratory: Yes: Regular Gastrointestinal: Yes: Soft Renal/: No: Anuria Cardiovascular: Yes: Regular Rate and Rhythm JVD: No Carotid Bruit: No PMI: Non-Displaced Heart Sounds: Yes: S1, S2, S4 Murmur: Yes: Systolic Murmur, Grade 1 Musculoskeletal: Yes: Muscle Weakness Extremities: Yes: WNL Edema: No Peripheral Pulses WNL: Yes Integumentary: Yes: WNL Neurological: Yes: Alert, Oriented Psychiatric: Yes: Alert, Oriented, Other - Other Data Labs, Other Data: INR, PTT INR 0.92 (0.83-1.09) 08/17/19 05:10 Troponin, BNP 08/17/19 08/17/19 09:40 15:30 Troponin I 0.16 H 0.20 H Troponin, BNP 08/17/19 08/17/19 09:40 15:30 Troponin I 0.16 H 0.20 H Prior Cardiac Procedures: CABG, Cardiac Catheterization, PTCA with Stent Imaging - Results EKG: Image Reviewed Problem List - Problems (1) ETOH abuse Assessment/Plan: detox protocol. Code(s): F10.10 - ALCOHOL ABUSE, UNCOMPLICATED (2) Elevated troponin level Assessment/Plan: 0.20-->0.16-->0.21 (< 0.02 in June,). CK WNL EKG: NSR: septal infarct (noted 2017); inferolateral STT abnormalities (no significant change from 06/25). F/u telemetry monitoring. Hx CABG 2012; ?hx coronary stent at [facility] few months ago: f/u results. f/u lipids Control BP (avoid beta blockers). Pt continues to smoke tobacco, abuse cocaine and alcohol. The risk of repeat cardiac event is high. Code(s): R79.89 - OTHER SPECIFIED ABNORMAL FINDINGS OF BLOOD CHEMISTRY (3) Alcohol-induced mood disorder Code(s): F10.94 - ALCOHOL USE, UNSPECIFIED WITH ALCOHOL-INDUCED MOOD DISORDER (4) Cocaine use Assessment/Plan: Avoid beta blockers. F/u EKG, telemetry. Serial TNIs. Code(s): F14.90 - COCAINE USE, UNSPECIFIED, UNCOMPLICATED (5) History of open heart surgery Code(s): Z98.890 - OTHER SPECIFIED POSTPROCEDURAL STATES (6) CVA (cerebral vascular accident) Code(s): I63.9 - CEREBRAL INFARCTION, UNSPECIFIED (7) HTN (hypertension) Code(s): I10 - ESSENTIAL (PRIMARY) HYPERTENSION Qualifiers: Hypertension type: essential hypertension Qualified Code(s): I10 - Essential (primary) hypertension (8) Nicotine dependence Code(s): F17.200 - NICOTINE DEPENDENCE, UNSPECIFIED, UNCOMPLICATED Qualifiers: Nicotine product type: cigarettes Substance use status: uncomplicated Qualified Code(s): F17.210 - Nicotine dependence, cigarettes, uncomplicated Assessment/Plan CCU time spent: 70 minutes
[2019-08-19 06:25] LABS: BASO % 0.5 % (0-2.0); HEMATOCRIT 38.5 % (32.4-45.2); HEMOGLOBIN 13.1 GM/dL (10.7-15.3); LYMPH % 29.3 % (8-40); MCH 29.9 pg (25.7-33.7); MCHC 33.9 g/dl (32.0-36.0); MEAN CELL VOLUME 88.3 fl (80-96); MONO % 7.2 % (3.8-10.2); PLATELET COUNT 257 K/MM3 (134-434); RBC 4.36 M/mm3 (3.60-5.2); RDW 14.3 % (11.6-15.6); WHITE BLOOD COUNT 7.4 K/mm3 (4.0-10.0)
[2019-08-19 07:14] LABS: ALBUMIN 3.4 g/dl (3.4-5.0); BILIRUBIN,TOTAL 0.3 mg/dL (0.2-1); BLOOD UREA NITROGEN 29.7 mg/dL (7-18); CALCIUM 8.7 mg/dL (8.5-10.1); CREATININE 1.4 mg/dL (0.55-1.3); TOT PROT 6.8 g/dl (6.4-8.2)
--- NOTE | 2019-08-19 09:08 | PN ---
Progress Note, Physician History of Present Illness: Denies further chest pain or dyspnea. - Current Medication List Current Medications: Active Medications Aspirin (Ecotrin -) 81 mg PO DAILY [facility] Last Admin: 08/18/19 09:48 Dose: 81 mg Atorvastatin Calcium (Lipitor -) 40 mg PO HS [facility] Last Admin: 08/18/19 21:23 Dose: 40 mg Heparin Sodium (Porcine) (Heparin -) 5,000 unit SQ BID [facility] Last Admin: 08/18/19 21:27 Dose: Not Given Lisinopril (Prinivil) 40 mg PO DAILY [facility] Last Admin: 08/18/19 09:48 Dose: 40 mg Nifedipine (Procardia Xl -) 60 mg PO DAILY [facility] - [facility] Vital Signs: Vital Signs Temperature 98 F 08/19/19 06:00 Pulse Rate 60 08/19/19 08:00 Respiratory Rate 20 08/19/19 08:54 Blood Pressure 150/80 08/19/19 08:00 O2 Sat by Pulse Oximetry (%) 97 08/19/19 08:54 Constitutional: Yes: No Distress, Calm, Thin Neck: Yes: Supple Cardiovascular: Yes: Regular Rate and Rhythm Respiratory: Yes: Regular, CTA Bilaterally Gastrointestinal: Yes: Soft, Hypoactive Bowel Sounds Edema: No Labs: CBC, BMP 08/19/19 05:35 08/19/19 05:35 INR, PTT INR 0.92 (0.83-1.09) 08/17/19 05:10 - ....Imaging EKG: Report Reviewed (Tele: NSR) Assessment/Plan Problem List - Problems (1) ETOH abuse Assessment/Plan: detox protocol. Code(s): F10.10 - ALCOHOL ABUSE, UNCOMPLICATED (2) Elevated troponin level Assessment/Plan: trop 0.20-->0.16-->0.21 plateauing CK WNL EKG: NSR: septal infarct (noted 2017); inferolateral STT abnormalities (no significant change from 06/25). F/u telemetry monitoring. Hx CABG 2012 ([facility]->LAD) f/u lipids on Lipitor 40 qd, ASA 81 qd Control BP on calcium channel papo and lisinopril 40 qd Pt continues to smoke tobacco, abuse cocaine and alcohol. The risk of repeat cardiac event is high. Code(s): R79.89 - OTHER SPECIFIED ABNORMAL FINDINGS OF BLOOD CHEMISTRY (3) Alcohol-induced mood disorder Code(s): F10.94 - ALCOHOL USE, UNSPECIFIED WITH ALCOHOL-INDUCED MOOD DISORDER (4) Cocaine use Assessment/Plan: Maintain on calcium channel papo F/u EKG, telemetry, Serial TNIs plateauing, cocaine abstinence Code(s): F14.90 - COCAINE USE, UNSPECIFIED, UNCOMPLICATED (5) History of open heart surgery Code(s): Z98.890 - OTHER SPECIFIED POSTPROCEDURAL STATES (6) CVA (cerebral vascular accident) Code(s): I63.9 - CEREBRAL INFARCTION, UNSPECIFIED, h/o hemorrhagic stroke 2011 (7) HTN (hypertension) Code(s): I10 - ESSENTIAL (PRIMARY) HYPERTENSION Qualifiers: Hypertension type: essential hypertension Qualified Code(s): I10 - Essential (primary) hypertension (8) Nicotine dependence Code(s): F17.200 - NICOTINE DEPENDENCE, UNSPECIFIED, UNCOMPLICATED Qualifiers: Nicotine product type: cigarettes Substance use status: uncomplicated Qualified Code(s): F17.210 - Nicotine dependence, cigarettes, uncomplicated (9) CKD N18.9
--- NOTE | 2019-08-19 09:38 | PN ---
Physical Exam: SUBJECTIVE: Patient seen and examined at the bedside. reports her speech is at baseline ( slow) after the last stroke. also reports some difficulty with swallowing thin liquids. explained the POC to her, she is willing to stay and not leave AMA. OBJECTIVE: tele heart rate 60s, bp 143/100 received records from [facility]: patient is s/p coronary artery bypas x 1 using cardiopulm bypass: left internal mammary artery to lad -------- Patient is a 63 year old woman with a past medical history of hypertension, CVA with residual left sided deficit and residual slow speech (right cerebellar hemorrhage 2011), CAD, s/p coronary artery bypass x 1 using cardiopulmonary bypass at [facility] on 09/28/2012 (left internal mammary artery to LAD) , polysubstance abuse (etoh, cocaine) and uncontrolled hypertension. Patient comes to the ED on confused, altered and noted to have hypertensive urgency vs emergency and is being ruled out for acute CVA. Patient previously asking to leave AMA, now agrees to stay, appears awake, alert x 3, per [facility] records, patient required psyche follow up to determine capacity at [facility]. ------ elevated trops etoh abuse (no signs of w/drawal) diminished lungs monitor bgms (was hypoglycemic on admission) hypertensive urgency/emergency CAMILO Vital Signs Period Temp Pulse Resp BP Sys/Dowd Pulse Ox Last 24 Hr 97.6 F-98.2 F 57-74 17-24 146-160/56-96 97 GENERAL: The patient is awake, alert, and fully oriented, in no acute distress. appears able to make her own medical decisions, will get psyche to further evaluate HEAD: Normal with no signs of trauma. EYES: PERRL, extraocular movements intact, sclera anicteric, conjunctiva clear. No ptosis. ENT: Ears normal, nares patent, oropharynx clear without exudates, moist mucous membranes. NECK: Trachea midline, full range of motion, supple. LUNGS: Breath sounds equal but diminished bilaterally, no wheezing, on room air. HEART: Regular rate and rhythm ABDOMEN: Soft, nontender, nondistended, normoactive bowel sounds EXTREMITIES: 2+ pulses, warm, well-perfused, no edema. NEUROLOGICAL: Normal slow speech, gait not observed. but has residual left sided weakness. PSYCH: Normal mood, normal affect. SKIN: Warm, dry, normal turgor, no rashes or lesions noted Laboratory Results - last 24 hr 08/17/19 08/17/19 08/18/19 09:40 15:30 17:43 WBC RBC Hgb Hct MCV MCH MCHC RDW Plt Count MPV Absolute Neuts (auto) Neutrophils % Lymphocytes % Monocytes % Eosinophils % Basophils % Nucleated RBC % Sodium Cancelled 139 Potassium Cancelled 4.1 Chloride Cancelled 105 Carbon Dioxide Cancelled 30 Anion Gap Cancelled 5 L BUN Cancelled 20.6 H Creatinine Cancelled 1.5 H Est GFR (CKD-EPI)AfAm Cancelled 42.83 Est GFR (CKD-EPI)NonAf Cancelled 36.95 POC Glucometer 123 Random Glucose Cancelled 109 H Hemoglobin A1c % Calcium Cancelled 9.4 Total Bilirubin Cancelled AST Cancelled ALT Cancelled Alkaline Phosphatase Cancelled Creatine Kinase 127 92 Troponin I 0.16 H 0.20 H Total Protein Cancelled Albumin Cancelled Triglycerides Cholesterol Total LDL Cholesterol HDL Cholesterol TSH 08/18/19 08/18/19 08/19/19 21:54 21:54 05:35 WBC RBC Hgb Hct MCV MCH MCHC RDW Plt Count MPV Absolute Neuts (auto) Neutrophils % Lymphocytes % Monocytes % Eosinophils % Basophils % Nucleated RBC % Sodium 140 Potassium 4.0 Chloride 107 Carbon Dioxide 27 Anion Gap 6 L BUN 29.7 H Creatinine 1.4 H Est GFR (CKD-EPI)AfAm 46.55 Est GFR (CKD-EPI)NonAf 40.17 POC Glucometer Random Glucose 96 Hemoglobin A1c % Calcium 8.7 Total Bilirubin 0.3 AST 24 ALT 26 Alkaline Phosphatase 82 Creatine Kinase 70 Troponin I Total Protein 6.8 Albumin 3.4 Triglycerides 71 Cholesterol 211 H Total LDL Cholesterol 92 HDL Cholesterol 93 H TSH 1.59 08/19/19 08/19/19 08/19/19 05:35 05:35 05:36 WBC 7.4 RBC 4.36 Hgb 13.1 Hct 38.5 MCV 88.3 MCH 29.9 MCHC 33.9 RDW 14.3 Plt Count 257 MPV 10.0 Absolute Neuts (auto) 4.6 Neutrophils % 62.0 Lymphocytes % 29.3 Monocytes % 7.2 Eosinophils % 1.0 Basophils % 0.5 Nucleated RBC % 0 Sodium Potassium Chloride Carbon Dioxide Anion Gap BUN Creatinine Est GFR (CKD-EPI)AfAm Est GFR (CKD-EPI)NonAf POC Glucometer 95 Random Glucose Hemoglobin A1c % 5.6 Calcium Total Bilirubin AST ALT Alkaline Phosphatase Creatine Kinase Troponin I Total Protein Albumin Triglycerides Cholesterol Total LDL Cholesterol HDL Cholesterol TSH Active Medications Generic Name Dose Route Start Last Admin Trade Name Jay PRN Reason Stop Dose Admin Aspirin 81 mg 08/18/19 10:00 08/18/19 09:48 Ecotrin - PO 81 mg DAILY [facility] Administration Atorvastatin Calcium 40 mg 08/18/19 22:00 08/18/19 21:23 Lipitor - PO 40 mg HS [facility] Administration Heparin Sodium (Porcine) 5,000 unit 08/18/19 22:00 08/18/19 21:27 Heparin - SQ Not Given BID [facility] Lisinopril 40 mg 08/17/19 11:58 08/18/19 09:48 Prinivil PO 40 mg DAILY [facility] Administration Nifedipine 60 mg 08/19/19 10:00 Procardia Xl - PO DAILY [facility] ASSESSMENT/PLAN: Problem List - Problems (1) CVA (cerebral vascular accident) Assessment/Plan: history of hemmorrhagic stroke (2011 with residual slow speech and left sided weakness) and presents with AMS to [facility] on 08/17/19. being rule out for acute CVA, head ct negative. for a brain mri - no hx of cardiac stents seen, had CAD s/p post coronary artery bypass graft x 2012 asa, lipitor, speech and swallow, physical therapy ordered Code(s): I63.9 - CEREBRAL INFARCTION, UNSPECIFIED (2) HLD (hyperlipidemia) Assessment/Plan: elevated lipids, started on atorvastatin 40 daily, hx of strokes, being ruled out for cva. Code(s): E78.5 - HYPERLIPIDEMIA, UNSPECIFIED Qualifiers: Hyperlipidemia type: pure hypercholesterolemia Qualified Code(s): E78.00 - Pure hypercholesterolemia, unspecified; E78.0 - Pure hypercholesterolemia (3) Acute metabolic encephalopathy due to hypoglycemia Assessment/Plan: mentation back to baseline check glucose q 6, but has been stable, continue to monitor. hmga1c 5.6 Code(s): G93.41 - METABOLIC ENCEPHALOPATHY; E16.2 - HYPOGLYCEMIA, UNSPECIFIED (4) Hypertensive urgency Assessment/Plan: patient refused bp monitoring overnight, now agrees bp above goal but overall improved continue lisinopril 40, start procardia 90 daily monitor bp, labs and renal function Code(s): I16.0 - HYPERTENSIVE URGENCY (5) Hypertensive emergency Assessment/Plan: resolved. on procardia, lisinopril. monitor renal function Code(s): I16.1 - HYPERTENSIVE EMERGENCY (6) Cocaine use Assessment/Plan: per urine tox + cocaine avoid beta blockers Code(s): F14.90 - COCAINE USE, UNSPECIFIED, UNCOMPLICATED (7) Cocaine dependence Assessment/Plan: addiction medicine consulted, pt with long history of cocaine use, has refused methadone/suboxone in the past per [facility] records. Code(s): F14.20 - COCAINE DEPENDENCE, UNCOMPLICATED Qualifiers: Substance use status: uncomplicated Qualified Code(s): F14.20 - Cocaine dependence, uncomplicated (8) HTN (hypertension) Assessment/Plan: better controlled Code(s): I10 - ESSENTIAL (PRIMARY) HYPERTENSION Qualifiers: Hypertension type: essential hypertension Qualified Code(s): I10 - Essential (primary) hypertension (9) Elevated troponin level Assessment/Plan: no chest pain, no shortness of breath trops flat trending cardiology consulted requested echo to further evaluate Code(s): R79.89 - OTHER SPECIFIED ABNORMAL FINDINGS OF BLOOD CHEMISTRY (10) CAMILO (acute kidney injury) Code(s): N17.9 - ACUTE KIDNEY FAILURE, UNSPECIFIED (11) H/O ETOH abuse Assessment/Plan: no signs of withdrawal, monitor Code(s): F10.11 - ALCOHOL ABUSE, IN REMISSION (12) Prophylactic measure Assessment/Plan: tolerating po monitor electrolytes low salt diet SCDs heparin bid Code(s): Z29.9 - ENCOUNTER FOR PROPHYLACTIC MEASURES, UNSPECIFIED Visit type - Emergency Visit Emergency Visit: Yes ED Registration Date: 08/17/19 Care time: The patient presented to the Emergency Department on the above date and was hospitalized for further evaluation of their emergent condition. - New Patient This patient is new to me today: No - Critical Care Critical Care patient: Yes Total Critical Care Time (in minutes): 45 Critical Care Statement: The care of this patient involved high complexity decision making to prevent further life threatening deterioration of the patient 's condition and/or to evaluate & treat vital organ system(s) failure or risk of failure.
--- NOTE | 2019-08-19 09:41 | EKG ---
Test Reason : Blood Pressure : / mmHG Vent. Rate : 060 BPM Atrial Rate : 060 BPM P-R Int : 128 ms QRS Dur : 092 ms QT Int : 440 ms P-R-T Axes : 065 045 164 degrees QTc Int : 440 ms NORMAL SINUS RHYTHM POSSIBLE LEFT ATRIAL ENLARGEMENT LEFT VENTRICULAR HYPERTROPHY CANNOT RULE OUT SEPTAL INFARCT (CITED ON OR BEFORE 04-JUN-2018) T WAVE ABNORMALITY, CONSIDER INFEROLATERAL ISCHEMIA ABNORMAL ECG WHEN COMPARED WITH ECG OF 17-AUG-2019 06:09, NO SIGNIFICANT CHANGE WAS FOUND Confirmed by ALEXANDER MANLEY, TAMIKA ([id number]) on 08/19/2019 9:41:15 AM Referred By: JESUS ALVAREZ DR Confirmed By:TAMIKA MUNOZ MD
[2019-08-19] MEDS ORDERED: NIFEdipine E.R 60 MG TABLET (UD) PO SCH (10:00)
[2019-08-19] MEDS ORDERED: PATIENT'S OWN MEDICATION (NON-FORMULARY) (Nifedipine [Nifedipine Er] 60 MG) PO SCH (10:00)
--- NOTE | 2019-08-19 10:23 | CON.PSY ---
Psychiatry Consult Chief Complaint: i am going home tomorrow. I feel pk, i drink and i dont have any psych problems. Symptoms: reports: Conduct Problems - Previous Psychiatric Treatment Outpatient: None Inpatient: None - Previous Substance Abuse Treatment Outpatient: None Inpatient: None - Reason for Previous Treatment Reason for Previous Treatment: Alcohol Abuse, Cocaine - Current Medications Current Medications: Active Medications Aspirin (Ecotrin -) 81 mg PO DAILY [facility] Last Admin: 08/18/19 09:48 Dose: 81 mg Atorvastatin Calcium (Lipitor -) 40 mg PO HS [facility] Last Admin: 08/18/19 21:23 Dose: 40 mg Heparin Sodium (Porcine) (Heparin -) 5,000 unit SQ BID [facility] Last Admin: 08/18/19 21:27 Dose: Not Given Lisinopril (Prinivil) 40 mg PO DAILY [facility] Last Admin: 08/18/19 09:48 Dose: 40 mg Nifedipine (Procardia Xl -) 60 mg PO DAILY [facility] - Allergies Allergies: Allergies Allergy/AdvReac Type Severity Reaction Status Date / Time No Known Allergies Allergy Verified 06/19/19 15:48 - Current Living Status Usual Living Arrangement: Alone - Current Mental Status Evaluation Appearance: Disheveled Attitude: Cooperative - Affect Affect: Constrictive Appropriateness: Appropriate to Content - Mood Mood: Euthymic - Speech/Language Expressive: Coherent - Psychomotor Activity Psychomotor Activity: Slowed - Thought Process Thought Process: Intact - Thought Content Hallucinations: Absent Delusions: Absent - Self Perception Self Perception: No Impairment - Cognition Attention: Alert Orientation: Time Memory, Immediate Recall: Intact Memory, Short Term: 2/3 Memory, Remote with Promptin/3 - Concentration Serial Sevens Intact: No Simple Calculations Intact: Yes - Abstraction Proverb Interpretation: Intact Judgement: Minimally Impaired - Insight Insight: Intact - Impulse Control Impulse Control: Minimally Impaired - Suicidal Ideation Suicidal Ideation: No - Homicidal Ideation Homicidal Ideation: No Assessment/Plan 1) Patient has the Mental capacity to sign out AMA.
[2019-08-19] MEDS: HEPARIN NA (PORCINE) 5,000 UNITS/ML 1ML VIAL SQ SCH ×3 (10:39→21:55)
[2019-08-19] MEDS: LISINOPRIL 20 MG TABLET (FP) PO SCH (10:40)
[2019-08-19] MEDS: ASPIRIN COATED 81 MG TABLET.EC PO SCH (10:41)
[2019-08-19 10:59] LABS: MAGNESIUM 2.3 mg/dL (1.8-2.4); PHOSPHOROUS 3.9 mg/dL (2.5-4.9)
--- NOTE | 2019-08-19 11:48 | PN ---
Teaching Attending Note Name of Resident: Deangelo Carcamo ATTENDING PHYSICIAN STATEMENT I saw and evaluated the patient. I reviewed the resident's note and discussed the case with the resident. I agree with the resident's findings and plan as documented. SUBJECTIVE: Patient seen and examined in the ICU. Awake and alert. Reports feeling better. No CP or SOB. Has some transient dizziness that has now resolved. Intake & Output 08/16/19 08/17/19 08/18/19 08/19/19 23:59 23:59 23:59 23:59 Intake Total 312 600 200 Output Total 300 Balance 12 600 200 Weight 165 lb 142 lb 3 oz 145 lb 7 oz Last Vital Signs Temp Pulse Resp BP Pulse Ox 98 F 60 20 150/80 97 08/19/19 06:00 08/19/19 08:00 08/19/19 08:54 08/19/19 08:00 08/19/19 08:54 Active Medications Aspirin (Ecotrin -) 81 mg PO DAILY [facility] Last Admin: 08/19/19 10:41 Dose: 81 mg Atorvastatin Calcium (Lipitor -) 40 mg PO HS [facility] Last Admin: 08/18/19 21:23 Dose: 40 mg Folic Acid (Folic Acid -) 1 mg PO DAILY [facility] Heparin Sodium (Porcine) (Heparin -) 5,000 unit SQ BID [facility] Last Admin: 08/19/19 11:00 Dose: Not Given Lisinopril (Prinivil) 40 mg PO DAILY [facility] Last Admin: 08/19/19 10:40 Dose: 40 mg Multivitamins/Minerals/Vitamin C (Tab-A-Vit -) 1 tab PO DAILY [facility] Nifedipine (Procardia Xl -) 60 mg PO DAILY [facility] Last Admin: 08/19/19 10:40 Dose: 60 mg Thiamine HCl (Vitamin B1 Injection -) 200 mg IVPB DAILY [facility] Gen: NAD HEENT: PERRL; MMM Lungs: clear Abd: Soft, NT Ext: WWP Neuro: A+O x3, appropriate, no tremors Laboratory Results - last 24 hr 08/17/19 08/17/19 08/18/19 09:40 15:30 17:43 WBC RBC Hgb Hct MCV MCH MCHC RDW Plt Count MPV Absolute Neuts (auto) Neutrophils % Lymphocytes % Monocytes % Eosinophils % Basophils % Nucleated RBC % Sodium Cancelled 139 Potassium Cancelled 4.1 Chloride Cancelled 105 Carbon Dioxide Cancelled 30 Anion Gap Cancelled 5 L BUN Cancelled 20.6 H Creatinine Cancelled 1.5 H Est GFR (CKD-EPI)AfAm Cancelled 42.83 Est GFR (CKD-EPI)NonAf Cancelled 36.95 POC Glucometer 123 Random Glucose Cancelled 109 H Hemoglobin A1c % Calcium Cancelled 9.4 Phosphorus Magnesium Total Bilirubin Cancelled AST Cancelled ALT Cancelled Alkaline Phosphatase Cancelled Creatine Kinase 127 92 Troponin I 0.16 H 0.20 H Total Protein Cancelled Albumin Cancelled Triglycerides Cholesterol Total LDL Cholesterol HDL Cholesterol TSH 08/18/19 08/18/19 08/19/19 21:54 21:54 05:35 WBC RBC Hgb Hct MCV MCH MCHC RDW Plt Count MPV Absolute Neuts (auto) Neutrophils % Lymphocytes % Monocytes % Eosinophils % Basophils % Nucleated RBC % Sodium 140 Potassium 4.0 Chloride 107 Carbon Dioxide 27 Anion Gap 6 L BUN 29.7 H Creatinine 1.4 H Est GFR (CKD-EPI)AfAm 46.55 Est GFR (CKD-EPI)NonAf 40.17 POC Glucometer Random Glucose 96 Hemoglobin A1c % Calcium 8.7 Phosphorus 3.9 Magnesium 2.3 Total Bilirubin 0.3 AST 24 ALT 26 Alkaline Phosphatase 82 Creatine Kinase 70 69 Troponin I 0.16 H Total Protein 6.8 Albumin 3.4 Triglycerides 71 Cholesterol 211 H Total LDL Cholesterol 92 HDL Cholesterol 93 H TSH 1.59 08/19/19 08/19/19 08/19/19 05:35 05:35 05:36 WBC 7.4 RBC 4.36 Hgb 13.1 Hct 38.5 MCV 88.3 MCH 29.9 MCHC 33.9 RDW 14.3 Plt Count 257 MPV 10.0 Absolute Neuts (auto) 4.6 Neutrophils % 62.0 Lymphocytes % 29.3 Monocytes % 7.2 Eosinophils % 1.0 Basophils % 0.5 Nucleated RBC % 0 Sodium Potassium Chloride Carbon Dioxide Anion Gap BUN Creatinine Est GFR (CKD-EPI)AfAm Est GFR (CKD-EPI)NonAf POC Glucometer 95 Random Glucose Hemoglobin A1c % 5.6 Calcium Phosphorus Magnesium Total Bilirubin AST ALT Alkaline Phosphatase Creatine Kinase Troponin I Total Protein Albumin Triglycerides Cholesterol Total LDL Cholesterol HDL Cholesterol TSH Assessment/Plan Hypertensive Urgency: resolved Resolved AMS (?) due to intoxication Poly-substance abuse Hypoglycemia: resolved Titrate BP meds Folic Acid Thiamine O2 as needed OOB to chair Cardiac Telemetry monitoring Dr Barahona
--- NOTE | 2019-08-19 11:51 | ECHO ---
Name: DELFINA RUBY Exam:Adult Echocardiogram Study Date: 08/19/2019 08:45 AM Age: 63 yrs Reason For Study: elevated trops Height: 62 in Weight: 142 lb BSA: 1.7 m2 MMode/2D Measurements & Calculations IVSd: 1.7 cm Ao root diam: 2.6 cm LVIDd: 3.7 cm LA dimension: 5.2 cm LVIDs: 2.4 cm LVPWd: 1.9 cm EDV(Teich): 59.6 ml LVOT diam: 2.0 cm ESV(Teich): 20.0 ml LAV (MOD-bp): 93.6 ml Doppler Measurements & Calculations MV E max johan: 74.7 cm/sec Ao V2 max: 157.0 cm/sec MV A max johan: 81.0 cm/sec Ao max P.9 mmHg MV E/A: 0.92 AI P1/2t: 1707 msec MV dec time: 0.31 sec PREET(V,D): 1.8 cm2 AI max johan: 306.6 cm/sec LV V1 max P.2 mmHg AI max P.2 mmHg LV V1 max: 88.8 cm/sec AI dec slope: 52.6 cm/sec2 MR max johan: 378.0 cm/sec TR max johan: 230.1 cm/sec MR max P.4 mmHg TR max P.6 mmHg PA V2 max: 90.9 cm/sec Med Peak E' Johan: 4.5 cm/sec PA max P.3 mmHg Med E/e': 16.7 Lat Peak E' Johan: 5.7 cm/sec Lat E/e': 13.2 PI Vmax: 93.7 cm/sec Procedure A complete two-dimensional transthoracic echocardiogram was performed (2D, M-mode, Doppler and color flow Doppler). Left Ventricle The left ventricle is normal in size. There is severe concentric left ventricular hypertrophy. Left ventricular systolic function is normal. Ejection Fraction = 65-70%. LV diastology reveals impaired r elaxation with elevated filling pressure (E/E' 17). No regional wall motion abnormalities noted. Right Ventricle The right ventricle is normal size. The right ventricular systolic function is normal. Atria The left atrium is severely dilated. LA volume index is 57 ml/m2. Right atrial size is normal. Mitral Valve There is mild mitral annular calcification. There is moderate mitral regurgitation. Tricuspid Valve The tricuspid valve is normal in structure and function. There is mild tricuspid regurgitation. Pulmo nary artery systolic pressure is at least 30 mmHg if RA pressure is assumed 3 mmHg. Aortic Valve There is mild aortic sclerosis.;. Mild aortic regurgitation. Pulmonic Valve The pulmonic valve is not well visualized. Great Vessels The aortic root is normal size. Pericardium/Pleura There is no pericardial effusion. Interpretation Summary The left ventricle is normal in size. There is severe concentric left ventricular hypertrophy. Left ventricular systolic function is normal. No regional wall motion abnormalities noted. Ejection Fraction = 65-70%. LV diastology reveals impaired relaxation with elevated filling pressure (E/E' 17) The right ventricular systolic function is normal. The left atrium is severely dilated. Right atrial size is normal. There is mild mitral annular calcification. There is moderate mitral regurgitation. There is mild tricuspid regurgitation. Pulmonary artery systolic pressure is at least 30 mmHg if RA pressure is assumed 3 mmHg There is mild aortic sclerosis. Mild aortic regurgitation. There is no pericardial effusion. Wilfred Coates MD 08/19/2019 11:51 AM
[2019-08-19] MEDS: MULTIVITAMINS (DAILY MVI) TABLET (FP) PO SCH (12:40)
[2019-08-19] MEDS: FOLIC ACID 1 MG TABLET (FP) PO SCH (12:41)
[2019-08-19] MEDS: THIAMINE HCL 200 MG/2 ML VIAL IVPB SCH ×2 (12:42→13:01)
[2019-08-19] MEDS ORDERED: CEFTRIAXONE 1 GM in DEXTROSE 5%-WATER - 50 ML IVPB SCH (13:00)
--- NOTE | 2019-08-19 13:41 | PN ---
Physical Exam: SUBJECTIVE: Patient seen and examined in the morning. No acute events overnight. Patient removes cardiac monitors, but no events on limited monitoring. No complaints of chest pain, abdominal pain, shortness of breath, fever, nausea, vomiting. OBJECTIVE: Vital Signs Period Temp Pulse Resp BP Sys/Dowd Pulse Ox Last 24 Hr 98 F-98.2 F 57-74 17-20 146-160/56-96 97 GENERAL: The patient is awake, alert, and fully oriented, in no acute distress. HEAD: Normal with no signs of trauma. EYES: PERRLA, EOMI LUNGS: Breath sounds equal, clear to auscultation bilaterally, no wheezes, no crackles, no accessory muscle use. HEART: Regular rate and rhythm, S1, S2 without murmur, rub or gallop. ABDOMEN: Soft, nontender, nondistended, normoactive bowel sounds. EXTREMITIES: 2+ pulses, warm, well-perfused, no edema. Full ROM upper and lower extremities. NEUROLOGICAL: Cranial nerves II through XII grossly intact. Normal speech, gait not observed. PSYCH: Normal mood, normal affect. SKIN: Warm, dry, normal turgor, no rashes or lesions noted Laboratory Results - last 24 hr 08/17/19 08/17/19 08/18/19 09:40 15:30 17:43 WBC RBC Hgb Hct MCV MCH MCHC RDW Plt Count MPV Absolute Neuts (auto) Neutrophils % Lymphocytes % Monocytes % Eosinophils % Basophils % Nucleated RBC % Sodium Cancelled 139 Potassium Cancelled 4.1 Chloride Cancelled 105 Carbon Dioxide Cancelled 30 Anion Gap Cancelled 5 L BUN Cancelled 20.6 H Creatinine Cancelled 1.5 H Est GFR (CKD-EPI)AfAm Cancelled 42.83 Est GFR (CKD-EPI)NonAf Cancelled 36.95 POC Glucometer 123 Random Glucose Cancelled 109 H Hemoglobin A1c % Calcium Cancelled 9.4 Phosphorus Magnesium Total Bilirubin Cancelled AST Cancelled ALT Cancelled Alkaline Phosphatase Cancelled Creatine Kinase 127 92 Troponin I 0.16 H 0.20 H Total Protein Cancelled Albumin Cancelled Triglycerides Cholesterol Total LDL Cholesterol HDL Cholesterol TSH 08/18/19 08/18/19 08/19/19 21:54 21:54 05:35 WBC RBC Hgb Hct MCV MCH MCHC RDW Plt Count MPV Absolute Neuts (auto) Neutrophils % Lymphocytes % Monocytes % Eosinophils % Basophils % Nucleated RBC % Sodium 140 Potassium 4.0 Chloride 107 Carbon Dioxide 27 Anion Gap 6 L BUN 29.7 H Creatinine 1.4 H Est GFR (CKD-EPI)AfAm 46.55 Est GFR (CKD-EPI)NonAf 40.17 POC Glucometer Random Glucose 96 Hemoglobin A1c % Calcium 8.7 Phosphorus 3.9 Magnesium 2.3 Total Bilirubin 0.3 AST 24 ALT 26 Alkaline Phosphatase 82 Creatine Kinase 70 69 Troponin I 0.16 H Total Protein 6.8 Albumin 3.4 Triglycerides 71 Cholesterol 211 H Total LDL Cholesterol 92 HDL Cholesterol 93 H TSH 1.59 08/19/19 08/19/19 08/19/19 05:35 05:35 05:36 WBC 7.4 RBC 4.36 Hgb 13.1 Hct 38.5 MCV 88.3 MCH 29.9 MCHC 33.9 RDW 14.3 Plt Count 257 MPV 10.0 Absolute Neuts (auto) 4.6 Neutrophils % 62.0 Lymphocytes % 29.3 Monocytes % 7.2 Eosinophils % 1.0 Basophils % 0.5 Nucleated RBC % 0 Sodium Potassium Chloride Carbon Dioxide Anion Gap BUN Creatinine Est GFR (CKD-EPI)AfAm Est GFR (CKD-EPI)NonAf POC Glucometer 95 Random Glucose Hemoglobin A1c % 5.6 Calcium Phosphorus Magnesium Total Bilirubin AST ALT Alkaline Phosphatase Creatine Kinase Troponin I Total Protein Albumin Triglycerides Cholesterol Total LDL Cholesterol HDL Cholesterol TSH Active Medications Generic Name Dose Route Start Last Admin Trade Name Freq PRN Reason Stop Dose Admin Aspirin 81 mg 08/18/19 10:00 08/19/19 10:41 Ecotrin - PO 81 mg DAILY [facility] Administration Atorvastatin Calcium 40 mg 08/18/19 22:00 08/18/19 21:23 Lipitor - PO 40 mg HS [facility] Administration Folic Acid 1 mg 08/19/19 10:00 08/19/19 12:41 Folic Acid - PO 1 mg DAILY [facility] Administration Heparin Sodium (Porcine) 5,000 unit 08/18/19 22:00 08/19/19 11:00 Heparin - SQ Not Given BID [facility] Ceftriaxone Sodium 1 gm/ 50 mls @ 100 mls/hr 08/19/19 13:00 Dextrose IVPB DAILY [facility] Protocol Lisinopril 40 mg 08/17/19 11:58 08/19/19 10:40 Prinivil PO 40 mg DAILY [facility] Administration Multivitamins/Minerals/Vitamin C 1 tab 08/19/19 11:30 08/19/19 12:40 Tab-A-Vit - PO 1 tab DAILY [facility] Administration Nifedipine 60 mg 08/19/19 10:00 08/19/19 10:40 Procardia Xl - PO 60 mg DAILY [facility] Administration Thiamine HCl 200 mg 08/19/19 10:00 08/19/19 13:01 Vitamin B1 Injection - IVPB Not Given DAILY [facility] ASSESSMENT/PLAN: 63 F with PMH HTN, CVA (left sided deficits), CAD s/p single vessel CABG, PSA ( cocaine, tobacco, alcohol) who presented with hypertensive emergency and altered mental status. Patient required nitrodrip and was transferred to ICU, is currently stable. Neuro/Psych -Patient is AAOx3 -Head CT negative -Psych consulted, patient has capacity -Follow up MRI, patient has not had any cardiac stenting or metal placed in her body. Cardio -Hx of CAD and HTN -Continue lisinopril, nifedipine, atorvastatin -Continue cardiac monitoring Pulm -Stable, will continue to monitor Renal -Creatinine recovering, at baseline -Making urine, no urinary complaints GI -Patient started on thiamine, folic acid, and multivitamins -Continue monitoring ID -Urine culture has no growth -Will continue to monitor F:Oral hydration E:Monitor CMP N:Sodium controlled diet Dispo: Transfer to telemetry unit Lines: None Visit type - Emergency Visit Emergency Visit: Yes ED Registration Date: 08/17/19 Care time: The patient presented to the Emergency Department on the above date and was hospitalized for further evaluation of their emergent condition. - New Patient This patient is new to me today: Yes Date on this admission: 08/19/19 - Critical Care Critical Care patient: Yes Total Critical Care Time (in minutes): 45 Critical Care Statement: The care of this patient involved high complexity decision making to prevent further life threatening deterioration of the patient 's condition and/or to evaluate & treat vital organ system(s) failure or risk of failure. ATTENDING PHYSICIAN STATEMENT I saw and evaluated the patient. I reviewed the resident's note and discussed the case with the resident. I agree with the resident's findings and plan as documented. SUBJECTIVE: OBJECTIVE: ASSESSMENT AND PLAN:
--- NOTE | 2019-08-19 14:31 | CONSULT ---
Admitting History and Physical - Primary Care Physician PCP: Jose M Oh - Admission History of Present Illness: 63 F with PMH HTN, CVA (left sided deficits), CAD s/p single vessel CABG, PSA ( cocaine, tobacco, alcohol) who presented with hypertensive emergency and altered mental status. . -Head CT negative -Psych consulted, patient has capacity Selected Entries 08/19/19 08/19/19 08/19/19 00:00 06:00 08:00 Temperature 98 F Blood Pressure 146/86 160/56 L 150/80 08/19/19 08/19/19 10:00 12:00 Temperature Blood Pressure 146/76 152/80 Laboratory Tests 08/19/19 05:35 WBC 7.4 Pt reports h/o stroke, was at [facility]". History Source: Patient, Medical Record Limitations to Obtaining History: No Limitations, Clinical Condition - Past Medical History [employer]: Yes: CVA Cardiovascular: Yes: HTN Infectious Disease: No: HIV (denies; states she was tested a year ago and "it was negative") - Past Surgical History Past Surgical History: Yes: CABG, Stent (reported cardiac stent at [facility]) - Smoking History Smoking history: Current every day smoker Have you smoked in the past 12 months: Yes Aproximately how many cigarettes per day: 20 - Alcohol/Substance Use Hx Alcohol Use: Yes History of Substance Use: reports: Cocaine Date of Last Use: 08/16/19 - Social History ADL: Independent History of Recent Travel: No History - Admission Reason For Visit: POSTERIOR REVERSIBLE ENCEPHALOPATHY SYNDROME - Diagnostics X-ray: Report Reviewed CT Scan: Report Reviewed - General Mental Status: Alert and Oriented, Awake and Alert, Able to Follow Commands Attention: Intact Ability to Follow Directions: Good - Hearing Hearing: Normal Speech Evaluation - Communication Primary Language: DOMINICAN Communication: Yes: Dysarthria Oral Expression Ability: Yes: Mild Impairment - Speech Production Able to Make Needs Known: Yes: WNL Intelligibility: Yes: Mildly Impaired - Speech Characteristics Voice Loudness: Normal Voice Pitch: Yes: Normal Voice Phonatory-based Quality: Yes: Normal Speech Clarity: < 100% Nasal Resonance: Normal Articulation: Yes: Imprecise Rate of Speech: Too Slow (reduced diadochokinetic articulatory rate) - Language/Auditory Comprehension Follows: Yes: 1 Stage Simple Commands Observation: Able to respond to yes/no queries: Yes, Yes/No Confusion: No, Comprehends Conversational Speech: Yes - Language/Verbal Expression Able to Respond to Simple Queries: Yes: WNL Able to Communicate Wants and Needs: Yes: WNL Functional Communication Status: Yes: WNL - Swallow Evaluation/Bedside Assessment Current Nutritional Intake: Regular, Thin Liquids Oral Secretions: Yes: WFL Facial Symmetry at Rest: Facial Droop Left Pucker Lips: Weak Smile: Droops Left, Weak Lingual Movement: Symmetric Lingual Speed of Movement: Reduced Lingual Movement Strgth Against Opposition: Reduced Lingual Movement Characteristics: Normal Rate of Intake: WFL Chewing: WFL (tolerated reg diet today, per staff) A-P Transit: WFL Pocketing: None Timing of Swallow: Delayed Coughing/Throat Clear: No (3 oz water test) Change in Voice: No Recommendations - Speech Evaluation, Impression/Plan Impression: Mild Dysarthria with reduced diadochokintic articulatory rate and percision. Baseline since stroke? Language intact. Swallowing overtly intact. Pending MRI, compliance questionable. - Dysphagia Impressions/Plan *Silent aspiration: cannot be R/O at bedside Dysphagia Treatment Plan: OOB for meals, OOB for 1 h. after meals Recommendations: Other (monitor po tolerance) - Recommendations Diet Consistency: Regular (soft) Medication Administration: Whole with water Liquids: Thin Liquids
[2019-08-19 14:32] VITALS: BMI 26.5
[2019-08-19] MEDS: ATORVASTATIN CA 40 MG TABLET (FP) PO SCH (21:56)
[2019-08-20 07:28] LABS: BASO % 0.5 % (0-2.0); EOS % 1.1 % (0-4.5); HEMATOCRIT 39.9 % (32.4-45.2); HEMOGLOBIN 13.4 GM/dL (10.7-15.3); LYMPH % 29.1 % (8-40); MCH 29.7 pg (25.7-33.7); MCHC 33.6 g/dl (32.0-36.0); MEAN CELL VOLUME 88.3 fl (80-96); MEAN PLT VOLUME 9.5 fl (7.5-11.1); NEUT % 61.3 % (42.8-82.8); PLATELET COUNT 251 K/MM3 (134-434); RBC 4.52 M/mm3 (3.60-5.2); RDW 14.6 % (11.6-15.6); WHITE BLOOD COUNT 5.9 K/mm3 (4.0-10.0)
[2019-08-20 08:01] LABS: ALBUMIN 3.4 g/dl (3.4-5.0); BILIRUBIN,TOTAL 0.5 mg/dL (0.2-1); BLOOD UREA NITROGEN 26.9 mg/dL (7-18); CALCIUM 8.8 mg/dL (8.5-10.1); CREATININE 1.4 mg/dL (0.55-1.3); MAGNESIUM 2.3 mg/dL (1.8-2.4); POTASSIUM 3.9 mmol/L (3.5-5.1); TOT PROT 6.8 g/dl (6.4-8.2)
[2019-08-20] MEDS: FOLIC ACID 1 MG TABLET (FP) PO SCH (10:05)
[2019-08-20] MEDS: ASPIRIN COATED 81 MG TABLET.EC PO SCH (10:05)
[2019-08-20] MEDS: NIFEdipine E.R 60 MG TABLET (UD) PO SCH (10:05)
[2019-08-20] MEDS: MULTIVITAMINS (DAILY MVI) TABLET (FP) PO SCH (10:05)
[2019-08-20] MEDS: LISINOPRIL 20 MG TABLET (FP) PO SCH (10:05)
[2019-08-20] MEDS: HEPARIN NA (PORCINE) 5,000 UNITS/ML 1ML VIAL SQ SCH ×2 (10:05→21:20)
[2019-08-20] MEDS: THIAMINE HCL 200 MG/2 ML VIAL IVPB SCH (10:06)
--- NOTE | 2019-08-20 12:52 | PN ---
Progress Note, Physician Chief Complaint: Events noted Not in distress History of Present Illness: Patient was seen and examined. Awake and alert. Chart was reviewed Denies chest pain, SOB or palpitations - Current Medication List Current Medications: Active Medications Amoxicillin/Clavulanate Potassium (Augmentin - 875mg Tablet) 1 tab PO BID@0800, 1730 [facility] Aspirin (Ecotrin -) 81 mg PO DAILY [facility] Last Admin: 08/20/19 10:05 Dose: 81 mg Atorvastatin Calcium (Lipitor -) 40 mg PO HS [facility] Last Admin: 08/19/19 21:56 Dose: Not Given Folic Acid (Folic Acid -) 1 mg PO DAILY [facility] Last Admin: 08/20/19 10:05 Dose: 1 mg Heparin Sodium (Porcine) (Heparin -) 5,000 unit SQ BID [facility] Last Admin: 08/20/19 10:05 Dose: Not Given Lisinopril (Prinivil) 40 mg PO DAILY [facility] Last Admin: 08/20/19 10:05 Dose: 40 mg Multivitamins/Minerals/Vitamin C (Tab-A-Vit -) 1 tab PO DAILY [facility] Last Admin: 08/20/19 10:05 Dose: 1 tab Nifedipine (Procardia Xl -) 60 mg PO DAILY [facility] Last Admin: 08/20/19 10:05 Dose: 60 mg Thiamine HCl (Vitamin B1 Injection -) 200 mg IVPB DAILY [facility] Last Admin: 08/20/19 10:06 Dose: Not Given - Objective Vital Signs: Vital Signs Temperature 98.5 F 08/20/19 08:51 Pulse Rate 59 L 08/20/19 11:44 Respiratory Rate 18 08/20/19 09:00 Blood Pressure 149/74 08/20/19 11:44 O2 Sat by Pulse Oximetry (%) 96 08/20/19 09:00 Neck: Yes: Supple Cardiovascular: Yes: Regular Rate and Rhythm, S1, S2 Respiratory: Yes: CTA Bilaterally Gastrointestinal: Yes: Normal Bowel Sounds, Soft. No: Tenderness Edema: No Additional Findings/Remarks: - Review of Systems Constitutional: denies: Chills, Fever Cardiovascular: denies Chest Pain. denies: Palpitations, Shortness of Breath Respiratory: denies: Cough, Hemoptysis, Orthopnea, PND, SOB, SOB on Exertion Gastrointestinal: denies: Abdominal Pain, Constipation, Diarrhea, Melena, Nausea , Rectal Bleeding, Vomiting Genitourinary: denies: Dysuria, Hematuria Neurological: denies: Dizziness, Headache, Seizure, Syncope Labs: CBC, BMP 08/20/19 06:40 08/20/19 06:40 INR, PTT INR 0.92 (0.83-1.09) 08/17/19 05:10 Problem List - Problems (1) CAMILO (acute kidney injury) Code(s): N17.9 - ACUTE KIDNEY FAILURE, UNSPECIFIED (2) ETOH abuse Code(s): F10.10 - ALCOHOL ABUSE, UNCOMPLICATED (3) Elevated troponin level Code(s): R79.89 - OTHER SPECIFIED ABNORMAL FINDINGS OF BLOOD CHEMISTRY (4) Cocaine use Code(s): F14.90 - COCAINE USE, UNSPECIFIED, UNCOMPLICATED (5) History of open heart surgery Code(s): Z98.890 - OTHER SPECIFIED POSTPROCEDURAL STATES (6) CVA (cerebral vascular accident) Code(s): I63.9 - CEREBRAL INFARCTION, UNSPECIFIED (7) CVD (cardiovascular disease) Code(s): I25.10 - ATHSCL HEART DISEASE OF [place] CORONARY ARTERY W/O ANG PCTRS (8) HLD (hyperlipidemia) Code(s): E78.5 - HYPERLIPIDEMIA, UNSPECIFIED Qualifiers: Hyperlipidemia type: pure hypercholesterolemia Qualified Code(s): E78.00 - Pure hypercholesterolemia, unspecified; E78.0 - Pure hypercholesterolemia (9) HTN (hypertension) Code(s): I10 - ESSENTIAL (PRIMARY) HYPERTENSION Qualifiers: Hypertension type: essential hypertension Qualified Code(s): I10 - Essential (primary) hypertension (10) Nicotine dependence Code(s): F17.200 - NICOTINE DEPENDENCE, UNSPECIFIED, UNCOMPLICATED Qualifiers: Nicotine product type: cigarettes Substance use status: uncomplicated Qualified Code(s): F17.210 - Nicotine dependence, cigarettes, uncomplicated (11) Old cerebrovascular accident (CVA) without late effect Code(s): Z86.73 - PRSNL HX OF TIA (TIA), AND CEREB INFRC W/O RESID DEFICITS Assessment/Plan 1. Substance abuse - ETOH, Cocaine and Marijuana 2. Demand ischemia with elevated troponin 3. CAD s/p CABG, angina 4. HTN 5. CVA 6. Diastolic dysfunction 7. Mitral regurgitation PLAN: 1. Continue Nifedipine 60 mg QD and Prinivil 40 mg QD (avoid beta papo) 2. Trend tropinin 3. Detox 4. Echocardiography was reviewed 5. Atorvastatin 40 mg QHS 6. ASA 81 mg QD 7. Antibiotic coverage Further plans are to follow Wilfred Coates MD
[2019-08-20] MEDS: AMOX TR/POT CLAV 875MG/125MG TABLETS (FP) PO SCH (18:01)
[2019-08-20] MEDS: ATORVASTATIN CA 40 MG TABLET (FP) PO SCH (21:20)
[2019-08-21] MEDS: AMOX TR/POT CLAV 875MG/125MG TABLETS (FP) PO SCH (07:30)
--- NOTE | 2019-08-21 08:21 | PN ---
Physical Exam: SUBJECTIVE: Patient seen and examined refusing brain mri, she was irritable this morning but participated with PT. OBJECTIVE: Patient seen and examined at the bedside. wanted to be left alone, refusing brain mri, refusing some medications and bgms. OBJECTIVE: tele heart rate 60s, bp stable received records from [facility]: patient is s/p coronary artery bypas x 1 using cardiopulm bypass: left internal mammary artery to lad -------- Patient is a 63 year old woman with a past medical history of hypertension, CVA with residual left sided deficit and residual slow speech (right cerebellar hemorrhage 2011), CAD, s/p coronary artery bypass x 1 using cardiopulmonary bypass at [facility] on 09/28/2012 (left internal mammary artery to LAD) , polysubstance abuse (etoh, cocaine) and uncontrolled hypertension. Patient comes to the ED on confused, altered and noted to have hypertensive urgency vs emergency and is being ruled out for acute CVA. ------ elevated trops etoh abuse (no signs of w/drawal) diminished lungs monitor bgms (was hypoglycemic on admission) hypertensive urgency/emergency CAMILO Vital Signs Period Temp Pulse Resp BP Sys/Dowd Pulse Ox Last 24 Hr 97.7 F-98.5 F 49-60 18-18 123-173/63-86 96-97 GENERAL: The patient is awake, alert, and fully oriented, in no acute distress. appears able to make her own medical decisions, will get psyche to further evaluate HEAD: Normal with no signs of trauma. EYES: PERRL, extraocular movements intact, sclera anicteric, conjunctiva clear. No ptosis. ENT: Ears normal, nares patent, oropharynx clear without exudates, moist mucous membranes. NECK: Trachea midline, full range of motion, supple. LUNGS: Breath sounds equal but diminished bilaterally, no wheezing, on room air. HEART: Regular rate and rhythm ABDOMEN: Soft, nontender, nondistended, normoactive bowel sounds EXTREMITIES: 2+ pulses, warm, well-perfused, no edema. NEUROLOGICAL: Normal slow speech, gait not observed. but has residual left sided weakness. PSYCH: Normal mood, normal affect. SKIN: Warm, dry, normal turgor, no rashes or lesions noted Laboratory Results - last 24 hr 08/20/19 12:23 POC Glucometer 111 Active Medications Generic Name Dose Route Start Last Admin Trade Name Freq PRN Reason Stop Dose Admin Amoxicillin/Clavulanate Potassium 1 tab 08/20/19 17:30 08/21/19 07:30 Augmentin - 875mg Tablet PO 1 tab BID@0800,1730 MACARENA Administration Aspirin 81 mg 08/20/19 10:00 08/20/19 10:05 Ecotrin - PO 81 mg DAILY MACARENA Administration Atorvastatin Calcium 40 mg 08/19/19 22:00 08/20/19 21:20 Lipitor - PO Not Given HS MACARENA Folic Acid 1 mg 08/19/19 10:00 08/20/19 10:05 Folic Acid - PO 1 mg DAILY MACARENA Administration Heparin Sodium (Porcine) 5,000 unit 08/19/19 22:00 08/20/19 21:20 Heparin - SQ Not Given BID MACARENA Lisinopril 40 mg 08/20/19 10:00 08/20/19 10:05 Prinivil PO 40 mg DAILY MACARENA Administration Multivitamins/Minerals/Vitamin C 1 tab 08/19/19 11:30 08/20/19 10:05 Tab-A-Vit - PO 1 tab DAILY MACARENA Administration Nifedipine 60 mg 08/20/19 10:00 08/20/19 10:05 Procardia Xl - PO 60 mg DAILY MACARENA Administration Thiamine HCl 200 mg 08/19/19 10:00 08/20/19 10:06 Vitamin B1 Injection - IVPB Not Given DAILY [facility] ASSESSMENT/PLAN: Problem List - Problems (1) CVA (cerebral vascular accident) Assessment/Plan: history of hemmorrhagic stroke (2011 with residual slow speech and left sided weakness) and presents with AMS to [facility] on 08/17/19. being rule out for acute CVA, head ct negative. for brain mri, but refusing brain mri. no hx of cardiac stents seen, had CAD s/p post coronary artery bypass graft x 1 2012 asa, lipitor, speech and swallow, physical therapy ordered Code(s): I63.9 - CEREBRAL INFARCTION, UNSPECIFIED (2) HLD (hyperlipidemia) Assessment/Plan: elevated lipids, started on atorvastatin 40 daily, hx of strokes. Code(s): E78.5 - HYPERLIPIDEMIA, UNSPECIFIED Qualifiers: Hyperlipidemia type: pure hypercholesterolemia Qualified Code(s): E78.00 - Pure hypercholesterolemia, unspecified; E78.0 - Pure hypercholesterolemia (3) Acute metabolic encephalopathy due to hypoglycemia Assessment/Plan: mentation back to baseline check glucose q 6, but has been stable, continue to monitor. hmga1c 5.6 Code(s): G93.41 - METABOLIC ENCEPHALOPATHY; E16.2 - HYPOGLYCEMIA, UNSPECIFIED (4) Hypertensive urgency Assessment/Plan: resolved. bp improved. continue lisinopril 40, start procardia 60 daily monitor bp, labs and renal function Code(s): I16.0 - HYPERTENSIVE URGENCY (5) Hypertensive emergency Assessment/Plan: resolved. on procardia, lisinopril. monitor renal function Code(s): I16.1 - HYPERTENSIVE EMERGENCY (6) Cocaine use Assessment/Plan: per urine tox + cocaine avoid beta blockers Code(s): F14.90 - COCAINE USE, UNSPECIFIED, UNCOMPLICATED (7) Cocaine dependence Assessment/Plan: addiction medicine consulted, pt with long history of cocaine use, has refused methadone/suboxone in the past per [facility] records. Code(s): F14.20 - COCAINE DEPENDENCE, UNCOMPLICATED Qualifiers: Substance use status: uncomplicated Qualified Code(s): F14.20 - Cocaine dependence, uncomplicated (8) HTN (hypertension) Assessment/Plan: better controlled Code(s): I10 - ESSENTIAL (PRIMARY) HYPERTENSION Qualifiers: Hypertension type: essential hypertension Qualified Code(s): I10 - Essential (primary) hypertension (9) Elevated troponin level Assessment/Plan: no chest pain, no shortness of breath trops flat trending cardiology consulted requested echo reviewed Code(s): R79.89 - OTHER SPECIFIED ABNORMAL FINDINGS OF BLOOD CHEMISTRY (10) CAMILO (acute kidney injury) Code(s): N17.9 - ACUTE KIDNEY FAILURE, UNSPECIFIED (11) H/O ETOH abuse Assessment/Plan: no signs of withdrawal, monitor Code(s): F10.11 - ALCOHOL ABUSE, IN REMISSION (12) Prophylactic measure Assessment/Plan: tolerating po monitor electrolytes low salt diet SCDs heparin bid Code(s): Z29.9 - ENCOUNTER FOR PROPHYLACTIC MEASURES, UNSPECIFIED Visit type - Emergency Visit Emergency Visit: Yes ED Registration Date: 08/17/19 Care time: The patient presented to the Emergency Department on the above date and was hospitalized for further evaluation of their emergent condition. - New Patient This patient is new to me today: No - Critical Care Critical Care patient: No - Discharge Referral Referred to [facility] No
--- NOTE | 2019-08-21 09:21 | DS ---
Physical Exam: SUBJECTIVE: Patient seen and examined, awake, alert and calm. 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 Patient comes to the ED on confused, altered and noted to have hypertensive urgency vs emergency and is being ruled out for acute CVA. Her head ct was negative for acute process, carotid doppler negative. Her BP was controlled with nitro drip then converted to Procardia 60 xl and Lisinopril 40 mg daily. She has been followed by cardiology and has been cleared for discharge home. Her mentation is back to her baseline and she is deemed to have capacity per psyche. Patient refuses brain MRI despite my attempts to speak to her regarding its importance. Tells me she is claustrophobic and has been offered a benzo to help her tolerate the MRI but she refuses. States she will get it done at an open MRI when she is discharged. She denies any headaches, visual defects, denies any malaise. A referral to neurology and cardiology has been sent. ------ elevated trops etoh abuse (no signs of w/drawal) cocaine use monitor bgms (was hypoglycemic on admission) hypertensive urgency/emergency CAMILO Vital Signs Period Temp Pulse Resp BP Sys/Dowd Pulse Ox Last 24 Hr 97.7 F-98.3 F 49-60 18-18 123-173/63-86 97 PHYSICAL EXAM GENERAL: The patient is awake, alert, and fully oriented, in no acute distress. HEAD: Normal with no signs of trauma. EYES: PERRL, extraocular movements intact, sclera anicteric, conjunctiva clear. No ptosis. ENT: Ears normal, nares patent, oropharynx clear without exudates, moist mucous membranes. NECK: Trachea midline, full range of motion, supple. LUNGS: Breath sounds equal but diminished bilaterally, no wheezing, on room air. HEART: Regular rate and rhythm ABDOMEN: Soft, nontender, nondistended, normoactive bowel sounds EXTREMITIES: 2+ pulses, warm, well-perfused, no edema. NEUROLOGICAL: Normal slow speech, gait not observed. but has residual left sided weakness. PSYCH: Normal mood, normal affect. SKIN: Warm, dry, normal turgor, no rashes or lesions noted LABS Laboratory Results - last 24 hr 08/20/19 12:23 POC Glucometer 111 HOSPITAL COURSE: Date of Admission:08/17/19 Date of Discharge: 08/21/19 Minutes to complete discharge: 45 Discharge Summary Problems reviewed: Yes Reason For Visit: POSTERIOR REVERSIBLE ENCEPHALOPATHY SYNDROME Current Active Problems CAMILO (acute kidney injury) (Acute) Acute metabolic encephalopathy due to hypoglycemia (Acute) ETOH abuse (Acute) Elevated troponin level (Acute) H/O ETOH abuse (Acute) Hypertensive emergency (Acute) Hypertensive urgency (Acute) Prophylactic measure (Acute) Condition: Stable - Instructions Diet, Activity, Other Instructions: Mrs Peterson: You were admitted on 08/19/2019 for elevated blood pressures and confusion. You were evaluated by a clinical services consultant and we will be sending you home with a change in your medications as noted below. You were also found to have a urinary tract infection. Your head cat scan was negative for acute process, we recommended a MRI but you have refused the brain MRI. Please see your primary care doctor and have the brain MRI arranged if you agree to do so. Here are our recommendations: High Blood Pressure Start Procardia 60xl ONCE per day, Start Lisinopril 40mg ONCE per day Continue the aspirin 81mg once per day. A blood pressure cuff has been sent to your pharmacy so that you can keep track of your blood pressures. Urinary Tract infection: Start the Augmentin 875mg TWICE per day for 7 days total (08/20/2009 through 08/26). History of CVA: We have referred you to the neurologist that saw you here. Please follow up with him for post hospital care. Follow ups: Please follow up with your primary care doctor within 3 days of discharge. If you do not have a primary care doctor, we have referred you to one which is located at [address] You can also follow up with outpatient drug rehab at [address] [phone] for methadone/ suboxone. A referral to the clinical services consultant has been sent (Dr. Andres). New medications: Lisinopril 40mg take at 8am this is for blood pressure control Procardia 60mg XL take at 8am this is for your blood pressure control Aspirin 81mg take at 8am this is for prevention of future strokes Lipitor 40mg take at 8pm this is for elevated cholesterol Augmentin 875mg TWICE per day at 8 am and 8pm this is for a urinary tract infection for 7 days total (started on 08/20 through 08/26/2019) Folic acid 1mg daily - this is a vitamin for folate deficiency Thank you for allowing us to care for you. Referrals: Tristan Livingston MD [Staff Physician] - Marianne Gutierrez MD [Primary Care Provider] - Shashi Andres MD [Staff Physician] - Joe Kang MD [Staff Physician] - Disposition: HOME - Home Medications Comprehensive Discharge Medication List: Ambulatory Orders Aspirin [Aspirin EC] 81 mg PO DAILY #14 tablet.dr 04/02/19 Nifedipine [Nifedipine ER] 60 mg PO DAILY #14 tab.er.24 04/02/19 Amox-Tr/K Cl [Augmentin 875-125mg Tablet -] 1 tab PO BID@0800,1730 #14 tablet Atorvastatin Ca [Lipitor] 40 mg PO HS #120 tablet 08/20/19 Folic Acid - 1 mg PO DAILY #120 tablet 08/20/19 Lisinopril [Prinivil] 40 mg PO DAILY #90 tablet 08/20/19 Nifedipine [Procardia Xl] 60 mg PO DAILY #120 tab.er.24 08/21/19 Problem List - Problems (1) CVA (cerebral vascular accident) Assessment/Plan: history of hemmorrhagic stroke (2011 with residual slow speech and left sided weakness) and presents with AMS to [facility] on 08/17/19. being rule out for acute CVA, head ct negative. for brain mri, but refusing brain mri. no hx of cardiac stents seen, had CAD s/p post coronary artery bypass graft x 1 2012 asa, lipitor, speech and swallow, physical therapy followed during hospital stay. Code(s): I63.9 - CEREBRAL INFARCTION, UNSPECIFIED (2) HLD (hyperlipidemia) Assessment/Plan: elevated lipids, started on atorvastatin 40 daily, hx of strokes. Code(s): E78.5 - HYPERLIPIDEMIA, UNSPECIFIED Qualifiers: Hyperlipidemia type: pure hypercholesterolemia Qualified Code(s): E78.00 - Pure hypercholesterolemia, unspecified; E78.0 - Pure hypercholesterolemia (3) Acute metabolic encephalopathy due to hypoglycemia Assessment/Plan: mentation back to baseline check glucose q 6, but has been stable, continue to monitor. hmga1c 5.6 Code(s): G93.41 - METABOLIC ENCEPHALOPATHY; E16.2 - HYPOGLYCEMIA, UNSPECIFIED (4) Hypertensive urgency Assessment/Plan: resolved. bp improved. continue lisinopril 40, start procardia 60 daily monitor bp, labs and renal function Code(s): I16.0 - HYPERTENSIVE URGENCY (5) Hypertensive emergency Assessment/Plan: resolved. on procardia, lisinopril. monitor renal function Code(s): I16.1 - HYPERTENSIVE EMERGENCY (6) Cocaine use Assessment/Plan: per urine tox + cocaine avoid beta blockers Code(s): F14.90 - COCAINE USE, UNSPECIFIED, UNCOMPLICATED (7) Cocaine dependence Assessment/Plan: addiction medicine consulted, pt with long history of cocaine use, has refused methadone/suboxone in the past per [facility] records. will refer to [facility] on discharge. Code(s): F14.20 - COCAINE DEPENDENCE, UNCOMPLICATED Qualifiers: Substance use status: uncomplicated Qualified Code(s): F14.20 - Cocaine dependence, uncomplicated (8) HTN (hypertension) Assessment/Plan: better controlled Code(s): I10 - ESSENTIAL (PRIMARY) HYPERTENSION Qualifiers: Hypertension type: essential hypertension Qualified Code(s): I10 - Essential (primary) hypertension (9) Elevated troponin level Assessment/Plan: no chest pain, no shortness of breath trops flat trending cardiology follwed during hospital stay, echo completed and no further cardiac workup inpatient per cardiology. patient referred to outpatient cardiology follow up. Code(s): R79.89 - OTHER SPECIFIED ABNORMAL FINDINGS OF BLOOD CHEMISTRY (10) CAMILO (acute kidney injury) Assessment/Plan: monitor with daily labs. will need outpatient follow up with PCP. Code(s): N17.9 - ACUTE KIDNEY FAILURE, UNSPECIFIED (11) H/O ETOH abuse Assessment/Plan: no signs of withdrawal Code(s): F10.11 - ALCOHOL ABUSE, IN REMISSION (12) Prophylactic measure Assessment/Plan: Code(s): Z29.9 - ENCOUNTER FOR PROPHYLACTIC MEASURES, UNSPECIFIED This patient is new to me today: Yes Date on this admission: 08/21/19 Emergency Visit: No Critical Care patient: No - Discharge Referral Referred to [facility] No
[2019-08-21 09:34] VITALS: BP 154/84; PULSE 79; TEMP 98
--- NOTE | 2019-08-21 10:13 | PN ---
Progress Note, Physician History of Present Illness: Denies further chest pain or dyspnea. 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 - Current Medication List Current Medications: Active Medications Amoxicillin/Clavulanate Potassium (Augmentin - 875mg Tablet) 1 tab PO BID@0800, 1730 [facility] Last Admin: 08/21/19 07:30 Dose: 1 tab Aspirin (Ecotrin -) 81 mg PO DAILY [facility] Last Admin: 08/20/19 10:05 Dose: 81 mg Atorvastatin Calcium (Lipitor -) 40 mg PO HS [facility] Last Admin: 08/20/19 21:20 Dose: Not Given Folic Acid (Folic Acid -) 1 mg PO DAILY [facility] Last Admin: 08/20/19 10:05 Dose: 1 mg Heparin Sodium (Porcine) (Heparin -) 5,000 unit SQ BID [facility] Last Admin: 08/20/19 21:20 Dose: Not Given Lisinopril (Prinivil) 40 mg PO DAILY [facility] Last Admin: 08/20/19 10:05 Dose: 40 mg Multivitamins/Minerals/Vitamin C (Tab-A-Vit -) 1 tab PO DAILY [facility] Last Admin: 08/20/19 10:05 Dose: 1 tab Nifedipine (Procardia Xl -) 60 mg PO DAILY [facility] Last Admin: 08/20/19 10:05 Dose: 60 mg Thiamine HCl (Vitamin B1 Injection -) 200 mg IVPB DAILY [facility] Last Admin: 08/20/19 10:06 Dose: Not Given - Objective Vital Signs: Vital Signs Temperature 98.0 F 08/21/19 09:00 Pulse Rate 79 08/21/19 09:00 Respiratory Rate 20 08/21/19 09:00 Blood Pressure 154/84 08/21/19 09:00 O2 Sat by Pulse Oximetry (%) 94 L 08/21/19 09:00 Constitutional: Yes: No Distress, Calm, Thin Neck: Yes: Supple Cardiovascular: Yes: Regular Rate and Rhythm, Murmur (2/6 SM) Respiratory: Yes: Regular, CTA Bilaterally Gastrointestinal: Yes: Normal Bowel Sounds, Soft Edema: No Labs: CBC, BMP 08/20/19 06:40 08/20/19 06:40 INR, PTT INR 0.92 (0.83-1.09) 08/17/19 05:10 Problem List - Problems (1) Hypertensive urgency Code(s): I16.0 - HYPERTENSIVE URGENCY (2) Cocaine use Code(s): F14.90 - COCAINE USE, UNSPECIFIED, UNCOMPLICATED (3) History of open heart surgery Code(s): Z98.890 - OTHER SPECIFIED POSTPROCEDURAL STATES (4) Cocaine dependence Code(s): F14.20 - COCAINE DEPENDENCE, UNCOMPLICATED Qualifiers: Substance use status: uncomplicated Qualified Code(s): F14.20 - Cocaine dependence, uncomplicated (5) HLD (hyperlipidemia) Code(s): E78.5 - HYPERLIPIDEMIA, UNSPECIFIED Qualifiers: Hyperlipidemia type: pure hypercholesterolemia Qualified Code(s): E78.00 - Pure hypercholesterolemia, unspecified; E78.0 - Pure hypercholesterolemia (6) HTN (hypertension) Code(s): I10 - ESSENTIAL (PRIMARY) HYPERTENSION Qualifiers: Hypertension type: essential hypertension Qualified Code(s): I10 - Essential (primary) hypertension (7) Old cerebrovascular accident (CVA) without late effect Code(s): Z86.73 - PRSNL HX OF TIA (TIA), AND CEREB INFRC W/O RESID DEFICITS (8) Demand ischemia Code(s): I24.8 - OTHER FORMS OF ACUTE ISCHEMIC HEART DISEASE (9) ETOH abuse Code(s): F10.10 - ALCOHOL ABUSE, UNCOMPLICATED (10) Elevated troponin level Code(s): R79.89 - OTHER SPECIFIED ABNORMAL FINDINGS OF BLOOD CHEMISTRY Assessment/Plan Echo: Normal LV and RV size with severe LVH LVEF 65-70%, severe LAE , mod MR, mild TR RVSP 3- mmHg, mild AR 1. Substance abuse - ETOH, Cocaine and Marijuana 2. Demand ischemia with elevated troponin 3. CAD s/p CABG, angina 4. HTN 5. CVA 6. Diastolic dysfunction 7. Mitral regurgitation PLAN: 1. Continue Nifedipine 60 mg QD and Prinivil 40 mg QD (avoid beta papo) 2. Tropinin downtrending 3. Detox and abstinence from toxic habits 4. Echocardiography was reviewed 5. Atorvastatin 40 mg QHS 6. ASA 81 mg QD 7. Complete oral antibiotic coverage 8. D/c planning with f/u as outpatient (24) [phone]
[2019-08-21] MEDS: ASPIRIN COATED 81 MG TABLET.EC PO SCH (10:32)
[2019-08-21] MEDS: FOLIC ACID 1 MG TABLET (FP) PO SCH (10:32)
[2019-08-21] MEDS: LISINOPRIL 20 MG TABLET (FP) PO SCH (10:32)
[2019-08-21] MEDS: HEPARIN NA (PORCINE) 5,000 UNITS/ML 1ML VIAL SQ SCH (10:32)
[2019-08-21] MEDS: NIFEdipine E.R 60 MG TABLET (UD) PO SCH (10:33)
[2019-08-21] MEDS: MULTIVITAMINS (DAILY MVI) TABLET (FP) PO SCH (10:33)
[2019-08-21] MEDS: THIAMINE HCL 200 MG/2 ML VIAL IVPB SCH (10:33)
== END 2019-08-21 12:51 | disposition home or self-care (01) | DRG 52 ==
LOC: JER 04:56 → JERBED 09:34 → JICU 11:41 → J4W 08-19 18:10
PROVIDERS: ADMIT Internal Medicine; ATTEND Nurse Practitioner Family
DX: G93.41 Metabolic encephalopathy (principal); N17.9 Acute kidney failure, unspecified; I69.354 Hemiplegia and hemiparesis following cerebral infarction affecting left non-dominant side; I24.8 Other forms of acute ischemic heart disease; F14.20 Cocaine dependence, uncomplicated; E16.2 Hypoglycemia, unspecified; I25.10 Atherosclerotic heart disease of native coronary artery without angina pectoris; Z95.1 Presence of aortocoronary bypass graft; I10 Essential (primary) hypertension; F10.10 Alcohol abuse, uncomplicated; F17.210 Nicotine dependence, cigarettes, uncomplicated; Z91.14 Patient's other noncompliance with medication regimen; I16.0 Hypertensive urgency; I34.0 Nonrheumatic mitral (valve) insufficiency
CPT/HCPCS: 36415; 70450-TC; 80048; 80053; 80061; 80307; 81003; 82550; 82962; 83036; 83721; 83735; 84100; 84443; 84484; 85025; 85610; 85730; 86850; 86900; 86901; 87086; 87186; 93005; 93010; 93306-TC; 93880-TC; 97116-GP; 97161-GP; 99284-25; J1644

== ENCOUNTER 2019-09-11 08:14 | Inpatient (IN) | payer OTHER ==
--- NOTE | 2019-09-11 09:11 | HP ---
CIWA Score Nausea/Vomitin-Mild Nausea/No Vomiting Muscle Tremors: 1-None Visible, but [place] Anxiety: 1-Mildly Anxious Agitation: 1-Slight > Activity Paroxysmal Sweats: 1-Minimal Palms Moist Orientation: 0-Oriented Tacttile Disturbances: 0-None Auditory Disturbances: 0-None Visual Disturbances: 0-None Headache: 0-None Present (CIWA low due to recent alcohol ingestion) CIWA-Ar Total Score: 5 - Admission Criteria OASAS Guidelines: Admission for Medically Managed Detox: Requires at least one of the followin. CIWA greater than 12 2. Seizures within the past 24 hours 3. Delirium tremens within the past 24 hours 4. Hallucinations within the past 24 hours 5. Acute intervention needed for co occurring medical disorder 6. Acute intervention needed for co occurring psychiatric disorder 7. Severe withdrawal that cannot be handled at a lower level of care (continued vomiting, continued diarrhea, abnormal vital signs) requiring intravenous medication and/or fluids 8. Admitting History and Physical - Admission Chief Complaint: Ms. Peterson is a 64 yo woman who presents to [facility] requesting admission for alcohol detox. History of Present Illness: Ms. Peterson is a 64 yo woman who presents to [facility] requesting admission for alcohol detox. PMH: HTN, HL, CVA: right cerebellar hemmorhage in 2011 with residual slurred speech and mild left arm and leg weakness, CAD s/p CABG in 2012. Pt was sent to [facility] on 08/17 with confusion, slurred speech. Neuro work up with head CT negative for acute event. However, glucose low and with repletion her confusion resolved. Her BP was high and she was placed on a nitro drip in the ICU. Troponins were elevated and over time, trended down. Substance Use History: EtOH: first use age 15 y, last use last night, quantity: 20 x 24 ounce beers per day. No history of seizures or black outs. Cocaine: first use at the age of 16 y, last use 3 days ago, $40 spent every other day Nicotine: 2 ppd Denies: heroin, methadone, benzodiazepine use History Source: Patient Limitations to Obtaining History: No Limitations - Past Medical History [employer]: Yes: CVA (2013: right cerebellar hemorrhage) Cardiovascular: Yes: CAD, HTN ...: No - Past Surgical History Past Surgical History: Yes: CABG, Stent (reported cardiac stent at [facility]) - Advance Directives Advance Directives: Yes: Health Care Proxy - Smoking History Smoking history: Current every day smoker Have you smoked in the past 12 months: No Aproximately how many cigarettes per day: 40 - Alcohol/Substance Use Hx Alcohol Use: Yes History of Substance Use: reports: Cocaine Date of Last Use: 08/16/19 - Social History ADL: Independent History of Recent Travel: No Admission ROS S - HPI Allergies/Adverse Reactions: Allergies Allergy/AdvReac Type Severity Reaction Status Date / Time No Known Allergies Allergy Verified 06/19/19 15:48 Exam Limitations: No Limitations - Ebola screening Have you traveled outside of the country in the last 21 days: No Have you had contact with anyone from an Ebola affected area: No Have you been sick,other than usual withdrawal symptoms: No Do you have a fever: No - Review of Systems Constitutional: No Symptoms Reported EENT: reports: No Symptoms Reported Respiratory: reports: No Symptoms reported Cardiac: reports: No Symptoms Reported GI: reports: No Symptoms Reported : reports: No Symptoms Reported Musculoskeletal: reports: No Symptoms Reported Integumentary: reports: No Symptoms Reported Neuro: reports: Weakness (chronic left sided weakness and dysarthria) Endocrine: reports: No Symptoms Reported Hematology: reports: No Symptoms Reported Psychiatric: reports: No Sypmtoms Reported Patient History - Patient Medical History Hx Anemia: No Hx Asthma: No Hx Chronic Obstructive Pulmonary Disease (COPD): No Hx Cancer: No Hx Cardiac Disorders: Yes (CAD) Hx Congestive Heart Failure: No Hx Hypertension: Yes (non compliant with meds) Hx Hypercholesterolemia: No Hx Pacemaker: No HX Cerebrovascular Accident: Yes (2015 [facility]) Hx Seizures: No Hx Diabetes: No Hx Gastrointestinal Disorders: No Hx Liver Disease: No Hx Genitourinary Disorders: No Hx Sexually Transmitted Disorders: No Hx Renal Disease (ESRD): No Hx Thyroid Disease: No Hx Human Immunodeficiency Virus (HIV): No (last 2018 negative) Hx Depression: No Hx Suicide Attempt: No Hx Bipolar Disorder: No Hx Schizophrenia: No - Patient Surgical History Past Surgical History: Yes Hx Neurologic Surgery: No Hx Cataract Extraction: No Hx Cardiac Surgery: Yes (open heart surgery- does not remember when) Hx Lung Surgery: No Hx Breast Surgery: No Hx Breast Biopsy: No Hx Abdominal Surgery: No Hx Appendectomy: No Hx Cholecystectomy: No Hx Genitourinary Surgery: No Hx Section: No Hx Orthopedic Surgery: No Anesthesia Reaction: No - PPD History Previous Implant?: No Documented Results: Negative w/proof Implanted On Prior [facility] Admission?: No Date: 03/28/19 Results: TB QFT neg - Reproductive History Patient is a Female of Child Bearing Age (11 -55 yrs old): No Patient : No - Smoking Cessation Smoking history: Current every day smoker Have you smoked in the past 12 months: No Aproximately how many cigarettes per day: 40 Cigars Per Day: 0 Hx Chewing Tobacco Use: No Initiated information on smoking cessation: Yes 'Breaking Loose' booklet given: 09/11/19 - Substance & Tx. History Hx Substance Use: Yes Substance Use Type: Cocaine - Substances abused Alcohol Substance route: Oral Frequency: Daily Amount used: 12 pk beer Age of first use: 15 Date of last use: 09/10/19 Cocaine Substance route: Inhalation Frequency: Daily Amount used: $40 Age of first use: 16 Date of last use: 09/09/19 Admission Physical Exam S - Vital Signs Vital Signs: Vital Signs - 24 hr 09/11/19 08:36 Temperature 97.6 F Pulse Rate 61 Respiratory 20 Rate Blood Pressure 189/98 H - Physical General Appearance: Yes: Within Normal Limits HEENTM: Yes: EOMI, Hearing grossly Normal Respiratory: Yes: Within Normal Limits Neck: Yes: Within Normal Limits Breast: Yes: Breast Exam Deferred Cardiology: Yes: Regular Rate, S1, S2 Abdominal: Yes: Within Normal Limits Genitourinary: Yes: Other (deferred) Back: Yes: Normal Inspection Musculoskeletal: Yes: Within Normal Limits Neurological: Yes: Fully Oriented (moderate dysarthria, ? mild left facial droop at rest, symmetric smile) Integumentary: Yes: Within Normal Limits - Diagnostic (1) Cocaine use Current Visit: Yes Status: Acute (2) Alcohol dependence with uncomplicated withdrawal Current Visit: Yes Status: Acute (3) CVA (cerebral vascular accident) Current Visit: No Status: Chronic (4) HLD (hyperlipidemia) Current Visit: No Status: Chronic Qualifiers: Hyperlipidemia type: pure hypercholesterolemia Qualified Code(s): E78.00 - Pure hypercholesterolemia, unspecified; E78.0 - Pure hypercholesterolemia (5) HTN (hypertension) Current Visit: Yes Status: Acute Qualifiers: Hypertension type: essential hypertension Qualified Code(s): I10 - Essential (primary) hypertension Comment: BP initially 189/98, repeat 173/98. Will expidite admission and give antihypertensive medication. Pt admits to med noncompliance, stating no meds in 2-7 days. Cleared for Admission [facility] - Detox or Rehab S Level of Care: Medically Managed Breathalyzer - Breathalyzer Breathalyzer: 0 Urine Drug Screen - Test Device Lot number: [id number] Expiration date: 07/06/21 - Control Is test valid?: Yes - Results Drug screen NEGATIVE: No Urine drug screen results: RACHELLE-Cocaine Inpatient Rehab Admission - Rehab Decision to Admit Inpatient rehab admission?: No
[2019-09-11] MEDS ORDERED: chlordiazePOXIDE HCL 25 MG CAPSULE PO PRN (09:23)
[2019-09-11] MEDS ORDERED: hydrOXYzine PAMOATE 25 MG CAPSULE (FP) PO PRN (09:23)
[2019-09-11] MEDS ORDERED: MENTHOL/PHENOL 1 EACH UD MM PRN (09:23)
[2019-09-11] MEDS ORDERED: MAGNESIUM HYDROX 2400MG/30ML ORAL SUSPENSION 30 ML CUP PO PRN (09:23)
[2019-09-11] MEDS ORDERED: BISMUTH SUBSALICYLATE 262 MG/15 ML BTL PO PRN (09:23)
[2019-09-11] MEDS ORDERED: MAG HYDROX/AL HYDROX/SIMETH 30 ML UNIT-DOSE CUP PO PRN (09:23)
[2019-09-11] MEDS ORDERED: IBUPROFEN 400 MG TABLET (FP) PO PRN (09:23)
[2019-09-11] MEDS ORDERED: MAGNESIUM CITRATE 300 ML BOTTLE PO PRN (09:23)
[2019-09-11] MEDS ORDERED: ACETAMINOPHEN 325 MG TABLET (FP) PO PRN ×2 (09:23)
[2019-09-11] MEDS: METHOCARBAMOL 500 MG TABLET PO PRN (10:07)
[2019-09-11] MEDS: LISINOPRIL 20 MG TABLET (FP) PO SCH (10:07)
[2019-09-11] MEDS: PRENATAL VITAMINS W/ FOLIC ACID TABLET (FP) PO SCH (10:07)
[2019-09-11] MEDS: ASPIRIN COATED 81 MG TABLET.EC PO SCH (10:07)
[2019-09-11] MEDS: NICOTINE 21 MG/24 HOURS TOPICAL PATCH TD SCH (10:08)
[2019-09-11] MEDS: NIFEdipine E.R 60 MG TABLET PO SCH (14:40)
[2019-09-11] MEDS: FOLIC ACID 1 MG TABLET (FP) PO SCH (14:41)
[2019-09-11 18:04] LABS: HEMATOCRIT 37.6 % (32.4-45.2); HEMOGLOBIN 12.6 GM/dL (10.7-15.3); MCH 29.8 pg (25.7-33.7); MCHC 33.4 g/dl (32.0-36.0); MEAN CELL VOLUME 89.4 fl (80-96); MEAN PLT VOLUME 10.6 fl (7.5-11.1); PLATELET COUNT 229 K/MM3 (134-434); RDW 14.5 % (11.6-15.6); WHITE BLOOD COUNT 6.3 K/mm3 (4.0-10.0)
[2019-09-11 18:14] LABS: ALBUMIN 3.4 g/dl (3.4-5.0); BILIRUBIN,TOTAL 0.3 mg/dL (0.2-1); CALCIUM 8.7 mg/dL (8.5-10.1); CREATININE 1.9 mg/dL (0.55-1.3); POTASSIUM 3.9 mmol/L (3.5-5.1); TOT PROT 6.5 g/dl (6.4-8.2)
[2019-09-11] MEDS: THIAMINE HCL 100 MG TABLET (FP) PO SCH (22:09)
[2019-09-11] MEDS: ATORVASTATIN CA 40 MG TABLET (FP) PO SCH (22:09)
[2019-09-11] MEDS: chlordiazePOXIDE HCL 25 MG CAPSULE PO SCH (22:10)
[2019-09-12] MEDS: chlordiazePOXIDE HCL 25 MG CAPSULE PO SCH ×4 (06:03→22:22)
[2019-09-12] MEDS: ASPIRIN COATED 81 MG TABLET.EC PO SCH (10:29)
[2019-09-12] MEDS: LISINOPRIL 20 MG TABLET (FP) PO SCH (10:29)
[2019-09-12] MEDS: FOLIC ACID 1 MG TABLET (FP) PO SCH (10:29)
[2019-09-12] MEDS: NICOTINE 21 MG/24 HOURS TOPICAL PATCH TD SCH (10:29)
[2019-09-12] MEDS: NIFEdipine E.R 60 MG TABLET PO SCH (10:29)
--- NOTE | 2019-09-12 10:36 | PN ---
S CIWA - CIWA Score Nausea/Vomitin-No Nausea/No Vomiting Muscle Tremors: 3 Anxiety: 3 Agitation: 3 Paroxysmal Sweats: 2 Orientation: 0-Oriented Tacttile Disturbances: 0-None Auditory Disturbances: 0-None Visual Disturbances: 0-None Headache: 0-None Present CIWA-Ar Total Score: 11 S Progress Note (SOAP) Subjective: sweats mild shakes interrupted sleep restless Objective: 09/12/19 10:26 Vital Signs Temperature 97.7 F 09/12/19 09:08 Pulse Rate 59 L 09/12/19 09:08 Respiratory Rate 15 09/12/19 09:08 Blood Pressure 146/79 09/12/19 09:08 O2 Sat by Pulse Oximetry (%) Laboratory Tests 09/11/19 09/11/19 09/11/19 08:40 12:40 12:40 WBC 6.3 RBC 4.20 Hgb 12.6 Hct 37.6 MCV 89.4 MCH 29.8 MCHC 33.4 RDW 14.5 Plt Count 229 MPV 10.6 D Sodium 142 Potassium 3.9 Chloride 109 H Carbon Dioxide 26 Anion Gap 7 L BUN 38.0 H Creatinine 1.9 H Est GFR (CKD-EPI)AfAm 31.96 Est GFR (CKD-EPI)NonAf 27.57 Random Glucose 124 H Calcium 8.7 Total Bilirubin 0.3 AST 12 L ALT 14 Alkaline Phosphatase 76 Total Protein 6.5 Albumin 3.4 POC Urine HCG, Qual Negative aaox3 ambulating no acute distress Assessment: 09/12/19 10:28 tired/groggy withdrawals Plan: continue detox increase fluids librium modified with lesser dose.
[2019-09-12] MEDS: PRENATAL VITAMINS W/ FOLIC ACID TABLET (FP) PO SCH (10:54)
[2019-09-12] MEDS: THIAMINE HCL 100 MG TABLET (FP) PO SCH (22:21)
[2019-09-12] MEDS: ATORVASTATIN CA 40 MG TABLET (FP) PO SCH (22:22)
[2019-09-12] MEDS: MELATONIN 5 MG TABLETS PO PRN (22:23)
[2019-09-13] MEDS ORDERED: chlordiazePOXIDE HCL 25 MG CAPSULE PO SCH (05:00)
[2019-09-13] MEDS: chlordiazePOXIDE 5 MG CAPSULE PO SCH ×4 (05:49→23:57)
[2019-09-13] MEDS: NICOTINE 21 MG/24 HOURS TOPICAL PATCH TD SCH (10:23)
[2019-09-13] MEDS: NIFEdipine E.R 60 MG TABLET PO SCH (10:24)
[2019-09-13] MEDS: ASPIRIN COATED 81 MG TABLET.EC PO SCH (10:25)
[2019-09-13] MEDS: LISINOPRIL 20 MG TABLET (FP) PO SCH (10:25)
[2019-09-13] MEDS: FOLIC ACID 1 MG TABLET (FP) PO SCH (10:26)
[2019-09-13] MEDS: PRENATAL VITAMINS W/ FOLIC ACID TABLET (FP) PO SCH (11:08)
--- NOTE | 2019-09-13 13:20 | PN ---
S CIWA - CIWA Score Nausea/Vomitin-No Nausea/No Vomiting Muscle Tremors: 3 Anxiety: 2 Agitation: 2 Paroxysmal Sweats: 2 Orientation: 0-Oriented Tacttile Disturbances: 0-None Auditory Disturbances: 0-None Visual Disturbances: 0-None Headache: 0-None Present CIWA-Ar Total Score: 9 BHS Progress Note (SOAP) Subjective: sweat interrupted Objective: 09/13/19 13:19 Vital Signs Temperature 97.3 F L 09/13/19 09:20 Pulse Rate 74 09/13/19 09:20 Respiratory Rate 17 09/13/19 09:20 Blood Pressure 130/88 09/13/19 09:20 O2 Sat by Pulse Oximetry (%) aaox3 ambulating no acute distress Assessment: 09/13/19 13:20 withdrawal sx Plan: continue detox increase fluids
[2019-09-13] MEDS: THIAMINE HCL 100 MG TABLET (FP) PO SCH (22:30)
[2019-09-13] MEDS: ATORVASTATIN CA 40 MG TABLET (FP) PO SCH (22:30)
[2019-09-13] MEDS: METHOCARBAMOL 500 MG TABLET PO PRN (22:30)
[2019-09-13] MEDS: MELATONIN 5 MG TABLETS PO PRN (22:30)
[2019-09-14] MEDS ORDERED: chlordiazePOXIDE HCL 10 MG CAPSULE PO PRN
[2019-09-14] MEDS: chlordiazePOXIDE HCL 10 MG CAPSULE PO SCH ×4 (05:57→22:50)
[2019-09-14] MEDS: PRENATAL VITAMINS W/ FOLIC ACID TABLET (FP) PO SCH (11:24)
[2019-09-14] MEDS: LISINOPRIL 20 MG TABLET (FP) PO SCH (11:24)
[2019-09-14] MEDS: NIFEdipine E.R 60 MG TABLET PO SCH (11:24)
[2019-09-14] MEDS: NICOTINE 21 MG/24 HOURS TOPICAL PATCH TD SCH (11:25)
[2019-09-14] MEDS: FOLIC ACID 1 MG TABLET (FP) PO SCH (11:25)
[2019-09-14] MEDS: ASPIRIN COATED 81 MG TABLET.EC PO SCH (11:25)
--- NOTE | 2019-09-14 14:33 | PN ---
[facility] CIWA - CIWA Score Nausea/Vomitin-No Nausea/No Vomiting Muscle Tremors: 1-None Visible, but [place] Anxiety: 0-No Anxiety, at Ease Agitation: 0-Normal Activity Paroxysmal Sweats: 2 Orientation: 0-Oriented Tacttile Disturbances: 0-None Auditory Disturbances: 0-None Visual Disturbances: 0-None Headache: 1-Very Mild CIWA-Ar Total Score: 4 BHS Progress Note (SOAP) Subjective: Interrupted sleep, sweats Objective: 09/14/19 14:31 Withdrawal sx Vital Signs 09/14/19 09/14/19 06:52 09:15 Temperature 97.7 F 98.2 F Pulse Rate 62 63 Respiratory 20 18 Rate Blood Pressure 165/85 142/82 Laboratory Last Values WBC 6.3 K/mm3 (4.0-10.0) 09/11/19 12:40 RBC 4.20 M/mm3 (3.60-5.2) 09/11/19 12:40 Hgb 12.6 GM/dL (10.7-15.3) 09/11/19 12:40 Hct 37.6 % (32.4-45.2) 09/11/19 12:40 MCV 89.4 fl (80-96) 09/11/19 12:40 MCH 29.8 pg (25.7-33.7) 09/11/19 12:40 MCHC 33.4 g/dl (32.0-36.0) 09/11/19 12:40 RDW 14.5 % (11.6-15.6) 09/11/19 12:40 Plt Count 229 K/MM3 (134-434) 09/11/19 12:40 MPV 10.6 fl (7.5-11.1) D 09/11/19 12:40 Sodium 142 mmol/L (136-145) 09/11/19 12:40 Potassium 3.9 mmol/L (3.5-5.1) 09/11/19 12:40 Chloride 109 mmol/L (98-107) H 09/11/19 12:40 Carbon Dioxide 26 mmol/L (21-32) 09/11/19 12:40 Anion Gap 7 MMOL/L (8-16) L 09/11/19 12:40 BUN 38.0 mg/dL (7-18) H 09/11/19 12:40 Creatinine 1.9 mg/dL (0.55-1.3) H 09/11/19 12:40 Est GFR (CKD-EPI)AfAm 31.96 09/11/19 12:40 Est GFR (CKD-EPI)NonAf 27.57 09/11/19 12:40 Random Glucose 124 mg/dL (74-106) H 09/11/19 12:40 Calcium 8.7 mg/dL (8.5-10.1) 09/11/19 12:40 Total Bilirubin 0.3 mg/dL (0.2-1) 09/11/19 12:40 AST 12 U/L (15-37) L 09/11/19 12:40 ALT 14 U/L (13-61) 09/11/19 12:40 Alkaline Phosphatase 76 U/L (45-117) 09/11/19 12:40 Total Protein 6.5 g/dl (6.4-8.2) 09/11/19 12:40 Albumin 3.4 g/dl (3.4-5.0) 09/11/19 12:40 POC Urine HCG, Qual Negative 09/11/19 08:40 RPR Titer Nonreactive (NONREACTIVE) 09/11/19 12:40 Labs noted Assessment: 09/14/19 14:32 Resolving withdrawal sx Plan: Continue detox
[2019-09-14] MEDS: ATORVASTATIN CA 40 MG TABLET (FP) PO SCH (22:55)
[2019-09-14] MEDS: THIAMINE HCL 100 MG TABLET (FP) PO SCH (22:55)
[2019-09-15] MEDS: chlordiazePOXIDE HCL 10 MG CAPSULE PO SCH ×2 (05:47→17:32)
[2019-09-15] MEDS: NICOTINE 21 MG/24 HOURS TOPICAL PATCH TD SCH (10:11)
[2019-09-15] MEDS: PRENATAL VITAMINS W/ FOLIC ACID TABLET (FP) PO SCH (10:11)
[2019-09-15] MEDS: ASPIRIN COATED 81 MG TABLET.EC PO SCH (10:11)
[2019-09-15] MEDS: NIFEdipine E.R 60 MG TABLET PO SCH (10:11)
[2019-09-15] MEDS: FOLIC ACID 1 MG TABLET (FP) PO SCH (10:11)
[2019-09-15] MEDS: LISINOPRIL 20 MG TABLET (FP) PO SCH (10:11)
--- NOTE | 2019-09-15 16:23 | PN ---
S CIWA - CIWA Score Nausea/Vomitin-No Nausea/No Vomiting Muscle Tremors: None Anxiety: 2 Agitation: 2 Paroxysmal Sweats: 1-Minimal Palms Moist Orientation: 0-Oriented Tacttile Disturbances: 0-None Auditory Disturbances: 0-None Visual Disturbances: 0-None Headache: 0-None Present CIWA-Ar Total Score: 5 BHS Progress Note (SOAP) Subjective: Feels ok Objective: 09/15/19 16:19 Last Vital Signs Temp Pulse Resp BP Pulse Ox 98.1 F 64 18 157/96 09/15/19 12:37 09/15/19 12:37 09/15/19 12:37 09/15/19 12:37 Elevated b/p noted: has HTN, on med Laboratory Tests 09/11/19 09/11/19 09/11/19 08:40 12:40 12:40 WBC 6.3 RBC 4.20 Hgb 12.6 Hct 37.6 MCV 89.4 MCH 29.8 MCHC 33.4 RDW 14.5 Plt Count 229 MPV 10.6 D Sodium 142 Potassium 3.9 Chloride 109 H Carbon Dioxide 26 Anion Gap 7 L BUN 38.0 H Creatinine 1.9 H Est GFR (CKD-EPI)AfAm 31.96 Est GFR (CKD-EPI)NonAf 27.57 Random Glucose 124 H Calcium 8.7 Total Bilirubin 0.3 AST 12 L ALT 14 Alkaline Phosphatase 76 Total Protein 6.5 Albumin 3.4 POC Urine HCG, Qual Negative RPR Titer 09/11/19 12:40 WBC RBC Hgb Hct MCV MCH MCHC RDW Plt Count MPV Sodium Potassium Chloride Carbon Dioxide Anion Gap BUN Creatinine Est GFR (CKD-EPI)AfAm Est GFR (CKD-EPI)NonAf Random Glucose Calcium Total Bilirubin AST ALT Alkaline Phosphatase Total Protein Albumin POC Urine HCG, Qual RPR Titer Nonreactive Labs reviewed: bun 38 (high), serum creat 1.9 (high), GFR low Assessment: 09/15/19 16:20 Withdrawal sxs Noted with CAMILO vs CKD Plan: Continue detox Encouraged PO water intake HTN: continue antihypertensive medication, follow up with PCP for management CAMILO vs CKD: denies renal problem; encouraged to drink more water, most likely CKD, repeat BMP in AM Consider discharging patient after BMP result available, instruct patient to follow up with PCP within one week for further evaluation
[2019-09-15] MEDS: ATORVASTATIN CA 40 MG TABLET (FP) PO SCH (22:43)
[2019-09-15] MEDS: THIAMINE HCL 100 MG TABLET (FP) PO SCH (22:44)
[2019-09-16] MEDS ORDERED: chlordiazePOXIDE HCL 10 MG CAPSULE PO ONE (05:00)
--- NOTE | 2019-09-16 09:28 | DS ---
[facility] Detox Discharge Summary Admission Date: 09/11/19 Discharge Date: 09/16/19 - History Present History: Alcohol Dependence, Cocaine Dependence - Physical Exam Results Vital Signs: Vital Signs Temperature 97.5 F L 09/16/19 08:17 Pulse Rate 52 L 09/16/19 08:17 Respiratory Rate 16 09/16/19 08:17 Blood Pressure 144/72 09/16/19 08:17 O2 Sat by Pulse Oximetry (%) Pertinent Admission Physical Exam Findings: Vital Signs Temperature 97.5 F L 09/16/19 08:17 Pulse Rate 52 L 09/16/19 08:17 Respiratory Rate 16 09/16/19 08:17 Blood Pressure 144/72 09/16/19 08:17 O2 Sat by Pulse Oximetry (%) Laboratory Tests 09/11/19 09/11/19 09/11/19 08:40 12:40 12:40 WBC 6.3 RBC 4.20 Hgb 12.6 Hct 37.6 MCV 89.4 MCH 29.8 MCHC 33.4 RDW 14.5 Plt Count 229 MPV 10.6 D Sodium 142 Potassium 3.9 Chloride 109 H Carbon Dioxide 26 Anion Gap 7 L BUN 38.0 H Creatinine 1.9 H Est GFR (CKD-EPI)AfAm 31.96 Est GFR (CKD-EPI)NonAf 27.57 Random Glucose 124 H Calcium 8.7 Total Bilirubin 0.3 AST 12 L ALT 14 Alkaline Phosphatase 76 Total Protein 6.5 Albumin 3.4 POC Urine HCG, Qual Negative RPR Titer 09/11/19 12:40 WBC RBC Hgb Hct MCV MCH MCHC RDW Plt Count MPV Sodium Potassium Chloride Carbon Dioxide Anion Gap BUN Creatinine Est GFR (CKD-EPI)AfAm Est GFR (CKD-EPI)NonAf Random Glucose Calcium Total Bilirubin AST ALT Alkaline Phosphatase Total Protein Albumin POC Urine HCG, Qual RPR Titer Nonreactive aaox3 ambulating no acute distress +bs all four quadrants lungs CTA - Treatment Hospital Course: Detox Protocol Followed, Detoxed Safely, Responded well, Discharged Condition Good, Rehab Referral Accepted - Medication Discharge Medications: Ambulatory Orders Aspirin [Aspirin EC] 81 mg PO DAILY #14 tablet. 04/02/19 Atorvastatin Ca [Lipitor] 40 mg PO HS #120 tablet 08/20/19 Folic Acid - 1 mg PO DAILY #120 tablet 08/20/19 Lisinopril [Prinivil] 40 mg PO DAILY #90 tablet 08/20/19 Nifedipine [Procardia Xl] 60 mg PO DAILY #120 tab.er.24 08/21/19 - Diagnosis (1) Alcohol dependence with uncomplicated withdrawal Current Visit: Yes Status: Chronic (2) Cocaine use Current Visit: Yes Status: Chronic (3) HTN (hypertension) Current Visit: Yes Status: Chronic Qualifiers: Hypertension type: essential hypertension Qualified Code(s): I10 - Essential (primary) hypertension (4) CAMILO (acute kidney injury) Current Visit: No Status: Acute (5) Acute metabolic encephalopathy due to hypoglycemia Current Visit: No Status: Acute (6) Alcohol-induced mood disorder Current Visit: No Status: Acute (7) Altered mental status Current Visit: No Status: Acute Qualifiers: Altered mental status type: unspecified Qualified Code(s): R41.82 - Altered mental status, unspecified (8) Demand ischemia Current Visit: No Status: Acute (9) ETOH abuse Current Visit: No Status: Acute (10) Elevated troponin level Current Visit: No Status: Acute (11) H/O ETOH abuse Current Visit: No Status: Acute (12) History of open heart surgery Current Visit: No Status: Acute (13) Hypertensive emergency Current Visit: No Status: Acute (14) Hypertensive urgency Current Visit: No Status: Acute (15) PRES (posterior reversible encephalopathy syndrome) Current Visit: No Status: Acute (16) Prophylactic measure Current Visit: No Status: Acute (17) Syncope Current Visit: No Status: Acute (18) CVA (cerebral vascular accident) Current Visit: No Status: Chronic (19) CVD (cardiovascular disease) Current Visit: No Status: Chronic (20) Cocaine dependence Current Visit: No Status: Chronic Qualifiers: Substance use status: uncomplicated Qualified Code(s): F14.20 - Cocaine dependence, uncomplicated (21) Cocaine use disorder Current Visit: No Status: Chronic (22) Depression Current Visit: No Status: Chronic (23) HLD (hyperlipidemia) Current Visit: No Status: Chronic Qualifiers: Hyperlipidemia type: pure hypercholesterolemia Qualified Code(s): E78.00 - Pure hypercholesterolemia, unspecified; E78.0 - Pure hypercholesterolemia (24) [place] (hard of hearing) Current Visit: No Status: Chronic Qualifiers: Contralateral hearing status: unspecified (25) Nicotine dependence Current Visit: No Status: Chronic Qualifiers: Nicotine product type: cigarettes Substance use status: uncomplicated Qualified Code(s): F17.210 - Nicotine dependence, cigarettes, uncomplicated (26) Old cerebrovascular accident (CVA) without late effect Current Visit: No Status: Chronic (27) Fall Current Visit: No Status: Suspected - AMA Did Patient Leave Against Medical Advice: No
[2019-09-16] MEDS: FOLIC ACID 1 MG TABLET (FP) PO SCH (11:10)
[2019-09-16] MEDS: ASPIRIN COATED 81 MG TABLET.EC PO SCH (11:10)
[2019-09-16] MEDS: NICOTINE 21 MG/24 HOURS TOPICAL PATCH TD SCH (11:11)
[2019-09-16] MEDS: PRENATAL VITAMINS W/ FOLIC ACID TABLET (FP) PO SCH (11:11)
[2019-09-16 11:34] VITALS: BP 150/77; PULSE 55; TEMP 97.7
[2019-09-16] MEDS: NIFEdipine E.R 60 MG TABLET PO SCH (13:01)
[2019-09-16 13:12] LABS: CALCIUM 9.1 mg/dL (8.5-10.1); CREATININE 1.5 mg/dL (0.55-1.3); POTASSIUM 4.5 mmol/L (3.5-5.1)
== END 2019-09-16 12:28 | disposition home or self-care (01) | DRG 774 ==
LOC: YASAS 08:14 → Y6N 09:07
PROVIDERS: ADMIT Allergy & Immunology; ATTEND Allergy & Immunology
PROC: HZ2ZZZZ Detoxification Services for Substance Abuse Treatment (ICD-10-PCS; principal; 2019-09-11)
DX: F10.230 Alcohol dependence with withdrawal, uncomplicated (principal); F14.20 Cocaine dependence, uncomplicated; F17.210 Nicotine dependence, cigarettes, uncomplicated; F10.24 Alcohol dependence with alcohol-induced mood disorder; I25.10 Atherosclerotic heart disease of native coronary artery without angina pectoris; I10 Essential (primary) hypertension; Z95.1 Presence of aortocoronary bypass graft; Z95.5 Presence of coronary angioplasty implant and graft; E78.5 Hyperlipidemia, unspecified; H91.90 Unspecified hearing loss, unspecified ear; I69.828 Other speech and language deficits following other cerebrovascular disease; I69.854 Hemiplegia and hemiparesis following other cerebrovascular disease affecting left non-dominant side; Z98.890 Other specified postprocedural states
CPT/HCPCS: 36415; 80048; 80053; 81025; 85027; 86593

== ENCOUNTER 2020-05-24 23:28 | Emergency (ER) | payer OTHER ==
[2020-05-24 23:37] VITALS: BMI 28.3
--- OUTSIDE RECORDS SUMMARY | 2020-05-24 23:45 | XMS ---
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 Document(s ) Cannabinoids <content Saint [Presence] in styleCode="[facility] Urine by Screen d">Cannabinoid Medical method >50 ng/mL s Center </content>NEGA TIVE NG/ML (Reference Range: not available)<br/ > ID Date Data Source Liver 08/06/2019 01:05:[address] [facility] Profile.[id number] Name Value Range Interpretation Description Data Sup porting Code Source(s) Document(s ) Aspartate 14-36 <content [facility] aminotransferase styleCode="Bold"> Ch[place]ag hs [Enzymatic Aspartate Medical activity/volume] Aminotransferase Center in Serum or Plasma (AST) </content>22 IU/L<content styleCode="Italic s"> (14-36 IU/L)</content> Alanine 7-30 <content [facility] aminotransferase styleCode="Bold"> [place] hs [Enzymatic Alanine Medical activity/volume] Aminotransferase Center in Serum or Plasma (ALT) </content>11 IU/L<content styleCode="Italic s"> (7-30 IU/L)</content> Alkaline 38-126 <content [facility] phosphatase styleCode="Bold"> Abram [Enzymatic Alkaline Medical activity/volume] Phosphatase (ALP) Cente r in Serum or Plasma </content>77 IU/L<content styleCode="Italic s"> (38-126 IU/L)</content> Albumin 3.5-5.0 <content [facility] [Mass/volume] in styleCode="Bold"> [place] hs Serum or Plasma Albumin Medical </content>4.2 Center G/DL<content styleCode="Italic s"> (3.5-5.0 G/DL)</content> Bilirubin.total 0.2-1.3 Below low <content [facility] [Mass/volume] in normal styleCode="Bold"> [place] hs Serum or Plasma Bilirubin Total Medical </content>< 0.2 Center MG/DL L<content styleCode="Italic s"> (0.2-1.3 MG/DL)</content> ID Date Data Source HematologyRou.[id number] 08/06/2019 01:05:00 AM PAULA Graham [facility] 0500 Name Value Range Interpretation Description Data Sup porting Code Source(s) Document(s ) Hemoglobin 12.3-16. <content Saint [Mass/volume] in 0 styleCode="Bold [facility] Blood ">Hemoglobin Medical </content>13.2 Center G/DL<content styleCode="Ital ics"> (12.3-16.0 G/DL)</content> Erythrocytes 4.0-5.1 <content Saint [#/volume] in styleCode="Bold [facility] Blood by ">Red Blood Medical Automated count Cell Count Center </content>4.46 MCUMM<content styleCode="Ital ics"> (4.0-5.1 MCUMM)</content > Leukocytes 4.4-11.0 <content Saint [#/volume] in styleCode="Bold [facility] Blood by ">White Blood Medical Automated count Cell Count Center </content>9.34 KCUMM<content styleCode="Ital ics"> (4.4-11.0 KCUMM)</content > Hematocrit 36.0-46. <content [facility] [Volume 0 styleCode="Bold Abram Fraction] of ">Hematocrit Medical Blood by </content>40.4 Center Automated count %<content styleCode="Ital ics"> (36.0-46.0 %)</content> Erythrocyte mean 80.0-100 <content [facility] corpuscular .0 styleCode="Bold Abram volume [Entitic ">Mean Medical volume] by Corpuscular Center Automated count Volume </content>90.6 FL<content styleCode="Ital ics"> (80.0-100.0 FL)</content> Erythrocyte mean 26.0-34. <content [facility] corpuscular 0 styleCode="Bold Abram hemoglobin ">Mean Medical [Entitic mass] Corposcular Center by Automated Hemoglobin count </content>29.6 PG<content styleCode="Ital ics"> (26.0-34.0 PG)</content> Erythrocyte mean 32.0-37. <content [facility] corpuscular 0 styleCode="Bold Abram hemoglobin ">Mean Corpus. Medical concentration Hgb Center [Mass/volume] by Concentration Automated count (MCHC) </content>32.7 G/DL<content styleCode="Ital ics"> (32.0-37.0 G/DL)</content> Platelets 130-400 <content [facility] [#/volume] in styleCode="Bold [facility] Blood by ">Platelet Medical Automated count Count Center </content>304 KCUMM<content styleCode="Ital ics"> (130-400 KCUMM)</content > UNK 0 <content Saint styleCode="Bold Abram ">Nucleated Red Medical Blood Cell Center </content>0.0 /100<content styleCode="Ital ics"> (0 /100)</content> Erythrocyte 11.5-14. <content [facility] distribution 5 styleCode="Bold Abram width [Ratio] by ">Red Cell Medical Automated count Distribution Center Width </content>14.4 %<content styleCode="Ital ics"> (11.5-14.5 %)</content> Platelet mean 8.0-11.0 Above high <content [facility] volume [Entitic normal styleCode="Bold Abram volume] in Blood ">Mean Platelet Medical by Automated Volume Center count </content>11.6 FL H<content styleCode="Ital ics"> (8.0-11.0 FL)</content> UNK 0.0 <content Saint styleCode="Bold Abram ">Nucleated Red Medical Blood Cell Center Count </content>0.00 KCUMM<content styleCode="Ital ics"> (0.0 KCUMM)</content > ID Date Data Source GFR(Creatinine).[id number] 08/06/2019 01:05:00 AM [facility] 0-0500 Name Value Range Interpretation Code Description Data Maria Esther rce(s) Supporting Document(s ) UNK > 60 Below low normal <content [facility] styleCode="Bold"> Medical Cent er EGFR </content>53 GFR L<content styleCode="Italic s"> (> 60 GFR)</content> ID Date Data Source CHMROUTINECCDA.[id number] 08/06/2019 01:05:00 AM [facility] -0500 Name Value Range Interpretation Description Data Sup porting Code Source(s) Document(s ) UNK NEGATIVE <content Saint styleCode="Bold Abram ">Acetone Medical </content>NEGAT Center NICO <content styleCode="Ital ics"> (NEGATIVE )</content> UNK 2.3-3.5 <content [facility] styleCode="Bold Abram ">Globulin Medical </content>3.3 Center G/DL<content styleCode="Ital ics"> (2.3-3.5 G/DL)</content> Lipase 23-300 <content Saint [Enzymatic styleCode="Bold Abram activity/vo ">Lipase Medical lume] in </content>206 Center Serum or IU/L<content Plasma styleCode="Ital ics"> (23-300 IU/L)</content> UNK >= 1.0 <content Saint styleCode="Bold Abram ">AG Ratio Medical </content>1.3 Center <content styleCode="Ital ics"> (>= 1.0 )</content> Protein 6.3-8.2 <content [facility] [Mass/volum styleCode="Bold Abram e] in Serum ">Total Protein Medical or Plasma </content>7.5 Center G/DL<content styleCode="Ital ics"> (6.3-8.2 G/DL)</content> ID Date Data Source CardiacMarkers.[id number] 08/06/2019 01:05:00 AM PAULA Graham [facility] -0500 Name Value Range Interpretation Description Data Sup porting Code Source(s) Document(s ) Troponin < 0.034 <content Saint I.cardiac styleCode="Bold Abram [Mass/volume ">Troponin I Medical ] in Serum </content>< Center or Plasma 0.012 NG/ML<content styleCode="Ital ics"> (< 0.034 NG/ML)</content > ID Date Data Source [facility].[id number] 08/06/2019 01:05:00 AM EST [facility] Name Value Range Interpretation Description Data Sup porting Code Source(s) Document(s ) Sodium 137-145 <content Saint [Moles/volume] in styleCode="Bold"> [facility] Serum or Plasma Sodium Medical </content>143 Center MEQ/L<content styleCode="Italic s"> (137-145 MEQ/L)</content> Carbon dioxide, 22-30 <content [facility] total styleCode="Bold"> Abram [Moles/volume] in Carbon Dioxide Medical Serum or Plasma </content>24 Center MEQ/L<content styleCode="Italic s"> (22-30 MEQ/L)</content> Chloride 98-107 Above high <content [facility] [Moles/volume] in normal styleCode="Bold"> [facility] Serum or Plasma Chloride Medical </content>111 Center MEQ/L H<content styleCode="Italic s"> (98-107 MEQ/L)</content> Potassium 3.5-5.3 <content [facility] [Moles/volume] in styleCode="Bold"> [facility] Serum or Plasma Potassium Medical </content>3.8 Center MEQ/L<content styleCode="Italic s"> (3.5-5.3 MEQ/L)</content> UNK 7-17 Above high <content [facility] normal styleCode="Bold"> Abram BUN </content>32 Medical MG/DL H<content Center styleCode="Italic s"> (7-17 MG/DL)</content> UNK > 60 Below low <content [facility] normal styleCode="Bold"> Abram EGFR </content>53 Medical GFR L<content Center styleCode="Italic s"> (> 60 GFR)</content> Creatinine 0.5-1.3 <content [facility] [Mass/volume] in styleCode="Bold"> [place] hs Serum or Plasma Creatinine Medical </content>1.3 Center MG/DL<content styleCode="Italic s"> (0.5-1.3 MG/DL)</content> Aspartate 14-36 <content [facility] aminotransferase styleCode="Bold"> [place] hs [Enzymatic Aspartate Medical activity/volume] Aminotransferase Center in Serum or Plasma (AST) </content>22 IU/L<content styleCode="Italic s"> (14-36 IU/L)</content> Glucose 74-106 Below low <content [facility] [Mass/volume] in normal styleCode="Bold"> [place] hs Serum or Plasma Glucose Medical </content>52 Center MG/DL L<content styleCode="Italic s"> (74-106 MG/DL)</content> Calcium 8.4-10. <content [facility] [Mass/volume] in 2 styleCode="Bold"> [place] hs Serum or Plasma Calcium Medical </content>9.4 Center MG/DL<content styleCode="Italic s"> (8.4-10.2 MG/DL)</content> Albumin 3.5-5.0 <content [facility] [Mass/volume] in styleCode="Bold"> [place] hs Serum or Plasma Albumin Medical </content>4.2 Center G/DL<content styleCode="Italic s"> (3.5-5.0 G/DL)</content> Bilirubin.total 0.2-1.3 Below low <content [facility] [Mass/volume] in normal styleCode="Bold"> [place] hs Serum or Plasma Bilirubin Total Medical </content>< 0.2 Center MG/DL L<content styleCode="Italic s"> (0.2-1.3 MG/DL)</content> Alkaline 38-126 <content [facility] phosphatase styleCode="Bold"> Abram [Enzymatic Alkaline Medical activity/volume] Phosphatase (ALP) Cente r in Serum or Plasma </content>77 IU/L<content styleCode="Italic s"> (38-126 IU/L)</content> Alanine 7-30 <content [facility] aminotransferase styleCode="Bold"> [place] hs [Enzymatic Alanine Medical activity/volume] Aminotransferase Center in Serum or Plasma (ALT) </content>11 IU/L<content styleCode="Italic s"> (7-30 IU/L)</content> ID Date Data Source Urinalysis.[id number] 07/21/2019 08:48:00 PM EST [facility] 0 Name Value Range Interpretation Description Data Sup porting Code Source(s) Document(s ) Color of Urine YELLOW <content Saint styleCode="Sarthak Abram d">Color, Medical Urine Center </content>YELL OW <content styleCode="Melanie lics"> (YELLOW )</content> UNK NEGATIVE <content Saint styleCode="Sarthak Abram d">Urine Medical Bilirubin Center </content>NEGA TIVE <content styleCode="Melanie lics"> (NEGATIVE )</content> UNK CLEAR <content Saint styleCode="Sarthak Abram d">Urine Medical Clarity Center </content>YULY R <content styleCode="Melanie lics"> (CLEAR )</content> Glucose NEGATIVE <content Saint [Mass/volume] styleCode="Sarthak Valverde in Urine by d">Urine Medical Test strip Glucose Center </content>NEGA TIVE MG/DL<content styleCode="Melanie lics"> (NEGATIVE MG/DL)</conten t> Hemoglobin NEGATIVE <content [facility] [Presence] in styleCode="Sarthak Hernandezs Urine by Test d">Urine Blood Medical strip </content>TRAC Center E <content styleCode="Melanie lics"> (NEGATIVE )</content> Ketones NEGATIVE <content [facility] [Mass/volume] styleCode="Sarthak Abram in Urine by d">Urine Medical Test strip Ketone Center </content>NEGA TIVE MG/DL<content styleCode="Melanie lics"> (NEGATIVE MG/DL)</conten t> Specific 1.015-1.02 <content Saint gravity of 5 styleCode="Sarthak Hernandezs Urine by Test d">Urine Medical strip Specific Center [place] </content>1.02 5 <content styleCode="Melanie lics"> (1.015-1.025 )</content> Protein NEGATIVE <content Saint [Mass/volume] styleCode="Sarthak Abram in Urine by d">Urine Medical Test strip Protein Center </content>NEGA TIVE MG/DL<content styleCode="Melanie lics"> (NEGATIVE MG/DL)</conten t> Urobilinogen 0.2-1.0 <content Saint [Units/volume] styleCode="Sarthak Abram in Urine by d">Urine Medical Test strip Urobilinogen Center </content>0.2 MG/DL<content styleCode="Melanie lics"> (0.2-1.0 MG/DL)</conten t> pH of Urine by 4.5-8.0 <content Saint Test strip styleCode="Sarthak Abram d">Urine pH Medical </content>5.5 Center <content styleCode="Melanie lics"> (4.5-8.0 )</content> Nitrite NEGATIVE <content [facility] [Presence] in styleCode="Sarthak Hernandezs Urine by Test d">Urine Medical strip Nitrite Center </content>NEGA TIVE <content styleCode="Melanie lics"> (NEGATIVE )</content> UNK NEGATIVE <content Saint styleCode="Sarthak Abram d">Urine Medical Bacteria Center </content>FEW HPF<content styleCode="Melanie lics"> (NEGATIVE HPF)</content> UNK 0-3 <content Saint styleCode="Sarthak Hernandezs d">Urine White Medical Blood Cell Center </content>3-5 HPF<content styleCode="Melanie lics"> (0-3 HPF)</content> UNK 0-3 <content Saint styleCode="Sarthak Hernanedzs d">Urine Red Medical Blood Cell Center </content>3-5 HPF<content styleCode="Melanie lics"> (0-3 HPF)</content> Leukocyte NEGATIVE <content Saint esterase styleCode="Sarthak Valverde [Presence] in d">Urine Medical Urine by Test Leukocyte Center strip </content>TRAC E <content styleCode="Melanie lics"> (NEGATIVE )</content> UNK NONE SEEN <content Saint styleCode="Sarthak Hernandezs d">Urine Mucus Medical </content>MODE Center RATE HPF<content styleCode="Melanie lics"> (NONE SEEN HPF)</content> UNK NONE SEEN <content Saint styleCode="Sarthak Hernandezs d">Epithelial Medical Cell Center </content>5 - 10 HPF<content styleCode="Melanie lics"> (NONE SEEN HPF)</content> ID Date Data Source CHMROUTINECCDA.[id number] 07/21/2019 08:48:00 PM [facility] -0500 Name Value Range Interpretation Description Data Sup porting Code Source(s) Document(s ) Cannabinoids <content [facility] [Presence] in styleCode="Sarthak Valverde Urine by Screen d">Cannabinoid Medical method >50 ng/mL s Center </content>NEGA TIVE NG/ML (Reference Range: not available)<br/ > ID Date Data Source Liver 07/21/2019 08:40:[address] [facility] Profile.[id number] Name Value Range Interpretation Description Data Sup porting Code Source(s) Document(s ) Alanine 7-30 <content [facility] aminotransferase styleCode="Bold"> [place] hs [Enzymatic Alanine Medical activity/volume] Aminotransferase Center in Serum or Plasma (ALT) </content>10 IU/L<content styleCode="Italic s"> (7-30 IU/L)</content> UNK 0.0-0.3 <content Saint styleCode="Bold"> Abram Bilirubin, Direct Medical </content>< 0.2 Center MG/DL<content styleCode="Italic s"> (0.0-0.3 MG/DL)</content> Bilirubin.total 0.2-1.3 <content [facility] [Mass/volume] in styleCode="Bold"> [place] hs Serum or Plasma Bilirubin Total Medical </content>0.3 Center MG/DL<content styleCode="Italic s"> (0.2-1.3 MG/DL)</content> Aspartate 14-36 <content [facility] aminotransferase styleCode="Bold"> [place]irag hs [Enzymatic Aspartate Medical activity/volume] Aminotransferase Center in Serum or Plasma (AST) </content>21 IU/L<content styleCode="Italic s"> (14-36 IU/L)</content> Alkaline 38-126 <content [facility] phosphatase styleCode="Bold"> Abram [Enzymatic Alkaline Medical activity/volume] Phosphatase (ALP) Cente r in Serum or Plasma </content>71 IU/L<content styleCode="Italic s"> (38-126 IU/L)</content> Albumin 3.5-5.0 <content [facility] [Mass/volume] in styleCode="Bold"> Ch[place]ag hs Serum or Plasma Albumin Medical </content>4.1 Center G/DL<content styleCode="Italic s"> (3.5-5.0 G/DL)</content> ID Date Data Source LIPID.[id number] 07/21/2019 08:40:00 PM EST [facility] Name Value Range Interpretation Description Data Sup porting Code Source(s) Document(s ) Triglyceride < 150 <content Saint [Mass/volume] in styleCode="Sarthak Abram Serum or Plasma d">Triglycerid [facility] Center </content>62 MG/DL<content styleCode="Melanie lics"> (< 150 MG/DL)</conten t> Cholesterol -<200 Above high normal <content Saint [Mass/volume] in styleCode="Sarthak Abram Serum or Plasma d">Cholesterol Medical </content>200 Center MG/DL H<content styleCode="Melanie lics"> (-<200 MG/DL)</conten t> UNK > 60 <content Saint styleCode="[facility] d">HDL- Medical Cholesterol Center </content>104 MG/DL<content styleCode="Melanie lics"> (> 60 MG/DL)</conten t> UNK < 100 <content Saint styleCode="[facility] d">LDL-Cholest Medical ai Center </content>84 MG/DL<content styleCode="Melanie lics"> (< 100 MG/DL)</conten t> ID Date Data Source HematologyRou.[id number] 07/21/2019 08:40:00 PM PAULA Graham [facility] 0500 Name Value Range Interpretation Description Data Sup porting Code Source(s) Document(s ) Leukocytes 4.4-11.0 <content Saint [#/volume] in styleCode="Bold Abram Blood by ">White Blood Medical Automated count Cell Count Center </content>6.27 KCUMM<content styleCode="Ital ics"> (4.4-11.0 KCUMM)</content > Erythrocytes 4.0-5.1 <content Saint [#/volume] in styleCode="Bold Abram Blood by ">Red Blood Medical Automated count Cell Count Center </content>4.68 MCUMM<content styleCode="Ital ics"> (4.0-5.1 MCUMM)</content > Hemoglobin 12.3-16. <content [facility] [Mass/volume] in 0 styleCode="Bold Abram Blood ">Hemoglobin Medical </content>13.5 Center G/DL<content styleCode="Ital ics"> (12.3-16.0 G/DL)</content> Hematocrit 36.0-46. <content Saint [Volume 0 styleCode="Bold Abram Fraction] of ">Hematocrit Medical Blood by </content>42.4 Center Automated count %<content styleCode="Ital ics"> (36.0-46.0 %)</content> Erythrocyte 11.5-14. Above high <content Saint distribution 5 normal styleCode="Bold Abram width [Ratio] by ">Red Cell Medical Automated count Distribution Center Width </content>14.6 % H<content styleCode="Ital ics"> (11.5-14.5 %)</content> Erythrocyte mean 80.0-100 <content Saint corpuscular .0 styleCode="Bold Abram volume [Entitic ">Mean Medical volume] by Corpuscular Center Automated count Volume </content>90.6 FL<content styleCode="Ital ics"> (80.0-100.0 FL)</content> Erythrocyte mean 26.0-34. <content [facility] corpuscular 0 styleCode="Bold Abram hemoglobin ">Mean Medical [Entitic mass] Corposcular Center by Automated Hemoglobin count </content>28.8 PG<content styleCode="Ital ics"> (26.0-34.0 PG)</content> Erythrocyte mean 32.0-37. Below low normal <content [facility] corpuscular 0 styleCode="Bold Abram hemoglobin ">Mean Corpus. Medical concentration Hgb Center [Mass/volume] by Concentration Automated count (MCHC) </content>31.8 G/DL L<content styleCode="Ital ics"> (32.0-37.0 G/DL)</content> Platelets 130-400 <content Saint [#/volume] in styleCode="Bold Abram Blood by ">Platelet Medical Automated count Count Center </content>254 KCUMM<content styleCode="Ital ics"> (130-400 KCUMM)</content > UNK 0.0 <content Saint styleCode="Bold Abram ">Nucleated Red Medical Blood Cell Center Count </content>0.00 KCUMM<content styleCode="Ital ics"> (0.0 KCUMM)</content > UNK 0 <content Saint styleCode="Bold Abram ">Nucleated Red Medical Blood Cell Center </content>0.0 /100<content styleCode="Ital ics"> (0 /100)</content> Platelet mean 8.0-11.0 Above high <content Saint volume [Entitic normal styleCode="Bold Abram volume] in Blood ">Mean Platelet Medical by Automated Volume Center count </content>11.6 FL H<content styleCode="Ital ics"> (8.0-11.0 FL)</content> ID Date Data Source GFR(Creatinine).[id number] 07/21/2019 08:40:00 PM [facility] 0-0500 Name Value Range Interpretation Code Description Data Maria Esther rce(s) Supporting Document(s ) UNK > 60 Below low normal <content [facility] styleCode="Bold"> Medical Cent er EGFR </content>42 GFR L<content styleCode="Italic s"> (> 60 GFR)</content> ID Date Data Source CHMROUTINECCDA.[id number] 07/21/2019 08:40:00 PM [facility] -0500 Name Value Range Interpretation Code Description Data Maria Esther rce(s) Supporting Document(s ) UNK 4.2-5.8 <content [facility] styleCode="Bold" Medical Cente r >Hemoglobin A1C </content>5.8 %<content styleCode="Itali cs"> (4.2-5.8 %)</content> ID Date Data Source [facility].[id number] 07/21/2019 08:40:00 PM [facility] Name Value Range Interpretation Description Data Sup porting Code Source(s) Document(s ) Chloride 98-107 Above high <content Saint [Moles/volume] in normal styleCode="Bold"> [facility] Serum or Plasma Chloride Medical </content>108 Center MEQ/L H<content styleCode="Italic s"> (98-107 MEQ/L)</content> Sodium 137-145 <content Saint [Moles/volume] in styleCode="Bold"> [facility] Serum or Plasma Sodium Medical </content>142 Center MEQ/L<content styleCode="Italic s"> (137-145 MEQ/L)</content> Potassium 3.5-5.3 <content Saint [Moles/volume] in styleCode="Bold"> [facility] Serum or Plasma Potassium Medical </content>4.1 Center MEQ/L<content styleCode="Italic s"> (3.5-5.3 MEQ/L)</content> Creatinine 0.5-1.3 Above high <content [facility] [Mass/volume] in normal styleCode="Bold"> Chirag hs Serum or Plasma Creatinine Medical </content>1.6 Center MG/DL H<content styleCode="Italic s"> (0.5-1.3 MG/DL)</content> Glucose 74-106 <content [facility] [Mass/volume] in styleCode="Bold"> Chirag hs Serum or Plasma Glucose Medical </content>88 Center MG/DL<content styleCode="Italic s"> (74-106 MG/DL)</content> Calcium 8.4-10. <content [facility] [Mass/volume] in 2 styleCode="Bold"> Chirag hs Serum or Plasma Calcium Medical </content>9.3 Center MG/DL<content styleCode="Italic s"> (8.4-10.2 MG/DL)</content> UNK 7-17 Above high <content Saint normal styleCode="Bold"> Abram BUN </content>30 Medical MG/DL H<content Center styleCode="Italic s"> (7-17 MG/DL)</content> Carbon dioxide, 22-30 <content [facility] total styleCode="Bold"> Abram [Moles/volume] in Carbon Dioxide Medical Serum or Plasma </content>25 Center MEQ/L<content styleCode="Italic s"> (22-30 MEQ/L)</content> UNK > 60 Below low <content [facility] normal styleCode="Bold"> Abram EGFR </content>42 Medical GFR L<content Center styleCode="Italic s"> (> 60 GFR)</content> Alkaline 38-126 <content [facility] phosphatase styleCode="Bold"> Abram [Enzymatic Alkaline Medical activity/volume] Phosphatase (ALP) Cente r in Serum or Plasma </content>71 IU/L<content styleCode="Italic s"> (38-126 IU/L)</content> Alanine 7-30 <content [facility] aminotransferase styleCode="Bold"> Chirag hs [Enzymatic Alanine Medical activity/volume] Aminotransferase Center in Serum or Plasma (ALT) </content>10 IU/L<content styleCode="Italic s"> (7-30 IU/L)</content> Aspartate 14-36 <content [facility] aminotransferase styleCode="Bold"> Chirag hs [Enzymatic Aspartate Medical activity/volume] Aminotransferase Center in Serum or Plasma (AST) </content>21 IU/L<content styleCode="Italic s"> (14-36 IU/L)</content> Bilirubin.total 0.2-1.3 <content [facility] [Mass/volume] in styleCode="Bold"> Chirag hs Serum or Plasma Bilirubin Total Medical </content>0.3 Center MG/DL<content styleCode="Italic s"> (0.2-1.3 MG/DL)</content> Albumin 3.5-5.0 <content Saint [Mass/volume] in styleCode="Bold"> Chirag hs Serum or Plasma Albumin Medical </content>4.1 Center G/DL<content styleCode="Italic s"> (3.5-5.0 G/DL)</content> ID Date Data Source LIPID.[id number] 07/19/2019 02:50:00 PM EST [facility] Name Value Range Interpretation Description Data Sup porting Code Source(s) Document(s ) Triglyceride < 150 <content Saint [Mass/volume] in styleCode="[facility] Serum or Plasma d">Triglycerid [facility] Center </content>84 MG/DL<content styleCode="Melanie lics"> (< 150 MG/DL)</conten t> Cholesterol -<200 <content Saint [Mass/volume] in styleCode="Sarthak Abram Serum or Plasma d">Cholesterol Medical </content>198 Center MG/DL<content styleCode="Melanie lics"> (-<200 MG/DL)</conten t> UNK < 100 <content Saint styleCode="Sarthak Abram d">LDL-Cholest [facility] ai Center </content>93 MG/DL<content styleCode="Melanie lics"> (< 100 MG/DL)</conten t> UNK > 60 <content Saint styleCode="Sarthak Abram d">HDL- Medical Cholesterol Center </content>88 MG/DL<content styleCode="Melanie lics"> (> 60 MG/DL)</conten t> ID Date Data Source HematologyRou.[id number] 07/19/2019 02:50:00 PM PAULA Graham [facility] 0500 Name Value Range Interpretation Description Data Sup porting Code Source(s) Document(s ) Leukocytes 4.4-11.0 <content Saint [#/volume] in styleCode="Bold Abram Blood by ">White Blood Medical Automated count Cell Count Center </content>7.13 KCUMM<content styleCode="Ital ics"> (4.4-11.0 KCUMM)</content > Erythrocytes 4.0-5.1 <content Saint [#/volume] in styleCode="Bold Abram Blood by ">Red Blood Medical Automated count Cell Count Center </content>4.39 MCUMM<content styleCode="Ital ics"> (4.0-5.1 MCUMM)</content > Erythrocyte mean 26.0-34. <content [facility] corpuscular 0 styleCode="Bold Abram hemoglobin ">Mean Medical [Entitic mass] Corposcular Center by Automated Hemoglobin count </content>29.2 PG<content styleCode="Ital ics"> (26.0-34.0 PG)</content> Hemoglobin 12.3-16. <content Saint [Mass/volume] in 0 styleCode="Bold Abram Blood ">Hemoglobin Medical </content>12.8 Center G/DL<content styleCode="Ital ics"> (12.3-16.0 G/DL)</content> Hematocrit 36.0-46. <content Saint [Volume 0 styleCode="Bold Abram Fraction] of ">Hematocrit Medical Blood by </content>39.3 Center Automated count %<content styleCode="Ital ics"> (36.0-46.0 %)</content> Erythrocyte mean 32.0-37. <content [facility] corpuscular 0 styleCode="Bold Abram hemoglobin ">Mean Corpus. Medical concentration Hgb Center [Mass/volume] by Concentration Automated count (MCHC) </content>32.6 G/DL<content styleCode="Ital ics"> (32.0-37.0 G/DL)</content> Erythrocyte mean 80.0-100 <content [facility] corpuscular .0 styleCode="Bold Abram volume [Entitic ">Mean Medical volume] by Corpuscular Center Automated count Volume </content>89.5 FL<content styleCode="Ital ics"> (80.0-100.0 FL)</content> Platelet mean 8.0-11.0 Above high <content Saint volume [Entitic normal styleCode="Bold Abram volume] in Blood ">Mean Platelet Medical by Automated Volume Center count </content>11.7 FL H<content styleCode="Ital ics"> (8.0-11.0 FL)</content> Platelets 130-400 <content Saint [#/volume] in styleCode="Bold Abram Blood by ">Platelet Medical Automated count Count Center </content>252 KCUMM<content styleCode="Ital ics"> (130-400 KCUMM)</content > Erythrocyte 11.5-14. <content Saint distribution 5 styleCode="Bold Abram width [Ratio] by ">Red Cell Medical Automated count Distribution Center Width </content>14.5 %<content styleCode="Ital ics"> (11.5-14.5 %)</content> UNK 0 <content Saint styleCode="Bold Abram ">Nucleated Red Medical Blood Cell Center </content>0.0 /100<content styleCode="Ital ics"> (0 /100)</content> UNK 0.0 <content Saint styleCode="Bold Abram ">Nucleated Red Medical Blood Cell Center Count </content>0.00 KCUMM<content styleCode="Ital ics"> (0.0 KCUMM)</content > ID Date Data Source GFR(Creatinine).[id number] 07/19/2019 02:50:00 PM EST Santos [facility] 0-0500 Name Value Range Interpretation Code Description Data Maria Esther rce(s) Supporting Document(s ) UNK > 60 Below low normal <content [facility] styleCode="Bold"> Medical Cent er EGFR </content>53 GFR L<content styleCode="Italic s"> (> 60 GFR)</content> ID Date Data Source Coagulation 07/19/2019 02:50:00 PM [facility] ical Center Rout.[id number] EST Name Value Range Interpretation Description Data Sup porting Code Source(s) Document(s ) aPTT in 25.1-36. <content Saint Platelet poor 5 styleCode="Bold" Abram plasma by >Partial Medical Coagulation Thromboplastin Center assay Time </content>30.7 SEC<content styleCode="Itali cs"> (25.1-36.5 SEC)</content> INR in 0.80-1.2 <content [facility] Platelet poor 0 styleCode="Bold" Abram plasma by >INR Medical Coagulation </content>0.98 Center assay #<content styleCode="Itali cs"> (0.80-1.20 #)</content> UNK 9.0-13.0 <content Saint styleCode="Bold" Abram >Protime Medical </content>10.9 Center SEC<content styleCode="Itali cs"> (9.0-13.0 SEC)</content> ID Date Data Source CHMROUTINECCDA.[id number] 07/19/2019 02:50:00 PM EST [facility] -0500 Name Value Range Interpretation Description Data Sup porting Code Source(s) Document(s ) Natriuretic < 125 Above high normal <content Saint peptide.B styleCode="Sarthak Abram prohormone d">NT Pro BNP Medical N-Terminal </content>465 Center [Mass/volume] PG/ML in Serum or H<content Plasma styleCode="Melanie lics"> (< 125 PG/ML)</conten t> ID Date Data Source CardiacMarkers.[id number] 07/19/2019 02:50:00 PM EST [facility] -0500 Name Value Range Interpretation Description Data Sup porting Code Source(s) Document(s ) Troponin < 0.034 <content Saint I.cardiac styleCode="Bold Abram [Mass/volume ">Troponin I Medical ] in Serum </content>0.013 Center or Plasma NG/ML<content styleCode="Ital ics"> (< 0.034 NG/ML)</content > ID Date Data Source [facility].[id number] 07/19/2019 02:50:00 PM EST [facility] Name Value Range Interpretation Description Data Sup porting Code Source(s) Document(s ) Sodium 137-145 <content Saint [Moles/volume] styleCode="Sarthak Abram in Serum or d">Sodium Medical Plasma </content>139 Center MEQ/L<content styleCode="Melanie lics"> (137-145 MEQ/L)</conten t> Potassium 3.5-5.3 <content Saint [Moles/volume] styleCode="Sarthak Abram in Serum or d">Potassium Medical Plasma </content>4.3 Center MEQ/L<content styleCode="Melanie lics"> (3.5-5.3 MEQ/L)</conten t> Creatinine 0.5-1.3 <content Saint [Mass/volume] styleCode="Sarthak Abram in Serum or d">Creatinine Medical Plasma </content>1.3 Center MG/DL<content styleCode="Melanie lics"> (0.5-1.3 MG/DL)</conten t> Chloride 98-107 <content [facility] [Moles/volume] styleCode="Sarthak Abram in Serum or d">Chloride Medical Plasma </content>106 Center MEQ/L<content styleCode="Melanie lics"> (98-107 MEQ/L)</conten t> UNK 7-17 Above high normal <content Saint styleCode="Sarthak Abram d">BUN Medical </content>25 Center MG/DL H<content styleCode="Melanie lics"> (7-17 MG/DL)</conten t> Glucose 74-106 <content Saint [Mass/volume] styleCode="Sarthak Abram in Serum or d">Glucose Medical Plasma </content>98 Center MG/DL<content styleCode="Melanie lics"> (74-106 MG/DL)</conten t> Carbon 22-30 <content Saint dioxide, total styleCode="Sarthak Hernandezs [Moles/volume] d">Carbon Medical in Serum or Dioxide Center Plasma </content>25 MEQ/L<content styleCode="Melanie lics"> (22-30 MEQ/L)</conten t> Calcium 8.4-10.2 <content [facility] [Mass/volume] styleCode="Sarthak Abram in Serum or d">Calcium Medical Plasma </content>9.5 Center MG/DL<content styleCode="Melanie lics"> (8.4-10.2 MG/DL)</conten t> UNK > 60 Below low normal <content Saint styleCode="Sarthak Abram d">EGFR Medical </content>53 Center GFR L<content styleCode="Melanie lics"> (> 60 GFR)</content> Procedure Social History Code Duration Value Status Description Data Source(s ) Smoking 11/12/2019 07:37:00 Daily Smoker completed Daily Smoker S [facility] EDT Center Smoking 11/12/2019 05:41:00 Daily Smoker completed Daily Smoker S [facility] EDT Center Smoking 08/06/2019 09:39:00 Daily Smoker completed Daily Smoker S [facility] EST Center Smoking 08/06/2019 06:21:00 Daily Smoker completed Daily Smoker S [facility] EST Center Smoking 08/05/2019 11:59:00 Daily Smoker completed Daily Smoker S [facility] EST Center Smoking 08/05/2019 11:42:00 Daily Smoker completed Daily Smoker S [facility] EST Center Smoking 07/30/2019 06:02:00 Daily Smoker completed Daily Smoker S [facility] EST Center Smoking 07/30/2019 05:03:00 Daily Smoker completed Daily Smoker S [facility] EST Center Smoking 07/30/2019 04:44:00 Daily Smoker completed Daily Smoker S [facility] EST Center Smoking 07/21/2019 08:53:00 Daily Smoker completed Daily Smoker S [facility] EST Center Smoking 07/21/2019 08:28:00 Daily Smoker completed Daily Smoker S [facility] EST Center Smoking 07/21/2019 08:11:00 Daily Smoker completed Daily Smoker S [facility] EST Center Smoking 07/19/2019 02:07:00 Daily Smoker completed Daily Smoker S [facility] EST Center Smoking 07/19/2019 02:00:00 Daily Smoker completed Daily Smoker S [facility] EST Center Smoking 07/19/2019 01:52:00 Daily Smoker completed Daily Smoker S [facility] EST Center Smoking 07/18/2019 08:00:00 Daily Smoker completed Daily Smoker S [facility] EST Center Smoking 07/18/2019 07:35:00 Daily Smoker completed Daily Smoker S [facility] EST Center Smoking 07/18/2019 07:33:00 Daily Smoker completed Daily Smoker S [facility] EST Center Smoking 07/08/2019 08:44:00 Daily Smoker completed Daily Smoker S [facility] EST Center Smoking 07/08/2019 08:30:00 Daily Smoker completed Daily Smoker S [facility] EST Center Smoking 07/08/2019 08:25:00 Daily Smoker completed Daily Smoker S [facility] EST Center Smoking 07/04/2019 09:29:00 Daily Smoker completed Daily Smoker S [facility] EST Center Smoking 06/06/2019 07:56:00 Daily Smoker completed Daily Smoker S [facility] EDT Center Smoking 05/13/2019 03:04:00 Daily Smoker completed Daily Smoker S [facility] EDT Center Smoking 05/13/2019 01:58:00 Daily Smoker completed Daily Smoker S [facility] EDT Center Smoking 05/13/2019 01:42:00 Daily Smoker completed Daily Smoker S [facility] EDT Center Smoking 04/19/2019 05:34:00 Daily Smoker completed Daily Smoker S [facility] EDT Center Vital Signs ID Date Data Source UNK Name Value Range Interpretation Code Description Data Source(s) Body temperature 36.534908 Harmony 36.014593 Harmony [facility] Respiratory rate 18 /min 18 /min [facility] Oxygen 96 % 96 % [facility] saturation in Medical Arterial blood Center by Pulse oximetry Heart rate 85 /min 85 /min [facility] Diastolic blood 103 mm[Hg] 103 mm[Hg] [facility] Medical Center Systolic blood 159 mm[Hg] 159 mm[Hg] [facility] Medical Center Diastolic blood 88 mmHg 88 mmHg [facility] Systolic blood 152 mmHg 152 mmHg [facility] Respiratory rate 18 bpm 18 bpm [facility] Heart rate 63 bpm 63 bpm [facility] Body temperature 96.9 Fahrenheit 96.9 Fahrenhei t [facility] Diastolic blood 88 mmHg 88 mmHg [facility] Systolic blood 152 mmHg 152 mmHg [facility] Respiratory rate 18 bpm 18 bpm [facility] Heart rate 63 bpm 63 bpm [facility] Body temperature 96.9 Fahrenheit 96.9 Fahrenhei t [facility] Diastolic blood 94 mmHg 94 mmHg [facility] Systolic blood 142 mmHg 142 mmHg [facility] Respiratory rate 18 bpm 18 bpm [facility] Heart rate 53 bpm 53 bpm [facility] Body temperature 96.8 Fahrenheit 96.8 Fahrenhei t [facility] Diastolic blood 94 mmHg 94 mmHg [facility] Systolic blood 144 mmHg 144 mmHg [facility] Respiratory rate 18 bpm 18 bpm [facility] Heart rate 71 bpm 71 bpm [facility] Heart rate 76 /min 76 /min [facility] Diastolic blood 86 mm[Hg] 86 mm[Hg] [facility] Systolic blood 134 mm[Hg] 134 mm[Hg] [facility] Medical [place] Body weight 63.796086 kg 63.550028 kg [facility] Measured Medical Center Body height 157.850542 cm 157.731912 cm [facility] Body mass index 25.60 kg/m2 25.60 kg/m2 Psychiatric (BMI) [Ratio] Medical Center Body temperature 36.633425 Harmony 36.491749 [facility] Respiratory rate 18 /min 18 /min [facility] Heart rate 58 /min 58 /min [facility] Diastolic blood 90 mm[Hg] 90 mm[Hg] [facility] Center Systolic blood 180 mm[Hg] 180 mm[Hg] [facility] Medical Center Body weight 63.421764 kg 63.018654 kg [facility] Measured Medical Center Body height 157.787093 cm 157.425486 cm [facility] Body mass index 25.60 kg/m2 25.60 kg/m2 Psychiatric (BMI) [Ratio] Medical Center Diastolic blood 76 mm[Hg] 76 mm[Hg] [facility] Center Systolic blood 152 mm[Hg] 152 mm[Hg] [facility] Body temperature 36.905392 Harmony 36.557875 [facility] Respiratory rate 18 /min 18 /min [facility] Heart rate 61 /min 61 /min [facility] Diastolic blood 88 mm[Hg] 88 mm[Hg] [facility] Center Systolic blood 181 mm[Hg] 181 mm[Hg] [facility] Body temperature 36.570975 Harmony 36.245518 [facility] Respiratory rate 18 /min 18 /min [facility] Heart rate 54 /min 54 /min [facility] Diastolic blood 69 mm[Hg] 69 mm[Hg] [facility] Systolic blood 142 mm[Hg] 142 mm[Hg] [facility] Diastolic blood 97 mm[Hg] 97 mm[Hg] [facility] Systolic blood 185 mm[Hg] 185 mm[Hg] [facility] Body temperature 36.683689 Harmony 36.448315 [facility] Respiratory rate 16 /min 16 /min [facility] Heart rate 82 /min 82 /min [facility] Heart rate 68 /min 68 /min [facility] Diastolic blood 90 mm[Hg] 90 mm[Hg] [facility] Systolic blood 172 mm[Hg] 172 mm[Hg] [facility] Body weight 63.775693 kg 63.927104 kg [facility] Body temperature 36.261234 Harmony 36.996076 [facility] Respiratory rate 19 /min 19 /min [facility] Oxygen 99 % 99 % [facility] saturation in [facility] Arterial blood Center by Pulse oximetry Body height 157.786597 cm 157.330436 cm [facility] Body mass index 25.61 kg/m2 25.61 kg/m2 Psychiatric (BMI) [Ratio] Medical Center Body temperature 36.999318 Harmony 36.663802 [facility] Respiratory rate 17 /min 17 /min [facility] Heart rate 64 /min 64 /min [facility] Diastolic blood 90 mm[Hg] 90 mm[Hg] [facility] pressure Medical Center Systolic blood 192 mm[Hg] 192 mm[Hg] [facility] Center Oxygen 99 % 99 % [facility] saturation in Medical Arterial blood Center by Pulse oximetry Body temperature 36.425121 Harmony 36.413534 [facility] Respiratory rate 16 /min 16 /min [facility] Center Heart rate 64 /min 64 /min [facility] Diastolic blood 96 mm[Hg] 96 mm[Hg] [facility] pressure Medical Center Systolic blood 174 mm[Hg] 174 mm[Hg] [facility] pressure Medical Center Oxygen 99 % 99 % [facility] saturation in Medical Arterial blood Center by Pulse oximetry Body weight 63.245070 kg 63.703695 kg [facility] Measured Medical Center Oxygen 98 % 98 % [facility] saturation in Medical Arterial blood Center by Pulse oximetry Body height 157.822803 cm 157.543667 cm [facility] Body mass index 25.6 kg/m2 25.6 kg/m2 [facility] (BMI) [Ratio] Medical Center Body weight 66.520648 kg 66.030971 kg [facility] Measured Medical Center Body temperature 36.694258 Harmony 36.768581 [facility] Respiratory rate 17 /min 17 /min [facility] Oxygen 96 % 96 % [facility] saturation in Medical Arterial blood Center by Pulse oximetry Heart rate 66 /min 66 /min [facility] Body height 157.588048 cm 157.429995 cm [facility] Diastolic blood 66 mm[Hg] 66 mm[Hg] [facility] pressure Medical Center Systolic blood 142 mm[Hg] 142 mm[Hg] [facility] Medical Center Body mass index 26.7 kg/m2 26.7 kg/m2 [facility] (BMI) [Ratio] Medical Center Body weight 65.765215 kg 65.167543 kg [facility] Measured Medical Center Body temperature 36.506577 Harmony 36.395912 [facility] Respiratory rate 18 /min 18 /min [facility] Oxygen 100 % 100 % [place] saturation in Medical Arterial blood Center by Pulse oximetry Heart rate 66 /min 66 /min [facility] Body height 157.805705 cm 157.229066 cm [facility] Diastolic blood 100 mm[Hg] 100 mm[Hg] [facility] pressure Medical Center Systolic blood 153 mm[Hg] 153 mm[Hg] [facility] Medical Center Body mass index 26.5 kg/m2 26.5 kg/m2 [facility] (BMI) [Ratio] Medical Center Body temperature 36.387853 Harmony 36.845241 [facility] Respiratory rate 18 /min 18 /min [facility] Oxygen 98 % 98 % [place] saturation in Medical Arterial blood Center by Pulse oximetry Heart rate 69 /min 69 /min [facility] Diastolic blood 97 mm[Hg] 97 mm[Hg] [facility] Center Systolic blood 142 mm[Hg] 142 mm[Hg] [facility] Center Body weight 55.088337 kg 55.521507 kg [facility] Medical Center Body temperature 36.268989 Harmony 36.210256 [facility] Respiratory rate 18 /min 18 /min [facility] Oxygen 99 % 99 % [place] saturation in Medical Arterial blood Center by Pulse oximetry Heart rate 62 /min 62 /min [facility] Body height 165.973357 cm 165.689862 cm [facility] Diastolic blood 99 mm[Hg] 99 mm[Hg] [facility] pressure Medical Center Systolic blood 160 mm[Hg] 160 mm[Hg] [facility] Center Body mass index 20.1 kg/m2 20.1 kg/m2 [facility] (BMI) [Ratio] Medical Center Heart rate 64 /min 64 /min [facility] Diastolic blood 95 mm[Hg] 95 mm[Hg] [facility] pressure Medical Center Systolic blood 155 mm[Hg] 155 mm[Hg] [facility] Center Heart rate 72 /min 72 /min [facility] Diastolic blood 100 mm[Hg] 100 mm[Hg] [facility] pressure Medical Center Systolic blood 189 mm[Hg] 189 mm[Hg] [facility] Center Body temperature 36.169898 Harmony 36.431144 [facility] Respiratory rate 18 /min 18 /min [facility] Oxygen 98 % 98 % [place] saturation in Medical Arterial blood Center by Pulse oximetry Heart rate 60 /min 60 /min [facility] Diastolic blood 114 mm[Hg] 114 mm[Hg] [facility] Center Systolic blood 197 mm[Hg] 197 mm[Hg] [facility] Center Body weight 65.786322 kg 65.465257 kg [facility] Measured Medical Center Body temperature 36.246009 Harmony 36.261342 [facility] Respiratory rate 19 /min 19 /min [facility] Oxygen 96 % 96 % [facility] saturation in Medical Arterial blood Center by Pulse oximetry Heart rate 96 /min 96 /min [facility] Body height 157.390837 cm 157.412484 cm [facility] Diastolic blood 82 mm[Hg] 82 mm[Hg] [facility] Center Systolic blood 174 mm[Hg] 174 mm[Hg] [facility] Center Body mass index 26.5 kg/m2 26.5 kg/m2 [facility] (BMI) [Ratio] Medical Center Body temperature 36.578240 Harmony 36.315285 [facility] Respiratory rate 18 /min 18 /min [facility] Oxygen 100 % 100 % [place] saturation in Medical Arterial blood Center by Pulse oximetry Heart rate 78 /min 78 /min [facility] Diastolic blood 106 mm[Hg] 106 mm[Hg] [facility] Center Systolic blood 156 mm[Hg] 156 mm[Hg] [facility] Medical Center Body temperature 36.857236 Harmony 36.064028 [facility] Respiratory rate 17 /min 17 /min [facility] Oxygen 97 % 97 % [place] saturation in Medical Arterial blood Center by Pulse oximetry Heart rate 60 /min 60 /min [facility] Diastolic blood 91 mm[Hg] 91 mm[Hg] [facility] Center Systolic blood 145 mm[Hg] 145 mm[Hg] [facility] Medical Center Body weight 65.301825 kg 65.948796 kg [facility] Measured Medical Center Body temperature 36.714894 Harmony 36.774103 [facility] Respiratory rate 18 /min 18 /min [facility] Oxygen 97 % 97 % [facility] saturation in Medical Arterial blood Center by Pulse oximetry Heart rate 62 /min 62 /min [facility] Body height 157.903322 cm 157.893772 cm [facility] Diastolic blood 72 mm[Hg] 72 mm[Hg] [facility] pressure Medical Center Systolic blood 119 mm[Hg] 119 mm[Hg] [facility] Center Body mass index 26.2 kg/m2 26.2 kg/m2 [facility] (BMI) [Ratio] Medical Center Body temperature 36.145151 Harmony 36.494024 [facility] Respiratory rate 18 /min 18 /min [facility] Oxygen 98 % 98 % [facility] saturation in Medical Arterial blood Center by Pulse oximetry Heart rate 76 /min 76 /min [facility] Diastolic blood 86 mm[Hg] 86 mm[Hg] [facility] pressure Medical Center Systolic blood 154 mm[Hg] 154 mm[Hg] [facility] Center ID Date Data Source [id number] 09/20/2019 10:11:00 PM [facility] Name Value Range Interpretation Code Description Data Source(s) Body weight Measured 142 lb 142 lb [facility] Body height Measured 61 in 61 in [facility] ID Date Data Source [id number] 09/16/2019 04:15:28 PM [facility] Name Value Range Interpretation Code Description Data Source(s) Body weight Measured 142 lb 142 lb [facility] Body height Measured 61 in 61 in [facility]
--- NOTE | 2020-05-25 00:04 | PDOC ---
Attending Attestation - Resident Resident Name: Sahil Nieto - ED Attending Attestation I have performed the following: I have examined & evaluated the patient, The case was reviewed & discussed with the resident, I agree w/resident's findings & plan, Exceptions are as noted - HPI HPI: 05/25/20 00:01 This 64 yo female reports drinking 12 beers today. She does not have any specific complaints.Her BP is very elevated. 05/25/20 00:04 05/25/20 00:31 - Physicial Exam PE: 05/25/20 00:06 64 yo female appears intoxicated and someone drove her to the hospital tonight . she has a long history of alcoholism 05/25/20 00:32 petite 64 yo female with AOB and is intoxicated but able to answer questions head no scalp lacerations , no facial abrasions lungs cta b/l abdomen flat,nontender skin warm and dry extremites no deformities neuro intoxicated but moving all extremities purposefully,conversant - Medical Decision Making 05/25/20 00:35 the pt did not take any of her blood pressure medications today Will have her take her BP medications and reassess 05/25/20 01:43 Discharge - Discharge Information Problems reviewed: Yes Clinical Impression/Diagnosis: ETOH abuse Condition: Stable Disposition: HOME - Additional Discharge Information Prescriptions: Aspirin [Aspirin EC] 81 mg PO DAILY #14 tablet. Folic Acid - 1 mg PO DAILY #120 tablet Atorvastatin Ca [Lipitor] 40 mg PO HS #120 tablet Lisinopril [Prinivil] 40 mg PO DAILY #90 tablet Nifedipine [Procardia Xl] 60 mg PO DAILY #120 tab.er.24 - Follow up/Referral - Patient Discharge Instructions Patient Printed Discharge Instructions: DI for Alcohol Use Disorder Additional Instructions: You were seen with alcohol intoxication and elevated blood pressure. Your blood pressure improved with your home blood pressure medication. - Post Discharge Activity
--- NOTE | 2020-05-25 00:05 | PDOC ---
History of Present Illness - General Chief Complaint: Alcohol intoxication Stated Complaint: PAIN Time Seen by Provider: 05/24/20 23:54 - History of Present Illness Initial Comments: HPI: 05/24/20 23:59 64 yo F PMH HTN, HLD, CVA, EtOH dependence, polysubstance abuse, presenting with alcohol intoxication. Ms. Peterson states "I drank 12 beers today and just got paranoid". Has no other complaints. Asks for a warm blanket and to stay until she is no longer intoxicated. ROS: GENERAL/CONSTITUTIONAL: denies fever, chills, diaphoresis HEAD, EYES, EARS, NOSE AND THROAT: denies rhinorrhea, nasal congestion NEUROLOGIC: denies headache, dizziness CARDIOVASCULAR: denies chest pain, lightheadedness RESPIRATORY: denies cough, shortness of breath, dyspnea with exertion GASTROINTESTINAL: denies abdominal pain, abdominal distension, nausea, vomiting, diarrhea, constipation GENITOURINARY: denies dysuria, frequency, urgency MUSCULOSKELETAL: denies myalgia, arthralgia SKIN: denies rash, itching PE: Gen: pleasantly intoxicated, unkempt Neuro: AAOX4, CN II-XII intact HEENT: atraumatic, normocephalic Neck: trachea midline, supple CV: regular rate, regular rhythm, no murmurs, rubs, or gallops Pulm: CTA b/l, no wheezing Abd: soft, non-distended, non-tender MSK: full ROM, intact pulses Extr: no edema, no deformities Skin: warm, dry MDM: No complaints. Provided with warm blankets X2. Blood pressure elevated, has not taken any medications. - Will give prescribed nifedipine ER 60 mg - reassess BP - MTF 05/25/20 02:52 Reassessed, feeling well, asking to go home. Oriented, appropriate, walking normally. BP 207/201. Will give home dose of lisinopril, reassess, dc after BP improvement. 05/25/20 04:58 BP 187/86. 05/25/20 06:06 Will dc patient. Past History - Medical History Allergies/Adverse Reactions: Allergies Allergy/AdvReac Type Severity Reaction Status Date / Time No Known Allergies Allergy Verified 05/24/20 23:37 Home Medications: Ambulatory Orders Aspirin [Aspirin EC] 81 mg PO DAILY #14 tablet. 05/25/20 Atorvastatin Ca [Lipitor] 40 mg PO HS #120 tablet 05/25/20 Folic Acid - 1 mg PO DAILY #120 tablet 05/25/20 Lisinopril [Prinivil] 40 mg PO DAILY #90 tablet 05/25/20 Nifedipine [Procardia Xl] 60 mg PO DAILY #120 tab.er.24 05/25/20 Anemia: No Asthma: No Cancer: No Cardiac Disorders: Yes (CAD) CVA: Yes ([facility]) COPD: No CHF: No Diabetes: No GI Disorders: No Disorders: No HTN: Yes (non compliant with meds) Hypercholesterolemia: No Kidney Stones: No Liver Disease: No Seizures: No Thyroid Disease: No - Surgical History Abdominal Surgery: No Appendectomy: No Cardiac Surgery: Yes (open heart surgery- does not remember when) Cholecystectomy: No Lung Surgery: No Neurologic Surgery: No Orthopedic Surgery: No - Reproductive History PID: No - Immunization History Immunization Up to Date: Yes - Psycho-Social/Smoking History Smoking History: Current every day smoker Have you smoked in the past 12 months: No Number of Cigarettes Smoked Daily: 12 Cigars Per Day: 0 Information on smoking cessation initiated: Yes 'Breaking Loose' booklet given: 09/11/19 - Substance Abuse Hx (Audit-C & DAST Scrn) How often the patient has a drink containing alcohol: 4 0r more times/wk Number of drinks the patient has on a typical day: 1 or 2 How often the patient has six or more drinks on one occasion: Weekly Score: In Men: 4 or > Positive; In Women: 3 or > Positive: 7 Screen Result (Pos requires Nsg. Audit-10AR): Positive In the last yr the pt used illegal drug/Rx for NonMed reason: No Score: Yes response is considered Positive: 0 Screen Result (Positive result requires Nsg. DAST-10): Negative *Physical Exam - Vital Signs Last Vital Signs Temp Pulse Resp BP Pulse Ox 97.6 F 61 18 255/104 H 98 05/24/20 23:29 05/24/20 23:29 05/24/20 23:29 05/24/20 23:29 05/24/20 23:29 Discharge - Discharge Information Problems reviewed: Yes Clinical Impression/Diagnosis: ETOH abuse Condition: Stable Disposition: HOME - Admission No - Additional Discharge Information Prescriptions: Aspirin [Aspirin EC] 81 mg PO DAILY #14 tablet.dr Folic Acid - 1 mg PO DAILY #120 tablet Atorvastatin Ca [Lipitor] 40 mg PO HS #120 tablet Lisinopril [Prinivil] 40 mg PO DAILY #90 tablet Nifedipine [Procardia Xl] 60 mg PO DAILY #120 tab.er.24 - Follow up/Referral - Patient Discharge Instructions Patient Printed Discharge Instructions: DI for Alcohol Use Disorder Additional Instructions: You were seen with alcohol intoxication and elevated blood pressure. Your blood pressure improved with your home blood pressure medication. - Post Discharge Activity
[2020-05-25] MEDS ORDERED: NIFEdipine E.R 60 MG TABLET PO ONE (00:06)
[2020-05-25] MEDS ORDERED: NIFEdipine E.R. 30 MG TABLET ONE ×2 (00:12→00:13)
[2020-05-25] MEDS ORDERED: LISINOPRIL 20 MG TABLET PO ONE (02:51)
[2020-05-25] MEDS ORDERED: LISINOPRIL 20 MG TABLET ONE (02:54)
[2020-05-25 06:31] VITALS: BP 146/79; PULSE 60; TEMP 97.5
== END 2020-05-25 06:32 | disposition home or self-care (01) ==
LOC: JER 23:28
DX: F10.10 Alcohol abuse, uncomplicated (principal)
CPT/HCPCS: 99283-25